=== PATIENT | male | born 1935 | race Caucasian/White ===

== ENCOUNTER 2019-06-10 06:59 | Outpatient (RCR) | payer MEDICARE, SELFPAY ==
[2019-03-12 08:12] LABS: INR 1.6; Prothrombin Time 18.3 Seconds (11.1-14.7)
[2019-03-19 07:45] LABS: INR 1.7; Prothrombin Time 19.7 Seconds (11.1-14.7)
[2019-04-23 12:36] LABS: INR 1.7; Prothrombin Time 19.5 Seconds (11.1-14.7)
[2019-05-07 13:23] LABS: INR 1.6; Prothrombin Time 18.9 Seconds (11.1-14.7)
[2019-05-18 13:13] LABS: INR 1.6; Prothrombin Time 18.4 Seconds (11.1-14.7)
[2019-06-02 08:25] LABS: INR 2.3; Prothrombin Time 24.8 Seconds (11.1-14.7)
[2019-06-10 07:43] LABS: INR 2.1
== END 2019-06-10 23:59 | disposition home or self-care (01) ==
LOC: ANHLAB 06:59
PROVIDERS: PCP Internal Medicine; Visit Provider Internal Medicine
DX: Z51.81 Encounter for therapeutic drug level monitoring (principal); Z79.01 Long term (current) use of anticoagulants
CPT/HCPCS: 36415; 85610

== ENCOUNTER 2019-09-21 06:46 | Outpatient (RCR) | payer MEDICARE, SELFPAY ==
[2019-06-24 08:00] LABS: INR 2.5; Prothrombin Time 26.3 Seconds (11.1-14.7)
[2019-07-09 07:37] LABS: INR 2.3; Prothrombin Time 24.7 Seconds (11.1-14.7)
[2019-08-06 07:29] LABS: INR 3.1; Prothrombin Time 31.4 Seconds (11.1-14.7)
[2019-08-13 07:27] LABS: INR 1.9
[2019-08-20 07:28] LABS: INR 1.9; Prothrombin Time 21.7 Seconds (11.1-14.7)
[2019-08-28 07:39] LABS: INR 1.8; Prothrombin Time 20.2 Seconds (11.1-14.7)
[2019-09-04 07:45] LABS: INR 1.6; Prothrombin Time 18.4 Seconds (11.1-14.7)
[2019-09-14 07:43] LABS: INR 1.4; Prothrombin Time 16.9 Seconds (11.1-14.7)
[2019-09-21 07:37] LABS: INR 1.4; Prothrombin Time 16.4 Seconds (11.1-14.7)
== END 2019-09-22 23:59 | disposition home or self-care (01) ==
LOC: ANHLAB 06:46
PROVIDERS: PCP Internal Medicine; Visit Provider Internal Medicine
DX: Z51.81 Encounter for therapeutic drug level monitoring (principal); Z79.01 Long term (current) use of anticoagulants
CPT/HCPCS: 36415; 85610

== ENCOUNTER 2019-10-27 06:52 | Outpatient (CLI) | payer MEDICARE, SELFPAY ==
[2019-10-27 07:45] LABS: Alanine Aminotransferase 12 U/L (4-50); Albumin Level 3.9 g/dL (3.5-5.1); Alkaline Phosphatase 65 U/L (38-126); Aspartate Amino Transferase 16 U/L (17-59); Bilirubin,Total 0.5 mg/dL (0.2-1.3); Blood Urea Nitrogen 28 mg/dL (9-20); Calcium 8.4 mg/dL (8.4-10.2); Carbon Dioxide 28 mmol/L (22-30); Chloride 104 mmol/L (98-107); Cholesterol 102 mg/dL (0-200); Estimated Glomerular Filt Rate > 60; Glucose 107 mg/dL (75-110); HDL Direct 34 mg/dL; Potassium 3.5 mmol/L (3.4-5.0); Sodium 140 mmol/L (137-145); Triglycerides 58 mg/dL (<150)
[2019-10-27 07:56] LABS: LDL Cholesterol Direct 55 mg/dL
[2019-10-27 08:36] LABS: Hemoglobin A1C 5.7 % (<5.7)
== END 2019-10-27 06:53 | disposition home or self-care (01) ==
PROVIDERS: PCP Internal Medicine; Visit Provider Internal Medicine
DX: E11.9 Type 2 diabetes mellitus without complications (principal); E78.5 Hyperlipidemia, unspecified; I10 Essential (primary) hypertension
CPT/HCPCS: 36415; 80053; 80061; 83036

== ENCOUNTER 2019-12-25 06:33 | Outpatient (RCR) | payer MEDICARE, SELFPAY ==
[2019-09-29 07:33] LABS: INR 1.3; Prothrombin Time 15.4 Seconds (11.1-14.7)
[2019-10-05 08:22] LABS: INR 1.4; Prothrombin Time 17.1 Seconds (11.1-14.7)
[2019-10-12 07:32] LABS: INR 2.1; Prothrombin Time 23.5 Seconds (11.1-14.7)
[2019-10-27 07:39] LABS: INR 1.7; Prothrombin Time 19.4 Seconds (11.1-14.7)
[2019-11-03 07:24] LABS: INR 1.7; Prothrombin Time 19.6 Seconds (11.1-14.7)
[2019-11-13 07:29] LABS: INR 1.3; Prothrombin Time 16.1 Seconds (11.1-14.7)
[2019-11-20 07:46] LABS: INR 1.6; Prothrombin Time 18.6 Seconds (11.1-14.7)
[2019-11-26 07:54] LABS: INR 1.5
[2019-12-04 07:11] LABS: INR 2.1; Prothrombin Time 23.5 Seconds (11.1-14.7)
[2019-12-11 07:49] LABS: Prothrombin Time 21.9 Seconds (11.1-14.7)
[2019-12-25 07:20] LABS: INR 2.8; Prothrombin Time 29.3 Seconds (11.1-14.7)
== END 2019-12-28 23:59 | disposition home or self-care (01) ==
LOC: ANHLAB 06:33
PROVIDERS: PCP Internal Medicine; Visit Provider Internal Medicine
DX: Z51.81 Encounter for therapeutic drug level monitoring (principal); Z79.01 Long term (current) use of anticoagulants
CPT/HCPCS: 36415; 85610

== ENCOUNTER 2020-01-05 14:36 | Outpatient (CLI) | payer MEDICARE, SELFPAY ==
--- NOTE | ~2020-01-05 | XR_ITS ---
XR lumbar spine 2-3V DATE: 01/05/2020 15:00 INDICATION: Chronic back pain; no injury. TECHNIQUE: AP, lateral and coned lateral lumbosacral weightbearing views COMPARISON: None FINDINGS: There is diffuse osteopenia. There is mild thoracolumbar levoscoliosis. There is moderate degenerative disc disease involving the lumbar interspaces, greatest at L2-3, relat ively sparing L5-S1. No fracture or bone destruction is evident. The included lower thoracic and lumbar pedicles are intac t. The sacroiliac joints are intact. There is extensive calcification of the abdominal aorta as well as iliac arteries, without apparent a neurysm. IMPRESSION: Moderate multilevel degenerative disc disease of the lumbar spine, greatest at L2-3 Reviewed, dictated and finalized at location A.
== END 2020-01-05 14:37 | disposition home or self-care (01) ==
PROVIDERS: PCP Internal Medicine; Visit Provider Internal Medicine
DX: M54.9 Dorsalgia, unspecified (principal); M51.36 Other intervertebral disc degeneration, lumbar region
CPT/HCPCS: 72100

== ENCOUNTER 2020-01-10 10:09 | Outpatient (CLI) | payer MEDICARE, SELFPAY ==
--- NOTE | ~2020-01-10 | MR_ITS ---
EXAMINATION: MR lumbar spine wo con EXAM DATE: 01/10/2020 11:27 INDICATION: Low back pain, bilateral leg pain for 2 months. TECHNIQUE: Multi-sequential, multiplanar MR images of the lumbar spine were obtained without contrast . Sagittal T1, T2, T2 fat saturation images. Axial T2 weighted images. There is no prior study for comparison. FINDINGS: There is moderate disc disease L2-3 and L4-5, otherwise mild lumbar disc disease. The conus medullaris terminates at the L1/2 level and has normal signal intensity and morphology. There are n o focal marrow signal abnormalities suspicious for malignancy or acute fracture. The vertebral bodies are aligned in the AP dimension. Paraspinal soft tissue is unremarkable. Cytogenetic Technician image demonstrates s izable left renal fluid signal intensity lesions up to 8 cm, imaged portions consistent with cysts. Level by level evaluation: T12-L1: Disc does not extend beyond the endplate margin. Facet arthropathy: Mild. Neural foraminal stenosis: No stenosis. Central canal stenosis: No stenosis. L1-L2: There is a mild diffuse disc bulge. Facet arthropathy: Mild. Neural foraminal stenosis: No stenosis. Central canal stenosis: No stenosis. L2-L3: There is a mild to moderate diffuse disc bulge. Facet arthropathy: Mild to moderate. Neural foraminal stenosis: Mild to moderate bilateral. Central canal stenosis: Mild to moderate. L3-L4: There is a mild diffuse disc bulge. Facet arthropathy: Mild to moderate. Neural foraminal stenosis: Mild to moderate bilateral. Central canal stenosis: Mild. L4-L5: There is a mild diffuse disc bulge. Facet arthropathy: Mild to moderate right, mild left. Neural foraminal stenosis: Moderate right, mild to moderate left. Central canal stenosis: Mild. L5-S1: There is a mild diffuse disc bulge. Facet arthropathy: Mild to moderate bilateral. Neural foraminal stenosis: Mild to moderate left, mild right. Central canal stenosis: Mild. IMPRESSION: 1. Overall moderate lumbar spondylosis. Reviewed, dictated and finalized at location G.
== END 2020-01-10 10:10 | disposition home or self-care (01) ==
PROVIDERS: PCP Internal Medicine; Visit Provider Internal Medicine
DX: M47.816 Spondylosis without myelopathy or radiculopathy, lumbar region (principal); M54.5 Low back pain
CPT/HCPCS: 72148

== ENCOUNTER 2020-01-13 11:14 | Outpatient (CLI) | payer MEDICARE, SELFPAY ==
[2020-01-13 12:37] LABS: Uric Acid 5.7 mg/dL (3.5-8.5)
== END 2020-01-13 11:15 | disposition home or self-care (01) ==
LOC: ANHLAB 11:18
PROVIDERS: PCP Internal Medicine; Visit Provider Nurse Practitioner
DX: M10.9 Gout, unspecified (principal)
CPT/HCPCS: 36415; 84550

== ENCOUNTER 2020-01-14 10:31 | Emergency (ER) | payer MEDICARE, SELFPAY ==
--- NOTE | ~2020-01-14 | XR_ITS ---
XR hand RT min 3V DATE: 01/14/2020 11:37 INDICATION: Pain from fall. Gout. TECHNIQUE: 3 views of right hand COMPARISON: None FINDINGS: Severe osteoarthritic change at the first carpometacarpal joint. There is mild chondrocalci nosis at the triangular cartilage. No fracture, dislocation, periosteal reaction or bone destruction is detected. IMPRESSION: Severe osteoarthritic change at the first carpometacarpal joint No fracture or dislocation Reviewed, dictated and finalized at location A.
[2020-01-14 10:39] VITALS: BP 141/78; PULSE 68; RESP 18; TEMP 36.6; O2SAT 100
[2020-01-14 11:00] VITALS: BP 133/70; PULSE 84; RESP 16; O2SAT 100
--- NOTE | 2020-01-14 11:12 | ED.EXTPRO ---
HPI - Extremity Problem General Chief complaint: Extremity Problem,Nontraumatic Stated complaint: Gout Time Seen by Provider: 01/14/20 10:42 Source: patient and family Mode of arrival: ambulatory Limitations: no limitations History of Present Illness HPI Narrative: Patient with history of gout, COPD, hypertension, chronic pain presents with chief complaint of gout in his right fourth and fifth joints that has become increasingly painful in the last 24 hours. Patient states her symptoms originally began 3 days ago. Patient was seen by his primary care Dr. Jose and was started on Mitigare and was given hydrocodone yesterday but he states the medication has not helped. Patient states that he is on a daily allopurinol for gout and his last flareup was 1 year ago. Patient reports he had blood work as well as an MRI performed as he has chronic back and knee pain as well. Patient states that he is unsure of the results of his blood work. Patient did not speak to his primary care provider prior to coming to the emergency department. He states that he took the [place] and Mitigare this morning without any relief in his symptoms. Patient denies any falls or injuries to the area of pain. Patient's hand is red and swollen. Patient states that his knees also hurt but has chronic pain in them and is not the cause of his visit today. Related Data Home Medications Medication Instructions Recorded Confirmed tiotropium bromide 18 mcg capsule 1 cap INHALATION DAILY 08/17/19 01/13/20 with inhalation device Allergies Allergy/AdvReac Type Severity Reaction Status Date / Time No Known Allergies Allergy Verified 01/14/20 11:27 Review of Systems Review of Systems: Narrative: CONSTITUTIONAL: Denies fever, chills, or sweats. EYES: Denies visual changes, redness, or discharge. ENT: Denies rhinorrhea, congestion, sore throat, or otalgia. CARDIOVASCULAR: Denies chest pain, palpitations, or edema. RESPIRATORY: Denies cough or dyspnea. GASTROINTESTINAL: Denies abdominal pain, nausea, vomiting, or diarrhea. GENITOURINARY: Denies dysuria or hematuria. SKIN: Denies rash or itching. MUSCULOSKELETAL: Reports joint pain NEUROLOGIC: Denies headache, numbness, dizziness, or weakness. PSYCHIATRIC: Denies anxiety or depression. [facility] Social History Social History Smoking status: Former smoker Smoking end date: 05/06/76 Alcohol intake: never Gender identity (if verbalized by the patient): Male Exam Narrative: Exam Narrative: GENERAL: Well-appearing, well-nourished, and in no acute distress. HEAD: Normocephalic, atraumatic. EYES: PERRLA and EOMI. ENT: Nares clear, no rhinorrhea or epistaxis. Mucous membranes moist. Oropharynx without tonsillar hypertrophy exudate or other lesions. Bilateral TMs pearly daniel nonbulging NECK: Supple. No adenopathy or masses. No carotid bruits or JVD CHEST: Clear to auscultation. No respiratory distress. Diffuse faint wheezing- patient states baseline. HEART: Regular rate and rhythm. No murmur heard. Normal peripheral pulses. ABDOMEN: Soft, nontender, nondistended, normal active bowel sounds. EXTREMITIES: Edema, swelling and erythema noted in the base of the fourth and fifth digits of patient's right hand. Patient declines range of motion exam to right digits due to pain. There is no erythema, tenderness to palpation or excessive warmth noted to patient's knees. SKIN: Warm, dry, no rash. NEURO: No focal deficits. Alert and oriented x3. PSYCH: Normal mood and affect. Course Course Emergency Course: Patient is resting in room comfortably with his son and friend in discussion. Patient gives permission to me to discuss his lab results with his friend and son in the room. Informed him that so far his labs are without significant findings to his uric acid levels are normal. Instructed him that I am awaiting the rest of his labs as well as his x-ray report. Johanna
[2020-01-14 11:30] LABS: Alanine Aminotransferase 13 U/L (4-50); Albumin Level 3.9 g/dL (3.5-5.1); Alkaline Phosphatase 72 U/L (38-126); Anion Gap 7 mmol/L (8-16); Aspartate Amino Transferase 23 U/L (17-59); Bilirubin,Total 0.9 mg/dL (0.2-1.3); Blood Urea Nitrogen 22 mg/dL (9-20); Calcium 8.5 mg/dL (8.4-10.2); Carbon Dioxide 29 mmol/L (22-30); Chloride 101 mmol/L (98-107); Estimated CRCL calculation 70 ml/min; Estimated Glomerular Filt Rate > 60; Glucose 99 mg/dL (75-110); Potassium 3.9 mmol/L (3.4-5.0); Sodium 137 mmol/L (137-145); Uric Acid 5.8 mg/dL (3.5-8.5)
[2020-01-14 11:31] LABS: Add Urine Microscopic? NO; Appearance Urine Clear (Clear); Bilirubin Urine Negative (Negative); Blood Urine Negative (Negative); Color Urine Yellow (Yellow); Glucose Urine UA Negative (Negative); Ketones Urine Negative (Negative); Leukocyte Esterase Ur Negative LEU/UL (Negative); Nitrate Urine Negative (Negative); Protein Urine Negative (Negative); Specific Grav Ur 1.013 (1.001-1.035); Urobilinogen Urine Negative mg/dL (<2.0)
[2020-01-14 12:00] VITALS: BP 140/74; PULSE 70; RESP 16; O2SAT 96
[2020-01-14 12:00] LABS: Erythrocyte Sedimentation Rate 11 mm/hr (0-20)
[2020-01-14 12:26] LABS: Basophils Absolute Auto 0.1 K/mm3 (0.0-0.1); Basophils Percent Auto 0.4 % (0.2-1.2); Eosinophils Absolute Auto 0.2 K/mm3 (0-0.3); Hematocrit 43.4 % (42.0-52.0); Hemoglobin 12.2 g/dL (14.0-18.0); Immature Granulocyte Absolute 0.08 K/mm3 (0.00-0.031); Immature Granulocyte Percent A 0.7 % (0-0.5); Immature Platelet Fraction Pct 5.9 % (0.9-11.2); Lymphocytes Percent Auto 6.1 % (18.3-44.2); Mean Corpuscular HGB Conc 28.1 g/dl (32-36); Mean Corpuscular Volume 74.6 fl (80-100); Monocytes Absolute Auto 0.8 K/mm3 (0.1-0.6); Monocytes Percent Auto 6.7 % (2.6-8.5); Neutrophils Absolute Auto 9.6 K/mm3 (1.3-6.7); Neutrophils Percent Auto 84.1 % (45.5-73.1); Platelet Count Result 238 k/mm3 (150-375); Red Blood Count 5.82 M/mm3 (4.6-6.20); Red Cell Distribution Width 19.1 % (11.5-14.5); White Blood Count 11.5 K/mm3 (4.5-10.0)
[2020-01-14 13:10] VITALS: BP 126/87; PULSE 70; RESP 16; O2SAT 97
[2020-01-14 13:25] LABS: Ovalocytes 1+ (NORMAL); Platelet Estimate Adequate (Adequate); Poikilocytosis 1+ (NORMAL)
== END 2020-01-14 13:10 | disposition home or self-care (01) ==
PROVIDERS: Physician Assistant; Emergency Provider Emergency Medicine; PCP Internal Medicine
DX: M10.9 Gout, unspecified (principal); G89.29 Other chronic pain; J44.9 Chronic obstructive pulmonary disease, unspecified; I10 Essential (primary) hypertension; Z87.891 Personal history of nicotine dependence
CPT/HCPCS: 36415; 73130; 80053; 81003; 84550; 85025; 85055; 85652; 96374; 99284; J3010

== ENCOUNTER 2020-02-26 09:47 | Emergency (ER) | payer MEDICARE, SELFPAY ==
[2020-02-26 10:01] VITALS: BP 130/77; PULSE 68; RESP 18; TEMP 36.8; O2SAT 99
--- NOTE | 2020-02-26 10:03 | ED.GENADULT ---
HPI - General Adult General Chief complaint: Wound/Laceration Stated complaint: Laceration on head Time Seen by Provider: 02/26/20 10:08 Source: patient and RN notes reviewed Mode of arrival: ambulatory Limitations: no limitations History of Present Illness HPI narrative: 85-year-old male present with complains of laceration to RT ear, caused by hitting RT ear on bed rail 9.5 hours ago. Charles says he fell out of bed this morning at approximately 01:00, says he pulled himself up cleaned up and sat in kitchen for about 30 minutes and returned to bed. Denies hitting head, no loss of consciousness, blurred vision, double vision, dizziness, syncopal episode, or seizure activity. Denies vertigo or immobility. Denies nausea or vomiting. Denies pain, numbness or tingling, or weakness of upper or lower extremities. No foreign body sensation. Tetanus vaccine not up to date, refused it today. The patient reports he have not been diagnosed with COVID-19. The patient reports he is not waiting for the results of a COVID-19 lab test. The patient reports he do not have a new or worsening cough or shortness of breath. Denies chest pain. The patient reports he do not have any rhinorrhea, congestion, loss of taste, sore throat, abdominal pain, and diarrhea. Tolerating po intake well. Denies recent traveling. Denies concerns for COVID-19 or exposures been home with limited outdoor exposure except for essential household needs and return home. At this time, patient is not suspected of having COVID-19. Some parts of this dictation were generated by voice recognition software and may contain typographical and/or grammatical inaccuracies Related Data Home Medications Medication Instructions Recorded Confirmed tiotropium bromide 18 mcg capsule 1 cap INHALATION DAILY 08/17/19 02/23/20 with inhalation device amoxicillin 02/26/20 warfarin 02/26/20 02/26/20 warfarin 7.5 mg PO 2XW 02/26/20 02/26/20 Allergies Allergy/AdvReac Type Severity Reaction Status Date / Time No Known Allergies Allergy Verified 02/23/20 09:46 Review of Systems Review of Systems: Narrative: CONSTITUTIONAL: Denies fever, chills, sweats. EYES: Denies visual changes, redness, discharge. ENT: Denies rhinorrhea, congestion, sore throat, otalgia. CARDIOVASCULAR: Denies chest pain, palpitations, edema. RESPIRATORY: Denies dyspnea, wheezing, cough. GASTROINTESTINAL: Denies abdominal pain, nausea, vomiting, diarrhea. GENITOURINARY: Denies dysuria, hematuria, abnormal discharge. SKIN: Complains of laceration to RT ear. MUSCULOSKELETAL: Denies acute back pain, joint pain, or myalgia. NEUROLOGIC: Denies numbness, or focal weakness. PSYCHIATRIC: Denies anxiety or depression. All other systems reviewed & are unremarkable except as noted in HPI and below. [facility] Past Medical History Medical History (Updated 02/27/20 @ 00:00 by [facility]) Chronic obstructive pulmonary disease, unspecified Idiopathic chronic gout, unspecified site, without tophus (tophi) nursing home (current) use of anticoagulants MIMA on CPAP Paroxysmal atrial fibrillation Polycythemia Type 2 diabetes mellitus without complications Family History Family History Father Family history of malignant neoplasm Patient's father is Acute myocardial infarction Mother Family history of malignant neoplasm Patient's mother is Social History Social History (Updated 02/27/20 @ 04:12 by LORE [place]) Smoking status: Former smoker Smoking end date: 05/06/76 Alcohol intake: never Substance use: never Living arrangements: alone Occupation/Education: retired 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
[2020-02-26 10:19] VITALS: BP 130/77; PULSE 68; RESP 18; TEMP 36.8; O2SAT 99
--- NOTE | 2020-02-26 10:24 | PC.NURSE ---
steersman aware no boostrix available in pyxis and pharmacy called. message left with pharmacy.
--- NOTE | 2020-02-26 10:26 | PC.NURSE ---
blocker polishing at bedside to do sutures.
--- NOTE | 2020-02-26 10:45 | PC.NURSE ---
son aware of awaiting pharmacy to stock tdap and requested to speak with father before making decision on giving tdap.
--- NOTE | 2020-02-26 10:47 | PC.NURSE ---
son aware of sutures in progress and will be able to speak to father after procedure.
--- NOTE | 2020-02-26 11:32 | PC.NURSE ---
at 1109 son was broght into rm 1 to discuss need for tdap.
== END 2020-02-26 11:20 | disposition home or self-care (01) ==
PROVIDERS: Emergency Provider Nurse Practitioner Family; PCP Internal Medicine
DX: S01.311A Laceration without foreign body of right ear, initial encounter (principal); W06.XXXA Fall from bed, initial encounter; J44.9 Chronic obstructive pulmonary disease, unspecified; Z79.01 Long term (current) use of anticoagulants; G47.33 Obstructive sleep apnea (adult) (pediatric); I48.91 Unspecified atrial fibrillation; E11.9 Type 2 diabetes mellitus without complications; Z87.891 Personal history of nicotine dependence; M1A.00X1 Idiopathic chronic gout, unspecified site, with tophus (tophi)
CPT/HCPCS: 12013; 99212; G0463

== ENCOUNTER 2020-03-07 06:30 | Outpatient (CLI) | payer MEDICARE, SELFPAY ==
--- NOTE | ~2020-03-07 | MR_ITS ---
EXAMINATION: MR thoracic spine wo con EXAM DATE: 03/07/2020 07:53 INDICATION: Thoracic pain. TECHNIQUE: Multi-sequential, multiplanar MR images of the thoracic spine were obtained without contra st. Sagittal T1, T2, T2 fat saturation, axial T2 weighted images reviewed. There is no prior study for comparison. FINDINGS: There is mild diffuse thoracic facet arthropathy. The vertebral bodies are aligned in the A P dimension. Multiple small Schmorl's nodes. Thoracic vertebral body heights are maintained. Minimal loss of some thoracic disc heights. Disc heights do not extend beyond endplate margins. The spinal cord signal intensity and intrinsic morphology is normal. Mild to moderate left, mild right neural fo raminal stenosis at T1-2. Thoracic central canal and neural foramen otherwise widely patent. Paraspin al soft tissue is unremarkable. IMPRESSION: Mild thoracic spondylosis. Reviewed, dictated and finalized at location B. RICT ADVISER IMPRESSION: Mild thoracic spondylosis.
== END 2020-03-07 06:31 | disposition home or self-care (01) ==
LOC: ANHIMG 06:33
PROVIDERS: PCP Internal Medicine; Visit Provider Nurse Practitioner Family
DX: M54.6 Pain in thoracic spine (principal)
CPT/HCPCS: 72146; 99211; G0463

== ENCOUNTER 2020-03-07 08:36 | Emergency (ER) | payer MEDICARE, SELFPAY ==
[2020-03-07 08:46] VITALS: BP 124/73; PULSE 75; RESP 20; TEMP 36.2; O2SAT 100
--- NOTE | 2020-03-07 08:55 | ED.SKABFB ---
HPI - Skin/Abscess/Foreign Bdy General Stated complaint: Suture Removal Source: patient Mode of arrival: ambulatory Limitations: no limitations History of Present Illness HPI narrative: Patient is an 85-year-old male who presents for suture removal. Patient had sutures placed behind right ear on 02/25. Wound well-healed. [address] MD complaint: other (Suture removal) Related Data Home Medications Medication Instructions Recorded Confirmed tiotropium bromide 18 mcg capsule 1 cap INHALATION DAILY 08/17/19 02/23/20 with inhalation device warfarin 02/26/20 02/26/20 warfarin 7.5 mg PO 2XW 02/26/20 02/26/20 Allergies Allergy/AdvReac Type Severity Reaction Status Date / Time No Known Allergies Allergy Verified 03/07/20 08:57 Review of Systems Review of Systems: Narrative: CONSTITUTIONAL: Denies fever, chills, or sweats. EYES: Denies visual changes, redness, or discharge. ENT: Denies rhinorrhea, congestion, sore throat, or otalgia. CARDIOVASCULAR: Denies chest pain, palpitations, or edema. RESPIRATORY: Denies cough or dyspnea. GASTROINTESTINAL: Denies abdominal pain, nausea, vomiting, or diarrhea. GENITOURINARY: Denies dysuria or hematuria. SKIN: Sutures behind right ear MUSCULOSKELETAL: Denies back pain, joint pain, or myalgia. NEUROLOGIC: Denies headache, numbness, dizziness, or weakness. PSYCHIATRIC: Denies anxiety or depression. [facility] Past Medical History Medical History (Updated 03/07/20 @ 09:01 by LORE [place]) Chronic obstructive pulmonary disease, unspecified Idiopathic chronic gout, unspecified site, without tophus (tophi) [facility] (current) use of anticoagulants MIMA on CPAP Paroxysmal atrial fibrillation Polycythemia Type 2 diabetes mellitus without complications Family History Family History Father Family history of malignant neoplasm Patient's father is Acute myocardial infarction Mother Family history of malignant neoplasm Patient's mother is Social History Social History Smoking status: Former smoker Smoking end date: 05/06/76 Alcohol intake: never Substance use: never 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 HEAD: Normocephalic, atraumatic. EYES: No redness or drainage. Conjunctiva are normal. CHEST: No respiratory distress. HEART: Regular rate and rhythm. EXTREMITIES: Normal range of motion. SKIN: 10 sutures behind right ear. Well healed suture line. NEURO: No focal deficits. Alert and oriented x3. Gait steady. PSYCH: Normal affect. No signs of depression or anxiety. Course Vital Signs Vital signs: Vital Signs Temperature 36.2 C L 03/07/20 08:46 Pulse Rate 75 03/07/20 08:46 Respiratory Rate 20 03/07/20 08:46 Blood Pressure 124/73 03/07/20 08:46 Pulse Oximetry 100 03/07/20 08:46 Temperature 36.2 C L 03/07/20 08:46 Pulse Rate 75 03/07/20 08:46 Respiratory Rate 20 03/07/20 08:46 Blood Pressure 124/73 03/07/20 08:46 Pulse Oximetry 100 03/07/20 08:46 Procedures Other Procedure Procedure 1: Other Procedure: 10 sutures behind right ear removed at this time. MDM - Skin/Abscess/Foreign Bdy MDM Narrative Medical decision making narrative: Patient here for simple suture removal. Patient has no other complaints at this time. Wound well-healed. 10 sutures removed. Patient is stable for discharge to home with outpatient follow-up as needed. Critical Care Time Critical Care Time Critical Care Time: No Discharge Plan Discharge Clinical Impression: Visit for suture removal Patient Disposition: Home, Self-Care Condition: Stable Prescriptions: No Action warfarin 7.5
== END 2020-03-07 09:08 | disposition home or self-care (01) ==
PROVIDERS: Emergency Provider Nurse Practitioner; PCP Internal Medicine
DX: S01.311D Laceration without foreign body of right ear, subsequent encounter (principal); X58.XXXD Exposure to other specified factors, subsequent encounter; J44.9 Chronic obstructive pulmonary disease, unspecified; G47.33 Obstructive sleep apnea (adult) (pediatric); E11.9 Type 2 diabetes mellitus without complications; I48.0 Paroxysmal atrial fibrillation; Z79.01 Long term (current) use of anticoagulants; M1A.00X0 Idiopathic chronic gout, unspecified site, without tophus (tophi)
CPT/HCPCS: 99211; G0463

== ENCOUNTER 2020-04-01 06:47 | Outpatient (RCR) | payer MEDICARE, SELFPAY ==
[2020-01-04 07:48] LABS: INR 2.5; Prothrombin Time 26.3 Seconds (11.1-14.7)
[2020-01-25 07:37] LABS: Prothrombin Time 48.2 Seconds (11.1-14.7)
[2020-01-25 07:46] LABS: INR 5.3
[2020-02-01 07:32] LABS: INR 2.7; Prothrombin Time 27.9 Seconds (11.1-14.7)
[2020-02-11 07:59] LABS: INR 2.2; Prothrombin Time 23.8 Seconds (11.1-14.7)
[2020-03-03 07:42] LABS: INR 1.6; Prothrombin Time 18.3 Seconds (11.1-14.7)
[2020-03-11 08:07] LABS: Prothrombin Time 23.1 Seconds (11.1-14.7)
[2020-04-01 07:33] LABS: INR 1.8; Prothrombin Time 21.7 Seconds (11.1-14.7)
== END 2020-04-03 23:59 | disposition home or self-care (01) ==
LOC: ANHLAB 06:47
PROVIDERS: PCP Internal Medicine; Visit Provider Internal Medicine
DX: Z51.81 Encounter for therapeutic drug level monitoring (principal); Z79.01 Long term (current) use of anticoagulants
CPT/HCPCS: 36415; 85610

== ENCOUNTER 2020-04-27 10:31 | Emergency (ER) | payer MEDICARE, SELFPAY ==
[2020-04-27 10:40] VITALS: BP 159/74; PULSE 95; RESP 16; TEMP 36.4; O2SAT 97
[2020-04-27 11:27] LABS: Basophils Percent Auto 0.4 % (0.2-1.2); Eosinophils Absolute Auto 0.2 K/mm3 (0-0.3); Hematocrit 43.9 % (42.0-52.0); Hemoglobin 12.3 g/dL (14.0-18.0); Immature Granulocyte Absolute 0.04 K/mm3 (0.00-0.031); Immature Granulocyte Percent A 0.5 % (0-0.5); Immature Platelet Fraction Pct 3.1 % (0.9-11.2); Lymphocytes Percent Auto 8.8 % (18.3-44.2); Monocytes Absolute Auto 0.5 K/mm3 (0.1-0.6); Monocytes Percent Auto 6.2 % (2.6-8.5); Neutrophils Absolute Auto 6.4 K/mm3 (1.3-6.7); Neutrophils Percent Auto 81.1 % (45.5-73.1); Platelet Count Result 215 k/mm3 (150-375); Red Blood Count 5.85 M/mm3 (4.6-6.20); Red Cell Distribution Width 19.1 % (11.5-14.5); White Blood Count 7.9 K/mm3 (4.5-10.0)
[2020-04-27 11:35] LABS: Hypochromasia 3+ (NORMAL); INR 2.7; Ovalocytes 2+ (NORMAL); Platelet Estimate Adequate (Adequate); Prothrombin Time 28.8 Seconds (11.1-14.7); Tear Drop Cells 2+ (NORMAL)
[2020-04-27 11:36] LABS: Partial Thromboplastin Time 33.7 SECONDS (22.3-36.8)
--- NOTE | 2020-04-27 13:37 | ED.LOWEXIN ---
HPI - Extremity Injury (Lower) General Chief Complaint: Extremity Injury, Lower Stated Complaint: Left leg swelling Source: patient Mode of arrival: ambulatory Limitations: no limitations History of Present Illness HPI Narrative: 85 years old white male presents with swelling at the anterior lateral left lower leg started few days ago. Patient was getting out of truck 1 week ago, slid on the running board caused some bruises at the anterior lateral side of the left lower leg. 3 days later start the swelling. Patient on Coumadin. Patient denies any fever, chills, nausea, vomiting or trouble walking Related Data Home Medications Medication Instructions Recorded Confirmed tiotropium bromide 18 mcg capsule 1 cap INHALATION DAILY 08/17/19 03/07/20 with inhalation device warfarin 5 mg PO 5XW 02/26/20 03/07/20 warfarin 7.5 mg PO 2XW 02/26/20 03/07/20 Allergies Allergy/AdvReac Type Severity Reaction Status Date / Time No Known Allergies Allergy Verified 04/27/20 10:56 Review of Systems Review of Systems: Narrative: CONSTITUTIONAL: Denies fever, chills, or sweats. EYES: Denies visual changes, redness, or discharge. ENT: Denies rhinorrhea, congestion, sore throat, or otalgia. CARDIOVASCULAR: Denies chest pain, palpitations, or edema. RESPIRATORY: Denies cough or dyspnea. GASTROINTESTINAL: Denies abdominal pain, nausea, vomiting, or diarrhea. GENITOURINARY: Denies dysuria or hematuria. SKIN: Denies rash or itching. MUSCULOSKELETAL: Denies back pain, joint pain, or myalgia. NEUROLOGIC: Denies headache, numbness, or weakness. PSYCHIATRIC: Denies anxiety or depression. [facility] Past Medical History Medical History Chronic obstructive pulmonary disease, unspecified Idiopathic chronic gout, unspecified site, without tophus (tophi) custodial (current) use of anticoagulants MIMA on CPAP Paroxysmal atrial fibrillation Polycythemia Type 2 diabetes mellitus without complications Family History Family History Father Family history of malignant neoplasm Patient's father is Acute myocardial infarction Mother Family history of malignant neoplasm Patient's mother is Social History Social History Smoking status: Former smoker Smoking end date: 05/06/76 Alcohol intake: never Substance use: never 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 Gender identity (if verbalized by the patient): Male Exam Narrative: Exam Narrative: General appearance: Well-developed, well-nourished Skin: Normal color, left lower leg showed a hematoma at the anterior lateral side of the leg, no opening, no warmth, no discharge, 2 cm above the surface of the skin, 10 x 5 cm size Head: Normocephalic, nontraumatic Eyes: Clear conjunctiva ENT: Oropharynx normal, ears normal, nose normal Neck: Supple, nontender Chest and respiratory: Airway patent, no respiratory distress, no accessory muscle use Heart: Irregular irregularity Abdomen: Soft, nontender, no organomegaly, quiet bowel sounds Vascular: Normal peripheral pulses, normal capillary refill. Musculoskeletal: Normal range of motion, nontender back Neurologic: Alert and oriented ?3, NURSE PRACTITIONER PER DIEM is normal as tested, no gross motor deficit Course Course Emergency Course: Stable Vital Signs Vital signs: Vital Signs Temperature 36.4 C 04/27/20 10:40 Pulse Rate 95 04/27/20 10:40 Respiratory Rate 16 04/27/20 10:40 Blood Pressure 159/74 H 04/27/20 10:40 Pulse Oximetry 97 04/27/20 10:40 Temperature
[2020-04-27 14:18] VITALS: BP 142/88; PULSE 88; RESP 16; O2SAT 98
== END 2020-04-27 14:19 | disposition home or self-care (01) ==
PROVIDERS: Emergency Provider Emergency Medicine; PCP Internal Medicine
DX: S80.12XA Contusion of left lower leg, initial encounter (principal); J44.9 Chronic obstructive pulmonary disease, unspecified; G47.33 Obstructive sleep apnea (adult) (pediatric); I48.0 Paroxysmal atrial fibrillation; E11.9 Type 2 diabetes mellitus without complications; D75.1 Secondary polycythemia; Z79.01 Long term (current) use of anticoagulants; Z87.891 Personal history of nicotine dependence; W22.8XXA Striking against or struck by other objects, initial encounter
CPT/HCPCS: 36415; 85025; 85055; 85610; 85730; 99283

== ENCOUNTER 2020-07-06 06:35 | Outpatient (RCR) | payer MEDICARE, SELFPAY ==
[2020-04-11 07:35] LABS: Prothrombin Time 31.3 Seconds (11.1-14.7)
[2020-04-18 08:06] LABS: INR 2.3; Prothrombin Time 25.6 Seconds (11.1-14.7)
[2020-05-02 08:55] LABS: INR 2.7; Prothrombin Time 29.3 Seconds (11.1-14.7)
[2020-05-16 07:45] LABS: INR 2.1; Prothrombin Time 24.4 Seconds (11.1-14.7)
[2020-06-06 07:37] LABS: Prothrombin Time 23.5 Seconds (11.1-14.7)
[2020-06-28 07:20] LABS: INR 2.9; Prothrombin Time 30.7 Seconds (11.1-14.7)
[2020-07-06 07:40] LABS: INR 2.6
== END 2020-07-10 23:59 | disposition home or self-care (01) ==
LOC: ANHLAB 06:35
PROVIDERS: PCP Internal Medicine; Visit Provider Internal Medicine
DX: Z51.81 Encounter for therapeutic drug level monitoring (principal); Z79.01 Long term (current) use of anticoagulants
CPT/HCPCS: 36415; 85610

== ENCOUNTER 2020-08-23 06:36 | Outpatient (CLI) | payer MEDICARE, SELFPAY ==
[2020-08-23 07:44] LABS: Alanine Aminotransferase 13 U/L (4-50); Albumin Level 4.1 g/dL (3.5-5.1); Alkaline Phosphatase 66 U/L (38-126); Anion Gap 6 mmol/L (8-16); Aspartate Amino Transferase 19 U/L (17-59); Bilirubin,Total 0.9 mg/dL (0.2-1.3); Blood Urea Nitrogen 18 mg/dL (9-20); Calcium 8.7 mg/dL (8.4-10.2); Carbon Dioxide 28 mmol/L (22-30); Chloride 106 mmol/L (98-107); Cholesterol 102 mg/dL (0-200); Estimated Glomerular Filt Rate > 60; Glucose 93 mg/dL (75-110); HDL Direct 40 mg/dL; Hemoglobin A1C 5.5 % (<5.7); Sodium 140 mmol/L (137-145); Triglycerides 64 mg/dL (<150)
[2020-08-23 07:56] LABS: LDL Cholesterol Direct 53 mg/dL
== END 2020-08-23 06:37 | disposition home or self-care (01) ==
PROVIDERS: PCP Internal Medicine; Visit Provider Nurse Practitioner
DX: E78.5 Hyperlipidemia, unspecified (principal); E11.9 Type 2 diabetes mellitus without complications
CPT/HCPCS: 36415; 80053; 80061; 83036; 85610

== ENCOUNTER 2020-10-12 06:50 | Outpatient (RCR) | payer MEDICARE, SELFPAY ==
[2020-07-20 07:34] LABS: Prothrombin Time 23.6 Seconds (11.1-14.7)
[2020-08-03 08:10] LABS: INR 1.4
[2020-08-11 07:45] LABS: INR 1.8; Prothrombin Time 21.4 Seconds (11.1-14.7)
[2020-08-23 07:45] LABS: INR 1.7
[2020-09-06 07:38] LABS: INR 1.8; Prothrombin Time 21.8 Seconds (11.1-14.7)
[2020-09-14 07:44] LABS: INR 3.1; Prothrombin Time 32.8 Seconds (11.1-14.7)
[2020-09-21 09:06] LABS: INR 2.2; Prothrombin Time 24.8 Seconds (11.1-14.7)
[2020-10-12 08:01] LABS: INR 2.7; Prothrombin Time 29.6 Seconds (11.1-14.7)
== END 2020-10-18 23:59 | disposition home or self-care (01) ==
LOC: ANHLAB 06:50
PROVIDERS: PCP Internal Medicine; Visit Provider Internal Medicine
DX: Z51.81 Encounter for therapeutic drug level monitoring (principal); Z79.01 Long term (current) use of anticoagulants
CPT/HCPCS: 36415; 85610

== ENCOUNTER 2021-01-20 06:43 | Outpatient (RCR) | payer MEDICARE, SELFPAY ==
[2020-11-02 07:29] LABS: INR 1.1; Prothrombin Time 14.8 Seconds (11.1-14.7)
[2020-11-15 07:55] LABS: INR 2.5; Prothrombin Time 26.6 Seconds (11.1-14.7)
[2020-11-29 08:33] LABS: INR 2.8; Prothrombin Time 28.9 Seconds (11.1-14.7)
[2020-12-20 08:58] LABS: INR 2.3; Prothrombin Time 24.6 Seconds (11.1-14.7)
[2021-01-20 08:21] LABS: INR 2.9; Prothrombin Time 29.3 Seconds (11.1-14.7)
== END 2021-01-31 23:59 | disposition home or self-care (01) ==
LOC: ANHLAB 06:43
PROVIDERS: PCP Internal Medicine; Referring Provider Pain Medicine Pain Medicine; Visit Provider Internal Medicine
DX: Z51.81 Encounter for therapeutic drug level monitoring (principal); Z79.01 Long term (current) use of anticoagulants
CPT/HCPCS: 36415; 85610

== ENCOUNTER 2021-02-16 16:41 | Emergency (ER) | payer MEDICARE, SELFPAY ==
[2021-02-16 16:53] VITALS: BP 143/75; PULSE 75; RESP 30; TEMP 36.6; O2SAT 99
--- NOTE | 2021-02-16 17:59 | ED.WOUNDLAC ---
HPI - Wound/Laceration General Chief Complaint: Wound/Laceration Stated Complaint: cut right leg Time Seen by Provider: 02/16/21 16:56 Source: patient and RN notes reviewed Mode of arrival: ambulatory Limitations: no limitations History of Present Illness HPI narrative: Patient presents today complaining of a laceration to his right lower leg and abrasion to his right elbow that were sustained 1 hour prior to arrival when he fell up a wooden step while walking. Denies head injury or loss of consciousness. Denies dizziness or lightheadedness. He is up-to-date on his tetanus vaccine. He is on Coumadin. Related Data Allergies Allergy/AdvReac Type Severity Reaction Status Date / Time No Known Allergies Allergy Verified 01/11/21 09:32 Review of Systems Review of Systems: CONSTITUTIONAL: Denies body aches, fever, chills, or sweats. EYES: Denies visual changes, redness, or discharge. ENT: Denies rhinorrhea, congestion, sore throat, or otalgia. CARDIOVASCULAR: Denies chest pain, palpitations, or edema. RESPIRATORY: Denies cough or dyspnea. GASTROINTESTINAL: Denies abdominal pain, nausea, vomiting, or diarrhea. GENITOURINARY: Denies dysuria or hematuria. SKIN: Denies rash, itching. + Laceration to right lower leg, abrasion to right elbow MUSCULOSKELETAL: Denies back pain, joint pain, or myalgia. NEUROLOGIC: Denies headache, numbness, tingling, or weakness. PSYCH: Denies depression or anxiety. 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 MIMA on CPAP Paroxysmal atrial fibrillation Polycythemia Type 2 diabetes mellitus without complications Family History Family History Father Family history of malignant neoplasm Patient's father is Acute myocardial infarction Mother Family history of malignant neoplasm Patient's mother is Social History Social History Smoking packs per day: 1 Smoking cigarettes per day: 20.0 Years smoked: 4 Smoking pack-years: 4.00 Smoking status: Former smoker Tobacco type: cigarettes Second hand tobacco smoke exposure: Yes Smoking end date: 05/06/76 Alcohol intake: never Substance use: never 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 HEAD: Normocephalic, atraumatic. EYES: EOMI. No redness or drainage. Conjunctivae normal. ENT: Mucous membranes pink and moist. NECK: Normal AROM. Supple. No lymphadenopathy. CHEST: Tachypneic, labored, baseline for patient HEART: Regular rate and rhythm. No murmur appreciated. Normal peripheral pulses. EXTREMITIES: Right lower le.5 cm full-thickness flap laceration to the anterior lower leg. Mild active bleeding. Below the laceration, there is a hematoma forming. Distal sensation intact. Capillary refill normal. SKIN: Warm, dry, no rash. Capillary refill normal. Normal skin turgor. Quarter size superficial abrasion to the olecranon process. Full range of motion of the elbow without pain. Distal sensation intact. NEURO: No focal deficits. Alert and oriented x3. Gait steady. PSYCH: Normal affect. No signs of depression or anxiety. Course Vital Signs Vital signs: Vital Signs Temperature 97.9 F 02/16/21 16:53 Pulse Rate 75 02/16/21 16:53 Respiratory Rate 30 H 02/16/21 16:53 Blood Pressure 143/75 H 02/16/21 16:53 Pulse Oximetry 99 02/16/21 16:53 Temperature 97.9 F 02/16/21 16:53 Pulse Rate 75 02/16/21 16:5
== END 2021-02-16 18:38 | disposition home or self-care (01) ==
PROVIDERS: Emergency Provider Nurse Practitioner; PCP Internal Medicine
DX: S81.811A Laceration without foreign body, right lower leg, initial encounter (principal); S50.311A Abrasion of right elbow, initial encounter; W10.9XXA Fall (on) (from) unspecified stairs and steps, initial encounter; Z87.891 Personal history of nicotine dependence; J44.9 Chronic obstructive pulmonary disease, unspecified; M10.00 Idiopathic gout, unspecified site; Z79.01 Long term (current) use of anticoagulants; G47.33 Obstructive sleep apnea (adult) (pediatric); E11.9 Type 2 diabetes mellitus without complications
CPT/HCPCS: 12004; 99212; G0463

== ENCOUNTER 2021-02-28 06:39 | Outpatient (CLI) | payer MEDICARE, SELFPAY ==
[2021-02-28 07:43] LABS: Hemoglobin A1C 5.5 % (<5.7)
[2021-02-28 07:52] LABS: Alanine Aminotransferase 15 U/L (4-50); Albumin Level 3.8 g/dL (3.5-5.1); Alkaline Phosphatase 61 U/L (38-126); Anion Gap 9 mmol/L (8-16); Aspartate Amino Transferase 19 U/L (17-59); Blood Urea Nitrogen 19 mg/dL (9-20); Calcium 8.6 mg/dL (8.4-10.2); Carbon Dioxide 27 mmol/L (22-30); Chloride 107 mmol/L (98-107); Cholesterol 94 mg/dL (0-200); Estimated Glomerular Filt Rate > 60; Glucose 90 mg/dL (65-110); HDL Direct 31 mg/dL; Potassium 4.4 mmol/L (3.4-5.0); Sodium 143 mmol/L (137-145); Triglycerides 67 mg/dL (<150); Uric Acid 3.8 mg/dL (3.5-8.5)
[2021-02-28 08:03] LABS: LDL Cholesterol Direct 48 mg/dL
== END 2021-02-28 06:40 | disposition home or self-care (01) ==
PROVIDERS: PCP Internal Medicine; Visit Provider Internal Medicine
DX: E11.9 Type 2 diabetes mellitus without complications (principal); I10 Essential (primary) hypertension; M10.9 Gout, unspecified; E78.5 Hyperlipidemia, unspecified
CPT/HCPCS: 36415; 80053; 80061; 83036; 84550; 87070; 87075; 87205; 96372; 99213; G0463; J0696

== ENCOUNTER 2021-02-28 08:51 | Emergency (ER) | payer MEDICARE, SELFPAY ==
[2021-02-28 09:02] VITALS: BP 142/94; PULSE 78; RESP 20; TEMP 36.1; O2SAT 100
--- NOTE | 2021-02-28 09:21 | ED.WOUNDLAC ---
HPI - Wound/Laceration General Chief Complaint: Wound/Laceration Stated Complaint: Suture Removal Time Seen by Provider: 02/28/21 09:21 Source: patient Mode of arrival: ambulatory Limitations: no limitations History of Present Illness HPI narrative: Charles Osorio is a 86 yo male with a PMH of copd, gout, anxiety, BPH HTN high cholesterol, chronic anticoagulation, comes to [facility] for suture removal of sutures were placed almost 2 weeks ago after he fell up the stairs in his home. Sutures in his lower right extremity was in the shape of the and the edges themselves are well approximated but there is erythema around the incision area with a large lump below, the laceration about 4 cm there are small white blisters around the area Related Data Allergies Allergy/AdvReac Type Severity Reaction Status Date / Time No Known Allergies Allergy Verified 02/28/21 10:09 Review of Systems Review of Systems: CONSTITUTIONAL: Denies fever, chills, sweats. EYES: Denies visual changes, redness, discharge. ENT: Denies rhinorrhea, congestion, sore throat, otalgia. CARDIOVASCULAR: Denies chest pain, palpitations, edema. RESPIRATORY: Denies dyspnea, wheezing, cough GASTROINTESTINAL: Denies abdominal pain, nausea, vomiting, diarrhea. GENITOURINARY: Denies dysuria, hematuria, abnormal discharge SKIN: Denies rash or itching. NEUROLOGIC: Denies numbness, or focal weakness. PSYCHIATRIC: Denies anxiety or depression. 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 MIMA on CPAP Paroxysmal atrial fibrillation Polycythemia Type 2 diabetes mellitus without complications Family History Family History Father Family history of malignant neoplasm Patient's father is Acute myocardial infarction Mother Family history of malignant neoplasm Patient's mother is Social History Social History Smoking packs per day: 1 Smoking cigarettes per day: 20.0 Years smoked: 4 Smoking pack-years: 4.00 Smoking status: Former smoker Tobacco type: cigarettes Second hand tobacco smoke exposure: Yes Smoking end date: 05/06/76 Alcohol intake: never Substance use: never 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 Fragile male HEAD: normocephalic, atraumatic. EYES: Sclera clear/white. Vision is grossly intact. EARS: External ears normal. Hearing grossly intact. NOSE: External nose normal without nasal discharge, nares without redness, no rhinorrhea. THROAT: Mucous membranes moist, NECK: Neck supple, non-tender CARDIOVASCULAR: Regular rate and rhythm without murmurs, gallops, or rubs. RESPIRATORY: Audible breathing. breath sounds equal bilaterally. Mild wheezes, Coarse breath sounds GASTROINTESTINAL: Abdomen soft, non-tender, SKIN: warm, intact with infection around wound with 20 sutures and it the wound is elliptical, well approximated with elliptical and Collin M below wound, about 4 cm, very tender indurated area-mild edema of leg around site NEURO: awake, alert, and oriented to person, place and time. There were no obvious focal neurologic abnormalities. Steady gait EXTREMITIES: Normal range of motion. BACK: Nontender without deformity Course Course Emergency Course: Patient comes with laceration for suture removal but wound is infected
--- NOTE | 2021-02-28 10:21 | PC.NURSE ---
1000- contacting outpatient lab and seeing if they abelardo any extra tubes of blood this am when pt was there that we could add a CBC order to since he didnt have that ordered this am, and we were wanting to see if pt had an elevated white count, pt has no extra tubes.
[2021-02-28] MEDS: cefTRIAXone 1 GM VIAL IM (10:30)
== END 2021-02-28 10:56 | disposition home or self-care (01) ==
PROVIDERS: Emergency Provider Nurse Practitioner; PCP Internal Medicine
DX: T81.49XA Infection following a procedure, other surgical site, initial encounter (principal); S81.811D Laceration without foreign body, right lower leg, subsequent encounter; L08.9 Local infection of the skin and subcutaneous tissue, unspecified; W10.9XXD Fall (on) (from) unspecified stairs and steps, subsequent encounter; Z87.891 Personal history of nicotine dependence; J44.9 Chronic obstructive pulmonary disease, unspecified; M10.9 Gout, unspecified; F41.9 Anxiety disorder, unspecified; I10 Essential (primary) hypertension; E78.00 Pure hypercholesterolemia, unspecified; Z79.01 Long term (current) use of anticoagulants; G47.33 Obstructive sleep apnea (adult) (pediatric); I48.0 Paroxysmal atrial fibrillation; E11.9 Type 2 diabetes mellitus without complications
CPT/HCPCS: 87070; 87075; 87205; 96372; 99213; G0463; J0696

== ENCOUNTER 2021-05-03 06:47 | Outpatient (RCR) | payer MEDICARE, SELFPAY ==
[2021-02-06 07:38] LABS: INR 2.9; Prothrombin Time 29.8 Seconds (11.1-14.7)
[2021-02-20 13:29] LABS: INR 4.8; Prothrombin Time 43.2 Seconds (11.1-14.7)
[2021-02-28 07:41] LABS: INR 2.3; Prothrombin Time 24.5 Seconds (11.1-14.7)
[2021-03-07 08:08] LABS: INR 1.5; Prothrombin Time 17.6 Seconds (11.1-14.7)
[2021-03-17 08:33] LABS: INR 1.3
[2021-03-27 09:00] LABS: INR 1.1; Prothrombin Time 14.1 Seconds (11.1-14.7)
[2021-04-18 07:57] LABS: INR 1.1; Prothrombin Time 14.2 Seconds (11.1-14.7)
[2021-04-26 07:34] LABS: INR 1.3; Prothrombin Time 15.7 Seconds (11.1-14.7)
[2021-05-03 07:31] LABS: INR 1.8; Prothrombin Time 20.2 Seconds (11.1-14.7)
== END 2021-05-07 23:59 | disposition home or self-care (01) ==
LOC: ANHLAB 06:47
PROVIDERS: PCP Internal Medicine; Visit Provider Internal Medicine
DX: Z51.81 Encounter for therapeutic drug level monitoring (principal); Z79.01 Long term (current) use of anticoagulants
CPT/HCPCS: 36415; 85610

== ENCOUNTER 2021-05-05 09:28 | Inpatient (IN) | payer MEDICARE, SELFPAY ==
[2021-05-05] VITALS (41 sets, daily range): BP systolic 141–185; BP diastolic 71–103; PULSE 66–88; RESP 16–26; TEMP 36.3–36.5; O2SAT 94–97
--- NOTE | ~2021-05-05 | XR_ITS ---
EXAMINATION: XR chest 1V portable DATE: 05/05/2021 10:26 INDICATION: Cough. TECHNIQUE: A single frontal view of the chest was obtained. COMPARISON: Chest 2 views 04/01/2018, chest CT 11/08/2011 FINDINGS: There are calcified pleural plaques bilaterally, which may be seen with asbestosis exposure . Calcified right hilar lymph nodes are consistent with old granulomatous disease. No pleural effusio n or pneumothorax. Cardiomegaly is noted. There are prominent paracardial fat pads. IMPRESSION: 1. Cardiomegaly. Reviewed, dictated and finalized at location [facility]. [facility] IMPRESSION: 1. Cardiomegaly.
--- NOTE | 2021-05-05 09:37 | ECG_ITS ---
Measurements Intervals [place] Rate: 71 P: PA: 0 QRS: 42 QRSD: 136 T: 12 QT: 385 QTc: 420 Interpretive Statements ATRIAL FIBRILLATION RIGHT BUNDLE BRANCH BLOCK BASELINE ARTIFACT- II, III, AVF, V4-V6 ABNORMAL ECG Electronically Signed On 05-05-2021 10:56:22 [employer] by Blayne Torre D.O.
--- NOTE | 2021-05-05 09:38 | ED.GENADULT ---
HPI - General Adult General Chief complaint: Shortness of Breath/Dyspnea Stated complaint: SOB Time Seen by Provider: 05/05/21 09:32 Source: RN notes reviewed History of Present Illness HPI narrative: Patient presents to emergency department from home via EMS for shortness of breath. Patient states that he has been having increasing shortness of breath for the past 1 week with a cough this been on for. States he has COPD and has been using his nebulizer machine at home with minimal relief he denies fever chills chest pain abdominal pain nausea vomiting or any other symptoms states he has had his COVID-19 vaccinations patient was given 2 breathing treatments and Solu-Medrol 125 by EMS in route Related Data Home Medications Medication Instructions Recorded Confirmed allopurinol 100 mg tablet See Rx Instructions PO TID tablet 03/03/21 04/12/21 Allergies Allergy/AdvReac Type Severity Reaction Status Date / Time No Known Allergies Allergy Verified 04/12/21 09:36 Review of Systems Review of Systems: Gen.: Denies fevers or chills Eyes: Denies eye pain or visual change ENT: Denies congestion Respiratory: See HPI CV: Denies chest pain or palpitations GI: Denies abdominal pain nausea, emesis or diarrhea Musculoskeletal: Denies back pain or muscle pain Neuro: Denies numbness, tingling, weakness or focal weakness Skin: Denies rash Except as documented, all other systems reviewed and negative [facility] Past Medical History Medical History Chronic obstructive pulmonary disease, unspecified Idiopathic chronic gout, unspecified site, without tophus (tophi) 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 MIMA on CPAP Paroxysmal atrial fibrillation Polycythemia Type 2 diabetes mellitus without complications Family History Family History Father Family history of malignant neoplasm Patient's father is Acute myocardial infarction Mother Family history of malignant neoplasm Patient's mother is Social History Social History Smoking packs per day: 0.5 Smoking cigarettes per day: 10.0 Years smoked: 4 Smoking pack-years: 2.00 Smoking status: Former smoker Tobacco type: cigarettes Second hand tobacco smoke exposure: Yes Smoking end date: 05/06/76 Alcohol intake: never Substance use: never Substance use type: does not use 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 ABDOMINAL: Soft, nontender, nondistended, no rebound or guarding MUSCULOSKELETAl: Moves all extremities. No clubbing, cyanosis 2+ edema the bilateral lower extremities NEURO: Awake and alert. Following commands, speech normal, no focal deficits SKIN:: Warm, dry. Normal Color PSYCHIATRIC: Normal affect/mood, Course Course Emergency Course: Patient continues to have wheezing throughout the bilateral lung chery decreased breath sounds in the bases dyspneic with any exertion will amend at this time Discussed with Dr Dias presentation work-up agrees with admission at this time Discussed with patient and family results of workup and diagnosis. Discussed need for admission. Patient and family understand and agree to current treatment plan Vital Signs Vital signs: Vital Signs Temperature 97.7 F 05/05/21 09:31 Pulse Rate 78 05/05/21 09:31 Respiratory Rate 19 05/05/21 09:31
[2021-05-05] MEDS: IPRATROPIUM BR 0.02% INH SOLN 0.5 MG/2.5 ML VIAL INHALATION ×3 (09:44→21:06)
[2021-05-05] MEDS: ALBUTEROL SULFATE NEB 2.5 MG/0.5 ML INH 5 MG INHALATION ×3 (09:44→21:06)
[2021-05-05 09:52] LABS: Basophils Percent Auto 0.5 % (0.2-1.2); Eosinophils Absolute Auto 0.2 K/mm3 (0-0.3); Eosinophils Percent Auto 2.8 % (0-4.4); Hematocrit 43.5 % (42.0-52.0); Hemoglobin 12.2 g/dL (14.0-18.0); Immature Granulocyte Absolute 0.03 K/mm3 (0.00-0.031); Immature Granulocyte Percent A 0.4 % (0-0.5); Immature Platelet Fraction Pct 3.8 % (0.9-11.2); Lymphocytes Absolute Auto 0.95 K/mm3 (0.9-3.2); Lymphocytes Percent Auto 11.2 % (18.3-44.2); Mean Corpuscular Hemoglobin 20.8 pg (26-34); Mean Corpuscular Volume 74.2 fl (80-100); Monocytes Absolute Auto 0.6 K/mm3 (0.1-0.6); Monocytes Percent Auto 7.4 % (2.6-8.5); Neutrophils Absolute Auto 6.6 K/mm3 (1.3-6.7); Neutrophils Percent Auto 77.7 % (45.5-73.1); Platelet Count Result 197 k/mm3 (150-375); Red Blood Count 5.86 M/mm3 (4.6-6.20); Red Cell Distribution Width 21.5 % (11.5-14.5); White Blood Count 8.5 K/mm3 (4.5-10.0)
[2021-05-05 10:11] LABS: INR 2.1; Prothrombin Time 23.2 Seconds (11.1-14.7)
[2021-05-05 10:12] LABS: Lactic Acid Reflex 1.8 mmol/L (0.7-2.1); Partial Thromboplastin Time 32.6 SECONDS (22.3-36.8)
[2021-05-05 10:13] LABS: Alanine Aminotransferase 19 U/L (4-50); Albumin Level 3.9 g/dL (3.5-5.1); Alkaline Phosphatase 72 U/L (38-126); Anion Gap 7 mmol/L (8-16); Aspartate Amino Transferase 25 U/L (17-59); Bilirubin,Total 0.7 mg/dL (0.2-1.3); Blood Urea Nitrogen 19 mg/dL (9-20); Calcium 8.5 mg/dL (8.4-10.2); Carbon Dioxide 25 mmol/L (22-30); Chloride 105 mmol/L (98-107); Estimated Glomerular Filt Rate > 60; Glucose 103 mg/dL (65-110); Potassium 4.3 mmol/L (3.4-5.0); Sodium 137 mmol/L (137-145)
[2021-05-05 10:24] LABS: NT Pro B Type Natriuretic Pept 853 pg/mL (5-100); Troponin I < 0.012 ng/mL (0.000-0.034)
[2021-05-05 10:30] LABS: Platelet Estimate Adequate (Adequate)
[2021-05-05 10:31] LABS: Hypochromasia 1+ (NORMAL); Ovalocytes 1+ (NORMAL); Poikilocytosis 1+ (NORMAL)
--- NOTE | 2021-05-05 12:33 | PM.IMHP ---
H&P: HPI History of Present Illness Date/Time: 05/05/21 12:33 Chief Complaint: sob Narrative: Pt is a 86-year-old male with a past medical history of paroxysmal atrial fibrillation on warfarin, COPD, hypertension, sleep apnea, who presented to the emergency room for shortness of breath. Patient states that this week he started feeling short of breath with wheezing at rest and with activity. In the last 2 days he said it has been getting worse. He also has symptoms of a headache and possibly some congestion that he thought was just a cold. He has been using his nebulizers which didn't seem to help. He has a chronic cough where he is able to usually gets sputum up but last night he woke up with a significant dry cough and he could not get anything up. He started having sharp chest pain with this cough that resolves after coughing. He said he felt very wheezy so he decided to come into the emergency room. He thinks he has had a fever but has not been able to check it. He denies nausea, vomiting, diarrhea, constipation, abdominal pain, leg swelling, or sick contacts. He has had the influenza vaccine as well as 3 doses of COVID vaccine. He used to smoke back in the war but he thinks his COPD is from secondhand smoke from his who smoked all the time. He has no history of blood clots and is unsure why he is on warfarin but his primary care physician notes mention that he has paroxysmal atrial fibrillation. He thinks he is heard of that but he is in quite sure. He is able to lay flat without issue. 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 He has had significant secondhand smoke exposure. He does not do drugs or drink alcohol. 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 He would like his son, Charles, to be his surrogate decision maker as needed. 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 Gender identity (if verbalized by the patient): Male Sexual Orientation (if Verbalized by the Patient): Straight or Heterosexual Meds Home Medications and Allergies Home Medications Medication Instructions Recorded Confirmed Type naltrexone 50 mg tablet 1.5 mg PO DAILY #30 tablet 08/25/20 04/12/21 Rx finasteride 5 mg tablet See Rx Instructions .ROUTE 09/09/20 04/12/21 Rx .COMPLEX #90 tablet furosemide 20 mg tablet 20 mg PO QAM #90 tablet 09/09/20 04/12/21 Rx tamsulosin 0.4 mg capsule 0.4 mg PO DAILY #90 cap 09/29/20 04/12/21 Rx albuterol sulfate 2.5 mg INHALATION Q6H PRN #360 ml 10/07/20 04/12/21 Rx alprazolam 1 mg tablet 1 mg PO DAILY #90 tablet 01/02/21 04/12/21
[2021-05-05] MEDS: methylPREDNISolone SOD SUCC 125 MG VIAL 60 MG IV PUSH ×2 (13:27→18:22)
--- NOTE | 2021-05-05 17:48 | ADMGEN ---
This patient, Charles Osorio, was admitted to Medical Room 255-01. Patient/family oriented to hospital policies and general routines including ID bracelet, bed and alarms, visiting hours, pain management, procedures, bathroom and other care routines, personal items, smoking policy, room service/diet, and visiting hours. Information on how to activate the Rapid Response Team has been discussed. Patient/Family are encouraged to report perceived risks to care and to ask questions if they do not understand what they are told or what they should do.
[2021-05-05] MEDS: hydrALAZINE HCL 20 MG/ML VIAL 10 MG IV PUSH (18:28)
[2021-05-05 18:36] LABS: Influenza Control Positive
[2021-05-05] MEDS: ALPRAZolam (*CRX) 0.5 MG TABLET 1 MG PO (20:42)
[2021-05-05] MEDS: DOXYCYCLINE HYCLATE 100 MG TABLET PO (20:42)
[2021-05-05] MEDS: guaiFENesin 12 HR 600 MG TABCR PO (20:42)
[2021-05-06] MEDS: WATER FOR IRRIGATION, STERILE 1,000 ML BOTTLE 1000 ML
[2021-05-06 04:05] VITALS: BP 139/77; PULSE 61; RESP 22; TEMP 35.8; O2SAT 92
[2021-05-06] MEDS: methylPREDNISolone SOD SUCC 125 MG VIAL 60 MG IV PUSH ×5 (06:16→23:57)
[2021-05-06 06:17] LABS: Basophils Percent Auto 0.1 % (0.2-1.2); Hematocrit 42.8 % (42.0-52.0); Hemoglobin 11.8 g/dL (14.0-18.0); Immature Granulocyte Absolute 0.04 K/mm3 (0.00-0.031); Immature Granulocyte Percent A 0.3 % (0-0.5); Immature Platelet Fraction Pct 4.7 % (0.9-11.2); Lymphocytes Absolute Auto 0.35 K/mm3 (0.9-3.2); Lymphocytes Percent Auto 2.9 % (18.3-44.2); Mean Corpuscular HGB Conc 27.6 g/dl (32-36); Mean Corpuscular Volume 72.7 fl (80-100); Monocytes Absolute Auto 0.1 K/mm3 (0.1-0.6); Monocytes Percent Auto 0.9 % (2.6-8.5); Neutrophils Absolute Auto 11.4 K/mm3 (1.3-6.7); Neutrophils Percent Auto 95.8 % (45.5-73.1); Platelet Count Result 190 k/mm3 (150-375); Red Blood Count 5.89 M/mm3 (4.6-6.20); Red Cell Distribution Width 21.4 % (11.5-14.5); White Blood Count 11.9 K/mm3 (4.5-10.0)
[2021-05-06 06:22] LABS: INR 2.3; Prothrombin Time 24.6 Seconds (11.1-14.7)
[2021-05-06 06:34] LABS: Anion Gap 8 mmol/L (8-16); Blood Urea Nitrogen 23 mg/dL (9-20); Calcium 8.6 mg/dL (8.4-10.2); Carbon Dioxide 24 mmol/L (22-30); Chloride 105 mmol/L (98-107); Estimated CRCL calculation 66 ml/min; Estimated Glomerular Filt Rate > 60; Glucose 142 mg/dL (65-110); Potassium 4.1 mmol/L (3.4-5.0); Sodium 137 mmol/L (137-145)
[2021-05-06 07:06] LABS: Anisocytosis 2+ (NORMAL); Macrocytosis 2+ (NORMAL); Ovalocytes 2+ (NORMAL); Platelet Estimate Adequate (Adequate)
[2021-05-06] MEDS: FINASTERIDE 5 MG TABLET PO (08:22)
[2021-05-06] MEDS: lisinopriL 20 MG TABLET PO (08:22)
[2021-05-06] MEDS: DOXYCYCLINE HYCLATE 100 MG TABLET PO ×2 (08:22→20:09)
[2021-05-06] MEDS: FUROSEMIDE 20 MG TABLET PO (08:22)
[2021-05-06] MEDS: SIMVASTATIN 20 MG TABLET PO (08:22)
[2021-05-06] MEDS: TAMSULOSIN HCL 0.4 MG CAPSULE PO (08:22)
[2021-05-06] MEDS: guaiFENesin 12 HR 600 MG TABCR PO ×2 (08:22→20:09)
[2021-05-06] MEDS: IPRATROPIUM BR 0.02% INH SOLN 0.5 MG/2.5 ML VIAL INHALATION ×3 (08:55→20:28)
[2021-05-06] MEDS: ALBUTEROL SULFATE NEB 2.5 MG/0.5 ML INH 5 MG INHALATION ×3 (08:55→20:28)
[2021-05-06 08:56] VITALS: PULSE 74; RESP 21
[2021-05-06] MEDS: FLUTICASONE/UMECLIDIN/VILANTER 100-62.5-25 MCG ELLIPTA 2 PUFF INHALATION (08:56)
[2021-05-06 09:07] VITALS: PULSE 82; RESP 20
[2021-05-06] MEDS: INDAPAMIDE 2.5 MG TABLET PO (12:00)
--- NOTE | 2021-05-06 13:34 | PM.IMPN ---
Progress Note: A&P Assessment and Plan (1) COPD exacerbation: Code(s): J44.1 - Chronic obstructive pulmonary disease with (acute) exacerbation Status: Acute Assessment and Plan: Acute on chronic CXR findings consistent with COPD exacerbation Continue IV Solu-Medrol, to titrate Continue duo nebs Rapid COVID is negative Influenza negative Continue doxy Follow sputum culture and BC (2) Paroxysmal atrial fibrillation: Code(s): I48.0 - Paroxysmal atrial fibrillation Status: Acute Assessment and Plan: Continue with warfarin INR 2.3 today Monitor (3) MIMA on CPAP: Code(s): G47.33 - Obstructive sleep apnea (adult) (pediatric); Z99.89 - Dependence on other enabling machines and devices Status: Acute Assessment and Plan: Continue CPAP (4) Polycythemia: Code(s): 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 on RA; +CORNELL Review of Systems Review of Systems: All systems reviewed & are unremarkable except as noted in HPI and below Exam Narrative: General:Well developed well nourished patient HEENT: Normocephalic, atraumatic, EMOI, oral mucosa moist. Neck: Supple Resp: Diminished breath sounds throughout. Heart: RRR with no murmurs Abd: Soft, nontender. No pain to palpation. Positive bowel sounds Skin: Warm and dry Extremities: No swelling, erythema or pain to palpation Neuro: Alert and Oriented x4 . No focal neurological deficits. Objective Data Vital Signs Vital Signs: Vital Signs - 24 hr 05/05/21 13:45 05/05/21 14:00 05/05/21 14:01 Temperature Pulse Rate 79 74 77 Respiratory Rate 18 22 H 20 Blood Pressure 153/94 H Pulse Oximetry 05/05/21 14:15 05/05/21 14:30 05/05/21 14:31 Temperature Pulse Rate 80 77 75 Respiratory Rate 17 19 23 H Blood Pressure 143/91 H Pulse Oximetry 95 05/05/21 14:32 05/05/21 15:02 05/05/21 16:31 Temperature Pulse Rate 77 83 84 Respiratory Rate 20 24 H 23 H Blood Pressure 164/103 H Pulse Oximetry 94 05/05/21 17:32 05/05/21 18:27 05/05/21 18:30 Temperature 36.3 C L Pulse Rate 88 72 Respiratory Rate 24 H 21 H Blood Pressure 185/97 H Pulse Oximetry 97 95 05/05/21 18:33 05/05/21 19:11 05/05/21 20:48 Temperature 36.3 C L Pulse Rate 70 80 Respiratory Rate 20 24 H Blood Pressure 153/86 H 141/82 H Pulse Oximetry 96 05/05/21 21:04 05/05/21 21:14 05/06/21 04:05 Temperature 35.8 C L Pulse Rate 73 75 61 Respiratory Rate 26 H 22 H 22 H Blood Pressure 139/77 Pulse Oximetry 92 05/06/21 08:56 05/06/21 09:07 Temperature Pulse Rate 74 82 Respiratory Rate 21 H 20 Blood Pressure Pulse Oximetry Intake/Output Intake/Output: Intake & Output 05/03/21 05/04/21 05/05/21 05/06/21 23:59 23:59 23:59 23:59 Intake Total 770 Output Total 400 Balance 370 Meds/Results Medications: Active Medications Generic Name Dose Route Start Last Admin Trade Name Freq PRN Reason Stop Dose Admin Acetaminophen 650 mg 05/05/21 13:57 Acetaminophen 325 Mg Tablet PO Q6H PRN pain or fever Albuterol 5 mg 05/05/21 14:00 05/06/21 08:55 Albuterol Sulfate Neb 2.5 Mg/0.5 Ml Inh INHALATION 5 mg Q6HRT SHILA Administration Alprazolam 1 mg 05/05/21 21:00 05/05/21 20:42 Alprazolam (*Crx) 0.5 Mg Tablet PO 1 mg HS SHILA Administration Doxycycline Hyclate 100 mg 05/05/21 21:00 0
[2021-05-06 14:21] VITALS: BP 160/84; PULSE 82; RESP 24; TEMP 36.4; O2SAT 97
[2021-05-06] MEDS: WARFARIN (*PBKC) 5 MG TABLET PO (17:18)
[2021-05-06] MEDS: BENZONATATE 100 MG CAPSULE PO (19:26)
[2021-05-06] MEDS: ALPRAZolam (*CRX) 0.5 MG TABLET 1 MG PO (20:09)
[2021-05-06 20:23] VITALS: BP 152/83; PULSE 71; RESP 22; TEMP 36.4; O2SAT 97
[2021-05-06 20:26] VITALS: PULSE 74; RESP 20
[2021-05-07] VITALS (9 sets, daily range): BP systolic 113–128; BP diastolic 69–76; PULSE 78–86; RESP 18–24; TEMP 36–36.8; O2SAT 94–98
[2021-05-07] MEDS: IPRATROPIUM BR 0.02% INH SOLN 0.5 MG/2.5 ML VIAL INHALATION ×3 (02:04→20:08)
[2021-05-07] MEDS: ALBUTEROL SULFATE NEB 2.5 MG/0.5 ML INH 5 MG INHALATION ×3 (02:04→20:08)
[2021-05-07] MEDS: methylPREDNISolone SOD SUCC 125 MG VIAL 60 MG IV PUSH ×4 (05:23→23:38)
[2021-05-07 06:22] LABS: Hemoglobin 11.7 g/dL (14.0-18.0); Immature Platelet Fraction Pct 5.4 % (0.9-11.2); Mean Corpuscular HGB Conc 27.9 g/dl (32-36); Mean Corpuscular Hemoglobin 20.1 pg (26-34); Mean Corpuscular Volume 72.2 fl (80-100); Platelet Count Result 201 k/mm3 (150-375); Red Blood Count 5.82 M/mm3 (4.6-6.20); Red Cell Distribution Width 21.7 % (11.5-14.5); White Blood Count 22.1 K/mm3 (4.5-10.0)
[2021-05-07 06:25] LABS: Anion Gap 8 mmol/L (8-16); Blood Urea Nitrogen 32 mg/dL (9-20); Calcium 8.5 mg/dL (8.4-10.2); Carbon Dioxide 25 mmol/L (22-30); Chloride 105 mmol/L (98-107); Estimated CRCL calculation 66 ml/min; Estimated Glomerular Filt Rate > 60; Glucose 138 mg/dL (65-110); Potassium 3.9 mmol/L (3.4-5.0); Sodium 138 mmol/L (137-145)
[2021-05-07 06:27] LABS: INR 2.6; Prothrombin Time 26.8 Seconds (11.1-14.7)
[2021-05-07] MEDS: TAMSULOSIN HCL 0.4 MG CAPSULE PO (08:38)
[2021-05-07] MEDS: guaiFENesin 12 HR 600 MG TABCR PO ×2 (08:38→21:22)
[2021-05-07] MEDS: SIMVASTATIN 20 MG TABLET PO (08:38)
[2021-05-07] MEDS: DOXYCYCLINE HYCLATE 100 MG TABLET PO ×2 (08:38→21:22)
[2021-05-07] MEDS: INDAPAMIDE 2.5 MG TABLET PO (08:39)
[2021-05-07] MEDS: BENZONATATE 100 MG CAPSULE PO ×3 (08:39→17:18)
[2021-05-07] MEDS: FINASTERIDE 5 MG TABLET PO (08:39)
[2021-05-07] MEDS: lisinopriL 20 MG TABLET PO (08:39)
[2021-05-07] MEDS: FUROSEMIDE 20 MG TABLET PO (08:39)
--- NOTE | 2021-05-07 10:10 | PM.IMPN ---
Progress Note: A&P Assessment and Plan (1) COPD exacerbation: Code(s): J44.1 - Chronic obstructive pulmonary disease with (acute) exacerbation Status: Acute Assessment and Plan: Acute on chronic CXR findings consistent with COPD exacerbation Continue IV Solu-Medrol, to titrate Continue duo nebs Rapid COVID is negative Influenza negative Continue doxy Follow sputum culture and BC (2) Paroxysmal atrial fibrillation: Code(s): I48.0 - Paroxysmal atrial fibrillation Status: Acute Assessment and Plan: Continue with warfarin INR 2.3 today Monitor (3) MIMA on CPAP: Code(s): G47.33 - Obstructive sleep apnea (adult) (pediatric); Z99.89 - Dependence on other enabling machines and devices Status: Acute Assessment and Plan: Continue CPAP (4) Polycythemia: Code(s): 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 WBC is high probably secondary steroid but will add antibiotics. Will decrease the dose of warfarin as patient was started on Zithromax. Plan is to continue current treatment monitor labs. Subjective Date/time seen: 05/07/21 10:10 Patient was seen during the morning rounds today. Mild shortness of breath. No chest pain. No abdominal pain, nausea, no vomiting. Mood stable. Review of Systems Review of Systems: All systems reviewed & are unremarkable except as noted in HPI and below Exam Narrative: General:Well developed well nourished patient HEENT: Normocephalic, atraumatic, EMOI, oral mucosa moist. Neck: Supple Resp: Diminished breath sounds throughout. Heart: RRR with no murmurs Abd: Soft, nontender. No pain to palpation. Positive bowel sounds Skin: Warm and dry Extremities: No swelling, erythema or pain to palpation Neuro: Alert and Oriented x4 . No focal neurological deficits. Objective Data Vital Signs Vital Signs: Vital Signs - 24 hr 05/06/21 14:21 05/06/21 20:23 05/06/21 20:26 Temperature 36.4 C 36.4 C L Pulse Rate 82 71 74 Respiratory Rate 24 H 22 H 20 Blood Pressure 160/84 H 152/83 H Pulse Oximetry 97 97 05/07/21 02:03 05/07/21 04:00 Temperature 36.0 C L Pulse Rate 78 86 Respiratory Rate 20 22 H Blood Pressure 119/76 Pulse Oximetry 98 Intake/Output Intake/Output: Intake & Output 05/04/21 05/05/21 05/06/21 05/07/21 23:59 23:59 23:59 23:59 Intake Total 1010 530 Output Total 400 Balance 610 530 Meds/Results Medications: Active Medications Generic Name Dose Route Start Last Admin Trade Name Freq PRN Reason Stop Dose Admin Acetaminophen 650 mg 05/05/21 13:57 Acetaminophen 325 Mg Tablet PO Q6H PRN pain or fever Albuterol 5 mg 05/05/21 14:00 05/07/21 02:04 Albuterol Sulfate Neb 2.5 Mg/0.5 Ml Inh INHALATION 5 mg Q6HRT SHILA Administration Alprazolam 1 mg 05/05/21 21:00 05/06/21 20:09 Alprazolam (*Crx) 0.5 Mg Tablet PO 1 mg HS SHILA Administration Azithromycin 250 mg 05/08/21 09:00 Azithromycin 250 Mg Tablet PO 05/11/21 09:01 DAILY SHILA Benzonatate 100 mg 05/06/21 18:41 05/07/21 08:39 Benzonatate 100 Mg Capsule PO 100 mg TID SHILA Administration Doxycycline Hyclate 100 mg 05/05/21 21:00 05/07/21 08:38 Doxycycline Hyclate 100 Mg Tablet PO 100 mg Q12HR SHILA Administration Finasteride 5 mg 05/06/21 09:00 05/07/21 08:39 Finasteride 5 Mg Tablet PO 5 mg DAILY SHILA Administration Fluticasone/Umeclidinium/Vilanterol 2 puff 05/06/21 09:00 05/06/21 08:56 Fluticasone/Umeclidin/Vilanter 100-62.5-25
[2021-05-07] MEDS: FLUTICASONE/UMECLIDIN/VILANTER 100-62.5-25 MCG ELLIPTA 2 PUFF INHALATION (10:12)
[2021-05-07 10:39] LABS: Basophils Percent Auto 0.2 % (0.2-1.2); Hematocrit 45.3 % (42.0-52.0); Hemoglobin 12.7 g/dL (14.0-18.0); Immature Granulocyte Percent A 0.8 % (0-0.5); Lymphocytes Absolute Auto 0.49 K/mm3 (0.9-3.2); Mean Corpuscular Hemoglobin 20.7 pg (26-34); Mean Corpuscular Volume 73.7 fl (80-100); Monocytes Absolute Auto 0.4 K/mm3 (0.1-0.6); Monocytes Percent Auto 1.6 % (2.6-8.5); Neutrophils Percent Auto 95.4 % (45.5-73.1); Platelet Count Result 226 k/mm3 (150-375); Red Blood Count 6.15 M/mm3 (4.6-6.20); Red Cell Distribution Width 22.5 % (11.5-14.5); White Blood Count 24.2 K/mm3 (4.5-10.0)
--- NOTE | 2021-05-07 16:08 | PCRCNOTE ---
Window of time for administration has passed. See next scheduled administration.
[2021-05-07] MEDS: WARFARIN (*PBKC) 1 MG TABLET PO (17:19)
[2021-05-07] MEDS: AZITHROMYCIN 250 MG TABLET PO (17:19)
[2021-05-07] MEDS: ALPRAZolam (*CRX) 0.5 MG TABLET 1 MG PO (21:22)
[2021-05-08] VITALS (12 sets, daily range): BP systolic 142–155; BP diastolic 81–89; PULSE 75–92; RESP 16–22; TEMP 35.9–36.4; O2SAT 92–97
[2021-05-08] MEDS: ALBUTEROL SULFATE NEB 2.5 MG/0.5 ML INH 5 MG INHALATION ×4 (01:05→19:42)
[2021-05-08] MEDS: IPRATROPIUM BR 0.02% INH SOLN 0.5 MG/2.5 ML VIAL INHALATION ×4 (01:05→19:42)
[2021-05-08] MEDS: methylPREDNISolone SOD SUCC 125 MG VIAL 60 MG IV PUSH (05:16)
[2021-05-08 06:57] LABS: INR 2.6; Prothrombin Time 27.4 Seconds (11.1-14.7)
[2021-05-08] MEDS: TAMSULOSIN HCL 0.4 MG CAPSULE PO (08:16)
[2021-05-08] MEDS: FUROSEMIDE 40 MG TABLET PO (08:16)
[2021-05-08] MEDS: lisinopriL 20 MG TABLET PO (08:16)
[2021-05-08] MEDS: BENZONATATE 100 MG CAPSULE PO ×3 (08:16→18:27)
[2021-05-08] MEDS: SIMVASTATIN 20 MG TABLET PO (08:16)
[2021-05-08] MEDS: FINASTERIDE 5 MG TABLET PO (08:16)
[2021-05-08] MEDS: INDAPAMIDE 2.5 MG TABLET PO (08:16)
[2021-05-08] MEDS: guaiFENesin 12 HR 600 MG TABCR PO ×2 (08:16→20:14)
[2021-05-08] MEDS: AZITHROMYCIN 250 MG TABLET PO (08:16)
[2021-05-08] MEDS: FLUTICASONE/UMECLIDIN/VILANTER 100-62.5-25 MCG ELLIPTA 2 PUFF INHALATION (08:27)
[2021-05-08] MEDS: predniSONE 20 MG TABLET 40 MG PO (13:27)
[2021-05-08] MEDS: DOXYCYCLINE HYCLATE 100 MG TABLET PO ×2 (13:28→20:14)
--- NOTE | 2021-05-08 17:29 | PM.IMPN ---
Progress Note: A&P Assessment and Plan (1) COPD exacerbation: Code(s): J44.1 - Chronic obstructive pulmonary disease with (acute) exacerbation Status: Acute Assessment and Plan: Acute on chronic CXR findings consistent with COPD exacerbation S/pIV Solu-Medrol, initiate po prednisone today to titrate Continue duo nebs Rapid COVID is negative Influenza negative Continue doxy, Zithromax ordered yesterday Follow sputum culture and BC (2) Paroxysmal atrial fibrillation: Code(s): I48.0 - Paroxysmal atrial fibrillation Status: Acute Assessment and Plan: Continue with warfarin INR 2.3-->2.6 today Monitor (3) MIMA on CPAP: Code(s): G47.33 - Obstructive sleep apnea (adult) (pediatric); Z99.89 - Dependence on other enabling machines and devices Status: Acute Assessment and Plan: Continue CPAP (4) Polycythemia: Code(s): 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 WBC is high probably secondary steroid but will add antibiotics. Will decrease the dose of warfarin as patient was started on Zithromax. Plan is to continue current treatment monitor labs. Subjective Date/time seen: 05/08/21 17:29 Interval history: 05/06/2021: Pt seen this a.m.; labs, vs, diagnostic results reviewed; pt denies any SOB this a.m. on RA; +CORNELL 05/07/2021: Patient was seen during the morning rounds today. Mild shortness of breath. No chest pain. No abdominal pain, nausea, no vomiting. Mood stable. 05/08/2021: Pt seen this a.m.; +CORNELL, mild wheezing; pt complains of shaking, likely due to steroids Review of Systems Review of Systems: All systems reviewed & are unremarkable except as noted in HPI and below Exam Narrative: General:Well developed well nourished patient HEENT: Normocephalic, atraumatic, EMOI, oral mucosa moist. Neck: Supple Resp: Mild wheezing anterior upper airway; diminished breath sounds in the bases. Heart: RRR with no murmurs Abd: Soft, nontender. No pain to palpation. Positive bowel sounds Skin: Warm and dry Extremities: No swelling, erythema or pain to palpation Neuro: Alert and Oriented x4 . No focal neurological deficits. Objective Data Vital Signs Vital Signs: Vital Signs - 24 hr 05/07/21 19:34 05/07/21 20:12 05/07/21 20:22 Temperature 36.8 C Pulse Rate 78 82 82 Respiratory Rate 18 20 20 Blood Pressure 113/76 Pulse Oximetry 96 05/08/21 01:05 05/08/21 01:15 05/08/21 01:42 Temperature Pulse Rate 82 82 Respiratory Rate 20 20 Blood Pressure Pulse Oximetry 97 05/08/21 03:31 05/08/21 08:24 05/08/21 09:26 Temperature 35.9 C L Pulse Rate 76 85 82 Respiratory Rate 18 20 20 Blood Pressure 142/81 H Pulse Oximetry 92 94 05/08/21 13:20 05/08/21 13:30 05/08/21 14:31 Temperature 36.4 C Pulse Rate 82 84 87 Respiratory Rate 20 20 20 Blood Pressure 155/86 H Pulse Oximetry 97 Intake/Output Intake/Output: Intake & Output 05/05/21 05/06/21 05/07/21 05/08/21 23:59 23:59 23:59 23:59 Intake Total 1010 1510 1880 Output Total 400 Balance 610 1510 1880 Meds/Results Medications: Active Medications Generic Name Dose Route Start Last Admin Trade Name Freq PRN Reason Stop Dose Admin Acetaminophen 650 mg 05/05/21 13:57 Acetaminophen 325 Mg Tablet PO Q6H PRN pain or fever Albuterol 5 mg 05/05/21 14:00 05/08/21 13:20 Albuterol Sulfate Neb 2.5 Mg/0.5 Ml Inh INHALATION 5 mg Q6HRT SHILA Administration Alprazolam 1 mg 05/05/21 21:00 05/07/21 21:22 Alprazo
[2021-05-08] MEDS: WARFARIN (*PBKC) 1 MG TABLET PO (18:27)
[2021-05-08] MEDS: ALPRAZolam (*CRX) 0.5 MG TABLET 1 MG PO (20:14)
[2021-05-09 03:49] VITALS: BP 125/78; PULSE 79; RESP 20; TEMP 35.8; O2SAT 96
--- NOTE | 2021-05-09 04:14 | PCRCNOTE ---
Nebulizer treatment scheduled for 05/09/20 at 02:00 not administered. RT not available during administration window due to emergencies elsewhere in hospital.
[2021-05-09 05:50] LABS: Immature Platelet Fraction Pct 6.5 % (0.9-11.2); Mean Corpuscular HGB Conc 28.6 g/dl (32-36); Mean Corpuscular Hemoglobin 20.7 pg (26-34); Mean Corpuscular Volume 72.4 fl (80-100); Platelet Count Result 209 k/mm3 (150-375); Red Cell Distribution Width 22.1 % (11.5-14.5); White Blood Count 17.2 K/mm3 (4.5-10.0)
[2021-05-09 06:03] LABS: Anion Gap 9 mmol/L (8-16); Blood Urea Nitrogen 36 mg/dL (9-20); Calcium 8.1 mg/dL (8.4-10.2); Carbon Dioxide 28 mmol/L (22-30); Chloride 100 mmol/L (98-107); Estimated CRCL calculation 66 ml/min; Estimated Glomerular Filt Rate > 60; Glucose 109 mg/dL (65-110); Potassium 3.1 mmol/L (3.4-5.0); Sodium 137 mmol/L (137-145)
[2021-05-09 08:00] VITALS: O2SAT 96
[2021-05-09] MEDS: TAMSULOSIN HCL 0.4 MG CAPSULE PO (08:14)
[2021-05-09] MEDS: AZITHROMYCIN 250 MG TABLET PO (08:14)
[2021-05-09] MEDS: FINASTERIDE 5 MG TABLET PO (08:14)
[2021-05-09] MEDS: DOXYCYCLINE HYCLATE 100 MG TABLET PO (08:14)
[2021-05-09] MEDS: predniSONE 20 MG TABLET 40 MG PO (08:14)
[2021-05-09] MEDS: lisinopriL 20 MG TABLET PO (08:14)
[2021-05-09] MEDS: SIMVASTATIN 20 MG TABLET PO (08:14)
[2021-05-09] MEDS: BENZONATATE 100 MG CAPSULE PO (08:14)
[2021-05-09] MEDS: INDAPAMIDE 2.5 MG TABLET PO (08:14)
[2021-05-09] MEDS: guaiFENesin 12 HR 600 MG TABCR PO (08:14)
[2021-05-09] MEDS: FUROSEMIDE 40 MG TABLET PO (08:14)
[2021-05-09 12:06] VITALS: BP 145/87; PULSE 91; RESP 20; TEMP 36.2; O2SAT 97
--- NOTE | 2021-05-09 13:09 | PM.DS ---
DS: Admitting Diagnosis Discharge Date 05/08/2021 Admitting Diagnosis COPD exacerbation DS: Discharge Diagnosis Discharge Diagnosis (1) COPD exacerbation: Code(s): J44.1 - Chronic obstructive pulmonary disease with (acute) exacerbation Status: Acute Assessment and Plan: Acute on chronic CXR findings consistent with COPD exacerbation S/pIV Solu-Medrol po prednisone taper Continue duo nebs prn Rapid COVID is negative Influenza negative Continue doxy, Zithromax Sputum culture and BC with NGTD (2) Paroxysmal atrial fibrillation: Code(s): I48.0 - Paroxysmal atrial fibrillation Status: Acute Assessment and Plan: Continue with warfarin INR 2.6 today Monitor (3) MIMA on CPAP: Code(s): G47.33 - Obstructive sleep apnea (adult) (pediatric); Z99.89 - Dependence on other enabling machines and devices Status: Acute Assessment and Plan: Continue CPAP (4) Polycythemia: Code(s): 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 Patient states that this week he started feeling short of breath with wheezing at rest and with activity. In the last 2 days he said it has been getting worse. He also has symptoms of a headache and possibly some congestion that he thought was just a cold. He has been using his nebulizers which didn't seem to help. He has a chronic cough where he is able to usually gets sputum up but last night he woke up with a significant dry cough and he could not get anything up. He started having sharp chest pain with this cough that resolves after coughing. He said he felt very wheezy so he decided to come into the emergency room. He thinks he has had a fever but has not been able to check it. He denies nausea, vomiting, diarrhea, constipation, abdominal pain, leg swelling, or sick contacts. He has had the influenza vaccine as well as 3 doses of COVID vaccine. He used to smoke back in the war but he thinks his COPD is from secondhand smoke from his who smoked all the time. He has no history of blood clots and is unsure why he is on warfarin but his primary care physician notes mention that he has paroxysmal atrial fibrillation. He thinks he is heard of that but he is in quite sure. He is able to lay flat without issue. Clinically the patient has improving an is close to baseline. He is on room air and maintaining O2 sats >95%. He is stable and will dishcarge home. He has been give instructions to follow up with his PCP within 2 weeks. Time Spent with Patient Time attestation: Total time spent providing and/or coordinating discharge services: Time spent: Greater than 30 minutes Exam Narrative: General:Well developed well nourished patient HEENT: Normocephalic, atraumatic, EMOI, oral mucosa moist. Neck: Supple Resp: diminished breath sounds in the bases. Heart: RRR with no murmurs Abd: Soft, nontender. No pain to palpation. Positive bowel sounds Skin: Warm and dry Extremities: No swelling, erythema or pain to palpation Neuro: Alert and Oriented x4 . No focal neurological deficits. DS: Data Data Completed and Pending Labs on day of discharge: Labs from last 24 hours 05/09/21 05/09/21 05:08 05:08 WBC 17.2 H RBC 5.80 Hgb 12.0 L Hct 42.0 MCV 72.4 L MCH 20.7 L MCHC 28.6 L RDW 22.1 H Plt Count 209 MPV TNP % Immature Plt Fraction 6.5 Sodium 137 Potassium 3.1 L Chlorid
== END 2021-05-09 15:07 | disposition home or self-care (01) | DRG 192 ==
LOC: ANHED 13:33 → ANH2MED 18:55 → ANH3MEDSUR 05-12 09:45
PROVIDERS: Internal Medicine; Physician Assistant; Admitting Provider Internal Medicine; Emergency Provider Emergency Medicine; PCP Internal Medicine; Visit Provider Nurse Practitioner Adult Health
DX: J44.1 Chronic obstructive pulmonary disease with (acute) exacerbation (principal); Z20.822 Contact with and (suspected) exposure to COVID-19; G47.33 Obstructive sleep apnea (adult) (pediatric); I48.0 Paroxysmal atrial fibrillation; D75.1 Secondary polycythemia; I10 Essential (primary) hypertension; E11.9 Type 2 diabetes mellitus without complications; M10.9 Gout, unspecified; Z79.01 Long term (current) use of anticoagulants; Z87.891 Personal history of nicotine dependence; Z85.828 Personal history of other malignant neoplasm of skin; Z90.49 Acquired absence of other specified parts of digestive tract
CPT/HCPCS: 36415; 71045; 80048; 80053; 83605; 83880; 84484; 85025; 85027; 85055; 85610; 85730; 87040; 87070; 87205; 87426; 87804; 93005; 94640; 97161; 97165; 99285; A9270; C9803; J0360; J0696; J2930; J7512

== ENCOUNTER 2021-07-10 10:45 | Outpatient (CLI) | payer MEDICARE, SELFPAY ==
--- NOTE | ~2021-07-10 | US_ITS ---
EXAMINATION: US venous doppler LE RT DATE: 07/10/2021 11:26 INDICATION: Right lower limb swelling. TECHNIQUE: Grayscale ultrasound images without and with compression and Doppler ultrasound images of the right lower extremity veins were obtained. COMPARISON: Ultrasound 11/07/2017 FINDINGS: The visualized portions of right common femoral vein, profunda (deep) femoral vein, femoral vein, pop liteal vein, peroneal veins, posterior tibial veins, and greater saphenous vein outflow are patent. IMPRESSION: 1. No deep venous thrombosis. Reviewed, dictated and finalized at location A. ICAL ENGINEERING DIRECTOR
== END 2021-07-10 10:46 | disposition home or self-care (01) ==
PROVIDERS: PCP Internal Medicine; Visit Provider Internal Medicine
DX: M79.89 Other specified soft tissue disorders (principal)
CPT/HCPCS: 36415; 85610; 93971

== ENCOUNTER 2021-08-03 06:49 | Outpatient (RCR) | payer MEDICARE, SELFPAY ==
[2021-05-23 08:11] LABS: INR 2.6; Prothrombin Time 27.3 Seconds (11.1-14.7)
[2021-06-13 08:16] LABS: INR 1.3
[2021-06-22 07:34] LABS: INR 1.3; Prothrombin Time 15.5 Seconds (11.1-14.7)
[2021-06-28 07:45] LABS: INR 2.1; Prothrombin Time 22.8 Seconds (11.1-14.7)
[2021-07-05 08:06] LABS: INR 1.6; Prothrombin Time 18.3 Seconds (11.1-14.7)
[2021-07-10 07:37] LABS: INR 1.7; Prothrombin Time 19.4 Seconds (11.1-14.7)
[2021-07-18 07:19] LABS: INR 1.7; Prothrombin Time 19.4 Seconds (11.1-14.7)
[2021-07-25 08:07] LABS: INR 1.5; Prothrombin Time 17.7 Seconds (11.1-14.7)
[2021-08-03 07:43] LABS: INR 1.6; Prothrombin Time 18.4 Seconds (11.1-14.7)
== END 2021-08-21 23:59 | disposition home or self-care (01) ==
LOC: ANHLAB 06:49
PROVIDERS: PCP Internal Medicine; Visit Provider Internal Medicine
DX: Z51.81 Encounter for therapeutic drug level monitoring (principal); Z79.01 Long term (current) use of anticoagulants
CPT/HCPCS: 36415; 85610

== ENCOUNTER 2021-08-05 18:45 | Emergency (ER) | payer MEDICARE, SELFPAY ==
[2021-08-05 19:02] VITALS: BP 155/81; PULSE 83; RESP 24; TEMP 36.1; O2SAT 99
--- NOTE | 2021-08-05 19:05 | ED.GENADULT ---
HPI - General Adult General Chief complaint: Fall Stated complaint: Laceration on hand Time Seen by Provider: 08/05/21 19:05 Source: patient, RN notes reviewed and old records reviewed Mode of arrival: ambulatory Limitations: no limitations History of Present Illness HPI narrative: 86-year-old male presents to the [facility] with complaints of a trip and fall 30 minutes prior to arrival. Patient denies hitting head. Denies loss of consciousness. Patient is unable to walk due to pain and swelling of left knee. Patient currently taking Coumadin. Also complains of palmar aspect left hand pain. Has a skin tear. Unknown last Tdap. Related Data Home Medications Medication Instructions Recorded Confirmed alprazolam 1 mg PO HS 05/05/21 05/16/21 indapamide 2.5 mg PO DAILY 05/05/21 05/16/21 lisinopril 20 mg PO DAILY 05/05/21 05/16/21 Allergies Allergy/AdvReac Type Severity Reaction Status Date / Time No Known Allergies Allergy Verified 08/05/21 19:52 Review of Systems Review of Systems: All systems reviewed & are unremarkable except as noted in HPI and below Constitutional: Constitutional: Reports no additional constitutional complaints, Denies chills and Denies fever(s) Eyes: Eyes: Reports no additional eye complaints ENT: Reports system reviewed and no additional complaints, except as documented Cardiovascular: Cardiovascular: Reports no additional cardiovascular complaints and Denies chest pain Respiratory: Respiratory: Reports as per HPI, Reports dyspnea and Reports wheezing Gastrointestinal: Gastrointestinal: Reports no additional gastrointestinal complaints, Denies abdominal pain, Denies nausea and Denies vomiting Musculoskeletal: Musculoskeletal: Reports no additional musculoskeletal complaints, Reports arthralgias (Left knee) and Reports joint swelling (Left knee) Integumentary/Breasts: Skin/Breast: Reports as per HPI (Ecchymosis left anterior knee) Neurologic: Reports system reviewed and no additional complaints, except as documented Psychiatric: Psychiatric: Reports no additional psychiatric complaints Allergic/Immunologic: Allergic/Immunologic: Reports no additional allergic/immunologic complaints [facility] Past Medical History Medical History Chronic obstructive pulmonary disease, unspecified Gout History of basal cell cancer History of skin cancer Idiopathic chronic gout, unspecified site, without tophus (tophi) half-way (current) use of anticoagulants MIMA on CPAP Paroxysmal atrial fibrillation Polycythemia Type 2 diabetes mellitus without complications Surgical History Surgical History History of appendectomy Family History Family History Father Family history of malignant neoplasm Patient's father is Acute myocardial infarction Mother Family history of malignant neoplasm Patient's mother is Social History Social History Social History: Patient smoked in the wore but no longer smokes. He has had significant secondhand smoke exposure. He does not do drugs or drink alcohol. 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 He would like his son, Charles, to be his surrogate decision maker as needed. 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
== END 2021-08-05 19:15 | disposition short-term general hospital (02) ==
PROVIDERS: Emergency Provider Nurse Practitioner; PCP Internal Medicine
DX: S80.02XA Contusion of left knee, initial encounter (principal); S61.412A Laceration without foreign body of left hand, initial encounter; S60.222A Contusion of left hand, initial encounter; W01.0XXA Fall on same level from slipping, tripping and stumbling without subsequent striking against object, initial encounter; J44.9 Chronic obstructive pulmonary disease, unspecified; Z87.891 Personal history of nicotine dependence; M10.9 Gout, unspecified; G47.33 Obstructive sleep apnea (adult) (pediatric); E11.9 Type 2 diabetes mellitus without complications; I48.0 Paroxysmal atrial fibrillation; Z79.01 Long term (current) use of anticoagulants; Z85.828 Personal history of other malignant neoplasm of skin
CPT/HCPCS: 99215; G0463

== ENCOUNTER 2021-08-05 19:46 | Emergency (ER) | payer MEDICARE, SELFPAY ==
[2021-08-05] VITALS (10 sets, daily range): BP systolic 148–153; BP diastolic 91–98; PULSE 60–78; RESP 16–23; TEMP 36.9; O2SAT 95–100
--- NOTE | ~2021-08-05 | CT_ITS ---
EXAMINATION: CT brain wo con DATE: 08/05/2021 20:41 INDICATION: Head injury. TECHNIQUE: Computed tomography (CT) of the head was performed without intravenous contrast. The mA wa s adjusted according to patient size. Iterative reconstruction technique was employed. The dose-lengt h product was 605.33 mGy-cm. COMPARISON: Head CT 05/04/2008 FINDINGS: There are scattered areas of low attenuation in the cerebral white matter. There are old la cunar infarcts in the bilateral basal ganglia. There is no intracranial hemorrhage, acute infarction, or abnormal intracranial mass lesion. The ventricles are normal in size. There is mild mucosal thick ening in the paranasal sinuses. There are likely changes of ocular lens replacement surgeries. The ma stoid air cells are normal. IMPRESSION: 1. Old lacunar infarcts in the bilateral basal ganglia. 2. Moderate nonspecific cerebral white matter disease, which likely represents chronic small vessel i schemic disease. Reviewed, dictated and finalized at location E. IMPRESSION: 1. Old lacunar infarcts in the bilateral basal ganglia. 2. Moderate nonspecific cerebral white matter disease, which likely represents chronic small vessel ischemic disease.
--- NOTE | ~2021-08-05 | XR_ITS ---
EXAM: XR hand LT min 3V HISTORY: fall TODAY, PAIN TO LATERAL SIDE OF 1ST DIGIT COMPARISON: 09/20/2015 FINDINGS: Mildly decreased mineralization. Scattered degenerative changes, most severe at the trapez iometacarpal joint. No fracture or dislocation. No lytic or blastic lesion. Punctate calcific and met allic densities in the soft tissues of the index and ring fingers are unchanged. IMPRESSION: No acute osseous abnormality detected in the left hand. Reviewed, dictated and finalized at location K.
--- NOTE | ~2021-08-05 | XR_ITS ---
EXAMINATION: XR knee LT 3V DATE: 08/05/2021 20:54 INDICATION: Left knee swelling. Fall. TECHNIQUE: 5 views of left knee were obtained. COMPARISON: Left knee radiographs 01/06/2016 FINDINGS: Bone alignment is normal. No fracture. There is mild osteoarthritis of medial and lateral c ompartments. There is chondrocalcinosis of the menisci. No knee joint effusion. There is anterior kne e soft tissue swelling. IMPRESSION: 1. Mild left knee osteoarthritis. 2. Anterior knee soft tissue swelling. Reviewed, dictated and finalized at location E.
--- NOTE | ~2021-08-05 | CT_ITS ---
EXAMINATION: CT cervical spine wo con DATE: 08/05/2021 20:40 INDICATION: Head injury. TECHNIQUE: Computed tomography (CT) of the cervical spine was performed without intravenous contrast. Automated exposure control and iterative reconstruction technique were employed. The dose-length pro duct was 575.87 mGy-cm. COMPARISON: None FINDINGS: There is a 2.0 cm nodule in right thyroid lobe, likely needing no further evaluation given the patient's age. Bone alignment is normal. Vertebral body heights are normal. There is mildly decre ased disc height at C4-C5, moderately decreased disc height at C5-C6, and severely decreased disc hei ght at C6-C7. The following disc levels are specifically discussed: C2-C3: There is mild left uncovertebral joint osteoarthritis. There is ankylosis of right facet joint with mild hypertrophy. There is mild right facet joint osteoarthritis. There is ankylosis of left fa cet joint with moderate hypertrophy. There is mild left neural foraminal stenosis. There is mild cent ral canal stenosis. C3-C4: There is severe bilateral uncovertebral joint osteoarthritis. There is severe bilateral facet joint osteoarthritis. There is moderate right and mild left neural foraminal stenosis. There is mild central canal stenosis. C4-C5: There is severe bilateral uncovertebral joint osteoarthritis. There is mild right and severe l eft facet joint osteoarthritis. There is moderate right and mild left neural foraminal stenosis. Ther e is mild central canal stenosis. C5-C6: There is severe bilateral uncovertebral joint osteoarthritis. There is moderate bilateral face t joint osteoarthritis. There is mild right and moderate left neural foraminal stenosis. There is mil d central canal stenosis. C6-C7: There is severe bilateral uncovertebral joint osteoarthritis. There is mild bilateral facet pranav int osteoarthritis. There is mild right and moderate left neural foraminal stenosis. There is mild ce ntral canal stenosis. C7-T1: There is no uncovertebral joint osteoarthritis. There is mild bilateral facet joint osteoarthr itis. There is no neural foraminal stenosis. There is no central canal stenosis. IMPRESSION: 1. No fracture. 2. Severe cervical spondylosis. Reviewed, dictated and finalized at location E.
--- NOTE | 2021-08-05 19:55 | ED.GENADULT ---
HPI - General Adult General Chief complaint: Extremity Injury, Lower Stated complaint: wheezing left knee hematoma Time Seen by Provider: 08/05/21 19:54 Source: patient, family and EMS Mode of arrival: EMS Limitations: no limitations History of Present Illness HPI narrative: Patient had a fall going out of a restaurant, his foot got caught under the rug and fell. Complaining of left head pain, left knee and left hand. No loss of consciousness no other injuries. Patient on Coumadin. Last tetanus shot 1 year ago Related Data Home Medications Medication Instructions Recorded Confirmed alprazolam 1 mg PO HS 05/05/21 05/16/21 indapamide 2.5 mg PO DAILY 05/05/21 05/16/21 lisinopril 20 mg PO DAILY 05/05/21 05/16/21 Allergies Allergy/AdvReac Type Severity Reaction Status Date / Time No Known Allergies Allergy Verified 08/05/21 19:52 Review of Systems Review of Systems: CONSTITUTIONAL: Denies fever, chills, or sweats. EYES: Denies visual changes, redness, or discharge. ENT: Denies rhinorrhea, congestion, sore throat, or otalgia. CARDIOVASCULAR: Denies chest pain, palpitations, or edema. RESPIRATORY: Denies cough or dyspnea. GASTROINTESTINAL: Denies abdominal pain, nausea, vomiting, or diarrhea. GENITOURINARY: Denies dysuria or hematuria. SKIN: Denies rash or itching. MUSCULOSKELETAL: Denies back pain, joint pain, or myalgia. NEUROLOGIC: Denies headache, numbness, or weakness. PSYCHIATRIC: Denies anxiety or depression. [facility] Past Medical History Medical History Chronic obstructive pulmonary disease, unspecified Gout History of basal cell cancer History of skin cancer Idiopathic chronic gout, unspecified site, without tophus (tophi) senior living (current) use of anticoagulants MIMA on CPAP Paroxysmal atrial fibrillation Polycythemia Type 2 diabetes mellitus without complications Surgical History Surgical History History of appendectomy Family History Family History Father Family history of malignant neoplasm Patient's father is Acute myocardial infarction Mother Family history of malignant neoplasm Patient's mother is Social History Social History Social History: Patient smoked in the wore but no longer smokes. He has had significant secondhand smoke exposure. He does not do drugs or drink alcohol. 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 He would like his son, Charles, to be his surrogate decision maker as needed. 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 Gender identity (if verbalized by the patient): Male Sexual Orientation (if Verbalized by the Patient): Straight or Heterosexual Spiritual care concerns: No Exam Narrative: General appearance: Well-developed, well-nourished Skin: Normal color, left hand showed 2 cm skin avulsion at the palmar side Head: Normocephalic, nontraumatic Eyes: Clear conjunctiva ENT: Oropharynx normal, ears normal, nose normal Neck: Supple, nontender Chest and respiratory: Airway patent, no respiratory distress, no accessory muscle use Heart: Regular rate/rhythm Abdomen: Soft, nontender, no organomegaly, quiet bowel sounds Vascular: Normal peripheral pulses, normal capillary refill. Musculoskeletal: Left knee showed diffuse swelling, diffuse tenderness, severe limited range of motion Neurologic: Alert and oriented ?3, SCHEDULE PLANNING MANAGER is normal as tested, no gross motor deficit
--- NOTE | 2021-08-05 20:30 | PC.NURSE ---
Patient in radiology at this time.
[2021-08-05 21:20] LABS: Anion Gap 6 mmol/L (8-16); Blood Urea Nitrogen 21 mg/dL (9-20); Calcium 8.5 mg/dL (8.4-10.2); Carbon Dioxide 28 mmol/L (22-30); Chloride 107 mmol/L (98-107); Estimated Glomerular Filt Rate > 60; Glucose 100 mg/dL (65-110); Potassium 4.1 mmol/L (3.4-5.0); Sodium 141 mmol/L (137-145)
[2021-08-05 21:22] LABS: Prothrombin Time 22.2 Seconds (11.1-14.7)
--- NOTE | 2021-08-05 21:47 | ECG_ITS ---
Measurements Intervals [place] Rate: 73 P: MO: 0 QRS: 15 QRSD: 148 T: 30 QT: 373 QTc: 411 Interpretive Statements ATRIAL FIBRILLATION RIGHT BUNDLE BRANCH BLOCK [120+ ms QRS DURATION, UPRIGHT V1, 40+ ms S IN I/aVL/V4/V5/V6] BASELINE ARTIFACT ABNORMAL ECG COMPARED TO ECG 05/05/2021 09:54:41 NO SIGNIFICANT CHANGES Electronically Signed On 08-06-2021 16:15:12 CDT by Kenan Rogers M.D.
[2021-08-05 23:05] LABS: Basophils Percent Auto 0.4 % (0.2-1.2); Eosinophils Absolute Auto 0.3 K/mm3 (0-0.3); Eosinophils Percent Auto 3.6 % (0-4.4); Hematocrit 46.2 % (42.0-52.0); Hemoglobin 12.9 g/dL (14.0-18.0); Immature Granulocyte Absolute 0.03 K/mm3 (0.00-0.031); Immature Granulocyte Percent A 0.3 % (0-0.5); Immature Platelet Fraction Pct 4.6 % (0.9-11.2); Lymphocytes Absolute Auto 0.77 K/mm3 (0.9-3.2); Lymphocytes Percent Auto 8.6 % (18.3-44.2); Mean Corpuscular HGB Conc 27.9 g/dl (32-36); Mean Corpuscular Hemoglobin 21.8 pg (26-34); Mean Corpuscular Volume 77.9 fl (80-100); Monocytes Absolute Auto 0.7 K/mm3 (0.1-0.6); Monocytes Percent Auto 7.3 % (2.6-8.5); Neutrophils Absolute Auto 7.2 K/mm3 (1.3-6.7); Neutrophils Percent Auto 79.8 % (45.5-73.1); Platelet Count Result 200 k/mm3 (150-375); Red Blood Count 5.93 M/mm3 (4.6-6.20); Red Cell Distribution Width 20.2 % (11.5-14.5)
[2021-08-05 23:41] LABS: Hypochromasia 2+ (NORMAL); Platelet Estimate Adequate (Adequate)
[2021-08-05 23:42] LABS: Anisocytosis 2+ (NORMAL); Microcytosis 1+ (NORMAL); Ovalocytes 2+ (NORMAL)
== END 2021-08-05 22:23 | disposition home or self-care (01) ==
PROVIDERS: Emergency Provider Emergency Medicine; PCP Internal Medicine
DX: S61.402A Unspecified open wound of left hand, initial encounter (principal); S80.02XA Contusion of left knee, initial encounter; J44.9 Chronic obstructive pulmonary disease, unspecified; G47.33 Obstructive sleep apnea (adult) (pediatric); I48.0 Paroxysmal atrial fibrillation; E11.9 Type 2 diabetes mellitus without complications; M10.9 Gout, unspecified; Z85.828 Personal history of other malignant neoplasm of skin; Z79.01 Long term (current) use of anticoagulants; Z87.891 Personal history of nicotine dependence; R90.82 White matter disease, unspecified; M17.12 Unilateral primary osteoarthritis, left knee; M47.812 Spondylosis without myelopathy or radiculopathy, cervical region; I45.10 Unspecified right bundle-branch block; W18.09XA Striking against other object with subsequent fall, initial encounter
CPT/HCPCS: 36415; 70450; 72125; 73130; 73562; 80048; 85025; 85055; 85610; 93005; 99215; 99284; G0463

== ENCOUNTER 2021-08-08 15:02 | Inpatient (IN) | payer MEDICARE, SELFPAY ==
[2021-08-08] VITALS (11 sets, daily range): BP systolic 109–142; BP diastolic 72–92; PULSE 63–80; RESP 16–22; TEMP 36.2–36.7; O2SAT 95–100; BMI 35.6
--- NOTE | ~2021-08-08 | XR_ITS ---
EXAMINATION: XR wrist LT 2V DATE: 08/14/2021 10:05 INDICATION: Left wrist swelling and erythema. Fall. TECHNIQUE: 2 views of left wrist were obtained. COMPARISON: Left hand radiographs 08/05/2021 FINDINGS: There is dorsal tilt of lunate, consistent with dorsal intercalated segmental instability. There is mild osteoarthritis of triscaphe joint and moderate osteoarthritis of first carpometacarpal joint. There are dystrophic calcifications about the wrist. IMPRESSION: 1. Polyarticular osteoarthritis. 2. Dorsal intercalated segmental instability (DISI) pattern. Reviewed, dictated and finalized at location A.
--- NOTE | ~2021-08-08 | XR_ITS ---
EXAMINATION: XR elbow RT 2V DATE: 08/15/2021 12:12 INDICATION: Right elbow pain. TECHNIQUE: 2 views of right elbow were obtained. COMPARISON: Right elbow radiographs 03/11/2017 FINDINGS: Bone alignment is normal. No fracture. There is mild osteoarthritis of ulnohumeral joint. T here is an enthesophyte at olecranon. There is an elbow joint effusion. Posterior soft tissue swellin g is noted. IMPRESSION: 1. Elbow joint effusion. No fracture identified. 2. Mild elbow joint osteoarthritis. Reviewed, dictated and finalized at location A.
--- NOTE | ~2021-08-08 | XR_ITS ---
EXAMINATION: XR abdomen/kub 1V DATE: 08/15/2021 12:11 INDICATION: Abdominal distention. TECHNIQUE: A supine view of the abdomen on 2 radiographs was obtained. COMPARISON: None. FINDINGS: There are no dilated loops of bowel. There is a small volume of stool in the colon. IMPRESSION: 1. Normal bowel gas pattern. Reviewed, dictated and finalized at location A.
--- NOTE | ~2021-08-08 | US_ITS ---
EXAMINATION: US knee asp inj w image LT DATE: 08/09/2021 15:30 INDICATION: Left-sided prepatellar hematoma. TECHNIQUE: The procedure including the risks, benefits, and alternatives was discussed with the patie nt. Risks discussed included bleeding and infection. The patient understood the risks and agreed to p roceed. The skin overlying the left knee was prepped and draped in usual sterile fashion. Anesthetic was administered with 1% lidocaine subcutaneously. An 18 gauge needle was then used to position the needle at multiple sites in the prepatellar hematoma and aspirate aspirate fluid under continuous so nographic guidance. The entry site was cleaned and dressed. There were no immediate complications. FINDINGS: Ultrasound images demonstrate the needle in the prepatellar hematoma. IMPRESSION: 1. Ultrasound-guided needle aspiration of the left-sided prepatellar hematoma yielding only 1 mL of d ark red blood. The hematoma is almost entirely too solid to aspirate. Reviewed, dictated and finalized at location A. IMPRESSION: 1. Ultrasound-guided needle aspiration of the left-sided prepatellar hematoma y ielding only 1 mL of dark red blood. The hematoma is almost entirely too solid to aspirate.
--- NOTE | ~2021-08-08 | XR_ITS ---
EXAM: XR hip LT 2V w AP pelvis HISTORY: FALL 08/05/2021 COMPARISON: None available FINDINGS: Normal mineralization. Moderate degenerative changes in the lumbar spine. Mild degenerativ e change in the bilateral SI joints and bilateral hips. No fracture or dislocation. Partially visuali zed bowel gas pattern is normal. IMPRESSION: No acute osseous finding in the pelvis or left hip. Reviewed, dictated and finalized at location K.
--- NOTE | ~2021-08-08 | XR_ITS ---
EXAMINATION: XR md joint inject/asp w image DATE: 08/16/2021 13:08 INDICATION: Right elbow joint effusion. TECHNIQUE: A time-out was performed to verify the patient's name, date of , and procedure to b e performed. The procedure including the risks, benefits, and alternatives was discussed with the pat ient. Risks discussed included bleeding and infection. The patient understood the risks and agreed to proceed. The skin overlying the right elbow joint was prepped and draped in usual sterile fashion. Anesthetic was administered with 1% lidocaine subcutaneously. An 18 G needle was advanced under flu oroscopic guidance into the joint. Fluid was aspirated. The needle was removed and the entry site was cleaned and dressed. There were no immediate complications. Fluoroscopy exposure time was 0.0 minut es. The total number of images was 1. FINDINGS: Real-time fluoroscopy demonstrates the needle in the right elbow joint. IMPRESSION: 1. Fluoroscopy guided right elbow joint aspiration yielding 10 mL yellow fluid. Reviewed, dictated and finalized at location A.
--- NOTE | ~2021-08-08 | MR_ITS ---
EXAMINATION: MR brain/brain stem wo con EXAM DATE: 08/11/2021 08:29 INDICATION: facial droop TECHNIQUE: Magnetic resonance imaging (MRI) of the brain/brain stem obtained without contrast. Sagitt al T1, axial diffusion, gradient echo (T2*), T1, T2, FLAIR sequences obtained. Comparison is made to prior examination from 05/04/2008. FINDINGS: There are no areas of restricted diffusion to suggest acute infarction. There is no acute hemorrhage seen on the T2*, a hemosiderin sensitive sequence. No intraparenchymal brain mass lesion. There is an old punctate left basal ganglia lacunar infarction. Dilated deep perivascular spaces. Th ere is moderate periventricular and subcortical T2/FLAIR signal hyperintensity, nonspecific but proba kira related to small vessel ischemic disease (microangiopathy). There is mild prominence of the sul ci and ventricles related to cerebral atrophy. There are no extra-axial collections. Flow voids ar e seen in the cerebral arteries on the T2-weighted sequences consistent with their expected patency. Patient has had bilateral ocular lens surgery. Soft tissue is unremarkable. Compared to 2007, prog ression in the age-related findings. The left basal ganglia lacunar infarct was not present on that s tudy. IMPRESSION: 1. No acute intracranial findings. 2. Chronic age related findings. 3. Old left basal ganglia lacunar infarction. Reviewed, dictated and finalized at location A.
--- NOTE | ~2021-08-08 | XR_ITS ---
EXAMINATION: XR chest 1V portable DATE: 08/14/2021 10:04 INDICATION: Shortness of breath with new oxygen requirements. TECHNIQUE: A single frontal view of the chest was obtained on 2 radiographs. COMPARISON: Chest single view 08/09/2021, chest CT 11/08/2011 FINDINGS: There is no pneumonia, pleural effusion, or pneumothorax. Calcified pleural plaques bilater ally may be seen with asbestosis exposure. The heart size is normal. There are prominent paracardial fat pads. Calcified right hilar lymph nodes are consistent with old granulomatous disease. IMPRESSION: 1. No acute cardiopulmonary disease. Reviewed, dictated and finalized at location A.
--- NOTE | ~2021-08-08 | CT_ITS ---
EXAMINATION: CT brain wo con INDICATION: Confusion and altered speech COMPARISON: 08/05/2021 TECHNIQUE: Standard unenhanced head CT. The dose-length product (DLP) was 681.00 mGy-cm. The mA was a djusted according to patient size. Iterative reconstruction technique was employed. FINDINGS: There is no acute intraparenchymal hemorrhage. No evidence of mass lesion. No evidence of a cute infarction. There are old lacunar infarcts of the bilateral basal ganglia. There is mild periven tricular and subcortical hypodensity probably related to small vessel ischemic disease. There is mild prominence of the sulci and ventricles related to cerebral atrophy. Intracranial calcified cerebral atherosclerosis is noted. There are no extra-axial collections. There is no mass effect or midline sh ift. Changes in the globes are likely from ocular lens surgery. The visualized sinuses and mastoid ai r cells are well aerated. IMPRESSION: 1. Old lacunar infarcts of the bilateral basal ganglia without acute intracranial abnormality. 2. Age related findings. Reviewed, dictated and finalized at location A. IMPRESSION: 1. Old lacunar infarcts of the bilateral basal ganglia without acute intracrani al abnormality. 2. Age related findings.
--- NOTE | ~2021-08-08 | CT_ITS ---
EXAMINATION: CT knee LT wo con DATE: 08/08/2021 16:14 INDICATION: Left knee swelling and bruising post fall 3 days prior TECHNIQUE: High resolution computed tomography (CT) of the left knee was performed without intravenou s contrast. Additional sagittal and coronal reconstructions were performed. Automated exposure contro l and iterative reconstruction technique were employed. The dose-length product was 508.98 mGy-cm. COMPARISON: 08/05/2021 FINDINGS: Bone alignment is normal. No fracture. Chondrocalcinosis in both the medial and lateral compartments of the knee. Small marginal osteophytes in all 3 compartments of the knee with at least mild joint sp sunny narrowing in the medial compartment which could be underestimated on nonweightbearing imaging. Sm all left knee joint effusion without layering lipohemarthrosis. Subcutaneous soft tissue swelling ant erior to the knee surrounding a high attenuation prepatellar hematoma which measures 9.3 x 9.0 x 3.2 cm. There is a second smaller hematoma along the medial aspect of the knee measuring 4.7 x 4.1 x 1.6 cm. Likely age-related mild fatty atrophy of the visualized musculature of the distal thigh and proxi mal calf. There are also scattered vascular calcifications in the arteries of the calf. IMPRESSION: 1. Large prepatellar hematoma. No fracture. 2. Chondrocalcinosis and at least mild tricompartmental osteoarthritis at the left knee with small pranav int effusion. Reviewed, dictated and finalized at location B. IMPRESSION: 1. Large prepatellar hematoma. No fracture. 2. Chondrocalcinosis and at least mild tricompartmental osteoarthritis at the l eft knee with small joint effusion.
--- NOTE | ~2021-08-08 | MR_ITS ---
EXAMINATION: MR cervical spine wo con EXAM DATE: 08/16/2021 14:58 INDICATION: Persistent encephalopathy, altered mental status. TECHNIQUE: Multi-sequential, multiplanar MR images of the cervical spine were obtained without contra st. Axial T2, axial T2 MERGE sequence. Sagittal T1, T2, T2 fat saturation images also obtained. Th ere is no prior study for comparison. FINDINGS: There is moderate disc disease at C6-7, mild to moderate at C5-6 and T1-2. The spinal cord signal intensity and intrinsic morphology is normal. Cervicomedullary junction is normal in appearan ce. The vertebral bodies are aligned in the AP dimension. There are no suspicious marrow signal abnor malities. Paraspinal soft tissue is unremarkable. Level by level evaluation: C2-C3: Disc does not extend beyond the endplate margin. Uncovertebral joint arthropathy: Mild left. Facet joint arthropathy: Mild to moderate left, mild right. Neural foraminal stenosis: Mild left. Central canal stenosis: No stenosis. C3-C4: There is a mild diffuse disc bulge. Uncovertebral joint arthropathy: Moderate right, mild to moderate left. Facet joint arthropathy: Mild to moderate bilateral. Neural foraminal stenosis: Moderate to severe right, moderate left. Central canal stenosis: Mild. C4-C5: There is a mild diffuse disc bulge. Uncovertebral joint arthropathy: Moderate bilateral. Facet joint arthropathy: Moderate bilateral. Neural foraminal stenosis: Moderate to severe right, moderate left. Central canal stenosis: Mild. C5-C6: There is a mild diffuse disc bulge. Uncovertebral joint arthropathy: Moderate left, mild to moderate. Facet joint arthropathy: Moderate bilateral. Neural foraminal stenosis: Moderate to severe left, moderate right. Central canal stenosis: Mild. C6-C7: There is a mild diffuse disc bulge. Uncovertebral joint arthropathy: Moderate bilateral. Facet joint arthropathy: Mild to moderate bilateral. Neural foraminal stenosis: Moderate to severe left, mild to moderate right. Central canal stenosis: Mild. C7-T1: Disc does not extend beyond the endplate margin. Uncovertebral joint arthropathy: None. Facet joint arthropathy: Mild bilateral. Neural foraminal stenosis: Mild right. Central canal stenosis: No stenosis. IMPRESSION: 1. Moderate to severe cervical spondylosis. Reviewed, dictated and finalized at location B.
--- NOTE | ~2021-08-08 | XR_ITS ---
XR ankle LT min 3V DATE: 08/17/2021 18:31 INDICATION: Injury. Gout. TECHNIQUE: 5 views COMPARISON: None FINDINGS: Status post surgical fusion at the talocalcaneal joint.. There is severe osteoarthritic change with virtual obliteration of joint space at the talonavicular j oint. Plantar and posterior calcaneal enthesopathy. No recent fracture or dislocation of the ankle or disruption of the ankle mortise is detected. IMPRESSION: No fracture or dislocation Status post fusion at and talocalcaneal joint Reviewed, dictated and finalized at location A.
--- NOTE | ~2021-08-08 | CT_ITS ---
EXAMINATION: CT elbow RT wo con DATE: 08/17/2021 19:58 INDICATION: Right elbow hemarthrosis. TECHNIQUE: Computed tomography (CT) of the right elbow was performed without intravenous contrast. Au tomated exposure control and iterative reconstruction technique were employed. The dose-length produc t was 560.00 mGy-cm. COMPARISON: Radiographs 08/15/2021 FINDINGS: Bone alignment is normal. No fracture. There is mild elbow joint osteoarthritis. There is a small elbow joint effusion. There is soft tissue swelling overlying the olecranon, consistent with b ursitis. IMPRESSION: 1. Mild elbow joint osteoarthritis. 2. Small elbow joint effusion. 3. Mild olecranon bursitis. Reviewed, dictated and finalized at location A.
--- NOTE | ~2021-08-08 | US_ITS ---
EXAMINATION: US carotid duplex BI EXAM DATE: 08/12/2021 09:49 INDICATION: Stroke. TECHNIQUE: Grayscale, color and pulsed Doppler images of the cervical carotid arteries were obtained . The degree of vessel stenosis is placed in one of the following categories: normal, <50% stenosis, 50-69% stenosis, >=70% stenosis but less than near-occlusion, near-occlusion, or occlusion. Note that percent stenosis relative to normal distal artery lumen diameter is indirectly measured from velocit y measurements as described by Alex, et al. Radiology 2003; 229:340-346. There is no prior study fo r comparison. FINDINGS: Incidental anechoic, nearly completely cystic right thyroid lobe nodule measuring 2.3 cm, l ikely benign finding. RIGHT SIDE: Right common carotid artery peak systolic velocity (PSV in cm/s): 106 Right bulb/internal carotid artery peak systolic velocity (PSV in cm/s): 122 Right internal carotid artery end diastolic velocity (EDV in cm/s): 21 Right ICA/CCA peak systolic ratio: 1.2 Right external carotid artery peak systolic velocity (PSV in cm/s): 90 Right vertebral artery antegrade flow: yes There is minimal carotid bulb plaque. Velocity and Doppler waveforms in the common and internal carotid arteries is normal. LEFT SIDE: Left common carotid artery peak systolic velocity (PSV in cm/s): 104 Left bulb/internal carotid artery peak systolic velocity (PSV in cm/s): 85 Left internal carotid artery end diastolic velocity (EDV in cm/s): 34 Left ICA/CCA peak systolic ratio: 0.82 Left external carotid artery peak systolic velocity (PSV in cm/s): 74 Left vertebral artery antegrade flow: yes There is mild carotid bulb plaque. Velocity and Doppler waveforms in the common and internal carotid arteries is normal. IMPRESSION: 1. Less than 50 percent stenosis in the right internal carotid artery. 2. Less than 50 percent stenosis in the left internal carotid artery. Reviewed, dictated and finalized at location A.
--- NOTE | ~2021-08-08 | XR_ITS ---
EXAMINATION: XR chest 1V portable DATE: 08/09/2021 10:59 INDICATION: Wheezing TECHNIQUE: frontal view of the chest was obtained. COMPARISON: Chest radiograph dated 05/05/[address] dated 11/08/2011 FINDINGS: Small pleural-based calcified nodules at the bilateral upper lung zones along with calcified right hi lar lymph nodes and calcified splenic nodule consistent with old granulomatous disease. The lungs rem ain otherwise clear with no focal airspace opacities, pulmonary edema, pleural effusion or pneumothor ax. Normal heart size accounting for AP technique with prominent bilateral paracardial fat pads. Mode rate bilateral glenohumeral osteoarthritis. IMPRESSION: 1. No acute cardiopulmonary disease. Reviewed, dictated and finalized at location B.
--- NOTE | ~2021-08-08 | US_ITS ---
EXAMINATION: US abdomen complete DATE: 08/15/2021 10:45 INDICATION: Elevated liver function tests TECHNIQUE: Multiple grayscale and Doppler ultrasound images of the abdomen were obtained. COMPARISON: None available FINDINGS: Bowel gas obscures visualization of the pancreas. The liver is normal with normal echogenic ity and echotexture. No surface nodularity. Normal hepatopetal flow in the main portal vein. The gall bladder is normal with no abnormal wall thickening, pericholecystic fluid or stones. The normal commo n bile duct measures 5 mm. There was no sonographic Mast sign. The visualized portions of the aorta and inferior vena cava are normal. The right kidney measures 13.2 x 5.1 x 5.6 cm. The left kidney measures 14 x 7.5 x 7.3 cm. Cysts of t he left kidney measure up to 7.1 cm. The kidneys demonstrate normal parenchymal echogenicity. There i s no hydronephrosis. The spleen is nonvisualized due to bowel in patient mobility issues. IMPRESSION: 1. No sonographic correlate for the patient's symptoms. Reviewed, dictated and finalized at location A.
--- NOTE | 2021-08-08 16:12 | ED.FALL ---
HPI - Fall General Chief Complaint: Fall Stated Complaint: knee pain/?weakness Time Seen by Provider: 08/08/21 15:24 Source: patient and family Mode of arrival: wheelchair Limitations: no limitations History of Present Illness HPI Narrative: Pt is a 86 y/o female, returns to ED via POV from home with his son transporting after a fall on 08/05/2021; for which he was evaluated and treated here. He returns with persistent left knee pain and swelling that has prevented his ability to complete his ADLs. He lives alone and his son notes he requires two person assistance with any weight bearing. He feels he will require a rehab facility until his knee is healed, prompting their return visit. Loss of consciousness: none Related Data Home Medications Medication Instructions Recorded Confirmed alprazolam 1 mg PO HS 05/05/21 05/16/21 indapamide 2.5 mg PO DAILY 05/05/21 05/16/21 lisinopril 20 mg PO DAILY 05/05/21 05/16/21 Allergies Allergy/AdvReac Type Severity Reaction Status Date / Time No Known Allergies Allergy Verified 08/05/21 19:52 Review of Systems Review of Systems: refer to HPI Integumentary/Breasts: Comments: left knee bullous eruption was described by family and patient post injury. This bullae ruptured during his sleep last HS and has drained clear yellow drainage following. 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 He has had significant secondhand smoke exposure. He does not do drugs or drink alcohol. 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 He would like his son, Charles, to be his surrogate decision maker as needed. 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 Gender identity (if verbalized by the patient): Male Sexual Orientation (if Verbalized by the Patient): Straight or Heterosexual Spiritual care concerns: No Exam Const: General: no acute distress and alert Nutritional Appearance: obese Orientation/consciousness: patient oriented x3 HENMT: Head: normal to inspection Ears: EAC's normal Face and sinus: normal facial exam Eyes: Conjunctivae: conjunctivae normal Pupils: Equal, round and reactive pupils present EOM: EOMs intact bilaterally Neck: Neck: normal visual inspection Chest: Chest palpation & inspection: normal inspection of the chest Resp: Auscultation: wheezes (throughout-pt notes his breathing is chronic; he is due for a neb treatment) Cardio: Rate: regular rate GI: GI Palp: Yes Soft to palpation Percussion: Yes normal to percussion Auscultation: normal bowel sounds Skin: Other: left knee is markedly swollen with palpable effusion, ecchymosis and an abrasion overlying the left patella that appears to be consistent with a ruptured
[2021-08-08] MEDS: ALBUTEROL SULFATE NEB 2.5 MG/3 ML INH INHALATION (16:13)
[2021-08-08 16:37] LABS: Basophils Percent Auto 0.4 % (0.2-1.2); Eosinophils Absolute Auto 0.1 K/mm3 (0-0.3); Eosinophils Percent Auto 1.1 % (0-4.4); Hematocrit 42.4 % (42.0-52.0); Hemoglobin 11.9 g/dL (14.0-18.0); Immature Granulocyte Absolute 0.04 K/mm3 (0.00-0.031); Immature Granulocyte Percent A 0.4 % (0-0.5); Immature Platelet Fraction Pct 5.1 % (0.9-11.2); Lymphocytes Absolute Auto 0.75 K/mm3 (0.9-3.2); Mean Corpuscular HGB Conc 28.1 g/dl (32-36); Mean Corpuscular Hemoglobin 21.8 pg (26-34); Mean Corpuscular Volume 77.8 fl (80-100); Monocytes Absolute Auto 0.8 K/mm3 (0.1-0.6); Monocytes Percent Auto 8.6 % (2.6-8.5); Neutrophils Absolute Auto 7.7 K/mm3 (1.3-6.7); Neutrophils Percent Auto 81.5 % (45.5-73.1); Platelet Count Result 199 k/mm3 (150-375); Red Blood Count 5.45 M/mm3 (4.6-6.20); Red Cell Distribution Width 19.9 % (11.5-14.5); White Blood Count 9.4 K/mm3 (4.5-10.0)
[2021-08-08 16:46] LABS: Alanine Aminotransferase 15 U/L (4-50); Albumin Level 3.9 g/dL (3.5-5.1); Alkaline Phosphatase 68 U/L (38-126); Anion Gap 5 mmol/L (8-16); Aspartate Amino Transferase 32 U/L (17-59); Bilirubin,Total 1.5 mg/dL (0.2-1.3); Blood Urea Nitrogen 20 mg/dL (9-20); Calcium 8.6 mg/dL (8.4-10.2); Carbon Dioxide 29 mmol/L (22-30); Chloride 103 mmol/L (98-107); Estimated CRCL calculation 69 ml/min; Estimated Glomerular Filt Rate > 60; Glucose 91 mg/dL (65-110); Potassium 4.3 mmol/L (3.4-5.0); Sodium 137 mmol/L (137-145)
[2021-08-08 16:51] LABS: INR 1.8; Prothrombin Time 20.3 Seconds (11.1-14.7)
[2021-08-08 17:01] LABS: Hypochromasia 1+ (NORMAL); Ovalocytes 1+ (NORMAL); Platelet Estimate Adequate (Adequate)
--- NOTE | 2021-08-08 17:25 | PC.NURSE ---
Pt family at bedside states pt has not been able to ambulate safely since his fall. States he has used a walker with two people assist. Pt reportedly was found on floor this am.
[2021-08-08] MEDS: HYDROcodone/acetaminophen (*CRX) 5-325 MG TABLET 1 TAB PO (18:46)
--- NOTE | 2021-08-08 20:30 | PM.IMHP ---
H&P: HPI History of Present Illness Date/Time: 08/08/21 20:30 Chief Complaint: Knee pain. Narrative: This is an 86-year-old male with paroxysmal atrial fibrillation on chronic anticoagulation, hypertension, hyperlipidemia, and sleep apnea presented to the emergency department via private vehicle from home accompanied by his son for evaluation of left knee pain. He was recently seen in the emergency department on 08/05/2021 after sustaining a mechanical fall at a local restaurant. He landed on his left side and perhaps gingerly bumped his head. A majority of his weight came down on his left knee and he developed immediate swelling in that knee. Left knee x-ray showed anterior knee swelling and mild osteoarthritis. CTs of the head and cervical spine as well as left hand x-ray were also unremarkable. He was discharged home was told to hold his warfarin however he was started on apixaban in its place. He has had 2 other falls since returning home as he is having difficulties getting around due to significant pain in the knee. The swelling continues to get worse and 2 days ago he developed a large bulla which popped last night and he reports a large amount of opaque yellowish and malodorous fluid. Due to safety concerns and ongoing pain he came back for re-evaluation. A CT of the left knee showed a large prepatellar hematoma and Dr. Cheung was consulted by the ED and he will be seeing the patient. At the time my evaluation his only complaint is that of hunger as he has not been able to eat since this morning. He denies fever, chills, sweats, nausea, and vomiting. He also denies paresthesias, skin color, and temperature changes distal to the hematoma. Review of Systems Review of Systems: Twelve systems were reviewed. No cold or flu symptoms. No sick contacts. No chest pain or shortness of breath. He does not use his CPAP at nighttime. He is not on oxygen at home however he was placed on 2 L nasal cannula in the ER for an SpO2 in the lower 90s. He wheezes frequently due to his COPD and this is unchanged. He uses nebs at home. Except as documented, all other systems were reviewed and are negative. [facility] Past Medical History Medical History (Updated 08/09/21 @ 00:05 by Suzanne Laird PA-C) Arthritis Chronic anemia Chronic anticoagulation Chronic obstructive pulmonary disease, unspecified Gout History of basal cell cancer Hypertension Obstructive sleep apnea on CPAP Paroxysmal atrial fibrillation Surgical History Surgical History (Updated 08/08/21 @ 22:46 by Suzanne Laird PA-C) History of appendectomy History of basal cell carcinoma excision History of sinus surgery History of tonsillectomy Family History Family History Father Family history of malignant neoplasm Patient's father is Acute myocardial infarction Mother Family history of malignant neoplasm Patient's mother is Social History Social History (Updated 08/08/21 @ 23:57 by Suzanne Laird PA-C) Social History: The patient lives in [place]. He was in the [employer] and served in [employer]. 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 He smoked briefly for a couple of years as a young man but reports significant secondhand smoke exposure. No alcohol or illicit substance abuse. He designates his son, Charles Osorio, as his surrogate decision maker. He wishes to be a full code. Spiritual care concerns: No Meds Home Medications and Allergies Home Medications Medication Instructions Recorded Confirmed Type furosemide 20 mg tablet 20 mg PO QAM #90 tablet 09/09/20 08/08/21 Rx albuterol sulfate 2.5 mg INHALATION Q6H PRN #360 ml 10/07/20 08/08/21 Rx budesonide 160 mcg-glycopyr 9 2 inh INHALATION QAM AND QPM #10.7 01/24/21 08/08/21 Rx mcg-formot 4.8 mcg/actuation HFA g inhaler albuterol sulfate 90 mcg/actuation 1 - 2 puff INHALATION Q4-6H PRN 04/12/21 08/08/21 Rx aerosol i
--- NOTE | 2021-08-08 23:03 | ADMGEN ---
This patient, Charles Osorio, was admitted to 3 [facility] Surg Room 325-01. Patient/family oriented to hospital policies and general routines including ID bracelet, bed and alarms, visiting hours, pain management, procedures, bathroom and other care routines, personal items, smoking policy, room service/diet, and visiting hours. Information on how to activate the Rapid Response Team has been discussed. Patient/Family are encouraged to report perceived risks to care and to ask questions if they do not understand what they are told or what they should do.
[2021-08-09] VITALS (14 sets, daily range): BP systolic 105–140; BP diastolic 68–91; PULSE 68–94; RESP 15–21; TEMP 36.4–37.2; O2SAT 95–98
--- NOTE | 2021-08-09 02:12 | PCRCNOTE ---
Pt does not wear CPAP at home, only takes treatments 3 times a day, does not want CPAP or have a home machine
--- NOTE | 2021-08-09 06:18 | WPDCN ---
Assessment and Plan Assessment and plan (1) Hematoma of left knee region: Code(s): S80.02XA - Contusion of left knee, initial encounter Status: Acute Assessment and Plan: Today we had a lengthy discussion of his options. For now he would like to compress the left knee and does not wish to proceed drainage of hematoma. I am happy to see him back any point should this change and to discuss options further. Care per hospitalist/orthopedic surgery. Today's visit including review of records, evaluation of patient common charting was 45 minutes. Today we had a lengthy discussion about his options. Went over the risks, benefits, alternatives of each. This was a lengthy open-ended conversation making sure he is well informed. He was able to articulate a clear understanding. After hearing all his options today he does not want to proceed with drainage of the hematoma. He would rather monitor. He understands the risks of doing so. We will provide my contact information. Follow-up with me as needed. HPI Data of Consult Date/Time: 08/09/21 06:18 Requesting Physician: Frederick Valenzuela MD Primary Care Provider: Haroldo Jose DO Consult Narrative Narrative: Charles Osorio is a 86 year old male who fell on 08/05/2021. He was evaluated in the emergency room and discharged home. At that time he was changed from Coumadin to Eliquis. He returns with persistent left knee pain and swelling that has prevented his ability to complete his ADLs. He lives alone; however, states his son and grandson live down the street. His son told the ER staff that he requires two person assistance with any weight bearing. He feels he will require a rehab facility until his knee is healed, prompting their return visit. The patient says overall he is doing well. He does has significant discomfort in his left knee. They had discussed drainage of the left knee in his ER visit. Switched him from Coumadin to Eliquis. The patient states over the last couple days he has had some left knee drainage and feels like there is improvement. Left knee xray IMPRESSION: 1. Mild left knee osteoarthritis. 2. Anterior knee soft tissue swelling. Left knee CT IMPRESSION: 1. Large prepatellar hematoma. No fracture. 2. Chondrocalcinosis and at least mild tricompartmental osteoarthritis at the left knee with small joint effusion. Review of Systems Constitutional: Constitutional: Reports no additional constitutional complaints Eyes: Eyes: Reports as per HPI ENT: Reports as per HPI Cardiovascular: Cardiovascular: Reports dyspnea on exertion Respiratory: Comments: O2 requirement Gastrointestinal: Gastrointestinal: Reports as per HPI Musculoskeletal: Musculoskeletal: Reports as per HPI Neurologic: Reports as per HPI Endocrine: Endocrine: Reports as per HPI Hematologic/Lymphatic: Hematologic/Lymphatic: Reports easy bruising PMFSH Past Medical History Medical History (Updated 08/09/21 @ 00:05 by Suzanne Laird PA-C) Arthritis Chronic anemia Chronic anticoagulation Chronic obstructive pulmonary disease, unspecified Gout History of basal cell cancer Hypertension Obstructive sleep apnea on CPAP Paroxysmal atrial fibrillation Surgical History Surgical History (Updated 08/08/21 @ 22:46 by Suzanne Laird PA-C) History of appendectomy History of basal cell carcinoma excision History of sinus surgery History of tonsillectomy Family History Family History Father Family history of malignant neoplasm Patient's father is Acute myocardial infarction Mother Family history of malignant neoplasm Patient's mother is Social History Social History (Updated 08/08/21 @ 23:57 by Suzanne Laird PA-C) Social History: The patient lives in [place]. He was in the [employer] and served in [employer]. 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
[2021-08-09 06:25] LABS: Basophils Absolute Auto 0.1 K/mm3 (0.0-0.1); Basophils Percent Auto 0.7 % (0.2-1.2); Eosinophils Absolute Auto 0.3 K/mm3 (0-0.3); Eosinophils Percent Auto 3.5 % (0-4.4); Hematocrit 39.9 % (42.0-52.0); Hemoglobin 11.3 g/dL (14.0-18.0); Immature Granulocyte Absolute 0.05 K/mm3 (0.00-0.031); Immature Granulocyte Percent A 0.7 % (0-0.5); Immature Platelet Fraction Pct 5.2 % (0.9-11.2); Lymphocytes Absolute Auto 0.81 K/mm3 (0.9-3.2); Lymphocytes Percent Auto 10.6 % (18.3-44.2); Mean Corpuscular HGB Conc 28.3 g/dl (32-36); Mean Corpuscular Hemoglobin 21.9 pg (26-34); Mean Corpuscular Volume 77.2 fl (80-100); Monocytes Absolute Auto 0.7 K/mm3 (0.1-0.6); Monocytes Percent Auto 8.5 % (2.6-8.5); Neutrophils Absolute Auto 5.8 K/mm3 (1.3-6.7); Platelet Count Result 193 k/mm3 (150-375); Red Blood Count 5.17 M/mm3 (4.6-6.20); Red Cell Distribution Width 19.7 % (11.5-14.5); White Blood Count 7.6 K/mm3 (4.5-10.0)
[2021-08-09 06:32] LABS: INR 1.7; Prothrombin Time 19.5 Seconds (11.1-14.7)
[2021-08-09 06:34] LABS: Alanine Aminotransferase 13 U/L (4-50); Albumin Level 3.3 g/dL (3.5-5.1); Alkaline Phosphatase 66 U/L (38-126); Anion Gap 5 mmol/L (8-16); Aspartate Amino Transferase 26 U/L (17-59); Bilirubin,Total 1.4 mg/dL (0.2-1.3); Blood Urea Nitrogen 18 mg/dL (9-20); Calcium 8.1 mg/dL (8.4-10.2); Carbon Dioxide 26 mmol/L (22-30); Chloride 106 mmol/L (98-107); Estimated CRCL calculation 71 ml/min; Estimated Glomerular Filt Rate > 60; Glucose 90 mg/dL (65-110); Magnesium 1.8 mg/dL (1.6-2.3); Potassium 3.6 mmol/L (3.4-5.0); Sodium 137 mmol/L (137-145)
[2021-08-09 07:04] LABS: Anisocytosis 2+ (NORMAL); Ovalocytes 1+ (NORMAL); Platelet Estimate Adequate (Adequate)
[2021-08-09] MEDS: FUROSEMIDE 20 MG TABLET PO (08:28)
[2021-08-09] MEDS: INDAPAMIDE 2.5 MG TABLET PO (08:28)
[2021-08-09] MEDS: allopurinoL 300 MG TABLET PO (08:28)
[2021-08-09] MEDS: SIMVASTATIN 20 MG TABLET PO (08:29)
[2021-08-09] MEDS: FINASTERIDE 5 MG TABLET PO (08:29)
[2021-08-09] MEDS: TAMSULOSIN HCL 0.4 MG CAPSULE PO (08:29)
[2021-08-09] MEDS: lisinopriL 20 MG TABLET PO (08:29)
[2021-08-09] MEDS: ALBUTEROL SULFATE NEB 2.5 MG/3 ML INH INHALATION ×2 (09:25→16:14)
--- NOTE | 2021-08-09 10:32 | PM.IMPN ---
Progress Note: A&P Assessment and Plan (1) Hematoma of left knee region: Code(s): S80.02XA - Contusion of left knee, initial encounter Status: Acute Assessment and Plan: -Large prepatellar hematoma of the left knee secondary to fall. -He was on Coumadin prior to the fall and was placed on Eliquis after the fall for unclear reasons. We need to discontinue anticoagulation for a couple of weeks and I discussed this with the patient. -Started on empiric antibiotics for possible septic hematoma given reports of malodorous and cloudy drainage when the bulla ruptured. -Dr. Cheung plastic surgery was contacted by the ED provider and saw the patient in consult this morning. Pt refused aspiration at that time but when I saw him he seemed confused about why we needed to do it. -Due to the concern for infection, I spoke w/ Dr. Ruelas orthopedics who is in agreement with IR aspiration of the knee for anaerobic/aerobic culture and gram stain. Also added ESR and CRP. (2) Chronic anticoagulation: Code(s): Z79.01 - watermaster (current) use of anticoagulants Status: Acute Assessment and Plan: -Anticoagulation should probably be held for 2 weeks to allow this to heal and reabsorbed. -At this time his risk of bleeding is higher than his risk for stroke. (3) Hypertension: Code(s): I10 - Essential (primary) hypertension Status: Acute Assessment and Plan: -Blood pressures were reviewed and they are stable. -Continue antihypertensives and monitor. (4) Obstructive sleep apnea on CPAP: Code(s): G47.33 - Obstructive sleep apnea (adult) (pediatric); Z99.89 - Dependence on other enabling machines and devices Status: Acute Assessment and Plan: -He does not use his CPAP at home however I will order 1 for him while hospitalized as he really needs to be compliant with this. (5) Paroxysmal atrial fibrillation: Code(s): I48.0 - Paroxysmal atrial fibrillation Status: Acute Assessment and Plan: -He sounds to be in a normal sinus rhythm. -Anticoagulation on hold as detailed above. Subjective Date/time seen: 08/09/21 10:32 Interval history: 86-year-old male with paroxysmal atrial fibrillation on chronic anticoagulation, hypertension, hyperlipidemia, and sleep apnea, admitted for L pre patellar hematoma. Pt still c/o significant pain to L knee. States when the area burst yesterday it drained a purulent malodorous discharge. He denies fevers but admits to chills. no N/V. He is having some wheezing and was sob this morning. Review of Systems Review of Systems: All systems reviewed & are unremarkable except as noted in HPI and below Exam Narrative: General: Well-developed elderly gentleman sitting up in bed. Weight: 119.2 kg. BMI: 35.6. HEENT: PERRL. Sclerae anicteric. Oral mucosa moist. Neck: Supple. Respiratory: Respirations are nonlabored. Diminished breath sounds due to body habitus with expiratory wheezing. Cardiovascular: Regular rate and rhythm with S1-S2. Gastrointestinal: Abdomen is soft, protuberant, nontender, and nondistended with positive bowel sounds. Skin: Warm and dry. The fingers on his left hand are slightly swollen from a wrap that was placed during his recent ER visit, apparently a dressing for contusion. There is a skin tear on the right elbow. Musculoskeletal: Left knee is markedly swollen and tense with a large area of ecchymosis. There is an overlying area consistent with his history of formed bulla which has ruptured. There is a small amount cloudy serous drainage that is a bit malodorous. His range of motion is limited due to swelling and pain. He is neurovascularly intact in the left leg. Extremities: No cyanosis or clubbing. Trace alli ankle edema. Radial and pedal pulses intact. Neurological: Alert. Cranial nerves 2-12 are grossly intact. Speech is clear. No facial asymmetry. No gross focal
[2021-08-09 10:56] LABS: CRP 5.4 mg/dL (<1.0)
--- NOTE | 2021-08-09 11:10 | PM.CNOR ---
Assessment and Plan Additional Plan Patient is an 86-year-old gentleman who fell onto his left knee 4 days ago. He is on or was on Coumadin. He since was switched to Eliquis. He went to the ER on the 05 of August 4 days ago with a large prepatellar hematoma and was scheduled to follow up with his primary care physician. He was having a great deal of pain and swelling and to quite min of difficulty ambulating because of his pain the came to the emergency room again last night. He had a large Eddie that had previously ruptured that is about 3 in in length about inch and half in diameter. It is the shape of a,. The tail and it distally has capillary refill of the underlying dermis. The epidermis is missing. The circular portion proximally his a darker red and there is no capillary refill and I am concerned that he may not have viability of the dermis in that area. There is a large prepatellar hematoma. 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 The the area of swelling anteriorly is about 4 in wide and 5 in long and is quite large. He has extensive ecchymoses under the back of his knee as well. There is no erythema. The 3 x 1/2 inch, shaped area of loss of epidermis is dry. He is able to do a straight leg raise. His range of motion of the knee is quite limited 20-45 degrees because of pain anteriorly. I could not appreciate a definite intra-articular effusion. He had x-rays of his Left knee which showed a huge area of soft tissue swelling in the soft tissues anterior to the patella. No definite intra-articular effusion. Mild medial compartment osteoarthritis noted on the nonweightbearing views. CT scan showed small intra-articular effusion without fat and was showed no evidence of fracture. He had plain x-rays of his hip since he landed on his knee and was having too much pain to ambulate due to anterior knee pain and the x-rays showed no abnormalities two views of the right hip and AP pelvis. Impression patient has a large hematoma over the anterior aspect of his knee. This is much larger than the normal area of the prepatellar bursa and I am sure there is an element of a Wynne Stephani lesion. He blistered the anterior aspect of the knee not because of the direct contact causing that abrasion but rather due to impaired circulation. The proximal half of this 1/2 x 3 in, shaped area of epidermal lysis may be avascular. The distal half has intact capillary refill. As such Dr. Noel plastic surgeon has been consulted due to the fact that this is going to require wound care and may require debridement even skin grafting potentially. I was consulted as there was concern for infection. I asked him to do a CRP this morning and it was 5 which is 5 times a normal here normal being 1.0 or less. This is equivocal. Greater than 10 times normal CRP is suggest infection and does not reach the threshold of course infection can not be ruled out. The patient is now agreeable to having the prepatellar bursa aspirated which I think is the best course of action. Dr. Noel offered to do that this morning but the patient refused apparently being confused as he is quite amenable to that and we are going to ask the radiologist to do that under ultrasound guidance to try and get as much fluid out as possible. Some of the underlying organized hematoma will likely remain but this may decrease some of the pressure on the overlying skin and improve marginal circulation. We have asked him to send the blood off for aerobic and anaerobic cultures also. His white count on his CBC was 7.6. Dr. Noel noted that the anticoagulation should be held course. He has a history of paroxysmal atrial fibrillation. History of Present Illness HPI Consult date: 08/09/21 Chief complaint: left knee prepatellar hematoma, PMFSH Past Medical History Medical History (Updated 08/09/21 @ 00:05 by Suzanne Laird PA-C) Arthritis Chronic anemia Chronic anticoagulation
[2021-08-09 11:17] LABS: Erythrocyte Sedimentation Rate 11 mm/hr (0-20)
[2021-08-09 14:12] LABS: Total Triiodothyronine (T3) 1.13 NG/ML (0.97-1.69)
[2021-08-09] MEDS: HYDROcodone/acetaminophen (*CRX) 5-325 MG TABLET 1 TAB PO (16:01)
--- NOTE | 2021-08-09 16:29 | PCOTNOTE ---
HOLD pt. for therapy evaluation for today per nursing, awaiting completion of ortho procedure
[2021-08-09] MEDS: ALPRAZolam (*CRX) 0.5 MG TABLET 1 MG PO (20:53)
[2021-08-10] VITALS (13 sets, daily range): BP systolic 101–142; BP diastolic 55–88; PULSE 64–94; RESP 16–20; TEMP 36.4–37.2; O2SAT 91–98
--- NOTE | 2021-08-10 07:13 | PM.PNORT ---
Progress Note: A&P Additional Plan Radiology was only able to aspirate 1 cc of blood from the large prepatellar hematoma. Rest of the clot was to organized aspirate. No signs of infection. Will sign off at this time and defer further management to plastics Subjective Subjective Date/Time Seen: 08/10/21 07:13 Objective Data Vital Signs Vital Signs: Vital Signs - 24 hr 08/09/21 08:30 08/09/21 09:20 08/09/21 09:26 Temperature Pulse Rate 72 75 Respiratory Rate 18 18 Blood Pressure Pulse Oximetry 97 08/09/21 13:34 08/09/21 14:00 08/09/21 14:22 Temperature 36.9 C 36.9 C Pulse Rate 77 88 88 Respiratory Rate 21 H 21 H Blood Pressure 122/80 122/80 Pulse Oximetry 95 95 08/09/21 16:00 08/09/21 16:18 08/09/21 16:22 Temperature Pulse Rate 71 83 74 Respiratory Rate 15 Blood Pressure Pulse Oximetry 08/09/21 20:00 08/09/21 21:31 08/10/21 00:00 Temperature 37.2 C 37.2 C 37.0 C Pulse Rate 94 84 85 Respiratory Rate 18 18 18 Blood Pressure 123/79 123/79 134/88 Pulse Oximetry 98 95 98 08/10/21 04:00 Temperature 37.1 C Pulse Rate 83 Respiratory Rate 18 Blood Pressure 142/79 H Pulse Oximetry 95 Intake/Output Intake/Output: Intake & Output 08/07/21 08/08/21 08/09/21 08/10/21 23:59 23:59 23:59 23:59 Intake Total 930 450 Output Total 225 1176 275 Balance -225 -246 175 Meds/Results Medications: Active Medications Generic Name Dose Route Start Last Admin Trade Name Freq PRN Reason Stop Dose Admin Hydrocodone Bitart/Acetaminophen 1 tab 08/08/21 19:03 08/09/21 16:01 Hydrocodone/Acetaminophen (*Crx) 5-325 Mg Tablet PO 1 tab Q8H PRN Administration Pain Rated 4-6 Albuterol 2.5 mg 08/08/21 23:46 08/09/21 16:14 Albuterol Sulfate Neb 2.5 Mg/3 Ml Inh INHALATION 2.5 mg Q6H PRN Administration shortness of breath or wheezing Allopurinol 300 mg 08/09/21 08:00 08/09/21 08:28 Allopurinol 300 Mg Tablet PO 300 mg DAILY@0800 SHILA Administration Alprazolam 1 mg 08/09/21 21:00 08/09/21 20:53 Alprazolam (*Crx) 0.5 Mg Tablet PO 1 mg HS SHILA Administration Finasteride 5 mg 08/09/21 09:00 08/09/21 08:29 Finasteride 5 Mg Tablet PO 5 mg DAILY SHILA Administration Furosemide 20 mg 08/09/21 09:00 08/09/21 08:28 Furosemide 20 Mg Tablet PO 20 mg QAM SHILA Administration Cefazolin Sodium 1 gm in 50 mls @ 100 mls/hr 08/09/21 01:00 08/10/21 01:55 Ancef 1 Gm/D5w 50 Ml Pm IVPB 100 mls/hr Q8H SHILA Administration Indapamide 2.5 mg 08/09/21 09:00 08/09/21 08:28 Indapamide 2.5 Mg Tablet PO 2.5 mg DAILY SHILA Administration Lisinopril 20 mg 08/09/21 09:00 08/09/21 08:29 Lisinopril 20 Mg Tablet PO 20 mg DAILY SHILA Administration Non-Formulary Medication 2 inhalation 08/08/21 23:45 [id number] [Breztri Aerosphere] INHALATION 09/07/21 23:44 QAM AND QPM SHILA Simvastatin 20 mg 08/09/21 09:00 08/09/21 08:29 Simvastatin 20 Mg Tablet PO 20 mg DAILY SHILA Administration Tamsulosin HCl 0.4 mg 08/09/21 09:00 08/09/21 08:29 Tamsulosin Hcl 0.4 Mg Capsule PO 0.4 mg DAILY SHILA Administration Radiology Results: ITS Impressions Knee CT 08/08/21 16:23 IMPRESSION: 1. Large prepatellar hematoma. No fracture. 2. Chondrocalcinosis and at least mild tricompartmental osteoarthritis at the left knee with small joint effusion. Hip/Pelvis X-Ray 08/08/21 18:13 IMPRESSION: No acute osseous finding in the pelvis or left hip. Chest X-Ray 08/09/21 10:59 IMPRESSION: 1. No acute cardiopulmonary disease. Joint Aspiration/Injection 08/09/21 15:36 IMPRESSION: 1. Ultrasound-guided needle aspiration of the left-sided prepatellar hematoma yielding only 1 mL of dark red blood. The hematoma is almost entirely too solid to aspirate. Labs Labs: Laboratory Results - last 24 hr 08/09/21 08/09/21 08/09/21 05:30 05:30 05:33 ESR 11 C-Reactiv
[2021-08-10 08:25] LABS: Anion Gap 7 mmol/L (8-16); Blood Urea Nitrogen 16 mg/dL (9-20); Calcium 8.3 mg/dL (8.4-10.2); Carbon Dioxide 28 mmol/L (22-30); Chloride 104 mmol/L (98-107); Estimated CRCL calculation 73 ml/min; Estimated Glomerular Filt Rate > 60; Glucose 104 mg/dL (65-110); Potassium 3.4 mmol/L (3.4-5.0); Sodium 139 mmol/L (137-145)
[2021-08-10 08:35] LABS: Basophils Percent Auto 0.4 % (0.2-1.2); Eosinophils Absolute Auto 0.2 K/mm3 (0-0.3); Eosinophils Percent Auto 2.3 % (0-4.4); Hematocrit 42.7 % (42.0-52.0); Immature Granulocyte Absolute 0.07 K/mm3 (0.00-0.031); Immature Granulocyte Percent A 0.8 % (0-0.5); Immature Platelet Fraction Pct 5.7 % (0.9-11.2); Lymphocytes Absolute Auto 0.55 K/mm3 (0.9-3.2); Mean Corpuscular HGB Conc 28.1 g/dl (32-36); Mean Corpuscular Hemoglobin 21.8 pg (26-34); Mean Corpuscular Volume 77.5 fl (80-100); Monocytes Absolute Auto 0.8 K/mm3 (0.1-0.6); Monocytes Percent Auto 8.8 % (2.6-8.5); Neutrophils Absolute Auto 7.5 K/mm3 (1.3-6.7); Neutrophils Percent Auto 81.7 % (45.5-73.1); Platelet Count Result 215 k/mm3 (150-375); Red Blood Count 5.51 M/mm3 (4.6-6.20); Red Cell Distribution Width 20.2 % (11.5-14.5); White Blood Count 9.2 K/mm3 (4.5-10.0)
[2021-08-10] MEDS: HYDROcodone/acetaminophen (*CRX) 5-325 MG TABLET 1 TAB PO (09:33)
[2021-08-10] MEDS: SIMVASTATIN 20 MG TABLET PO (09:34)
[2021-08-10] MEDS: lisinopriL 20 MG TABLET PO (09:34)
[2021-08-10] MEDS: FINASTERIDE 5 MG TABLET PO (09:34)
[2021-08-10] MEDS: allopurinoL 300 MG TABLET PO (09:34)
[2021-08-10] MEDS: INDAPAMIDE 2.5 MG TABLET PO (09:34)
[2021-08-10] MEDS: TAMSULOSIN HCL 0.4 MG CAPSULE PO (09:34)
[2021-08-10] MEDS: FUROSEMIDE 20 MG TABLET PO (09:34)
--- NOTE | 2021-08-10 09:52 | PCPTNOTE ---
Attempted physical therapy evaluation, Per RN, patient very drowsy and was just returned to bed. RN request therapist return later. Will continue to follow.
[2021-08-10] MEDS: SILVERGEL (ELTA) 45 ML 1 APPLIC TOPICAL (11:14)
--- NOTE | 2021-08-10 13:30 | PM.IMPN ---
Progress Note: A&P Assessment and Plan (1) Hematoma of left knee region: Code(s): S80.02XA - Contusion of left knee, initial encounter Status: Acute Assessment and Plan: -Large prepatellar hematoma of the left knee secondary to fall. -He was on Coumadin prior to the fall and was placed on Eliquis after the fall for unclear reasons. We need to discontinue anticoagulation for a couple of weeks and I discussed this with the patient. -He was started on empiric antibiotics for possible septic hematoma given reports of malodorous and cloudy drainage when the bulla ruptured. -Dr. Cheung plastic surgery was contacted by the ED provider and saw the patient in consult 08/09/21. Pt refused aspiration at that time but when I saw him he seemed confused about why we needed to do it in the first place. -Due to the concern for infection, I spoke w/ Dr. Schroeder orthopedics who is in agreement with IR aspiration of the knee for anaerobic/aerobic culture and gram stain. Also added ESR and CRP. -aspiration was somewhat unsuccessful and only yielded 1 cc. culture pending however Dr. Schroeder saw patient this morning and feels there are no signs of infection. He has signed off. abx were discontinued. -discussed with radiologist possibility of MRI but he states that is not necessary and would not yield any additional information -left VM with Dr. Richardson regarding patient as he will need to be followed closely for this due to high probability of necrosis to blister like area -wound care consult placed (2) Chronic anticoagulation: Code(s): Z79.01 - care home (current) use of anticoagulants Status: Acute Assessment and Plan: -Anticoagulation held likely for up to 2 weeks to allow this to heal and be reabsorbed. (3) Hypertension: Code(s): I10 - Essential (primary) hypertension Status: Acute Assessment and Plan: -Blood pressures were reviewed and they are stable. -Continue antihypertensives and monitor. (4) Obstructive sleep apnea on CPAP: Code(s): G47.33 - Obstructive sleep apnea (adult) (pediatric); Z99.89 - Dependence on other enabling machines and devices Status: Acute Assessment and Plan: -He does not use his CPAP at home however I will order 1 for him while hospitalized as he really needs to be compliant with this. (5) Paroxysmal atrial fibrillation: Code(s): I48.0 - Paroxysmal atrial fibrillation Status: Acute Assessment and Plan: -He sounds to be in a normal sinus rhythm. -Anticoagulation on hold as detailed above. (6) Chronic obstructive pulmonary disease, unspecified: Qualifiers: COPD type: unspecified COPD Qualified Code(s): J44.9 - Chronic obstructive pulmonary disease, unspecified Code(s): J44.9 - Chronic obstructive pulmonary disease, unspecified Status: Acute Assessment and Plan: -having significant wheezing -changed nebs to scheduled -cxr no acute cardiopulmonary dz (7) Slow rate of speech: Code(s): R47.89 - Other speech disturbances Status: Acute Assessment and Plan: -new x1 week per family -check MRI brain Subjective Date/time seen: 08/10/21 13:30 Interval history: 86-year-old male with paroxysmal atrial fibrillation on chronic anticoagulation, hypertension, hyperlipidemia, and sleep apnea, admitted for L pre patellar hematoma. Pt still c/o significant pain to L knee. He is having some wheezing and sob. No cp. No N/V/D/abd pain. Spoke w/ pt and family member at bedside that feel patient's mentation has been off the past week or so. He has been extremely slow to respond. No slurred speech just slow. Review of Systems Review of Systems: All systems reviewed & are unremarkable except as noted in HPI and below Exam Narrative: General: Well-developed elderly gentleman lying on his left side in bed. Weight: 119.2 kg. B
[2021-08-10] MEDS: ALBUTEROL SULFATE NEB 2.5 MG/3 ML INH INHALATION ×2 (16:18→20:03)
[2021-08-10] MEDS: IPRATROPIUM BR 0.02% INH SOLN 0.5 MG/2.5 ML VIAL INHALATION ×2 (16:19→20:03)
[2021-08-10] MEDS: ALPRAZolam (*CRX) 0.5 MG TABLET 1 MG PO (20:06)
[2021-08-11] VITALS (16 sets, daily range): BP systolic 106–139; BP diastolic 56–90; PULSE 74–91; RESP 1–20; TEMP 36.6–36.7; O2SAT 92–100
[2021-08-11] MEDS: ALBUTEROL SULFATE NEB 2.5 MG/3 ML INH INHALATION ×5 (04:31→19:34)
[2021-08-11] MEDS: IPRATROPIUM BR 0.02% INH SOLN 0.5 MG/2.5 ML VIAL INHALATION ×5 (04:31→19:34)
--- NOTE | 2021-08-11 04:34 | PCRCNOTE ---
RT asked pt on 08/10 at 1999 if we would like to wear a hospital issued CPAP or if would like someone to bring in his home unit. Pt stated he would like someone to bring in his home unit for him to wear during his stay.
[2021-08-11 06:01] LABS: Basophils Percent Auto 0.3 % (0.2-1.2); Eosinophils Absolute Auto 0.2 K/mm3 (0-0.3); Eosinophils Percent Auto 1.7 % (0-4.4); Hematocrit 40.7 % (42.0-52.0); Hemoglobin 11.5 g/dL (14.0-18.0); Immature Granulocyte Absolute 0.07 K/mm3 (0.00-0.031); Immature Granulocyte Percent A 0.7 % (0-0.5); Immature Platelet Fraction Pct 5.2 % (0.9-11.2); Lymphocytes Absolute Auto 0.61 K/mm3 (0.9-3.2); Lymphocytes Percent Auto 6.2 % (18.3-44.2); Mean Corpuscular HGB Conc 28.3 g/dl (32-36); Mean Corpuscular Hemoglobin 22.1 pg (26-34); Mean Corpuscular Volume 78.1 fl (80-100); Monocytes Absolute Auto 0.9 K/mm3 (0.1-0.6); Monocytes Percent Auto 9.4 % (2.6-8.5); Neutrophils Absolute Auto 8.1 K/mm3 (1.3-6.7); Neutrophils Percent Auto 81.7 % (45.5-73.1); Platelet Count Result 207 k/mm3 (150-375); Red Blood Count 5.21 M/mm3 (4.6-6.20); White Blood Count 9.9 K/mm3 (4.5-10.0)
[2021-08-11 06:07] LABS: Anion Gap 6 mmol/L (8-16); Blood Urea Nitrogen 22 mg/dL (9-20); Carbon Dioxide 31 mmol/L (22-30); Chloride 102 mmol/L (98-107); Estimated CRCL calculation 61 ml/min; Estimated Glomerular Filt Rate > 60; Glucose 109 mg/dL (65-110); Potassium 3.6 mmol/L (3.4-5.0); Sodium 139 mmol/L (137-145)
[2021-08-11 06:57] LABS: Hypochromasia 1+ (NORMAL); Ovalocytes 1+ (NORMAL); Platelet Estimate Adequate (Adequate)
--- NOTE | 2021-08-11 07:54 | PC.NURSE ---
This patient, Charles Osorio, was transferred to [MRI ] on 08/11/21 at 0754. Personal belongings sent with patient. Report given to [ ]. Appropriate documentation sent with patient.
[2021-08-11] MEDS: FLUTICASONE/UMECLIDIN/VILANTER 100-62.5-25 MCG ELLIPTA 1 PUFF INHALATION (08:52)
[2021-08-11] MEDS: SILVERGEL (ELTA) 45 ML 1 APPLIC TOPICAL (09:14)
[2021-08-11] MEDS: allopurinoL 300 MG TABLET PO (09:14)
[2021-08-11] MEDS: INDAPAMIDE 2.5 MG TABLET PO (09:15)
[2021-08-11] MEDS: TAMSULOSIN HCL 0.4 MG CAPSULE PO (09:15)
[2021-08-11] MEDS: SIMVASTATIN 20 MG TABLET PO (09:15)
[2021-08-11] MEDS: lisinopriL 20 MG TABLET PO (09:15)
[2021-08-11] MEDS: FUROSEMIDE 20 MG TABLET PO (09:15)
[2021-08-11] MEDS: HYDROcodone/acetaminophen (*CRX) 5-325 MG TABLET 1 TAB PO ×2 (09:15→15:53)
[2021-08-11] MEDS: FINASTERIDE 5 MG TABLET PO (09:15)
--- NOTE | 2021-08-11 10:17 | PCPTNOTE ---
Attempted physical therapy evaluation, Per RN patient A&O x2 this morning and not demoing activation of B LE. Patient refused therapy at 10:00 AM due to severe pain. Will attempt evaluation after lunch when pain is better controlled.
--- NOTE | 2021-08-11 12:27 | PM.IMPN ---
Progress Note: A&P Assessment and Plan (1) Hematoma of left knee region: Code(s): S80.02XA - Contusion of left knee, initial encounter Status: Acute Assessment and Plan: -Large prepatellar hematoma of the left knee secondary to fall. -He was on Coumadin prior to the fall and was placed on Eliquis after the fall for unclear reasons. We need to discontinue anticoagulation for a couple of weeks and I discussed this with the patient. -He was started on empiric antibiotics for possible septic hematoma given reports of malodorous and cloudy drainage when the bulla ruptured. -Dr. Cheung plastic surgery was contacted by the ED provider and saw the patient in consult 08/09/21. Pt refused aspiration at that time but when I saw him he seemed confused about why we needed to do it in the first place. -Due to the concern for infection, I spoke w/ Dr. Schroeder orthopedics who is in agreement with IR aspiration of the knee for anaerobic/aerobic culture and gram stain. Also added ESR and CRP. -aspiration was somewhat unsuccessful and only yielded 1 cc. culture pending however Dr. Schroeder saw patient again and feels there are no signs of infection. He has signed off. abx were discontinued. -discussed with radiologist possibility of MRI but he states that is not necessary and would not yield any additional information -left VM with Dr. Richardson regarding patient as he will need to be followed closely for this due to high probability of necrosis to blister like area -wound care consult placed, spoke w/ Shital MARROQUIN from wound care who states pt will need to have his pcp follow this and when the area begins to look necrotic, he will need to be referred to wound care. She states this normally happens around the 4-6 week judie -pt will need placement as he is having extreme difficulty getting around due to the pain/swelling in his knee (2) Chronic anticoagulation: Code(s): Z79.01 - [facility] (current) use of anticoagulants Status: Acute Assessment and Plan: -Anticoagulation held likely for up to 2 weeks to allow this to heal and be reabsorbed. (3) Hypertension: Code(s): I10 - Essential (primary) hypertension Status: Acute Assessment and Plan: -Blood pressures were reviewed and they are stable. -Continue antihypertensives and monitor. (4) Obstructive sleep apnea on CPAP: Code(s): G47.33 - Obstructive sleep apnea (adult) (pediatric); Z99.89 - Dependence on other enabling machines and devices Status: Acute Assessment and Plan: -He does not use his CPAP at home however I will order 1 for him while hospitalized as he really needs to be compliant with this. (5) Paroxysmal atrial fibrillation: Code(s): I48.0 - Paroxysmal atrial fibrillation Status: Acute Assessment and Plan: -He sounds to be in a normal sinus rhythm. -Anticoagulation on hold as detailed above. 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 Pt still c/o significant pain to L knee. Also so his L hand. He is having some wheezing and sob. No cp. No N/V/D/abd pain. Review of Systems R
[2021-08-11] MEDS: ALPRAZolam (*CRX) 0.5 MG TABLET 1 MG PO (20:15)
[2021-08-12] VITALS (24 sets, daily range): BP systolic 98–116; BP diastolic 50–68; PULSE 57–84; RESP 18–20; TEMP 36.1–36.9; O2SAT 91–99
--- NOTE | 2021-08-12 | ECHO_ITS ---
Patient Info Name: Charles Osorio Age: 86 years : 1935 Gender: Male Ht: 72 in Wt: 277 lbs BSA: 2.57 m2 HR: 78 bpm BP: 114 / 61 mmHg Technical Quality: Fair Exam Date: 08/12/2021 8:09 AM Exam Location: [facility] Exam Room: 325 Patient Status: Inpatient Admit Date: 08/09/2021 Staff Ordering Physician: Malini Kumar PA-C Intensive Care Nurse: Yumiko Cheung RDCS Attending Provider: Malini Kumar PA-C Referring Physician: Stacy SHABAZZ; Exam Type: CA echo doppler color flow Study Info Indications - cva Complete two-dimensional, color flow and Doppler transthoracic echocardiogram is performed. Summary 1. Complete two-dimensional, color flow and Doppler transthoracic echocardiogram is performed. 2. Left ventricular chamber dimension is normal. 3. Left ventricular systolic function is normal, estimated at Empty. 4. There is no increased left ventricular wall thickness. 5. The left ventricular diastolic function is indeterminate. 6. Right ventricular chamber dimension is normal. 7. Right ventricular systolic function is normal. 8. Left atrial chamber dimension is moderately enlarged. 9. Right atrial chamber dimension is moderately enlarged. 10. Mild pulmonary hypertension, estimated pulmonary arterial systolic pressure is 37 mmHg. Left Ventricle Left ventricular chamber dimension is normal. Left ventricular systolic function is normal, estimated at Empty. There is no increased left ventricular wall thickness. The left ventricular diastolic function is indeterminate. Right Ventricle Right ventricular chamber dimension is normal. Right ventricular systolic function is normal. Left Atria Left atrial chamber dimension is moderately enlarged. Right Atria Right atrial chamber dimension is moderately enlarged. Aortic Valve The aortic valve is trileaflet. There is no aortic valve stenosis. There is no aortic valve regurgitation. Pulmonic Valve The pulmonic valve is normal. There is no pulmonic valve stenosis. There is no pulmonic regurgitation. Mitral Valve The mitral valve has normal leaflets. There is no mitral valve stenosis. There is no mitral valve regurgitation. Tricuspid Valve The tricuspid valve leaflets are normal. There is no significant tricuspid valve stenosis. There is mild tricuspid valve regurgitation. Mild pulmonary hypertension, estimated pulmonary arterial systolic pressure is 37 mmHg. Pericardium/Pleural The pericardium appears normal. There is no pericardial effusion. Inferior Vena Cava Normal inferior vena cava with >50% collapse upon inspiration consistent with normal right atrial pressure, 10 mmHg. Left Ventricular Outflow Tract Name Value Normal LVOT 2D LVOT Diameter 2.1 cm LVOT Doppler LVOT Peak Gradient 4 mmHg LVOT Mean Gradient 2 mmHg LVOT VTI 17 cm LVOT VTI/AV VTI Ratio 0.7 LVOT Stroke Volume 59 ml LVOT CO 14.9 l/min LVOT C
[2021-08-12] MEDS: IPRATROPIUM BR 0.02% INH SOLN 0.5 MG/2.5 ML VIAL INHALATION ×6 (00:36→20:50)
[2021-08-12] MEDS: ALBUTEROL SULFATE NEB 2.5 MG/3 ML INH INHALATION (00:36)
[2021-08-12] MEDS: HYDROcodone/acetaminophen (*CRX) 5-325 MG TABLET 1 TAB PO ×3 (01:41→20:10)
[2021-08-12] MEDS: ALBUTEROL SULFATE NEB 2.5 MG/0.5 ML INH INHALATION ×5 (04:28→20:50)
[2021-08-12 06:15] LABS: Basophils Percent Auto 0.3 % (0.2-1.2); Eosinophils Absolute Auto 0.2 K/mm3 (0-0.3); Eosinophils Percent Auto 1.2 % (0-4.4); Hematocrit 39.3 % (42.0-52.0); Hemoglobin 11.3 g/dL (14.0-18.0); Immature Granulocyte Absolute 0.05 K/mm3 (0.00-0.031); Immature Granulocyte Percent A 0.4 % (0-0.5); Lymphocytes Absolute Auto 0.43 K/mm3 (0.9-3.2); Lymphocytes Percent Auto 3.6 % (18.3-44.2); Mean Corpuscular HGB Conc 28.8 g/dl (32-36); Mean Corpuscular Hemoglobin 22.2 pg (26-34); Mean Corpuscular Volume 77.1 fl (80-100); Monocytes Absolute Auto 0.9 K/mm3 (0.1-0.6); Monocytes Percent Auto 7.7 % (2.6-8.5); Neutrophils Absolute Auto 10.5 K/mm3 (1.3-6.7); Neutrophils Percent Auto 86.8 % (45.5-73.1); Platelet Count Result 192 k/mm3 (150-375); Red Cell Distribution Width 19.6 % (11.5-14.5); White Blood Count 12.1 K/mm3 (4.5-10.0)
[2021-08-12 06:26] LABS: Anion Gap 3 mmol/L (8-16); Blood Urea Nitrogen 32 mg/dL (9-20); Calcium 7.8 mg/dL (8.4-10.2); Carbon Dioxide 32 mmol/L (22-30); Chloride 103 mmol/L (98-107); Estimated CRCL calculation 61 ml/min; Estimated Glomerular Filt Rate > 60; Glucose 119 mg/dL (65-110); Potassium 3.7 mmol/L (3.4-5.0); Sodium 138 mmol/L (137-145)
[2021-08-12 06:58] LABS: Anisocytosis 1+ (NORMAL); Ovalocytes 1+ (NORMAL); Platelet Estimate Adequate (Adequate)
[2021-08-12] MEDS: FLUTICASONE/UMECLIDIN/VILANTER 100-62.5-25 MCG ELLIPTA 1 PUFF INHALATION (08:06)
[2021-08-12] MEDS: FINASTERIDE 5 MG TABLET PO (08:53)
[2021-08-12] MEDS: TAMSULOSIN HCL 0.4 MG CAPSULE PO (08:54)
[2021-08-12] MEDS: allopurinoL 300 MG TABLET PO (08:55)
[2021-08-12] MEDS: SIMVASTATIN 20 MG TABLET PO (08:55)
[2021-08-12] MEDS: FUROSEMIDE 20 MG TABLET PO (08:57)
[2021-08-12] MEDS: SILVERGEL (ELTA) 45 ML 1 APPLIC TOPICAL (09:09)
--- NOTE | 2021-08-12 09:48 | PCPTNOTE ---
Patient out of room for testing, unable to be seen for PT at this time. PT will continue to follow per plan of care.
--- NOTE | 2021-08-12 11:12 | PM.IMPN ---
Progress Note: A&P Assessment and Plan (1) Hematoma of left knee region: Code(s): S80.02XA - Contusion of left knee, initial encounter Status: Acute Assessment and Plan: -Large prepatellar hematoma of the left knee secondary to fall. -He was on Coumadin prior to the fall and was placed on Eliquis after the fall for unclear reasons. We need to discontinue anticoagulation for a couple of weeks and I discussed this with the patient. -He was started on empiric antibiotics for possible septic hematoma given reports of malodorous and cloudy drainage when the bulla ruptured. -Dr. Cheung plastic surgery was contacted by the ED provider and saw the patient in consult 08/09/21. Pt refused aspiration at that time but when I saw him he seemed confused about why we needed to do it in the first place. -Due to the concern for infection, I spoke w/ Dr. Schroeder orthopedics who is in agreement with IR aspiration of the knee for anaerobic/aerobic culture and gram stain. Also added ESR and CRP. -aspiration was somewhat unsuccessful and only yielded 1 cc. culture pending however Dr. Schroeder saw patient again and feels there are no signs of infection. He has signed off. abx were discontinued. -discussed with radiologist possibility of MRI but he states that is not necessary and would not yield any additional information -left VM with Dr. Richardson regarding patient as he will need to be followed closely for this due to high probability of necrosis to blister like area -wound care consult placed, spoke w/ Shital MARROQUIN from wound care who states pt will need to have his pcp follow this and when the area begins to look necrotic, he will need to be referred to wound care. She states this normally happens around the 4-6 week judie -pt will need placement as he is having extreme difficulty getting around due to the pain/swelling in his knee -WBC increased slightly today from 9.9 to 12.1. No fevers or tachycardia. Will recheck CBC and CRP tomorrow. (2) Chronic anticoagulation: Code(s): Z79.01 - [facility] (current) use of anticoagulants Status: Acute Assessment and Plan: -Anticoagulation held likely for up to 2 weeks to allow this to heal and be reabsorbed. (3) Hypertension: Code(s): I10 - Essential (primary) hypertension Status: Acute Assessment and Plan: -Blood pressures were reviewed and they are stable. -Continue antihypertensives and monitor. (4) Obstructive sleep apnea on CPAP: Code(s): G47.33 - Obstructive sleep apnea (adult) (pediatric); Z99.89 - Dependence on other enabling machines and devices Status: Acute Assessment and Plan: -He does not use his CPAP at home however I will order 1 for him while hospitalized as he really needs to be compliant with this. (5) Paroxysmal atrial fibrillation: Code(s): I48.0 - Paroxysmal atrial fibrillation Status: Acute Assessment and Plan: -Anticoagulation on hold as detailed above. 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
[2021-08-12] MEDS: oxyCODONE/ACETAMINOPHEN (*CRX) 5-325 MG TABLET 1 TABLET PO (15:52)
[2021-08-12] MEDS: ALPRAZolam (*CRX) 0.5 MG TABLET 1 MG PO (20:10)
[2021-08-13] VITALS (27 sets, daily range): BP systolic 102–134; BP diastolic 53–92; PULSE 71–96; RESP 18–22; TEMP 36.6–37.5; O2SAT 94–98
[2021-08-13] MEDS: ALBUTEROL SULFATE NEB 2.5 MG/0.5 ML INH INHALATION ×7 (00:51→23:58)
[2021-08-13] MEDS: IPRATROPIUM BR 0.02% INH SOLN 0.5 MG/2.5 ML VIAL INHALATION ×7 (00:51→23:58)
[2021-08-13 08:11] LABS: Basophils Percent Auto 0.3 % (0.2-1.2); Eosinophils Absolute Auto 0.1 K/mm3 (0-0.3); Eosinophils Percent Auto 1.2 % (0-4.4); Hematocrit 40.4 % (42.0-52.0); Hemoglobin 11.4 g/dL (14.0-18.0); Immature Granulocyte Absolute 0.04 K/mm3 (0.00-0.031); Immature Granulocyte Percent A 0.3 % (0-0.5); Immature Platelet Fraction Pct 6.3 % (0.9-11.2); Lymphocytes Absolute Auto 0.38 K/mm3 (0.9-3.2); Lymphocytes Percent Auto 3.3 % (18.3-44.2); Mean Corpuscular HGB Conc 28.2 g/dl (32-36); Mean Corpuscular Hemoglobin 22.3 pg (26-34); Mean Corpuscular Volume 78.9 fl (80-100); Monocytes Absolute Auto 0.9 K/mm3 (0.1-0.6); Neutrophils Absolute Auto 10.1 K/mm3 (1.3-6.7); Neutrophils Percent Auto 86.9 % (45.5-73.1); Platelet Count Result 221 k/mm3 (150-375); Red Blood Count 5.12 M/mm3 (4.6-6.20); Red Cell Distribution Width 19.9 % (11.5-14.5); White Blood Count 11.7 K/mm3 (4.5-10.0)
[2021-08-13 08:19] LABS: Lactic Acid Reflex 1.1 mmol/L (0.7-2.1)
[2021-08-13] MEDS: INDAPAMIDE 2.5 MG TABLET PO (08:19)
[2021-08-13] MEDS: FUROSEMIDE 20 MG TABLET PO (08:19)
[2021-08-13] MEDS: lisinopriL 20 MG TABLET PO (08:19)
[2021-08-13] MEDS: SIMVASTATIN 20 MG TABLET PO (08:19)
[2021-08-13] MEDS: FINASTERIDE 5 MG TABLET PO (08:19)
[2021-08-13] MEDS: TAMSULOSIN HCL 0.4 MG CAPSULE PO (08:20)
[2021-08-13] MEDS: SILVERGEL (ELTA) 45 ML 1 APPLIC TOPICAL (08:20)
[2021-08-13] MEDS: allopurinoL 300 MG TABLET PO (08:20)
[2021-08-13] MEDS: HYDROcodone/acetaminophen (*CRX) 5-325 MG TABLET 1 TAB PO (08:22)
[2021-08-13 08:38] LABS: Alanine Aminotransferase 21 U/L (4-50); Albumin Level 3.7 g/dL (3.5-5.1); Alkaline Phosphatase 76 U/L (38-126); Anion Gap 6 mmol/L (8-16); Aspartate Amino Transferase 75 U/L (17-59); Bilirubin,Total 2.5 mg/dL (0.2-1.3); Blood Urea Nitrogen 37 mg/dL (9-20); CRP 26.8 mg/dL (<1.0); Calcium 8.1 mg/dL (8.4-10.2); Carbon Dioxide 32 mmol/L (22-30); Chloride 98 mmol/L (98-107); Estimated CRCL calculation 61 ml/min; Estimated Glomerular Filt Rate > 60; Glucose 111 mg/dL (65-110); Potassium 3.5 mmol/L (3.4-5.0); Sodium 136 mmol/L (137-145)
[2021-08-13 08:50] LABS: Anisocytosis 1+ (NORMAL); Ovalocytes 1+ (NORMAL); Platelet Estimate Adequate (Adequate)
[2021-08-13] MEDS: FLUTICASONE/UMECLIDIN/VILANTER 100-62.5-25 MCG ELLIPTA 1 PUFF INHALATION (09:14)
--- NOTE | 2021-08-13 11:31 | PM.IMPN ---
Progress Note: A&P Assessment and Plan (1) Hematoma of left knee region: Code(s): S80.02XA - Contusion of left knee, initial encounter Status: Acute Assessment and Plan: -Large prepatellar hematoma of the left knee secondary to fall. -He was on Coumadin prior to the fall and was placed on Eliquis after the fall for unclear reasons. We need to discontinue anticoagulation for a couple of weeks and I discussed this with the patient. -He was started on empiric antibiotics for possible septic hematoma given reports of malodorous and cloudy drainage when the bulla ruptured. -Dr. Cheung plastic surgery was contacted by the ED provider and saw the patient in consult 08/09/21. Pt refused aspiration at that time but when I saw him he seemed confused about why we needed to do it in the first place. -Due to the concern for infection, I spoke w/ Dr. Schroeder orthopedics who is in agreement with IR aspiration of the knee for anaerobic/aerobic culture and gram stain. Also added ESR and CRP. -aspiration was somewhat unsuccessful and only yielded 1 cc. culture pending however Dr. Schroeder saw patient again and feels there are no signs of infection. He has signed off. abx were discontinued. -discussed with radiologist possibility of MRI but he states that is not necessary and would not yield any additional information -left VM with Dr. Richardson regarding patient as he will need to be followed closely for this due to high probability of necrosis to blister like area -wound care consult placed, spoke w/ Shital MARROQUIN from wound care who states pt will need to have his pcp follow this and when the area begins to look necrotic, he will need to be referred to wound care. She states this normally happens around the 4-6 week judie -pt will need placement as he is having extreme difficulty getting around due to the pain/swelling in his knee -WBC increased slightly today from 9.9 to 12.1. No fevers or tachycardia. Will recheck CBC and CRP tomorrow. - 08/13/21: Today patient's leukocytosis has slightly improved from 12.1-11.7 without a noted left shift. He is asymptomatic of any acute infections. His CRP is elevated at 26.8 as compared to 5.44 days ago. Patient has been intolerable loss far with regards to applying ice. Leg should remain elevated and patient was advised that it is going to take time for this hematoma to reabsorb. (2) Chronic anticoagulation: Code(s): Z79.01 - terminal gauger (current) use of anticoagulants Status: Acute Assessment and Plan: 08/13: -Anticoagulation held likely for up to 2 weeks to allow this to heal and be reabsorbed. (3) Hypertension: Qualifiers: Hypertension type: unspecified Qualified Code(s): I10 - Essential (primary) hypertension Code(s): I10 - Essential (primary) hypertension Status: Acute Assessment and Plan: -Blood pressures were reviewed and they are stable. -Continue antihypertensives and monitor. - 08/13: Stable, continue to monitor. (4) Obstructive sleep apnea on CPAP: Code(s): G47.33 - Obstructive sleep apnea (adult) (pediatric); Z99.89 - Dependence on other enabling machines and devices Status: Acute Assessment and Plan: -He does not use his CPAP at home however I will order 1 for him while hospitalized as he really needs to be compliant with this. - 08/13: Continue to encourage utilization during hospitalization.. (5) Paroxysmal atrial fibrillation: Code(s): I48.0 - Paroxysmal atrial fibrillation Status: Acute Assessment and Plan: -Anticoagulation on hold as detailed above. - 08/13: SCDs for prophylaxis as anticoagulation is currently held. -continue telemetry. (6) Chronic obstructive pulmonary disease, unspecified: Qualifiers: COPD type: unspecified COPD Qualified Code(s): J44.9 - Chronic obstructive pulmonary disease, unspecified Code(s): J44.9 - Chronic obstructi
[2021-08-13] MEDS: ALPRAZolam (*CRX) 0.5 MG TABLET 1 MG PO (20:19)
[2021-08-14] VITALS (29 sets, daily range): BP systolic 101–123; BP diastolic 59–72; PULSE 68–96; RESP 18–24; TEMP 36–36.8; O2SAT 80–99
--- NOTE | 2021-08-14 02:22 | PCRCNOTE ---
Patient keeps removing the CPAP. Has removed several times already tonight despite chart writer talking to him about importance of leaving the mask on while he sleeps. Found again at this time with the mask removed and Spo2 fluctuating between 87% and 93% on room air. Placed patient on nasal cannula at 2 lpm and SPo2 to 97%.
[2021-08-14] MEDS: ALBUTEROL SULFATE NEB 2.5 MG/0.5 ML INH INHALATION ×5 (03:20→20:02)
[2021-08-14] MEDS: IPRATROPIUM BR 0.02% INH SOLN 0.5 MG/2.5 ML VIAL INHALATION ×5 (03:20→20:02)
[2021-08-14 05:41] LABS: Basophils Percent Auto 0.2 % (0.2-1.2); Eosinophils Percent Auto 0.3 % (0-4.4); Hematocrit 37.3 % (42.0-52.0); Hemoglobin 10.9 g/dL (14.0-18.0); Immature Granulocyte Absolute 0.06 K/mm3 (0.00-0.031); Immature Granulocyte Percent A 0.5 % (0-0.5); Immature Platelet Fraction Pct 5.2 % (0.9-11.2); Lymphocytes Absolute Auto 0.47 K/mm3 (0.9-3.2); Lymphocytes Percent Auto 3.8 % (18.3-44.2); Mean Corpuscular HGB Conc 29.2 g/dl (32-36); Mean Corpuscular Hemoglobin 22.2 pg (26-34); Neutrophils Absolute Auto 10.7 K/mm3 (1.3-6.7); Neutrophils Percent Auto 87.2 % (45.5-73.1); Platelet Count Result 208 k/mm3 (150-375); Red Blood Count 4.91 M/mm3 (4.6-6.20); Red Cell Distribution Width 19.9 % (11.5-14.5); White Blood Count 12.2 K/mm3 (4.5-10.0)
[2021-08-14 05:54] LABS: Alanine Aminotransferase 28 U/L (4-50); Albumin Level 3.5 g/dL (3.5-5.1); Alkaline Phosphatase 86 U/L (38-126); Anion Gap 8 mmol/L (8-16); Aspartate Amino Transferase 102 U/L (17-59); Bilirubin,Total 2.1 mg/dL (0.2-1.3); Blood Urea Nitrogen 48 mg/dL (9-20); Carbon Dioxide 28 mmol/L (22-30); Chloride 98 mmol/L (98-107); Estimated CRCL calculation 56 ml/min; Estimated Glomerular Filt Rate 58; Glucose 118 mg/dL (65-110); Magnesium 2.6 mg/dL (1.6-2.3); Potassium 3.5 mmol/L (3.4-5.0); Sodium 134 mmol/L (137-145)
[2021-08-14 06:36] LABS: Anisocytosis 1+ (NORMAL); Ovalocytes 1+ (NORMAL); Platelet Estimate Adequate (Adequate); Tear Drop Cells 1+ (NORMAL)
--- NOTE | 2021-08-14 07:26 | PM.PNORT ---
Progress Note: A&P Additional Plan Hematoma prepatellar left knee is improving. The proximal skin that had questionable capillary refill in the area of blistering, shows dermis that still appears to be viable and it is more the same color as the more distal blistered skin. Based on this appearance I would predict he will not develop dermal necrosis hopefully. The amount of swelling as reduced quite a bit and he has soft underlying hematoma with surrounding ecchymosis. No signs of infection. The hematoma aspirated from 5 days ago is no growth thus far. Subjective Subjective Date/Time Seen: 08/14/21 07:26 Objective Data Vital Signs Vital Signs: Vital Signs - 24 hr 08/13/21 08:00 08/13/21 09:10 08/13/21 09:19 Temperature Pulse Rate 85 92 Respiratory Rate 20 Blood Pressure Pulse Oximetry 98 94 08/13/21 09:20 08/13/21 09:22 08/13/21 11:15 Temperature Pulse Rate 74 77 87 Respiratory Rate 20 20 18 Blood Pressure Pulse Oximetry 08/13/21 11:25 08/13/21 12:00 08/13/21 14:00 Temperature 36.6 C Pulse Rate 77 81 88 Respiratory Rate 20 20 Blood Pressure 102/53 L Pulse Oximetry 97 08/13/21 15:05 08/13/21 15:15 08/13/21 16:00 Temperature Pulse Rate 82 83 90 Respiratory Rate 20 20 Blood Pressure Pulse Oximetry 08/13/21 19:58 08/13/21 20:00 08/13/21 20:08 Temperature Pulse Rate 90 83 90 Respiratory Rate 22 H 22 H Blood Pressure Pulse Oximetry 96 08/13/21 20:10 08/13/21 21:48 08/13/21 22:00 Temperature 37.5 C Pulse Rate 90 90 84 Respiratory Rate 18 Blood Pressure 102/55 L Pulse Oximetry 96 96 97 08/13/21 23:59 08/14/21 00:00 08/14/21 00:09 Temperature Pulse Rate 94 80 96 Respiratory Rate 22 H 22 H Blood Pressure Pulse Oximetry 98 08/14/21 03:20 08/14/21 03:30 08/14/21 04:00 Temperature Pulse Rate 95 80 82 Respiratory Rate 22 H 22 H Blood Pressure Pulse Oximetry 80 L 08/14/21 06:00 Temperature 36.5 C Pulse Rate 85 Respiratory Rate 18 Blood Pressure 116/72 Pulse Oximetry 97 Intake/Output Intake/Output: Intake & Output 08/11/21 08/12/21 08/13/21 08/14/21 23:59 23:59 23:59 23:59 Intake Total 100 1135 1200 50 Output Total 0 975 600 Balance 100 160 600 50 Meds/Results Medications: Active Medications Generic Name Dose Route Start Last Admin Trade Name Freq PRN Reason Stop Dose Admin Hydrocodone Bitart/Acetaminophen 1 tab 08/12/21 15:42 08/13/21 08:22 Hydrocodone/Acetaminophen (*Crx) 5-325 Mg Tablet PO 1 tab Q4H PRN Administration Pain Rated 4-6 Albuterol 2.5 mg 08/12/21 04:00 08/14/21 03:20 Albuterol Sulfate Neb 2.5 Mg/0.5 Ml Inh INHALATION 2.5 mg Q4HRT SHILA Administration Allopurinol 300 mg 08/09/21 08:00 08/13/21 08:20 Allopurinol 300 Mg Tablet PO 300 mg DAILY@0800 SHILA Administration Alprazolam 1 mg 08/09/21 21:00 08/13/21 20:19 Alprazolam (*Crx) 0.5 Mg Tablet PO 1 mg HS SHILA Administration Benzocaine 1 lozenge 08/12/21 12:00 Benzocaine/Menthol (*Bkc) 18 Ea Lozenge PO PRN PRN Sore Throat Finasteride 5 mg 08/09/21 09:00 08/13/21 08:19 Finasteride 5 Mg Tablet PO 5 mg DAILY SHILA Administration Fluticasone/Umeclidinium/Vilanterol 1 puff 08/10/21 08:30 08/13/21 09:14 Fluticasone/Umeclidin/Vilanter 100-62.5-25 Mcg Ellipta INHALATION 1 puff DAILYRT SHILA Administration Furosemide 20 mg 08/09/21 09:00 08/13/21 08:19 Furosemide 20 Mg Tablet PO 20 mg QAM SHILA Administration Indapamide 2.5 mg 08/09/21 09:00 08/13/21 08:19 Indapamide 2.5 Mg Tablet PO 2.5 mg DAILY SHILA Administration Ipratropium Lejunior 0.5 mg 08/10/21 16:00 08/14/21 03:20 Ipratropium Br 0.02% Inh Soln 0.5 Mg/2.5 Ml Vial INHALATION 0.5 mg Q4HRT SHILA Administration Lisinopril 20 mg 08/09/21 09:00 08/13/21 08:19 Lisinopril 20 Mg Tablet PO 20 mg DAILY SHILA Administration Oxycodone/Acetaminophen 1 tablet 04
[2021-08-14] MEDS: FLUTICASONE/UMECLIDIN/VILANTER 100-62.5-25 MCG ELLIPTA 1 PUFF INHALATION (08:06)
[2021-08-14 08:49] LABS: Glucose Point of Care 112 mg/dl (65-105)
[2021-08-14] MEDS: TAMSULOSIN HCL 0.4 MG CAPSULE PO (09:26)
[2021-08-14] MEDS: HYDROcodone/acetaminophen (*CRX) 5-325 MG TABLET 1 TAB PO ×2 (09:26→21:21)
[2021-08-14] MEDS: allopurinoL 300 MG TABLET PO (09:26)
[2021-08-14] MEDS: FINASTERIDE 5 MG TABLET PO (09:26)
[2021-08-14] MEDS: INDAPAMIDE 2.5 MG TABLET PO (09:26)
[2021-08-14] MEDS: SIMVASTATIN 20 MG TABLET PO (09:26)
[2021-08-14] MEDS: lisinopriL 20 MG TABLET PO (09:26)
[2021-08-14] MEDS: FUROSEMIDE 20 MG TABLET PO (09:26)
[2021-08-14] MEDS: SILVERGEL (ELTA) 45 ML 1 APPLIC TOPICAL (09:27)
--- NOTE | 2021-08-14 09:33 | PM.IMPN ---
Progress Note: A&P Assessment and Plan (1) Hematoma of left knee region: Code(s): S80.02XA - Contusion of left knee, initial encounter Status: Acute Assessment and Plan: -Large prepatellar hematoma of the left knee secondary to fall. -He was on Coumadin prior to the fall and was placed on Eliquis after the fall for unclear reasons. We need to discontinue anticoagulation for a couple of weeks and I discussed this with the patient. -He was started on empiric antibiotics for possible septic hematoma given reports of malodorous and cloudy drainage when the bulla ruptured. -Due to the concern for infection, I spoke w/ Dr. Schroeder orthopedics who is in agreement with IR aspiration of the knee for anaerobic/aerobic culture and gram stain. Also added ESR and CRP. -aspiration was somewhat unsuccessful and only yielded 1 cc. culture pending however Dr. Schroeder saw patient again and feels there are no signs of infection. He has signed off. -wound care consult placed, spoke w/ Shital MARROQUIN from wound care who states pt will need to have his pcp follow this and when the area begins to look necrotic, he will need to be referred to wound care. She states this normally happens around the 4-6 week judie -pt will need placement as he is having extreme difficulty getting around due to the pain/swelling in his knee -WBC increased slightly today from 9.9 to 12.2. No fevers or tachycardia. Will recheck CBC and CRP tomorrow. - 08/14/21: Today patient's leukocytosis has slightly improved from 12.1-11.7. His CRP continues to be elevated. Leg should remain elevated and patient was advised that it is going to take time for this hematoma to reabsorb. The patient did have an unresponsive episode this morning. Patient did not receive any narcotics or sedating medications. Vital signs at bedside stable, blood glucose WNL, I ordered a CT of the head, ABG and for the patient removed IMU. Apply tele and neuros q4hr. (2) Chronic anticoagulation: Code(s): Z79.01 - [facility] (current) use of anticoagulants Status: Acute Assessment and Plan: 08/13: -Anticoagulation held likely for up to 2 weeks to allow this to heal and be reabsorbed. (3) Hypertension: Qualifiers: Hypertension type: unspecified Qualified Code(s): I10 - Essential (primary) hypertension Code(s): I10 - Essential (primary) hypertension Status: Acute Assessment and Plan: -Blood pressures were reviewed and they are stable. -Continue antihypertensives and monitor. - 08/13: Stable, continue to monitor. (4) Obstructive sleep apnea on CPAP: Code(s): G47.33 - Obstructive sleep apnea (adult) (pediatric); Z99.89 - Dependence on other enabling machines and devices Status: Acute Assessment and Plan: -He does not use his CPAP at home however I will order 1 for him while hospitalized as he really needs to be compliant with this. -obtain ABG (5) Paroxysmal atrial fibrillation: Code(s): I48.0 - Paroxysmal atrial fibrillation Status: Acute Assessment and Plan: -Anticoagulation on hold as detailed above. - 08/13: SCDs for prophylaxis as anticoagulation is currently held. -continue telemetry. 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 Obtained a CT of the head, i
[2021-08-14 09:57] LABS: Alveolar/Arterial O2 Gradient 46.2 mmHg; Base Excess ABG 4.4 mEq/l (+/-2.0); Fractional Inspired Oxygen 24 %; HCO3 ABG 30.3 mEq/l (22.0-26.0); Oxygen Content ABG 15.4 %vol (16.0-22.0); Oxygen Saturation ABG 92.3 % (95.0-100.0); Oxyhemoglobin 89.9 % THb (90.0-100.0); PCO2 ABG 50.6 mmHg (35.0-45.0); PO2 ABG 64.7 mmHg (80.0-100.0); Total Hemoglobin 12.2 g/dL (12.0-18.0); pH ABG 7.395 (7.350-7.450)
[2021-08-14 10:04] LABS: Device NASAL CANNULA; Site Drawn RIGHT BRACHIAL
--- NOTE | 2021-08-14 10:27 | PC.NURSE ---
This patient, Charles Osorio, was received from [[id number] ] on 08/14/21 at 1020. Patient/family oriented to unit policies and routines
[2021-08-14 11:08] LABS: CRP 29.2 mg/dL (<1.0)
--- NOTE | 2021-08-14 11:56 | PCOTNOTE ---
Hold therapy for today per nurse, pt. has just transferred to IMU and is being monitored for need for higher level of care and dx.
[2021-08-14] MEDS: ACETAMINOPHEN 325 MG TABLET 650 MG PO (16:50)
[2021-08-15] VITALS (29 sets, daily range): BP systolic 92–115; BP diastolic 43–63; PULSE 66–88; RESP 16–22; TEMP 36.1–37.6; O2SAT 94–96
[2021-08-15] MEDS: IPRATROPIUM BR 0.02% INH SOLN 0.5 MG/2.5 ML VIAL INHALATION ×5 (00:09→19:53)
[2021-08-15] MEDS: ALBUTEROL SULFATE NEB 2.5 MG/0.5 ML INH INHALATION ×5 (00:09→19:53)
[2021-08-15 06:10] LABS: Basophils Percent Auto 0.3 % (0.2-1.2); Eosinophils Absolute Auto 0.1 K/mm3 (0-0.3); Eosinophils Percent Auto 0.8 % (0-4.4); Hematocrit 38.7 % (42.0-52.0); Hemoglobin 11.2 g/dL (14.0-18.0); Immature Granulocyte Absolute 0.09 K/mm3 (0.00-0.031); Immature Granulocyte Percent A 0.7 % (0-0.5); Lymphocytes Absolute Auto 0.44 K/mm3 (0.9-3.2); Lymphocytes Percent Auto 3.2 % (18.3-44.2); Mean Corpuscular HGB Conc 28.9 g/dl (32-36); Mean Corpuscular Hemoglobin 22.7 pg (26-34); Mean Corpuscular Volume 78.5 fl (80-100); Monocytes Absolute Auto 0.9 K/mm3 (0.1-0.6); Monocytes Percent Auto 6.5 % (2.6-8.5); Neutrophils Percent Auto 88.5 % (45.5-73.1); Platelet Count Result 245 k/mm3 (150-375); Red Blood Count 4.93 M/mm3 (4.6-6.20); Red Cell Distribution Width 19.8 % (11.5-14.5); White Blood Count 13.6 K/mm3 (4.5-10.0)
[2021-08-15 06:22] LABS: Alanine Aminotransferase 48 U/L (4-50); Albumin Level 3.2 g/dL (3.5-5.1); Alkaline Phosphatase 127 U/L (38-126); Anion Gap 7 mmol/L (8-16); Aspartate Amino Transferase 165 U/L (17-59); Bilirubin,Total 2.1 mg/dL (0.2-1.3); Blood Urea Nitrogen 54 mg/dL (9-20); Calcium 7.9 mg/dL (8.4-10.2); Carbon Dioxide 30 mmol/L (22-30); Chloride 98 mmol/L (98-107); Estimated CRCL calculation 52 ml/min; Estimated Glomerular Filt Rate 53; Glucose 112 mg/dL (65-110); Potassium 3.7 mmol/L (3.4-5.0); Sodium 135 mmol/L (137-145)
[2021-08-15 06:46] LABS: CRP 26.8 mg/dL (<1.0)
[2021-08-15 07:07] LABS: Anisocytosis 2+ (NORMAL); Hypochromasia 1+ (NORMAL); Ovalocytes 2+ (NORMAL); Platelet Estimate Adequate (Adequate)
[2021-08-15] MEDS: lisinopriL 20 MG TABLET PO (08:12)
[2021-08-15] MEDS: SIMVASTATIN 20 MG TABLET PO (08:12)
[2021-08-15] MEDS: allopurinoL 300 MG TABLET PO (08:12)
[2021-08-15] MEDS: FUROSEMIDE 20 MG TABLET PO (08:12)
[2021-08-15] MEDS: TAMSULOSIN HCL 0.4 MG CAPSULE PO (08:12)
[2021-08-15] MEDS: INDAPAMIDE 2.5 MG TABLET PO (08:12)
[2021-08-15] MEDS: FINASTERIDE 5 MG TABLET PO (08:12)
[2021-08-15] MEDS: SILVERGEL (ELTA) 45 ML 1 APPLIC TOPICAL (08:15)
[2021-08-15] MEDS: FLUTICASONE/UMECLIDIN/VILANTER 100-62.5-25 MCG ELLIPTA 1 PUFF INHALATION (08:33)
--- NOTE | 2021-08-15 10:33 | PM.IMPN ---
Progress Note: A&P Assessment and Plan (1) Hematoma of left knee region: Code(s): S80.02XA - Contusion of left knee, initial encounter Status: Acute Assessment and Plan: -Large prepatellar hematoma of the left knee secondary to fall. -He was on Coumadin prior to the fall and was placed on Eliquis after the fall for unclear reasons. We need to discontinue anticoagulation for a couple of weeks and I discussed this with the patient. -He was started on empiric antibiotics for possible septic hematoma given reports of malodorous and cloudy drainage when the bulla ruptured. Leg should remain elevated and patient was advised that it is going to take time for this hematoma to reabsorb. 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 (3) Hypertension: Qualifiers: Hypertension type: unspecified Qualified Code(s): I10 - Essential (primary) hypertension Code(s): I10 - Essential (primary) hypertension Status: Acute Assessment and Plan: -Blood pressures were reviewed and they are stable. -Continue antihypertensives and monitor. - 08/13: Stable, continue to monitor. (4) Obstructive sleep apnea on CPAP: Code(s): G47.33 - Obstructive sleep apnea (adult) (pediatric); Z99.89 - Dependence on other enabling machines and devices Status: Acute Assessment and Plan: -He does not use his CPAP at home however I will order 1 for him while hospitalized as he really needs to be compliant with this. -obtain ABG (5) Paroxysmal atrial fibrillation: Code(s): I48.0 - Paroxysmal atrial fibrillation Status: Acute Assessment and Plan: -Anticoagulation on hold as detailed above. - 08/13: SCDs for prophylaxis as anticoagulation is currently held. -continue telemetry. 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 Obtained a CT of the head, which resulted in chronic findings. (8) Hand pain, left: Code(s): M79.642 - Pain in left hand Status: Acute Assessment and Plan: -xray from 08/05/21 negative -seen by wound care, dressing in place - 08/13: Continue wound care (9) Sore throat: Code(s): J02.9 - Acute pharyngitis, unspecified Status: Acute Assessment and Plan: -very dry mucous membranes today -encouraged oral intake -Chloraseptic lozenges - 08/13: Encouraged increasing water. (10) Hyperbilirubinemia: Code(s): E80.6 - Other disorders of bilirubin metabolism Status: Acute Assessment and Plan: Continue to monitor Obtain a Abdomen ultrasound (11) Altered mental status: Code(s): R41.82 - Altered mental status, unspecified Status: Acute Assessment and Plan: The patient did have an unresponsive episode yesterday morning. Patient did not receive any narcotics or sedating medications. Vital signs at bedside stable, blood glucose WNL, A CT of the head, ABG obtained, negative. patient was moved IMU. Apply tele and neuros q4hr. Consult neurology Seizure precautions Subjective Date/time seen: 08/15/21 10:33 Patient is alert this morning multi
--- NOTE | 2021-08-15 15:08 | PCPTNOTE ---
Attempted to see patient for PT, however patient's family members declined for patient. Patient's family member reported patient is not alert enough for therapy.
--- NOTE | 2021-08-15 16:06 | PC.NURSE ---
Spoke with MESHA Vang regarding patient's BP running low. 1200 BP was 92/61, 1600 BP was 87/45 (L arm, automatic cuff) , 96/43 (R arm, automatic cuff), 94/50 (L arm, manual cuff). Pt is asymptomatic with these pressures. New orders to hold BP medications if SBP <120, or HR <60
[2021-08-15] MEDS: ACETAMINOPHEN 325 MG TABLET 650 MG PO (16:25)
[2021-08-15] MEDS: HYDROcodone/acetaminophen (*CRX) 5-325 MG TABLET 1 TAB PO (20:17)
[2021-08-16] VITALS (28 sets, daily range): BP systolic 94–133; BP diastolic 60–76; PULSE 61–84; RESP 18–22; TEMP 36.6–37.1; O2SAT 92–97; BMI 37.5
[2021-08-16] MEDS: ALBUTEROL SULFATE NEB 2.5 MG/0.5 ML INH INHALATION ×6 (00:45→23:58)
[2021-08-16] MEDS: IPRATROPIUM BR 0.02% INH SOLN 0.5 MG/2.5 ML VIAL INHALATION ×6 (00:46→23:58)
[2021-08-16] MEDS: HYDROcodone/acetaminophen (*CRX) 5-325 MG TABLET 1 TAB PO (06:02)
[2021-08-16] MEDS: FLUTICASONE/UMECLIDIN/VILANTER 100-62.5-25 MCG ELLIPTA 1 PUFF INHALATION (08:24)
[2021-08-16] MEDS: allopurinoL 300 MG TABLET PO (08:36)
[2021-08-16] MEDS: FINASTERIDE 5 MG TABLET PO (08:36)
[2021-08-16] MEDS: SIMVASTATIN 20 MG TABLET PO (08:36)
[2021-08-16] MEDS: ACETAMINOPHEN 325 MG TABLET 650 MG PO ×2 (08:40→20:38)
[2021-08-16 08:52] LABS: Basophils Absolute Auto 0.1 K/mm3 (0.0-0.1); Basophils Percent Auto 0.4 % (0.2-1.2); Eosinophils Absolute Auto 0.1 K/mm3 (0-0.3); Eosinophils Percent Auto 0.9 % (0-4.4); Hematocrit 37.2 % (42.0-52.0); Hemoglobin 10.8 g/dL (14.0-18.0); Immature Granulocyte Percent A 0.8 % (0-0.5); Lymphocytes Absolute Auto 0.32 K/mm3 (0.9-3.2); Lymphocytes Percent Auto 2.6 % (18.3-44.2); Mean Corpuscular Hemoglobin 22.4 pg (26-34); Monocytes Percent Auto 7.8 % (2.6-8.5); Neutrophils Absolute Auto 10.8 K/mm3 (1.3-6.7); Neutrophils Percent Auto 87.5 % (45.5-73.1); Platelet Count Result 252 k/mm3 (150-375); Red Blood Count 4.83 M/mm3 (4.6-6.20); White Blood Count 12.4 K/mm3 (4.5-10.0)
[2021-08-16 08:56] LABS: Alanine Aminotransferase 56 U/L (4-50); Alkaline Phosphatase 142 U/L (38-126); Anion Gap 7 mmol/L (8-16); Aspartate Amino Transferase 112 U/L (17-59); Bilirubin,Total 2.1 mg/dL (0.2-1.3); Blood Urea Nitrogen 68 mg/dL (9-20); Calcium 7.9 mg/dL (8.4-10.2); Carbon Dioxide 28 mmol/L (22-30); Chloride 98 mmol/L (98-107); Estimated CRCL calculation 48 ml/min; Estimated Glomerular Filt Rate 48; Glucose 117 mg/dL (65-110); Potassium 3.6 mmol/L (3.4-5.0); Sodium 133 mmol/L (137-145)
[2021-08-16] MEDS: SILVERGEL (ELTA) 45 ML 1 APPLIC TOPICAL (08:56)
--- NOTE | 2021-08-16 09:04 | P.NEURO_ITS ---
Neurology EEG Report General Information Date of Study: 08/15/21 TEST eeg DIAGNOSIS Altered mental status CONDITION OF RECORDING awake and sleep EEG NUMBER [id number] CLINICAL HISTORY patient slept throughout the whole set up , no particular history was available, EEG has been ordered because of the change in the mental status. EEG DESCRIPTION whole record consists of medium voltage 5 to 7 hertz per 2nd theta activity. Bilateral symmetrical sleep activity seen during sleep. Hyperventilation not done. Non paroxysmal. Non focal. Nonlateralizing. IMPRESSION Abnormal record due to the presence of bihemispheric theta activity with no evidence of normal background rhythm. These abnormalities are suggestive of organic or metabolic encephalopathy clinical correlation recommended , possi bility of neuro degenerative process cannot be ruled out we
--- NOTE | 2021-08-16 09:18 | PM.IMPN ---
Progress Note: A&P Assessment and Plan (1) Hematoma of left knee region: Code(s): S80.02XA - Contusion of left knee, initial encounter Status: Acute Assessment and Plan: -Large prepatellar hematoma of the left knee secondary to fall - concern as patient is not bending or moving leg due to pain. Will take time (weeks to months) for this hematoma to reabsorb depending on activity level. Does not appear to be developing dermal necrosis .Surrounding ecchymosis to entire left leg. No signs of infection at this time. The hematoma aspiration culture from 5 days ago is no growth thus far. -He was on Coumadin prior to the fall and was placed on Eliquis after the fall for unclear reasons. We need to discontinue anticoagulation for a couple of weeks and I discussed this with the patient. -He was started on empiric antibiotics for possible septic hematoma given reports of malodorous and cloudy drainage when the bulla ruptured. -He continues to have pain and persistent swelling to his left knee, although his daughter stated it did appear to be less swollen. (2) Chronic anticoagulation: Code(s): Z79.01 - halfway (current) use of anticoagulants Status: Acute Assessment and Plan: 08/09 INR 1.7 08/13: -Anticoagulation held likely for up to 2 weeks to allow this to heal and be reabsorbed. SCDs ordered Consider Lovenox SQ when Ortho OK's - due to patient immobility, at high risk for DVT and PE. (3) Hypertension: Qualifiers: Hypertension type: unspecified Qualified Code(s): I10 - Essential (primary) hypertension Code(s): I10 - Essential (primary) hypertension Status: Acute Assessment and Plan: -Blood pressures were reviewed and they are stable. -Continue antihypertensives and monitor. - 08/13: Stable, continue to monitor. His abdomen does show varicose veins, potential portal HTN? BNP is elevated today at 1130, compared to 853 on 05/05/21. May benefit from Lasix - but BPs low with SBPs 90 to 100s. (4) Obstructive sleep apnea on CPAP: Code(s): G47.33 - Obstructive sleep apnea (adult) (pediatric); Z99.89 - Dependence on other enabling machines and devices Status: Acute Assessment and Plan: -He does not use his CPAP at home however I will order 1 for him while hospitalized as he really needs to be compliant with this. -obtain ABG wnl. No evidence of hypoxia or hypercapnia (5) Paroxysmal atrial fibrillation: Code(s): I48.0 - Paroxysmal atrial fibrillation Status: Acute Assessment and Plan: -Anticoagulation on hold as detailed above. - 08/13: SCDs for prophylaxis as anticoagulation is currently held. -continue telemetry. HR 64-76 today. (6) Chronic obstructive pulmonary disease, unspecified: Qualifiers: COPD type: unspecified COPD Qualified Code(s): J44.9 - Chronic obstructive pulmonary disease, unspecified Code(s): J44.9 - Chronic obstructive pulmonary disease, unspecified Status: Acute Assessment and Plan: -Tolerating RA -changed nebs to scheduled -wheezing has resolved. -repeat chest x-ray 08/14 no acute concerns. 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 Obtained a CT of the head, findings noted above. (8) Hand pain, left: Code(s): M79.642 - Pain in left hand Status: Acute Assessment and Plan: -xray from 08/05/21 negative -seen by wound care, dressing in place - 08/13: Continue wound care His left hand continues to be wrapped in gauze dressing and painful to palpation, but he is moving his hands and fingers quite well. (9) Sore throat: Code(s): J02.9 - Acute pharyngitis, unspecified Status: Acute Assessment and Plan:
[2021-08-16 10:03] LABS: Anisocytosis 1+ (NORMAL); Hypochromasia 1+ (NORMAL); Microcytosis 1+ (NORMAL); Ovalocytes 1+ (NORMAL); Platelet Estimate Adequate (Adequate)
[2021-08-16 10:19] LABS: CRP 28.7 mg/dL (<1.0)
[2021-08-16 11:07] LABS: Ammonia 11 umol/L (9-30); Lipase 43 U/L (23-300)
[2021-08-16 11:14] LABS: Uric Acid 8.4 mg/dL (3.5-8.5)
--- NOTE | 2021-08-16 12:02 | PCNSR ---
On 08/16/21, the student, Valery Dinh, provided care and completed [facility] documentation on this patient. I have reviewed the student's documentation and agree with the findings.
[2021-08-16 12:12] LABS: NT Pro B Type Natriuretic Pept 1130 pg/mL (5-100)
[2021-08-16] MEDS: methylPREDNISolone (MEDROL) DOSEPACK 4 MG TABLETS PO ×4 (12:21→20:37)
--- NOTE | 2021-08-16 12:31 | PCOTNOTE ---
patient unavailable, in MRI, Will continue plan of OT care.
--- NOTE | 2021-08-16 12:33 | WPDNEURCNPN ---
Assessment and Plan Additional Plan considering the history of the fall MRI of cervical spine will be obtained before any further recommendations are made discussed with the patient Consult date: 08/16/21 HPI: Charles Osorio is a 86 year old male admitted to the hospital through the emergency room with history of fall while going out of a restaurant his foot got caught under the rug and fell subsequently complained of left head pain left knee pain and left hand pain did not become unconscious, and had been taking alprazolam 1 mg p.o. HS, in Depo my 2.5 mg daily and lisinopril 20 mg daily, not allergic to any medication, in the past he has ongoing history of chronic obstructive pulmonary disease, gout, basal cell cancer, skin cancer, etiopathic chronic gout, long-term use of anticoagulants, with history of paroxysmal atrial fibrillation polycythemia and type 2 diabetes mellitus without complication Review of Systems Review of Systems: All systems reviewed & are unremarkable except as noted in HPI and below PMFSH Past Medical History Medical History Arthritis Chronic anemia Chronic anticoagulation Chronic obstructive pulmonary disease, unspecified Gout History of basal cell cancer Hypertension Obstructive sleep apnea on CPAP Paroxysmal atrial fibrillation Surgical History Surgical History History of appendectomy History of basal cell carcinoma excision History of sinus surgery History of tonsillectomy Family History Family History Father Family history of malignant neoplasm Patient's father is Acute myocardial infarction Mother Family history of malignant neoplasm Patient's mother is Social History Social History Social History: The patient lives in [place]. He was in the [employer] and served in [employer]. 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 He smoked briefly for a couple of years as a young man but reports significant secondhand smoke exposure. No alcohol or illicit substance abuse. He designates his son, Charles Osorio, as his surrogate decision maker. He wishes to be a full code. Spiritual care concerns: No Meds Home Medications and Allergies Home Medications Medication Instructions Recorded Confirmed Type furosemide 20 mg tablet 20 mg PO QAM #90 tablet 09/09/20 08/08/21 Rx albuterol sulfate 2.5 mg INHALATION Q6H PRN #360 ml 10/07/20 08/08/21 Rx budesonide 160 mcg-glycopyr 9 2 inh INHALATION QAM AND QPM #10.7 01/24/21 08/08/21 Rx mcg-formot 4.8 mcg/actuation HFA g inhaler albuterol sulfate 90 mcg/actuation 1 - 2 puff INHALATION Q4-6H PRN 04/12/21 08/08/21 Rx aerosol inhaler #8.5 g simvastatin 20 mg tablet 20 mg PO DAILY #90 tablet 04/27/21 08/08/21 Rx alprazolam 1 mg PO HS 05/05/21 08/08/21 History indapamide 2.5 mg PO DAILY 05/05/21 08/08/21 History lisinopril 20 mg PO DAILY 05/05/21 08/08/21 History allopurinol 100 mg tablet See Rx Instructions PO DAILY #240 06/13/21 08/08/21 Rx tablet tamsulosin 0.4 mg capsule 0.4 mg PO DAILY #90 cap 06/27/21 08/08/21 Rx finasteride 5 mg tablet 5 mg PO DAILY #90 tablet 07/03/21 08/08/21 Rx apixaban [Eliquis] 5 mg PO BID #20 tablet 08/05/21 08/08/21 Rx Allergies Allergy/AdvReac Type Severity Reaction Status Date / Time No Known Allergies Allergy Verified 08/05/21 19:52 Vital Signs Vital Signs - 24 hr 08/15/21 14:00 08/15/21 14:31 08/15/21 14:52 Temperature Pulse Rate 66 76 80 Respiratory Rate 18 18 Blood Pressure Pulse Oximetry 08/15/21 16:00 08/15/21 16:18 08/15/21 18:00 Temperature 36.1 C L Pulse Rate 71 78 68 Respiratory Rate 18 Blood Pressure 96/43 L Pulse Oximetry 94 95 08/15/21 19:50 08/15/21 19:56 08/15/21 19:57 Temperature 36.6 C Pulse Rate 71 76 Respiratory Rate 22
[2021-08-16 14:04] LABS: Appearance Synovial Fluid Hazy (Clear); Color Synovial Fluid Yellow (Colorless); Macrophages Synovial Fluid 2 %; Neutrophils Synovial Fluid 98 % (0-25); Source Synovial Fluid Synovial fluid
--- NOTE | 2021-08-16 15:05 | WPDGICN ---
Assessment and Plan Assessment and plan (1) Elevated LFTs: Code(s): R79.89 - Other specified abnormal findings of blood chemistry Status: Acute Assessment and Plan: Patient has mildly elevated LFTs. This appears to correlate with admission to the [facility]. Primarily this is hyperbilirubinemia. I suspect this is related to resorption of his hematoma. At the present time I will order fractionation of the bilirubin and alkaline phosphatase. Continue to monitor LFTs. Hepatitis serologies will be obtained to exclude any associated hepatitis. His ammonia level obtained today is normal suggesting that his confusion was not related underlying liver disease. An alternate etiology should be considered. (2) Altered mental status: Code(s): R41.82 - Altered mental status, unspecified Status: Acute Assessment and Plan: Patient's mental status apparently is starting to return to normal. I doubt this is related to his liver disease as the ammonia level was normal. (3) Chronic anticoagulation: Code(s): Z79.01 - [facility] (current) use of anticoagulants Status: Acute (4) Hematoma of left knee region: Code(s): S80.02XA - Contusion of left knee, initial encounter Status: Acute (5) Paroxysmal atrial fibrillation: Code(s): I48.0 - Paroxysmal atrial fibrillation Status: Acute GI Consult Note Consult date/time: 08/16/21 15:05 HPI: Charles Osorio is a 86 year old male I am asked to see for elevated LFTs. Patient reportedly admitted the hospital after a fall. He landed on his knee with resultant large hematoma. Patient has been on Eliquis for unclear reasons. Patient is reported to have atrial fibrillation and presumably this is the etiology for anticoagulation. He has a history of underlying COPD. He apparently had altered mental status until today. He is seen today in conjunction with 2 daughters period and appears much more alert and appropriate. The daughter say that today is a for stays been more alert. Patient denies any prior alcohol intake. He has no history of underlying liver disease. Family history is noncontributory. Patient does complain of right arm pain and elbow pain which he attributes to gout. He has ruled very swollen and sore knee with a hematoma that is apparently resolving. Review of Systems Review of Systems: All systems reviewed & are unremarkable except as noted in HPI and below PMFSH Past Medical History Medical History Arthritis Chronic anemia Chronic anticoagulation Chronic obstructive pulmonary disease, unspecified Gout History of basal cell cancer Hypertension Obstructive sleep apnea on CPAP Paroxysmal atrial fibrillation Surgical History Surgical History History of appendectomy History of basal cell carcinoma excision History of sinus surgery History of tonsillectomy Family History Family History Father Family history of malignant neoplasm Patient's father is Acute myocardial infarction Mother Family history of malignant neoplasm Patient's mother is Social History Social History Social History: The patient lives in [place]. He was in the [employer] and served in [employer]. 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 He smoked briefly for a couple of years as a young man but reports significant secondhand smoke exposure. No alcohol or illicit substance abuse. He designates his son, Charles Osorio, as his surrogate decision maker. He wishes to be a full code. Spiritual care concerns: No Meds Home Medications and Allergies Home Medications Medication Instructions Recorded Confirmed Type furosemide 20 mg tablet 20 mg PO QAM #90 tablet 09/09/20 08/08/21 Rx albuterol sulfate 2.
--- NOTE | 2021-08-16 15:32 | PM.PNORT ---
Progress Note: A&P Additional Plan Patient has developed severe pain in the right elbow in the hospital is call me earlier. X-rays showed the fusion. Patient still has mildly elevated white count elevated C-reactive protein and mental status change. The elbow pain is new. He remains on vancomycin and cefepime. Patient has a history of gout and his uric acid is elevated at 8. Aspiration of the elbow by the radiologist was successful. Red cells and white cells were too numerous to count but there were 98% neutrophils indicating acute inflammatory arthritis and moderate monosodium urate crystals were noted consistent with gouty arthritis. G stain was negative and cultures were set up. Impression: Patient has inflammatory arthritis of the right elbow which has developed during his hospitalization. The has been on vancomycin and cefepime during the entire hospitalization. The fluid showed moderate monosodium urate crystals and this clinical picture is quite cysts consistent an acute attack of gout which will happen to hospitalize patient's. Infection is still a consideration and should be ruled out. I have recommended using a Medrol Dosepak to decrease inflammation. He is not a good candidate for anti-inflammatory medications because of his renal insufficiency and the fact that he is on Lasix. Last hemoglobin A1c was 5.0 this morning. His BUN was 68 which may suggest some dehydration relative to a creatinine of 1.4. The hydration and the use of Lasix can exacerbate gout attacks. As the Medrol Dosepak has not been ordered I will order that now. Colchicine is another possibility if he does not respond to the Medrol Dosepak. Will follow along with respect to his cultures. If he has septic arthritis incision and drainage of his elbow would be best since it seems it be refractory to the IV antibiotics he is on. I think that septic arthritis would be less likely in the setting. Subjective Subjective Date/Time Seen: 08/16/21 15:32 Objective Data Vital Signs Vital Signs: Vital Signs - 24 hr 08/15/21 16:00 08/15/21 16:18 08/15/21 18:00 Temperature 36.1 C L Pulse Rate 71 78 68 Respiratory Rate 18 Blood Pressure 96/43 L Pulse Oximetry 94 95 08/15/21 19:50 08/15/21 19:56 08/15/21 19:57 Temperature 36.6 C Pulse Rate 71 76 Respiratory Rate 22 H 18 Blood Pressure 101/53 L Pulse Oximetry 95 94 08/15/21 20:00 08/15/21 20:07 08/15/21 22:00 Temperature Pulse Rate 71 78 76 Respiratory Rate 18 18 Blood Pressure Pulse Oximetry 94 08/15/21 22:20 08/15/21 23:14 08/16/21 00:00 Temperature 36.7 C Pulse Rate 76 71 73 Respiratory Rate 22 H 22 H Blood Pressure 99/60 L Pulse Oximetry 95 96 96 08/16/21 00:48 08/16/21 00:58 08/16/21 02:00 Temperature Pulse Rate 64 64 68 Respiratory Rate 18 18 Blood Pressure Pulse Oximetry 93 08/16/21 04:00 08/16/21 05:04 08/16/21 05:05 Temperature 36.6 C Pulse Rate 66 73 73 Respiratory Rate 22 H 18 Blood Pressure 120/72 Pulse Oximetry 96 92 08/16/21 06:00 08/16/21 08:00 08/16/21 08:24 Temperature 36.7 C Pulse Rate 64 66 74 Respiratory Rate 20 18 Blood Pressure 94/65 L Pulse Oximetry 94 08/16/21 08:26 08/16/21 08:33 08/16/21 10:00 Temperature Pulse Rate 76 71 Respiratory Rate 18 Blood Pressure Pulse Oximetry 94 08/16/21 12:00 08/16/21 15:20 08/16/21 15:27 Temperature 36.6 C Pulse Rate 73 72 74 Respiratory Rate 18 18 18 Blood Pressure 120/60 Pulse Oximetry 95 Intake/Output Intake/Output: Intake & Output 08/13/21 08/14/21 08/15/21 08/16/21 23:59 23:59 23:59 23:59 Intake Total 4125 374 7899 100 Output Total 600 350 350 Balance 600 360 890 100 Meds/Results Medications: Active Medications Generic Name Dose Route Start Last Admin Trade Name Freq PRN Reason Stop Dose Admin Acetaminophen 650 mg 08/14/21 16:43 08/16/21 08:40 Acetaminophen 325 Mg Tablet PO 650 mg Q
[2021-08-16 17:00] LABS: Alanine Aminotransferase 62 U/L (4-50); Albumin Level 3.5 g/dL (3.5-5.1); Alkaline Phosphatase 186 U/L (38-126); Aspartate Amino Transferase 126 U/L (17-59); Bilirubin,Total 1.9 mg/dL (0.2-1.3)
[2021-08-16] MEDS: DEXAMETHASONE SOD PHOS INJ 4 MG/ML VIAL IV PUSH (17:07)
[2021-08-16 18:23] LABS: Hepatitis B Surface Antigen Negative (Negative)
[2021-08-16 18:29] LABS: HAV RESULT Negative (Negative); Hepatitis B Core IgM Result Negative (Negative)
[2021-08-16 18:40] LABS: Hepatitis C Virus Antibody Negative (Negative)
[2021-08-17] VITALS (24 sets, daily range): BP systolic 104–135; BP diastolic 56–80; PULSE 59–83; RESP 17–24; TEMP 36.1–36.7; O2SAT 92–97
[2021-08-17] MEDS: ALBUTEROL SULFATE NEB 2.5 MG/0.5 ML INH INHALATION ×6 (04:12→23:05)
[2021-08-17] MEDS: IPRATROPIUM BR 0.02% INH SOLN 0.5 MG/2.5 ML VIAL INHALATION ×6 (04:12→23:05)
[2021-08-17 06:13] LABS: Basophils Percent Auto 0.2 % (0.2-1.2); Hematocrit 42.5 % (42.0-52.0); Hemoglobin 12.3 g/dL (14.0-18.0); Immature Granulocyte Absolute 0.08 K/mm3 (0.00-0.031); Immature Granulocyte Percent A 0.7 % (0-0.5); Immature Platelet Fraction Pct 5.7 % (0.9-11.2); Lymphocytes Absolute Auto 0.18 K/mm3 (0.9-3.2); Lymphocytes Percent Auto 1.5 % (18.3-44.2); Mean Corpuscular HGB Conc 28.9 g/dl (32-36); Mean Corpuscular Hemoglobin 22.2 pg (26-34); Mean Corpuscular Volume 76.9 fl (80-100); Monocytes Absolute Auto 0.2 K/mm3 (0.1-0.6); Monocytes Percent Auto 1.8 % (2.6-8.5); Neutrophils Absolute Auto 11.7 K/mm3 (1.3-6.7); Neutrophils Percent Auto 95.8 % (45.5-73.1); Platelet Count Result 295 k/mm3 (150-375); Red Blood Count 5.53 M/mm3 (4.6-6.20); Red Cell Distribution Width 20.3 % (11.5-14.5); White Blood Count 12.2 K/mm3 (4.5-10.0)
[2021-08-17 06:24] LABS: Alanine Aminotransferase 77 U/L (4-50); Albumin Level 3.6 g/dL (3.5-5.1); Alkaline Phosphatase 211 U/L (38-126); Anion Gap 9 mmol/L (8-16); Aspartate Amino Transferase 112 U/L (17-59); Bilirubin,Total 1.6 mg/dL (0.2-1.3); Blood Urea Nitrogen 60 mg/dL (9-20); Calcium 8.3 mg/dL (8.4-10.2); Carbon Dioxide 26 mmol/L (22-30); Chloride 99 mmol/L (98-107); Estimated CRCL calculation 61 ml/min; Estimated Glomerular Filt Rate > 60; Glucose 153 mg/dL (65-110); Sodium 134 mmol/L (137-145)
[2021-08-17] MEDS: methylPREDNISolone (MEDROL) DOSEPACK 4 MG TABLETS PO ×4 (06:25→20:12)
[2021-08-17 06:32] LABS: NT Pro B Type Natriuretic Pept 1180 pg/mL (5-100)
[2021-08-17 06:50] LABS: Anisocytosis 1+ (NORMAL); Ovalocytes 1+ (NORMAL); Platelet Estimate Adequate (Adequate)
[2021-08-17] MEDS: FUROSEMIDE 20 MG TABLET PO (08:18)
[2021-08-17] MEDS: TAMSULOSIN HCL 0.4 MG CAPSULE PO (08:18)
[2021-08-17] MEDS: allopurinoL 300 MG TABLET PO (08:19)
[2021-08-17] MEDS: lisinopriL 20 MG TABLET PO (08:19)
[2021-08-17] MEDS: SIMVASTATIN 20 MG TABLET PO (08:19)
[2021-08-17] MEDS: SILVERGEL (ELTA) 45 ML 1 APPLIC TOPICAL (08:19)
[2021-08-17] MEDS: FINASTERIDE 5 MG TABLET PO (08:19)
[2021-08-17] MEDS: INDAPAMIDE 2.5 MG TABLET PO (08:19)
[2021-08-17] MEDS: ACETAMINOPHEN 325 MG TABLET 650 MG PO (08:20)
[2021-08-17] MEDS: FLUTICASONE/UMECLIDIN/VILANTER 100-62.5-25 MCG ELLIPTA 1 PUFF INHALATION (08:30)
[2021-08-17 08:32] LABS: CRP 25.6 mg/dL (<1.0)
--- NOTE | 2021-08-17 09:41 | WPDNEUROPN ---
Subjective Date/time seen: 08/17/21 09:41 86 years old admitted to the hospital through the emergency room with history of fall while going out of a restaurant , initial MRI of the brain on August 09, 2021 was normal so as the CT scan except the old lacunar infarct the bilateral basal ganglia without any acute abnormalities, when seen initially he was complaining of right shoulder discomfort and as cervical discomfort as well considering history of the fall MRI of cervical spine was obtained which revealed no evidence of acute disc herniation, no evidence of cervical myelopathy, except the changes compatible with moderate to severe cervical spondylosis all this information was in to his more concerned about the ongoing problem the gout which obviously he has for long time and guidelines for the treatment will be given according Objective Data Vital Signs Vital Signs: Vital Signs - 24 hr 08/16/21 10:00 08/16/21 12:00 08/16/21 14:00 Temperature 36.6 C Pulse Rate 71 70 72 Respiratory Rate 18 Blood Pressure 120/60 Pulse Oximetry 95 08/16/21 15:20 08/16/21 15:27 08/16/21 16:00 Temperature 37.1 C Pulse Rate 72 74 75 Respiratory Rate 18 18 22 H Blood Pressure 117/65 Pulse Oximetry 97 08/16/21 18:00 08/16/21 20:00 08/16/21 20:14 Temperature 36.6 C Pulse Rate 84 81 77 Respiratory Rate 18 18 Blood Pressure 133/75 Pulse Oximetry 93 08/16/21 20:20 08/16/21 20:25 08/16/21 20:26 Temperature Pulse Rate 72 71 Respiratory Rate 18 Blood Pressure Pulse Oximetry 94 93 08/16/21 22:00 08/16/21 23:53 08/16/21 23:56 Temperature 36.7 C Pulse Rate 80 69 74 Respiratory Rate 18 18 Blood Pressure 128/76 Pulse Oximetry 96 96 08/16/21 23:59 08/17/21 00:02 08/17/21 00:08 Temperature Pulse Rate 71 71 75 Respiratory Rate 18 18 Blood Pressure Pulse Oximetry 93 08/17/21 02:00 08/17/21 04:00 08/17/21 04:12 Temperature 36.7 C Pulse Rate 80 67 71 Respiratory Rate 18 18 Blood Pressure 119/78 Pulse Oximetry 94 08/17/21 04:22 08/17/21 06:00 08/17/21 07:57 Temperature 36.4 C L Pulse Rate 74 73 64 Respiratory Rate 18 20 Blood Pressure 135/80 Pulse Oximetry 94 93 08/17/21 08:28 08/17/21 08:42 Temperature Pulse Rate 63 72 Respiratory Rate 18 18 Blood Pressure Pulse Oximetry Intake/Output Intake/Output: Intake & Output 08/14/21 08/15/21 08/16/21 08/17/21 23:59 23:59 23:59 23:59 Intake Total 710 1240 750 290 Output Total 350 350 300 425 Balance 360 890 450 -135 Meds/Results Medications: Active Medications Generic Name Dose Route Start Last Admin Trade Name Freq PRN Reason Stop Dose Admin Acetaminophen 650 mg 08/14/21 16:43 08/17/21 08:20 Acetaminophen 325 Mg Tablet PO 650 mg Q4H PRN Administration Mild Pain (1-3) or Fever Hydrocodone Bitart/Acetaminophen 1 tab 08/12/21 15:42 08/16/21 06:02 Hydrocodone/Acetaminophen (*Crx) 5-325 Mg Tablet PO 1 tab Q4H PRN Administration Pain Rated 4-6 Albuterol 2.5 mg 08/12/21 04:00 08/17/21 08:30 Albuterol Sulfate Neb 2.5 Mg/0.5 Ml Inh INHALATION 2.5 mg Q4HRT SHILA Administration Allopurinol 300 mg 08/09/21 08:00 08/17/21 08:19 Allopurinol 300 Mg Tablet PO 300 mg DAILY@0800 SHILA Administration Alprazolam 1 mg 08/14/21 16:44 Alprazolam (*Crx) 0.5 Mg Tablet PO HS PRN Insomnia Benzocaine 1 lozenge 08/12/21 12:00 Benzocaine/Menthol (*Bkc) 18 Ea Lozenge PO PRN PRN Sore Throat Finasteride 5 mg 08/09/21 09:00 08/17/21 08:19 Finasteride 5 Mg Tablet PO 5 mg DAILY SHILA Administration Fluticasone/Umeclidinium/Vilanterol 1 puff 08/10/21 08:30 08/17/21 08:30 Fluticasone/Umeclidin/Vilanter 100-62.5-25 Mcg Ellipta INHALATION 1 puff DAILYRT SHILA Administration Furosemide 20 mg 08/09/21 09:00 08/17/21 08:18 Furosemide 20 Mg Tablet PO 20 mg QAM SHILA Administration Cefepime HCl 1 gm in 50 mls @ 100
[2021-08-17 10:11] LABS: Vancomycin Trough 13.2 ug/mL (10.0-20.0)
--- NOTE | 2021-08-17 14:37 | WPDGIPROGNO ---
Progress Note: A&P Assessment and Plan (1) Elevated LFTs: Code(s): R79.89 - Other specified abnormal findings of blood chemistry Status: Acute Assessment and Plan: Patient's LFTs appear to be improving. Bilirubin is all unconjugated. Alk-phos fractionation pending. I suspect this is related to resorption of his knee hematoma. Continued observation at this point no specific therapy warranted. (2) Altered mental status: Code(s): R41.82 - Altered mental status, unspecified Status: Acute Assessment and Plan: Patient thinking clearly did today. Mental status appears much improved. Ammonia level normal. (3) Effusion of elbow joint, right: Code(s): M25.421 - Effusion, right elbow Status: Acute Subjective Date/time seen: 08/17/21 14:37 Patient alert and oriented today. Still complains of right arm pain which may be related to gout. Denies abdominal pain. Review of Systems Review of Systems: All systems reviewed & are unremarkable except as noted in HPI and below Exam Narrative: Physical exam patient complains of right arm pain lungs are clear. Heart without murmur. Abdomen is obese soft nontender with no organomegaly. Nontender. Objective Data Vital Signs Vital Signs: Vital Signs - 24 hr 08/16/21 15:20 08/16/21 15:27 08/16/21 16:00 Temperature 98.7 F Pulse Rate 72 74 75 Respiratory Rate 18 18 22 H Blood Pressure 117/65 Pulse Oximetry 97 08/16/21 18:00 08/16/21 20:00 08/16/21 20:14 Temperature 97.9 F Pulse Rate 84 81 77 Respiratory Rate 18 18 Blood Pressure 133/75 Pulse Oximetry 93 08/16/21 20:20 08/16/21 20:25 08/16/21 20:26 Temperature Pulse Rate 72 71 Respiratory Rate 18 Blood Pressure Pulse Oximetry 94 93 08/16/21 22:00 08/16/21 23:53 08/16/21 23:56 Temperature 98.0 F Pulse Rate 80 69 74 Respiratory Rate 18 18 Blood Pressure 128/76 Pulse Oximetry 96 96 08/16/21 23:59 08/17/21 00:02 08/17/21 00:08 Temperature Pulse Rate 71 71 75 Respiratory Rate 18 18 Blood Pressure Pulse Oximetry 93 08/17/21 02:00 08/17/21 04:00 08/17/21 04:12 Temperature 98.0 F Pulse Rate 80 67 71 Respiratory Rate 18 18 Blood Pressure 119/78 Pulse Oximetry 94 08/17/21 04:22 08/17/21 06:00 08/17/21 07:57 Temperature 97.5 F L Pulse Rate 74 73 64 Respiratory Rate 18 20 Blood Pressure 135/80 Pulse Oximetry 94 93 08/17/21 08:00 08/17/21 08:28 08/17/21 08:42 Temperature Pulse Rate 66 63 72 Respiratory Rate 18 18 Blood Pressure Pulse Oximetry 94 08/17/21 10:00 08/17/21 11:59 08/17/21 12:00 Temperature 97.6 F Pulse Rate 65 66 76 Respiratory Rate 24 H Blood Pressure 110/59 L Pulse Oximetry 92 94 Intake/Output Intake/Output: Intake & Output 08/14/21 08/15/21 08/16/21 08/17/21 23:59 23:59 23:59 23:59 Intake Total 710 1240 750 770 Output Total 350 350 300 425 Balance 360 890 450 345 Meds/Results Medications: Active Medications Generic Name Dose Route Start Last Admin Trade Name Freq PRN Reason Stop Dose Admin Acetaminophen 650 mg 08/14/21 16:43 08/17/21 08:20 Acetaminophen 325 Mg Tablet PO 650 mg Q4H PRN Administration Mild Pain (1-3) or Fever Hydrocodone Bitart/Acetaminophen 1 tab 08/12/21 15:42 08/16/21 06:02 Hydrocodone/Acetaminophen (*Crx) 5-325 Mg Tablet PO 1 tab Q4H PRN Administration Pain Rated 4-6 Albuterol 2.5 mg 08/12/21 04:00 08/17/21 14:25 Albuterol Sulfate Neb 2.5 Mg/0.5 Ml Inh INHALATION 2.5 mg Q4HRT SHILA Administration Allopurinol 300 mg 08/09/21 08:00 08/17/21 08:19 Allopurinol 300 Mg Tablet PO 300 mg DAILY@0800 SHILA Administration Alprazolam 1 mg 08/14/21 16:44 Alprazolam (*Crx) 0.5 Mg Tablet PO HS PRN Insomnia Benzocaine 1 lozenge 08/12/21 12:00 Benzocaine/Menthol (*Bkc) 18 Ea Lozenge PO PRN PRN Sore Throat Finasteride 5 mg 08/09/21 0
--- NOTE | 2021-08-17 16:08 | P.PNIM_ITS ---
Progress Note: A&P Assessment and Plan (1) Frequent falls: Code(s): R29.6 - Repeated falls Status: Acute Assessment and Plan: patient presented following a fall at home. Reports 3 falls at home in the past 2 weeks * patient lives at home alone * implement fall precautions * appreciate PT/ OT evaluation (2) Hematoma of left knee region: Code(s): S80.02XA - Contusion of left knee, initial encounter Status: Acute Assessment and Plan: secondary to fall as above * CT on presentation showed large prepatellar hematoma without evidence of fracture * joint aspiration attempted on 08/09/2021 but yielded only 1 mL of dark red blood, noting that hematoma was too solid to aspirate * cultures collected from aspiration with no growth * appreciate orthopedic surgery evaluation * no evidence of infection or necrosis at this time. Continue to monitor closely (3) Effusion of elbow joint, right: Code(s): M25.421 - Effusion, right elbow Status: Acute Assessment and Plan: patient developed right elbow pain and x-ray revealed joint effusion * this was aspirated on 08/16/2021 yielding 10 mL yellow fluid * elevated neutrophil count with moderate monosodium urate crystals, felt to be most consistent with gouty arthritis. uric acid elevated at 8 * right elbow gram stain negative * cultures are pending * CRP remains elevated but slightly improved today * continue with Medrol Dosepak - he seems to be having improvement with this * continue with vancomycin and cefepime while awaiting final cultures (4) Acute encephalopathy: Code(s): G93.40 - Encephalopathy, unspecified Status: Resolved Assessment and Plan: resolved. Patient noted to be previously intermittently confused but today is A&O x4 * etiology unclear, possibly multifactorial related to hospitalization, infection, narcotics * head CT negative for acute findings. brain and cervical spine MRI with no acute findings ( does reveal moderate to severe cervical spondylosis though th is is not the etiology of his encephalopathy) * blood cultures are negative to date, final cultures will be monitored * no evidence of hypoxia or hypercapnia on ABG * limit narcotics. Continue with frequent reorientation as needed (5) Paroxysmal atrial fibrillation: Code(s): I48.0 - Paroxysmal atrial fibrillation Status: Acute Assessment and Plan: Rate is controlled * he does not appear to be in any rate controlling medications * recently transition from warfarin to Eliquis at his ED visit on 08/05/2021, although he only took 1 dose of this as he was later admitted to the hospital * anticoagulation on hold at this time in light of hematoma * will need to consider risks versus benefits of continued anticoagulation given the patient's falls. CHADS2-VASC is 5 and HAS-BLED is 4. Patient and family would like to discuss this with PCP, Dr. Jose. (6) Hypertension: Qualifiers: Hypertension type: unspecified Qualified Code(s): I10 - Essential (primary) hypertension Code(s): I10 - Essential (primary) hypertension Status: Acute Assessment and Plan: blood pressures have been reasonably controlled, occasionally on the low end of normal * continue home medication regimen (7) Obstructive sleep apnea on CPAP: Code(s): G47.33 - Obstructive sleep apnea (adult) (pediatric); Z99.89 - Dependence on other enabling machines and devices Status: Acute Assessment and Plan:
--- NOTE | 2021-08-17 16:08 | PM.IMPN ---
Progress Note: A&P Assessment and Plan (1) Frequent falls: Code(s): R29.6 - Repeated falls Status: Acute Assessment and Plan: patient presented following a fall at home. Reports 3 falls at home in the past 2 weeks patient lives at home alone implement fall precautions appreciate PT/ OT evaluation (2) Hematoma of left knee region: Code(s): S80.02XA - Contusion of left knee, initial encounter Status: Acute Assessment and Plan: secondary to fall as above CT on presentation showed large prepatellar hematoma without evidence of fracture joint aspiration attempted on 08/09/2021 but yielded only 1 mL of dark red blood, noting that hematoma was too solid to aspirate cultures collected from aspiration with no growth appreciate orthopedic surgery evaluation no evidence of infection or necrosis at this time. Continue to monitor closely (3) Effusion of elbow joint, right: Code(s): M25.421 - Effusion, right elbow Status: Acute Assessment and Plan: patient developed right elbow pain and x-ray revealed joint effusion this was aspirated on 08/16/2021 yielding 10 mL yellow fluid elevated neutrophil count with moderate monosodium urate crystals, felt to be most consistent with gouty arthritis. uric acid elevated at 8 right elbow gram stain negative cultures are pending CRP remains elevated but slightly improved today continue with Medrol Dosepak - he seems to be having improvement with this continue with vancomycin and cefepime while awaiting final cultures (4) Acute encephalopathy: Code(s): G93.40 - Encephalopathy, unspecified Status: Resolved Assessment and Plan: resolved. Patient noted to be previously intermittently confused but today is A&O x4 etiology unclear, possibly multifactorial related to hospitalization, infection, narcotics head CT negative for acute findings. brain and cervical spine MRI with no acute findings ( does reveal moderate to severe cervical spondylosis though this is not the etiology of his encephalopathy) blood cultures are negative to date, final cultures will be monitored no evidence of hypoxia or hypercapnia on ABG limit narcotics. Continue with frequent reorientation as needed (5) Paroxysmal atrial fibrillation: Code(s): I48.0 - Paroxysmal atrial fibrillation Status: Acute Assessment and Plan: Rate is controlled he does not appear to be in any rate controlling medications recently transition from warfarin to Eliquis at his ED visit on 08/05/2021, although he only took 1 dose of this as he was later admitted to the hospital anticoagulation on hold at this time in light of hematoma will need to consider risks versus benefits of continued anticoagulation given the patient's falls. CHADS2-VASC is 5 and HAS-BLED is 4. Patient and family would like to discuss this with PCP, Dr. Jose. (6) Hypertension: Qualifiers: Hypertension type: unspecified Qualified Code(s): I10 - Essential (primary) hypertension Code(s): I10 - Essential (primary) hypertension Status: Acute Assessment and Plan: blood pressures have been reasonably controlled, occasionally on the low end of normal continue home medication regimen (7) Obstructive sleep apnea on CPAP: Code(s): G47.33 - Obstructive sleep apnea (adult) (pediatric); Z99.89 - Dependence on other enabling machines and devices Status: Acute Assessment and Plan: patient admits that he is not compliant with CPAP at home continue with CPAP during hospitalization reinforced need for compliance with CPAP (8) Hyperbilirubinemia: Code(s): E80.6 - Other disorders of bilirubin metabolism Status: Acute Assessment and Plan: LFTs and bilirubin levels are elevated unconjugated hyperbilirubinemia felt to be resorption of hematoma continue to monitor
--- NOTE | 2021-08-17 17:58 | PM.PNORT ---
Progress Note: A&P Additional Plan Patient had a right elbow aspirated yesterday. Cultures are no growth so far. He continues to complain of severe pain in the right elbow. There is no redness swelling or warmth. He has range of motion from about 40-100 degrees. On palpation there is severe tenderness over the radial head. The aspirate did show apparently bloody aspirate as the red cells were too numerous to count as well. He does have a 1-1/2 cm abrasion over the dorsum of the elbow subcutaneous to the olecranon dorsally about 1 cm distal to the tip. He has a wound dressing on that. When he fell and sustained a hematoma on the left knee he may have smashed into the wall with his right elbow he speculated soon therefore we will obtain a CT scan of the right elbow to see there is for example occult radial neck or radial head fracture that we could not see on the plain radiographs which might explain hemarthrosis in the elbow. He is doing much better today. He was alert awake and he sat on the side of the bed and he took several steps with a walker and sat in a chair. His left ankle was terribly painful form this is the 1st time he has noticed that. He does have a history of gout in the ankle in the past. On exam there is no redness swelling or warmth but he has rather severe tenderness diffusely around the ankle. This is probably gout but we should obtain an x-ray of the left ankle to rule out fracture and this was ordered as well. With respect to his left knee still has a large prepatellar hematoma he has extensive bruising all around the posterior thigh the calf. The, shaped area of distressed skin were had a blistering and the dusky color in the proximal 1/2 all looks great now and is essentially re-epithelialization except for 2 2 mm x 6 mm superficial eschars. I think that there will not be any skin necrosis associated with this fortunately. Also when he was up walking he was not noticing any significant pain left knee. Time Spent With Patient Time with patient: 15 - 25 minutes Subjective Subjective Date/Time Seen: 08/17/21 17:58 Objective Data Vital Signs Vital Signs: Vital Signs - 24 hr 08/16/21 18:00 08/16/21 20:00 08/16/21 20:14 Temperature 36.6 C Pulse Rate 84 81 77 Respiratory Rate 18 18 Blood Pressure 133/75 Pulse Oximetry 93 08/16/21 20:20 08/16/21 20:25 08/16/21 20:26 Temperature Pulse Rate 72 71 Respiratory Rate 18 Blood Pressure Pulse Oximetry 94 93 08/16/21 22:00 08/16/21 23:53 08/16/21 23:56 Temperature 36.7 C Pulse Rate 80 69 74 Respiratory Rate 18 18 Blood Pressure 128/76 Pulse Oximetry 96 96 08/16/21 23:59 08/17/21 00:02 08/17/21 00:08 Temperature Pulse Rate 71 71 75 Respiratory Rate 18 18 Blood Pressure Pulse Oximetry 93 08/17/21 02:00 08/17/21 04:00 08/17/21 04:12 Temperature 36.7 C Pulse Rate 80 67 71 Respiratory Rate 18 18 Blood Pressure 119/78 Pulse Oximetry 94 08/17/21 04:22 08/17/21 06:00 08/17/21 07:57 Temperature 36.4 C L Pulse Rate 74 73 64 Respiratory Rate 18 20 Blood Pressure 135/80 Pulse Oximetry 94 93 08/17/21 08:00 08/17/21 08:28 08/17/21 08:42 Temperature Pulse Rate 66 63 72 Respiratory Rate 18 18 Blood Pressure Pulse Oximetry 94 08/17/21 10:00 08/17/21 11:59 08/17/21 12:00 Temperature 36.4 C Pulse Rate 65 66 76 Respiratory Rate 24 H Blood Pressure 110/59 L Pulse Oximetry 92 94 08/17/21 14:00 08/17/21 16:00 Temperature 36.3 C L Pulse Rate 62 67 Respiratory Rate 24 H Blood Pressure 104/56 L Pulse Oximetry 94 Intake/Output Intake/Output: Intake & Output 08/14/21 08/15/21 08/16/21 08/17/21 23:59 23:59 23:59 23:59 Intake Total 710 6913 889 6324 Output Total 350 350 300 825 Balance 360 890 450 445 Meds/Results Medications: Active Medications Generic Name Dose Route Start Last Admin Trade Name Freq PRN Reason Stop Dose Admin Acetaminophen 6
--- NOTE | 2021-08-17 19:12 | PC.NURSE ---
This patient, Charles Osorio, was transferred to [ 245] on 08/17/21 at 1913. Personal belongings sent with patient. Report given to [CARA Herbert @ 4400 ]. Appropriate documentation sent with patient.
[2021-08-17] MEDS: WATER FOR IRRIGATION, STERILE 1,000 ML BOTTLE 1000 ML (23:28)
[2021-08-18] VITALS (17 sets, daily range): BP systolic 104–116; BP diastolic 58–77; PULSE 60–81; RESP 12–20; TEMP 36.5–36.8; O2SAT 93–99
[2021-08-18] MEDS: ALBUTEROL SULFATE NEB 2.5 MG/0.5 ML INH INHALATION ×5 (04:31→19:53)
[2021-08-18] MEDS: IPRATROPIUM BR 0.02% INH SOLN 0.5 MG/2.5 ML VIAL INHALATION ×5 (04:31→19:53)
[2021-08-18] MEDS: methylPREDNISolone (MEDROL) DOSEPACK 4 MG TABLETS PO ×4 (06:11→20:57)
[2021-08-18 06:15] LABS: Basophils Percent Auto 0.1 % (0.2-1.2); Hematocrit 36.9 % (42.0-52.0); Hemoglobin 11.1 g/dL (14.0-18.0); Immature Granulocyte Absolute 0.13 K/mm3 (0.00-0.031); Immature Granulocyte Percent A 0.9 % (0-0.5); Immature Platelet Fraction Pct 6.7 % (0.9-11.2); Lymphocytes Absolute Auto 0.26 K/mm3 (0.9-3.2); Lymphocytes Percent Auto 1.8 % (18.3-44.2); Mean Corpuscular HGB Conc 30.1 g/dl (32-36); Mean Corpuscular Hemoglobin 22.4 pg (26-34); Mean Corpuscular Volume 74.5 fl (80-100); Monocytes Absolute Auto 0.5 K/mm3 (0.1-0.6); Monocytes Percent Auto 3.7 % (2.6-8.5); Neutrophils Absolute Auto 13.5 K/mm3 (1.3-6.7); Neutrophils Percent Auto 93.5 % (45.5-73.1); Platelet Count Result 299 k/mm3 (150-375); Red Blood Count 4.95 M/mm3 (4.6-6.20); White Blood Count 14.4 K/mm3 (4.5-10.0)
[2021-08-18 06:26] LABS: Alanine Aminotransferase 125 U/L (4-50); Albumin Level 3.1 g/dL (3.5-5.1); Alkaline Phosphatase 199 U/L (38-126); Anion Gap 7 mmol/L (8-16); Aspartate Amino Transferase 156 U/L (17-59); Bilirubin,Total 1.1 mg/dL (0.2-1.3); Blood Urea Nitrogen 60 mg/dL (9-20); Calcium 8.1 mg/dL (8.4-10.2); Carbon Dioxide 26 mmol/L (22-30); Chloride 101 mmol/L (98-107); Estimated CRCL calculation 61 ml/min; Estimated Glomerular Filt Rate > 60; Glucose 153 mg/dL (65-110); Potassium 3.8 mmol/L (3.4-5.0); Sodium 134 mmol/L (137-145)
[2021-08-18 06:34] LABS: CRP 14.1 mg/dL (<1.0)
[2021-08-18 07:11] LABS: Platelet Estimate Adequate (Adequate)
[2021-08-18 07:12] LABS: Anisocytosis 1+ (NORMAL); Ovalocytes 1+ (NORMAL)
[2021-08-18 07:33] LABS: Creatine Kinase 492 U/L (55-170)
[2021-08-18] MEDS: FLUTICASONE/UMECLIDIN/VILANTER 100-62.5-25 MCG ELLIPTA 1 PUFF INHALATION (08:19)
[2021-08-18] MEDS: allopurinoL 300 MG TABLET PO (09:12)
[2021-08-18] MEDS: FINASTERIDE 5 MG TABLET PO (09:13)
[2021-08-18] MEDS: SIMVASTATIN 20 MG TABLET PO (09:16)
[2021-08-18] MEDS: SILVERGEL (ELTA) 45 ML 1 APPLIC TOPICAL (09:55)
--- NOTE | 2021-08-18 12:32 | PC.NURSE ---
On 08/18/21, the student, [Jevon Ray, Noe De Luna], provided care and [facility] I have reviewed the student's documentation and agree with the findings.
--- NOTE | 2021-08-18 12:40 | WPDGIPROGNO ---
Progress Note: A&P Assessment and Plan (1) Elevated LFTs: Code(s): R79.89 - Other specified abnormal findings of blood chemistry Status: Acute Assessment and Plan: LFTs remain elevated. Bilirubin has declined consistent with resort being hematoma. Transaminases remain elevated factor low bit higher. Hepatitis ABC serologies are negative. Continue to monitor closely. Potentially this is related to medications. (2) Effusion of elbow joint, right: Code(s): M25.421 - Effusion, right elbow Status: Acute (3) Chronic anticoagulation: Code(s): Z79.01 - residential (current) use of anticoagulants Status: Acute (4) Chronic anemia: Code(s): D64.9 - Anemia, unspecified Status: Acute Assessment and Plan: Microcytic anemia. Plan is to check iron studies and stool Hemoccult. No obvious signs of GI blood loss encountered. This appears to be a chronic anemia. Subjective Date/time seen: 08/18/21 12:40 Patient unchanged today. Still complains of right elbow pain denies abdominal pain. Exam Narrative: Physical exam reveals patient be alert. Abdomen is soft bowel sounds are present no organomegaly evident. Objective Data Vital Signs Vital Signs: Vital Signs - 24 hr 08/17/21 14:00 08/17/21 16:00 08/17/21 18:00 Temperature 97.3 F L Pulse Rate 62 67 59 L Respiratory Rate 24 H Blood Pressure 104/56 L Pulse Oximetry 94 08/17/21 20:00 08/17/21 20:27 08/17/21 20:28 Temperature Pulse Rate 61 67 Respiratory Rate 18 17 Blood Pressure Pulse Oximetry 96 93 08/17/21 20:36 08/17/21 22:00 08/17/21 23:07 Temperature 97.0 F L Pulse Rate 72 61 76 Respiratory Rate 18 18 18 Blood Pressure 120/61 Pulse Oximetry 96 08/17/21 23:17 08/18/21 02:45 08/18/21 04:28 Temperature Pulse Rate 79 71 Respiratory Rate 17 18 Blood Pressure Pulse Oximetry 93 94 08/18/21 04:44 08/18/21 06:00 08/18/21 08:19 Temperature 98.3 F Pulse Rate 76 74 73 Respiratory Rate 17 18 18 Blood Pressure 113/70 Pulse Oximetry 96 08/18/21 08:22 08/18/21 08:27 08/18/21 09:32 Temperature Pulse Rate 73 75 68 Respiratory Rate 18 18 Blood Pressure 104/58 L Pulse Oximetry 93 Intake/Output Intake/Output: Intake & Output 08/15/21 08/16/21 08/17/21 08/18/21 23:59 23:59 23:59 23:59 Intake Total 2516 457 6142 1660 Output Total 350 300 825 400 Balance 890 065 955 5061 Meds/Results Medications: Active Medications Generic Name Dose Route Start Last Admin Trade Name Freq PRN Reason Stop Dose Admin Acetaminophen 650 mg 08/14/21 16:43 08/17/21 08:20 Acetaminophen 325 Mg Tablet PO 650 mg Q4H PRN Administration Mild Pain (1-3) or Fever Hydrocodone Bitart/Acetaminophen 1 tab 08/12/21 15:42 08/16/21 06:02 Hydrocodone/Acetaminophen (*Crx) 5-325 Mg Tablet PO 1 tab Q4H PRN Administration Pain Rated 4-6 Albuterol 2.5 mg 08/12/21 04:00 08/18/21 08:19 Albuterol Sulfate Neb 2.5 Mg/0.5 Ml Inh INHALATION 2.5 mg Q4HRT SHILA Administration Allopurinol 300 mg 08/09/21 08:00 08/18/21 09:12 Allopurinol 300 Mg Tablet PO 300 mg DAILY@0800 SHILA Administration Benzocaine 1 lozenge 08/12/21 12:00 Benzocaine/Menthol (*Bkc) 18 Ea Lozenge PO PRN PRN Sore Throat Finasteride 5 mg 08/09/21 09:00 08/18/21 09:13 Finasteride 5 Mg Tablet PO 5 mg DAILY SHILA Administration Fluticasone/Umeclidinium/Vilanterol 1 puff 08/10/21 08:30 08/18/21 08:19 Fluticasone/Umeclidin/Vilanter 100-62.5-25 Mcg Ellipta INHALATION 1 puff DAILYRT SHILA Administration Furosemide 20 mg 08/09/21 09:00 08/18/21 09:56 Furosemide 20 Mg Tablet PO Not Given QAM SHILA Cefepime HCl 1 gm in 50 mls @ 100 mls/hr 08/14/21 09:30 08/18/21 09:50 Maxipime 1 Gm/D5w 50 Ml IVPB Infused Q12HR SHILA Infusion Vancomycin HCl 2,000 mg in 500 mls @ 250 mls/hr 08/17/21 11:00 08/18/21 07:54 Stephani
--- NOTE | 2021-08-18 13:20 | WPDNEUROPN ---
Subjective Date/time seen: 08/18/21 13:20 MRI of cervical spine was negative patient has been receiving the physical therapy and occupational therapy, reported significant improvement in the symptomatology, on examination awake alert cooperative his speech nor dysphasic not dysarthric following the instructions very well, sitting in the chair family members are here and looks very happy treatment will be continued as such no further neurological intervention Objective Data Vital Signs Vital Signs: Vital Signs - 24 hr 08/17/21 14:00 08/17/21 16:00 08/17/21 18:00 Temperature 36.3 C L Pulse Rate 62 67 59 L Respiratory Rate 24 H Blood Pressure 104/56 L Pulse Oximetry 94 08/17/21 20:00 08/17/21 20:27 08/17/21 20:28 Temperature Pulse Rate 61 67 Respiratory Rate 18 17 Blood Pressure Pulse Oximetry 96 93 08/17/21 20:36 08/17/21 22:00 08/17/21 23:07 Temperature 36.1 C L Pulse Rate 72 61 76 Respiratory Rate 18 18 18 Blood Pressure 120/61 Pulse Oximetry 96 08/17/21 23:17 08/18/21 02:45 08/18/21 04:28 Temperature Pulse Rate 79 71 Respiratory Rate 17 18 Blood Pressure Pulse Oximetry 93 94 08/18/21 04:44 08/18/21 06:00 08/18/21 08:19 Temperature 36.8 C Pulse Rate 76 74 73 Respiratory Rate 17 18 18 Blood Pressure 113/70 Pulse Oximetry 96 08/18/21 08:22 08/18/21 08:27 08/18/21 09:32 Temperature Pulse Rate 73 75 68 Respiratory Rate 18 18 Blood Pressure 104/58 L Pulse Oximetry 93 08/18/21 12:52 08/18/21 13:01 08/18/21 13:07 Temperature 36.5 C Pulse Rate 78 77 81 Respiratory Rate 18 18 12 Blood Pressure 113/72 Pulse Oximetry 99 Intake/Output Intake/Output: Intake & Output 08/15/21 08/16/21 08/17/21 08/18/21 23:59 23:59 23:59 23:59 Intake Total 0976 237 9296 1660 Output Total 350 300 825 760 Balance 890 450 735 900 Meds/Results Medications: Active Medications Generic Name Dose Route Start Last Admin Trade Name Freq PRN Reason Stop Dose Admin Acetaminophen 650 mg 08/14/21 16:43 08/17/21 08:20 Acetaminophen 325 Mg Tablet PO 650 mg Q4H PRN Administration Mild Pain (1-3) or Fever Hydrocodone Bitart/Acetaminophen 1 tab 08/12/21 15:42 08/16/21 06:02 Hydrocodone/Acetaminophen (*Crx) 5-325 Mg Tablet PO 1 tab Q4H PRN Administration Pain Rated 4-6 Albuterol 2.5 mg 08/12/21 04:00 08/18/21 12:51 Albuterol Sulfate Neb 2.5 Mg/0.5 Ml Inh INHALATION 2.5 mg Q4HRT SHILA Administration Allopurinol 300 mg 08/09/21 08:00 08/18/21 09:12 Allopurinol 300 Mg Tablet PO 300 mg DAILY@0800 SHILA Administration Benzocaine 1 lozenge 08/12/21 12:00 Benzocaine/Menthol (*Bkc) 18 Ea Lozenge PO PRN PRN Sore Throat Finasteride 5 mg 08/09/21 09:00 08/18/21 09:13 Finasteride 5 Mg Tablet PO 5 mg DAILY SHILA Administration Fluticasone/Umeclidinium/Vilanterol 1 puff 08/10/21 08:30 08/18/21 08:19 Fluticasone/Umeclidin/Vilanter 100-62.5-25 Mcg Ellipta INHALATION 1 puff DAILYRT SHILA Administration Furosemide 20 mg 08/09/21 09:00 08/18/21 09:56 Furosemide 20 Mg Tablet PO Not Given QAM SHILA Cefepime HCl 1 gm in 50 mls @ 100 mls/hr 08/14/21 09:30 08/18/21 09:50 Maxipime 1 Gm/D5w 50 Ml IVPB Infused Q12HR SHILA Infusion Vancomycin HCl 2,000 mg in 500 mls @ 250 mls/hr 08/17/21 11:00 08/18/21 07:54 Vancomycin 2,000 Mg/D5w 500 Ml IVPB Infused Q18H SHILA Infusion Indapamide 2.5 mg 08/09/21 09:00 08/18/21 09:56 Indapamide 2.5 Mg Tablet PO Not Given DAILY SHILA Ipratropium [place] 0.5 mg 08/10/21 16:00 08/18/21 12:51 Ipratropium Br 0.02% Inh Soln 0.5 Mg/2.5 Ml Vial INHALATION 0.5 mg Q4HRT SHILA Administration Lisinopril 20 mg 08/09/21 09:00 08/18/21 09:56 Lisinopril 20 Mg Tablet PO Not Given DAILY [facility] Methylprednisolone 4 mg 08/16/21 06:30 08/18/21 11:54 Methylprednisolone (Medrol) Dosepack 4 Mg Tablets PO 08/21/21 07:29 4 mg
--- NOTE | 2021-08-18 13:55 | PCPTNOTE ---
Therapy frequency increased due to patient progressing.
--- NOTE | 2021-08-18 14:09 | P.PNIM_ITS ---
Progress Note: A&P Assessment and Plan (1) Frequent falls: Code(s): R29.6 - Repeated falls Status: Acute Assessment and Plan: patient presented following a fall at home. Reports 3 falls at home in the past 2 weeks * patient lives at home alone * implement fall precautions * appreciate PT/ OT evaluation * planning for rehab upon discharge, appreciate family day care worker consultation (2) Hematoma of left knee region: Code(s): S80.02XA - Contusion of left knee, initial encounter Status: Acute Assessment and Plan: secondary to fall as above * CT on presentation showed large prepatellar hematoma without evidence of fracture * joint aspiration attempted on 08/09/2021 but yielded only 1 mL of dark red blood, noting that hematoma was too solid to aspirate * cultures collected from aspiration with no growth * appreciate orthopedic surgery evaluation * no evidence of infection or necrosis at this time. Continue to monitor closely (3) Effusion of elbow joint, right: Code(s): M25.421 - Effusion, right elbow Status: Acute Assessment and Plan: patient developed right elbow pain and x-ray revealed joint effusion * this was aspirated on 08/16/2021 yielding 10 mL yellow fluid * synovial fluid evaluation showed elevated neutrophil count with moderate monosodium urate crystals, felt to be most consistent with gouty arthritis. Uric acid elevated at 8 * continue with medrol dosepak. He is having improvement with this * right elbow gram stain negative * right elbow synovial fluid cultures are pending, negative to date. At this time will discontinue IV antibiotics as infection felt to be less likely etiology. Patient remains afebrile. Mild leukocytosis appears chronic, slightly increased secondary to steroids. * CRP remains elevated but slightly improved today (4) Acute encephalopathy: Code(s): G93.40 - Encephalopathy, unspecified Status: Resolved Assessment and Plan: resolved. Patient noted to be previously intermittently confused but today is A&O x4 * etiology unclear, possibly multifactorial related to hospitalization, narcotic use * head CT negative for acute findings. brain and cervical spine MRI with no acute findings ( does reveal moderate to severe cervical spondylosis though this is not the etiology of his encephalopathy) * blood cultures are negative to date, final cultures will be monitored * no evidence of hypoxia or hypercapnia on ABG * limit narcotics. Continue with frequent reorientation as needed (5) Paroxysmal atrial fibrillation: Code(s): I48.0 - Paroxysmal atrial fibrillation Status: Acute Assessment and Plan: Rate is controlled * he does not appear to be on any rate controlling medications * recently transitioned from warfarin to Eliquis at his ED visit on 08/05/2021, although he only took 1 dose of this as he was later admitted to the hospital * anticoagulation on hold at this time in light of hematoma * will need to consider risks versus benefits of continued anticoagulation given the patient's falls. CHADS2-VASC is 5 and HAS-BLED is 4. Patient and family would like to discuss this with PCP, Dr. Jose. Awaiting return call from PCP (6) Hypertension: Qualifiers: Hypertension type: unspecified Qualified Code(s): I10 - Essential (primary) hypertension Code(s): I10 - Essential (primary) hypertension Status: Acute Assessment and Plan: BP has been on the lower end of normal. Last BP 113/72 *
--- NOTE | 2021-08-18 14:09 | PM.IMPN ---
Progress Note: A&P Assessment and Plan (1) Frequent falls: Code(s): R29.6 - Repeated falls Status: Acute Assessment and Plan: patient presented following a fall at home. Reports 3 falls at home in the past 2 weeks patient lives at home alone implement fall precautions appreciate PT/ OT evaluation planning for rehab upon discharge, appreciate healthcare or medical consultation (2) Hematoma of left knee region: Code(s): S80.02XA - Contusion of left knee, initial encounter Status: Acute Assessment and Plan: secondary to fall as above CT on presentation showed large prepatellar hematoma without evidence of fracture joint aspiration attempted on 08/09/2021 but yielded only 1 mL of dark red blood, noting that hematoma was too solid to aspirate cultures collected from aspiration with no growth appreciate orthopedic surgery evaluation no evidence of infection or necrosis at this time. Continue to monitor closely (3) Effusion of elbow joint, right: Code(s): M25.421 - Effusion, right elbow Status: Acute Assessment and Plan: patient developed right elbow pain and x-ray revealed joint effusion this was aspirated on 08/16/2021 yielding 10 mL yellow fluid synovial fluid evaluation showed elevated neutrophil count with moderate monosodium urate crystals, felt to be most consistent with gouty arthritis. Uric acid elevated at 8 continue with medrol dosepak. He is having improvement with this right elbow gram stain negative right elbow synovial fluid cultures are pending, negative to date. At this time will discontinue IV antibiotics as infection felt to be less likely etiology. Patient remains afebrile. Mild leukocytosis appears chronic, slightly increased secondary to steroids. CRP remains elevated but slightly improved today (4) Acute encephalopathy: Code(s): G93.40 - Encephalopathy, unspecified Status: Resolved Assessment and Plan: resolved. Patient noted to be previously intermittently confused but today is A&O x4 etiology unclear, possibly multifactorial related to hospitalization, narcotic use head CT negative for acute findings. brain and cervical spine MRI with no acute findings ( does reveal moderate to severe cervical spondylosis though this is not the etiology of his encephalopathy) blood cultures are negative to date, final cultures will be monitored no evidence of hypoxia or hypercapnia on ABG limit narcotics. Continue with frequent reorientation as needed (5) Paroxysmal atrial fibrillation: Code(s): I48.0 - Paroxysmal atrial fibrillation Status: Acute Assessment and Plan: Rate is controlled he does not appear to be on any rate controlling medications recently transitioned from warfarin to Eliquis at his ED visit on 08/05/2021, although he only took 1 dose of this as he was later admitted to the hospital anticoagulation on hold at this time in light of hematoma will need to consider risks versus benefits of continued anticoagulation given the patient's falls. CHADS2-VASC is 5 and HAS-BLED is 4. Patient and family would like to discuss this with PCP, Dr. Jose. Awaiting return call from PCP (6) Hypertension: Qualifiers: Hypertension type: unspecified Qualified Code(s): I10 - Essential (primary) hypertension Code(s): I10 - Essential (primary) hypertension Status: Acute Assessment and Plan: BP has been on the lower end of normal. Last BP 113/72 hold lisinopril monitor BP trends (7) Obstructive sleep apnea on CPAP: Code(s): G47.33 - Obstructive sleep apnea (adult) (pediatric); Z99.89 - Dependence on other enabling machines and devices Status: Acute Assessment and Plan: patient admits that he is not compliant with CPAP at home continue with CPAP during hospitalization reinforced need for compliance with CPAP (8) Hyp
--- NOTE | 2021-08-18 15:11 | PM.PNORT ---
Progress Note: A&P Additional Plan Patient is now day 3. On corticosteroids for gout attack right elbow. Yesterday had quite a bit of pain still on my exam and limited range of motion and I did a obtain a CT scan and which showed some degenerative changes but no evidence of fracture so of I think the fracture has been ruled out. He did have gout crystals seen on the aspiration and the cultures remain negative at 48 hours now. His range of motion today at the elbow is 30? to 130. He can easily touch his mouth and he denies significant discomfort there is no swelling at the elbow. His left ankle today is doing much better. He walks 60 ft twice with physical therapy and did not complain of pain at the left ankle and on exam he has no swelling or tenderness of the left ankle. The x-rays of the left ankle demonstrated evidence of previous subtalar fusion and degenerative changes at the ankle joint which were likely aggravated by his getting up and walking for the 1st time in 10 days and it is certainly possible that he had some gout affect is well given the hypersensitivity on exam yesterday and the fact that he has no tenderness today. This would suggest a positive affect of his the corticosteroids he is on the Medrol Dosepak day 3. Now. The prepatellar subcutaneous large hematoma over the left knee is stable. The skin remains viable over the front. Again the area where he had the epithelial blistering and the epithelium loss has completely re-epithelialization all the skin looks viable there. I spoke with the hospitalist at length about an hour ago about all these conditions and he has been on the vancomycin and cefepime since admission. He did have an elevated CRP admission. The aspiration of his prepatellar hematoma was negative for bacterial growth and the right elbow aspiration is negative for bacterial growth and had negative Gram stain at 48 hours. He has not had any identifiable source of infection. The hospitalists would like to therefore discontinue the IV antibiotics and observe. I think that is very appropriate. Of course it is possible that he could have an underlying infection that may become clinically evident in the future but no evidence of infection has been identified thus far including abdominal ultrasound and urinalysis. I was in speaking with the family as I saw the patient just now and Dr. Jose's office called and advised of the plan to resume his Eliquis but decrease it to 2.5 mg twice daily this is a 5 mg because of his falls and the propensity for disastrous bleeding complications but also the wish to have him on anticoagulation for prophylaxis against stroke due to atrial fibrillation. He meets only 1 of the 3 criteria for reduction of the Eliquis dose that being greater than age 80. His creatinine is 1.4 is very close to the 1.5 criteria and adding in his propensity for falling, it would seem logical to have him on the lower dose rather than no does or high-dose. He is not really having any complaints at this time a gout seemed to could be controlled. No further treatment for the hematoma is indicated other than passage of time and it may take 6 months for fluid resorption to complete itself. All of these issues were explained to his 2 daughters present in the room in detail. I will be happy to see him back on a as needed basis. Time Spent With Patient Time with patient: 25 - 35 minutes Subjective Subjective Date/Time Seen: 08/18/21 15:11 Objective Data Vital Signs Vital Signs: Vital Signs - 24 hr 08/17/21 16:00 08/17/21 18:00 08/17/21 20:00 Temperature 36.3 C L Pulse Rate 67 59 L 61 Respiratory Rate 24 H 18 Blood Pressure 104/56 L Pulse Oximetry 94 96 08/17/21 20:27 08/17/21 20:28 08/17/21 20:36 Temperature Pulse Rate 67 72 Respiratory Rate 17 18 Blood Pressure Pulse Oximetry 93 08/17/21 22:00 08/17/21 23:07 08/17/21 23:17 Temperature 36.1 C L Pulse Rate 61 76 79 Resp
[2021-08-19] VITALS (10 sets, daily range): BP systolic 108–148; BP diastolic 64–85; PULSE 68–75; RESP 18–20; TEMP 36.2–37.1; O2SAT 93–98
[2021-08-19] MEDS: ALBUTEROL SULFATE NEB 2.5 MG/0.5 ML INH INHALATION ×3 (00:03→09:00)
[2021-08-19] MEDS: IPRATROPIUM BR 0.02% INH SOLN 0.5 MG/2.5 ML VIAL INHALATION ×3 (00:03→09:00)
[2021-08-19] MEDS: methylPREDNISolone (MEDROL) DOSEPACK 4 MG TABLETS PO ×2 (05:38→11:58)
[2021-08-19 05:43] LABS: Hematocrit 38.9 % (42.0-52.0); Hemoglobin 11.3 g/dL (14.0-18.0); Immature Platelet Fraction Pct 5.5 % (0.9-11.2); Mean Corpuscular Hemoglobin 22.5 pg (26-34); Mean Corpuscular Volume 77.5 fl (80-100); Mean Platelet Volume 12.3 fl (7.4-10.4); Platelet Count Result 349 k/mm3 (150-375); Red Blood Count 5.02 M/mm3 (4.6-6.20); Red Cell Distribution Width 20.3 % (11.5-14.5); White Blood Count 14.8 K/mm3 (4.5-10.0)
[2021-08-19 05:50] LABS: Anion Gap 7 mmol/L (8-16); Blood Urea Nitrogen 59 mg/dL (9-20); Calcium 8.3 mg/dL (8.4-10.2); Carbon Dioxide 27 mmol/L (22-30); Chloride 102 mmol/L (98-107); Estimated CRCL calculation 60 ml/min; Estimated Glomerular Filt Rate > 60; Glucose 127 mg/dL (65-110); Potassium 4.3 mmol/L (3.4-5.0); Sodium 136 mmol/L (137-145)
[2021-08-19 07:27] LABS: Alanine Aminotransferase 142 U/L (4-50); Albumin Level 3.1 g/dL (3.5-5.1); Alkaline Phosphatase 174 U/L (38-126); Aspartate Amino Transferase 129 U/L (17-59); Bilirubin,Total 0.9 mg/dL (0.2-1.3)
[2021-08-19] MEDS: FLUTICASONE/UMECLIDIN/VILANTER 100-62.5-25 MCG ELLIPTA 1 PUFF INHALATION (09:00)
[2021-08-19] MEDS: APIXABAN 2.5 MG TABLET PO (10:12)
[2021-08-19] MEDS: INDAPAMIDE 2.5 MG TABLET PO (10:12)
[2021-08-19] MEDS: FUROSEMIDE 20 MG TABLET PO (10:12)
[2021-08-19] MEDS: TAMSULOSIN HCL 0.4 MG CAPSULE PO (10:12)
[2021-08-19] MEDS: allopurinoL 300 MG TABLET PO (10:12)
[2021-08-19] MEDS: FINASTERIDE 5 MG TABLET PO (10:12)
[2021-08-19] MEDS: SILVERGEL (ELTA) 45 ML 1 APPLIC TOPICAL (10:13)
--- NOTE | 2021-08-19 13:36 | PHAR ---
Preservision AREDs 2- sent to pharmacy to review. Med is in OTC stock bottle. No markings on tab- unable to verify.
[2021-08-19 14:55] LABS: EDCOVIDSCREEN Negative (Negative)
--- NOTE | 2021-08-19 15:13 | P.DS_ITS ---
DS: Admitting Diagnosis Discharge Date 08/19/2021 Admitting Diagnosis Fall, left knee hematoma DS: Discharge Diagnosis Discharge Diagnosis (1) Frequent falls: Code(s): R29.6 - Repeated falls Status: Acute Assessment and Plan: patient presented following a fall at home. Reports 3 falls at home in the past 2 weeks * patient lives at home alone * fall precautions implemented * participated in PT/ OT during admission * continue therapy at SNF (2) Hematoma of left knee region: Code(s): S80.02XA - Contusion of left knee, initial encounter Status: Acute Assessment and Plan: secondary to fall as above * CT on presentation showed large prepatellar hematoma without evidence of fracture * joint aspiration attempted on 08/09/2021 but yielded only 1 mL of dark red blood, noting that hematoma was too solid to aspirate * cultures collected from aspiration with no growth * seen in consultation by Orthopedic surgery * no evidence of infection or necrosis * follow up with orthopedic surgery if any further issues arise. Anticipate 6 months-1 year for complete resolution (3) Effusion of elbow joint, right: Code(s): M25.421 - Effusion, right elbow Status: Acute Assessment and Plan: patient developed right elbow pain and x-ray revealed joint effusion * this was aspirated on 08/16/2021 yielding 10 mL yellow fluid * synovial fluid evaluation showed elevated neutrophil count with moderate monosodium urate crystals, felt to be most consistent with gouty arthritis. Uric acid elevated at 8 * managed with Medrol dosepak which was continued on discharge to complete course. He had significant improvement with this. * right elbow gram stain negative * right elbow synovial fluid cultures negative to date. Final cultures will be monitoring. He was treated with Vancomycin and Cefepime which was discontinued on 08/18 as cultures had been negative and no signs/symptoms to suggest acute infectious process. CRP trended down. Chronically elevated WBC slightly increased due to steroids, not felt to be infectious etiology. (4) Acute encephalopathy: Code(s): G93.40 - Encephalopathy, unspecified Status: Resolved Assessment and Plan: Resolved entirely. * etiology unclear, possibly multifactorial related to hospitalization, narcotic use * head CT negative for acute findings. brain and cervical spine MRI with no acute findings * blood cultures negative * no evidence of hypoxia or hypercapnia on ABG * narcotics avoided * remained A&Ox4 for all my subsequent encounters (5) Paroxysmal atrial fibrillation: Code(s): I48.0 - Paroxysmal atrial fibrillation Status: Acute Assessment and Plan: Rate is controlled * recently transitioned from warfarin to Eliquis * anticoagulation was held in light of hematoma * discussed with patient and family risks vs benefits of continued anticoagulation in light of hematoma and patient falls. CHADS2-VASC is 5 and HAS-BLED is 4. Discussed with PCP who recommended Eliquis 2.5 b.i.d. which was continued on discharge (6) Hypertension: Qualifiers: Hypertension type: unspecified Qualified Code(s): I10 - Essential (primary) hypertension Code(s): I10 - Essential (primary) hypertension Status: Acute Assessment and Plan: BP monitor during admission and was on the lower end of normal * Lisinopril held * Monitor BP at nursing facility * Follow-up with PCP in 1 week for blood pressur
--- NOTE | 2021-08-19 15:13 | PM.DS ---
DS: Admitting Diagnosis Discharge Date 08/19/2021 Admitting Diagnosis Fall, left knee hematoma DS: Discharge Diagnosis Discharge Diagnosis (1) Frequent falls: Code(s): R29.6 - Repeated falls Status: Acute Assessment and Plan: patient presented following a fall at home. Reports 3 falls at home in the past 2 weeks patient lives at home alone fall precautions implemented participated in PT/ OT during admission continue therapy at SNF (2) Hematoma of left knee region: Code(s): S80.02XA - Contusion of left knee, initial encounter Status: Acute Assessment and Plan: secondary to fall as above CT on presentation showed large prepatellar hematoma without evidence of fracture joint aspiration attempted on 08/09/2021 but yielded only 1 mL of dark red blood, noting that hematoma was too solid to aspirate cultures collected from aspiration with no growth seen in consultation by Orthopedic surgery no evidence of infection or necrosis follow up with orthopedic surgery if any further issues arise. Anticipate 6 months-1 year for complete resolution (3) Effusion of elbow joint, right: Code(s): M25.421 - Effusion, right elbow Status: Acute Assessment and Plan: patient developed right elbow pain and x-ray revealed joint effusion this was aspirated on 08/16/2021 yielding 10 mL yellow fluid synovial fluid evaluation showed elevated neutrophil count with moderate monosodium urate crystals, felt to be most consistent with gouty arthritis. Uric acid elevated at 8 managed with Medrol dosepak which was continued on discharge to complete course. He had significant improvement with this. right elbow gram stain negative right elbow synovial fluid cultures negative to date. Final cultures will be monitoring. He was treated with Vancomycin and Cefepime which was discontinued on 08/18 as cultures had been negative and no signs/symptoms to suggest acute infectious process. CRP trended down. Chronically elevated WBC slightly increased due to steroids, not felt to be infectious etiology. (4) Acute encephalopathy: Code(s): G93.40 - Encephalopathy, unspecified Status: Resolved Assessment and Plan: Resolved entirely. etiology unclear, possibly multifactorial related to hospitalization, narcotic use head CT negative for acute findings. brain and cervical spine MRI with no acute findings blood cultures negative no evidence of hypoxia or hypercapnia on ABG narcotics avoided remained A&Ox4 for all my subsequent encounters (5) Paroxysmal atrial fibrillation: Code(s): I48.0 - Paroxysmal atrial fibrillation Status: Acute Assessment and Plan: Rate is controlled recently transitioned from warfarin to Eliquis anticoagulation was held in light of hematoma discussed with patient and family risks vs benefits of continued anticoagulation in light of hematoma and patient falls. CHADS2-VASC is 5 and HAS-BLED is 4. Discussed with PCP who recommended Eliquis 2.5 b.i.d. which was continued on discharge (6) Hypertension: Qualifiers: Hypertension type: unspecified Qualified Code(s): I10 - Essential (primary) hypertension Code(s): I10 - Essential (primary) hypertension Status: Acute Assessment and Plan: BP monitor during admission and was on the lower end of normal Lisinopril held Monitor BP at nursing facility Follow-up with PCP in 1 week for blood pressure recheck and medication review (7) Obstructive sleep apnea on CPAP: Code(s): G47.33 - Obstructive sleep apnea (adult) (pediatric); Z99.89 - Dependence on other enabling machines and devices Status: Acute Assessment and Plan: patient admits that he is not compliant with CPAP at home CPAP continued during hospitalization reinforced need for compliance with CPAP (8) Hyperbilirubinemia: Code(s): E80
[2021-08-22 15:21] LABS: Alkaline Phosphatase 165 U/L (35-144); Macrohepatic Isoenzymes 38 % (<=0)
== END 2021-08-19 15:39 | DRG 604 ==
LOC: ANHED 19:02 → ANH3MEDSUR 19:29 → ANHIMU 08-14 10:25 → ANH2MED 08-17 19:14
PROVIDERS: Internal Medicine Gastroenterology; Nurse Practitioner; Nurse Practitioner Adult Health; Nurse Practitioner Family; Physician Assistant; Admitting Provider Internal Medicine; Emergency Provider Nurse Practitioner Family; PCP Internal Medicine; Visit Provider Family Medicine
DX: S80.02XA Contusion of left knee, initial encounter (principal); G92.8 Other toxic encephalopathy; G93.49 Other encephalopathy; M10.021 Idiopathic gout, right elbow; Z20.822 Contact with and (suspected) exposure to COVID-19; T40.605A Adverse effect of unspecified narcotics, initial encounter; W19.XXXA Unspecified fall, initial encounter; I48.0 Paroxysmal atrial fibrillation; G47.33 Obstructive sleep apnea (adult) (pediatric); E80.6 Other disorders of bilirubin metabolism; J44.9 Chronic obstructive pulmonary disease, unspecified; E78.5 Hyperlipidemia, unspecified; D64.9 Anemia, unspecified; E11.9 Type 2 diabetes mellitus without complications; R47.89 Other speech disturbances; M19.90 Unspecified osteoarthritis, unspecified site; E66.9 Obesity, unspecified; Z68.36 Body mass index [BMI] 36.0-36.9, adult; Z79.01 Long term (current) use of anticoagulants; Z85.828 Personal history of other malignant neoplasm of skin; Z90.49 Acquired absence of other specified parts of digestive tract; Z87.891 Personal history of nicotine dependence; M79.642 Pain in left hand; J02.9 Acute pharyngitis, unspecified; Z86.73 Personal history of transient ischemic attack (TIA), and cerebral infarction without residual deficits; R40.4 Transient alteration of awareness; D72.828 Other elevated white blood cell count; T38.0X5A Adverse effect of glucocorticoids and synthetic analogues, initial encounter
CPT/HCPCS: 20605; 20611; 36415; 36600; 70450; 70551; 71045; 72141; 73070; 73100; 73200; 73502; 73610; 73700; 74018; 76700; 77002; 80048; 80053; 80074; 80076; 80202; 82140; 82550; 82805; 82948; 83036; 83605; 83690; 83735; 83880; 84075; 84080; 84439; 84443; 84480; 84550; 85025; 85027; 85055; 85610; 85652; 86140; 87040; 87070; 87075; 87205; 87426; 89051; 89060; 93306; 93880; 94640; 95816; 96365; 97110; 97116; 97161; 97167; 97530; 97535; 99285; A9270; C9803; G0378; J0690; J0692; J1100; J3370

== ENCOUNTER 2021-09-12 06:47 | Outpatient (CLI) | payer MEDICARE, SELFPAY ==
[2021-09-12 07:20] LABS: Anion Gap 2 mmol/L (8-16); Blood Urea Nitrogen 16 mg/dL (9-20); Calcium 8.2 mg/dL (8.4-10.2); Carbon Dioxide 31 mmol/L (22-30); Chloride 105 mmol/L (98-107); Estimated Glomerular Filt Rate > 60; Glucose 88 mg/dL (65-110); Potassium 3.9 mmol/L (3.4-5.0); Sodium 138 mmol/L (137-145)
== END 2021-09-12 06:48 | disposition home or self-care (01) ==
LOC: ANHLAB 06:50
PROVIDERS: PCP Internal Medicine; Visit Provider Internal Medicine
DX: I10 Essential (primary) hypertension (principal)
CPT/HCPCS: 36415; 80048

== ENCOUNTER 2021-09-13 11:25 | Outpatient (CLI) | payer MEDICARE, SELFPAY ==
[2021-09-13 12:14] LABS: Alanine Aminotransferase 15 U/L (6-50); Albumin Level 3.5 g/dL (3.5-5.1); Alkaline Phosphatase 66 U/L (38-126); Anion Gap 3 mmol/L (8-16); Aspartate Amino Transferase 24 U/L (17-59); Bilirubin,Total 0.8 mg/dL (0.2-1.3); Blood Urea Nitrogen 18 mg/dL (9-20); Calcium 8.3 mg/dL (8.4-10.2); Carbon Dioxide 31 mmol/L (22-30); Chloride 104 mmol/L (98-107); Cholesterol 145 mg/dL (0-200); Estimated Glomerular Filt Rate > 60; Glucose 107 mg/dL (65-110); HDL Direct 33 mg/dL; Potassium 4.1 mmol/L (3.4-5.0); Sodium 138 mmol/L (137-145); Triglycerides 83 mg/dL (<150)
[2021-09-13 12:25] LABS: LDL Cholesterol Direct 94 mg/dL
[2021-09-13 15:51] LABS: Creatinine Urine 73.6 mg/dL
[2021-09-13 15:56] LABS: MALB Creatinine Ratio 19.8 mg/g (0-30); Microalbumin Urine Random 14.6 mg/L (0-16.7)
== END 2021-09-13 11:26 | disposition home or self-care (01) ==
LOC: ANHLAB 11:28
PROVIDERS: PCP Internal Medicine; Visit Provider Nurse Practitioner
DX: E11.9 Type 2 diabetes mellitus without complications (principal); E78.5 Hyperlipidemia, unspecified
CPT/HCPCS: 36415; 80053; 80061; 82043; 83036

== ENCOUNTER 2022-03-24 07:27 | Outpatient (CLI) | payer MEDICARE, SELFPAY ==
[2022-03-24 08:32] LABS: Hemoglobin A1C 5.5 % (<5.7)
== END 2022-03-24 07:28 | disposition home or self-care (01) ==
PROVIDERS: PCP Internal Medicine; Visit Provider Internal Medicine
DX: Z79.01 Long term (current) use of anticoagulants (principal); R73.03 Prediabetes
CPT/HCPCS: 36415; 83036

== ENCOUNTER 2022-09-21 08:55 | Outpatient (CLI) | payer MEDICARE, SELFPAY ==
[2022-09-21 10:58] LABS: Hemoglobin A1C 5.4 % (<5.7)
[2022-09-21 12:11] LABS: Alanine Aminotransferase 22 U/L (6-50); Alkaline Phosphatase 70 U/L (38-126); Anion Gap 2 mmol/L (8-16); Aspartate Amino Transferase 23 U/L (17-59); Bilirubin,Total 1.3 mg/dL (0.2-1.3); Blood Urea Nitrogen 33 mg/dL (9-20); Calcium 8.5 mg/dL (8.4-10.2); Carbon Dioxide 35 mmol/L (22-30); Chloride 105 mmol/L (98-107); Estimated Glomerular Filt Rate 58; Glucose 97 mg/dL (65-110); Potassium 3.9 mmol/L (3.4-5.0); Sodium 142 mmol/L (137-145)
== END 2022-09-21 08:56 | disposition home or self-care (01) ==
LOC: ANHLAB 08:57
PROVIDERS: PCP Family Medicine; Visit Provider Nurse Practitioner
DX: G47.33 Obstructive sleep apnea (adult) (pediatric) (principal); R79.89 Other specified abnormal findings of blood chemistry; Z99.89 Dependence on other enabling machines and devices; I10 Essential (primary) hypertension
CPT/HCPCS: 36415; 80053; 83036

== ENCOUNTER 2022-10-02 11:36 | Outpatient (CLI) | payer MEDICARE, SELFPAY ==
[2022-10-02 12:22] LABS: Uric Acid 4.8 mg/dL (3.5-8.5)
== END 2022-10-02 11:37 | disposition home or self-care (01) ==
PROVIDERS: PCP Family Medicine; Visit Provider Nurse Practitioner Family
DX: M1A.00X0 Idiopathic chronic gout, unspecified site, without tophus (tophi) (principal)
CPT/HCPCS: 36415; 84550

== ENCOUNTER 2023-01-03 08:32 | Outpatient (CLI) | payer MEDICARE, SELFPAY ==
[2023-01-03 09:09] LABS: Alanine Aminotransferase 21 U/L (6-50); Albumin Level 3.9 g/dL (3.5-5.1); Alkaline Phosphatase 73 U/L (38-126); Anion Gap 6 mmol/L (8-16); Aspartate Amino Transferase 28 U/L (17-59); Blood Urea Nitrogen 29 mg/dL (9-20); Calcium 8.7 mg/dL (8.4-10.2); Carbon Dioxide 32 mmol/L (22-30); Chloride 102 mmol/L (98-107); Estimated Glomerular Filt Rate > 60; Glucose 97 mg/dL (65-110); Potassium 4.1 mmol/L (3.4-5.0); Sodium 140 mmol/L (137-145)
[2023-01-03 09:14] LABS: Hematocrit 56.1 % (42.0-52.0); Hemoglobin 18.1 g/dL (14.0-18.0); Mean Corpuscular HGB Conc 32.3 g/dl (32-36); Mean Corpuscular Hemoglobin 30.6 pg (26-34); Mean Corpuscular Volume 94.9 fl (80-100); Mean Platelet Volume 11.2 fl (7.4-10.4); Platelet Count Result 154 k/mm3 (150-375); Red Blood Count 5.91 M/mm3 (4.6-6.20); Red Cell Distribution Width 13.6 % (11.5-14.5); White Blood Count 7.2 K/mm3 (4.5-10.0)
== END 2023-01-03 08:33 | disposition home or self-care (01) ==
LOC: ANHLAB 08:37
PROVIDERS: PCP Family Medicine; Visit Provider Family Medicine
DX: I48.0 Paroxysmal atrial fibrillation (principal); Z99.89 Dependence on other enabling machines and devices; Z79.01 Long term (current) use of anticoagulants; Z12.5 Encounter for screening for malignant neoplasm of prostate; R79.89 Other specified abnormal findings of blood chemistry; R29.6 Repeated falls; M1A.00X0 Idiopathic chronic gout, unspecified site, without tophus (tophi); J44.9 Chronic obstructive pulmonary disease, unspecified; I10 Essential (primary) hypertension; G89.29 Other chronic pain; G47.33 Obstructive sleep apnea (adult) (pediatric); F41.9 Anxiety disorder, unspecified; E78.5 Hyperlipidemia, unspecified; D75.1 Secondary polycythemia; D64.9 Anemia, unspecified; M54.50 Low back pain, unspecified
CPT/HCPCS: 36415; 80053; 85027

== ENCOUNTER 2023-07-13 08:20 | Outpatient (CLI) | payer MEDICARE, SELFPAY ==
[2023-07-13 09:12] LABS: Alanine Aminotransferase 20 U/L (6-50); Albumin Level 4.1 g/dL (3.5-5.1); Alkaline Phosphatase 76 U/L (38-126); Anion Gap 4 mmol/L (8-16); Aspartate Amino Transferase 20 U/L (17-59); Bilirubin,Total 1.5 mg/dL (0.2-1.3); Blood Urea Nitrogen 25 mg/dL (9-20); Calcium 9.2 mg/dL (8.4-10.2); Carbon Dioxide 33 mmol/L (22-30); Chloride 106 mmol/L (98-107); Estimated Glomerular Filt Rate > 60; Glucose 92 mg/dL (65-110); Potassium 3.9 mmol/L (3.4-5.0); Sodium 143 mmol/L (137-145)
[2023-07-13 09:41] LABS: Hematocrit 58.9 % (42.0-52.0); Hemoglobin 18.7 g/dL (14.0-18.0); Mean Corpuscular HGB Conc 31.7 g/dl (32-36); Mean Corpuscular Hemoglobin 31.2 pg (26-34); Mean Corpuscular Volume 98.3 fl (80-100); Mean Platelet Volume 12.8 fl (7.4-10.4); Platelet Count Result 148 k/mm3 (150-375); Red Blood Count 5.99 M/mm3 (4.6-6.20); Red Cell Distribution Width 14.3 % (11.5-14.5); White Blood Count 8.1 K/mm3 (4.5-10.0)
== END 2023-07-13 08:21 | disposition home or self-care (01) ==
LOC: ANHLAB 08:24
PROVIDERS: PCP Family Medicine; Visit Provider Family Medicine
DX: J44.9 Chronic obstructive pulmonary disease, unspecified (principal); D64.9 Anemia, unspecified; D75.1 Secondary polycythemia; F41.9 Anxiety disorder, unspecified; G47.33 Obstructive sleep apnea (adult) (pediatric); I10 Essential (primary) hypertension; R79.89 Other specified abnormal findings of blood chemistry; S80.02XA Contusion of left knee, initial encounter; S81.811A Laceration without foreign body, right lower leg, initial encounter; Z99.89 Dependence on other enabling machines and devices; X58.XXXA Exposure to other specified factors, initial encounter
CPT/HCPCS: 36415; 80053; 85027

== ENCOUNTER 2023-11-13 23:05 | Emergency (ER) | payer MEDICARE, SELFPAY ==
--- NOTE | ~2023-11-13 | CT_ITS ---
EXAMINATION: CTA chest DATE: 11/13/2023 23:56 INDICATION: Chest pain. TECHNIQUE: Computed tomographic angiography (CTA) of the chest was performed with 100 mL Omnipaque-35 0 intravenous contrast. Automated exposure control and iterative reconstruction technique were employ ed. The dose-length product was 1035.59 mGy-cm. Maximum intensity projection 3D-reconstructions of th e aorta and other arteries were constructed by the technologist on a separate workstation. COMPARISON: Chest CT 11/08/2011 FINDINGS: There are calcified pleural plaques bilaterally, which may be seen with asbestos exposure. There is mild peripheral septal thickening in the lungs, consistent with asbestosis. No pleural effus ion. There is a 18 mm nodule in right thyroid lobe. Further evaluation is likely not needed given the patient's age. Cardiomegaly is noted. There are coronary artery calcifications. No pericardial effus ion. Calcified right hilar lymph nodes are consistent with old granulomatous disease. There is ectasi a of ascending aorta measuring 4.2 cm. Aortic atherosclerosis is noted. Calcifications in the liver a nd spleen are consistent with old granulomatous disease. There is a 7.2 cm cyst in left kidney. There are gallstones in the gallbladder, which is distended. There are bridging endplate osteophytes at mu ltiple levels in the spine, consistent with diffuse idiopathic skeletal hyperostosis (DISH). IMPRESSION: 1. 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 2. Cholelithiasis. Gallbladder distention may be secondary to fasting or acute cholecystitis. Correla te with physical exam. 3. Mild asbestosis. Reviewed, dictated and finalized at location E. IMPRESSION: 1. 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 2. Cholelithiasis. Gallbladder distention may be secondary to fasting or acute cholecystitis. Correlate with physical exam. 3. Mild asbestosis.
[2023-11-13 23:05] VITALS: BP 99/64; PULSE 55; RESP 24; TEMP 36.4; O2SAT 91
--- NOTE | 2023-11-13 23:10 | ECG_ITS ---
Test Date: 2023-11-13 23:14:35 Measurements Intervals [place] Rate: 56 P: 0 [place]: 0 QRS: -14 QRSD: 141 T: 30 QT: 424 QTc: 412 Interpretive Statements ATRIAL FIBRILLATION WITH SLOW VENTRICULAR RESPONSE RIGHT BUNDLE BRANCH BLOCK BASELINE ARTIFACT- I, II, III, AVL, AVF ABNORMAL ECG No previous ECG available for comparison Electronically Signed On 11-14-2023 06:10:02 CDT by Blayne Torre D.O.
[2023-11-13 23:12] VITALS: PULSE 55
[2023-11-13 23:13] VITALS: O2SAT 92
[2023-11-13 23:14] VITALS: BP 99/64; PULSE 51; RESP 22; TEMP 36.4; O2SAT 93
[2023-11-13 23:29] LABS: Basophils Percent Auto 0.3 % (0.2-1.2); Eosinophils Absolute Auto 0.1 K/mm3 (0-0.3); Eosinophils Percent Auto 1.2 % (0-4.4); Hematocrit 53.1 % (37.0-47.0); Hemoglobin 17.4 g/dL (12.0-15.0); Immature Granulocyte Absolute 0.06 K/mm3 (0.00-0.031); Immature Granulocyte Percent A 0.5 % (0-0.5); Lymphocytes Absolute Auto 0.69 K/mm3 (0.9-3.2); Mean Corpuscular HGB Conc 32.8 g/dl (32-36); Mean Corpuscular Hemoglobin 30.4 pg (26-34); Mean Corpuscular Volume 92.8 fl (80-100); Mean Platelet Volume 11.3 fl (7.4-10.4); Monocytes Absolute Auto 0.6 K/mm3 (0.1-0.6); Monocytes Percent Auto 4.9 % (2.6-8.5); Neutrophils Percent Auto 87.1 % (45.5-73.1); Platelet Count Result 161 k/mm3 (150-375); Red Blood Count 5.72 M/mm3 (4.2-5.4); Red Cell Distribution Width 13.7 % (11.5-14.5); White Blood Count 11.5 K/mm3 (4.5-10.0)
[2023-11-13] MEDS: MORPHINE SULFATE (*CRX) 4 MG/ML INJ IV PUSH (23:32)
[2023-11-13 23:39] LABS: INR 1.3; Prothrombin Time 16.5 Seconds (11.1-14.7)
[2023-11-13 23:41] LABS: Alanine Aminotransferase 19 U/L (6-35); Albumin Level 3.9 g/dL (3.5-5.1); Alkaline Phosphatase 84 U/L (38-126); Anion Gap 11 mmol/L (4-12); Aspartate Amino Transferase 23 U/L (14-36); Bilirubin,Total 0.9 mg/dL (0.2-1.3); Blood Urea Nitrogen 29 mg/dL (7-17); Calcium 8.8 mg/dL (8.4-10.2); Carbon Dioxide 24 mmol/L (22-30); Chloride 104 mmol/L (98-107); Estimated CRCL calculation 40 ml/min; Estimated Glomerular Filt Rate 53; Glucose 153 mg/dL (65-110); Lipase 42 U/L (23-300); Sodium 139 mmol/L (137-145)
[2023-11-13 23:51] LABS: Troponin I < 0.012 ng/mL (0.000-0.034)
--- NOTE | 2023-11-14 01:27 | ED.CHESTPAIN ---
HPI - Chest Pain General Chief Complaint: Chest Pain Stated Complaint: CHEST PAIN RADIATING THROUGH TO BACK. Time Seen by Provider: 11/13/23 23:08 History of Present Illness HPI narrative: Patient is an 88-year-old male who presents ER with sudden onset pain in his left back. Reports has chronic back pain but the pain suddenly increased today. He feels some discomfort up into his chest related to it. Worse with physical movement. No fevers chills or sweats. No cough shortness of breath. No history of heart issues other than atrial fibrillation. He has found no alleviating factors. Patient is anticoagulated on apixaban. Related Data Home Medications Medication Instructions Recorded Confirmed brimonidine 0.2 % eye drops 1 drp EACH EYE BID 10/23/23 10/23/23 dorzolamide 2 % eye drops 1 drp EACH EYE DAILY 10/23/23 10/23/23 latanoprost 0.005 % eye drops 1 drp LEFT EYE DAILY 10/23/23 10/23/23 Allergies Allergy/AdvReac Type Severity Reaction Status Date / Time No Known Allergies Allergy Verified 10/23/23 13:22 Review of Systems Review of Systems: All systems reviewed & are unremarkable except as noted in HPI and below Constitutional: Constitutional: Reports no additional constitutional complaints ENT: Reports system reviewed and no additional complaints, except as documented Cardiovascular: Cardiovascular: Reports no additional cardiovascular complaints Respiratory: Respiratory: Reports no additional respiratory complaints Musculoskeletal: Musculoskeletal: Reports back pain, Denies arthralgias and Denies joint swelling Neurologic: Reports system reviewed and no additional complaints, except as documented [facility] Past Medical History Medical History Arthritis Chronic anemia Chronic anticoagulation Gout History of basal cell cancer Hypertension Obstructive sleep apnea on CPAP Paroxysmal atrial fibrillation Surgical History Surgical History History of appendectomy History of basal cell carcinoma excision History of sinus surgery History of tonsillectomy Family History Family History Father Family history of malignant neoplasm Patient's father is Acute myocardial infarction Mother Family history of malignant neoplasm Patient's mother is Social History Social History (Reviewed 10/23/23 @ 13:28 by NIKKY Ramirez Social History: The patient lives in [place]. He was in the [employer] and served in [employer]. 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 He smoked briefly for a couple of years as a young man but reports significant secondhand smoke exposure. No alcohol or illicit substance abuse. He designates his son, Charles Osorio, as his surrogate decision maker. He wishes to be a full code. Smoking status: Former smoker Smoking end date: 05/06/97 Alcohol intake: never Substance use type: does not use Lack of Transportation: YES Lack of Food: Never True Current Housing: I Have Housing Concerned About Future Housing: No Difficulty Paying Gas/Electric Bills: No Difficulty Paying for Meds: No Currently Unemployed: YES Education: Trade/Vocational Certificate Difficulty w/ Childcare or Family Care: No Living arrangements: alone Occupation/Education: retired Spiritual care concerns: No Exam Narrative: GENERAL: Uncomfortable-appearing, well-nourished, and in no acute distress. HEAD: Normocephalic, atraumatic. ENT: Mucous membranes moist. NECK: Supple. CHEST: Clear to auscultation. No respiratory distress. HEART: Irregularly irregular rate and rhythm. Normal peripheral pulses. ABDOMEN: Soft, nontender, nondistended. BACK: No midline tenderness at T/L-spine. There is significant tenderness in the paraspinal musculature at the level of T10 through L1 th
[2023-11-14 01:42] VITALS: BP 130/70; PULSE 60; RESP 22; O2SAT 95
[2023-11-14] MEDS: MORPHINE SULFATE (*CRX) 2 MG/ML INJ IV PUSH (02:13)
[2023-11-14 02:52] LABS: Troponin I < 0.012 ng/mL (0.000-0.034)
[2023-11-14 04:15] VITALS: BP 142/89; PULSE 59; RESP 18; O2SAT 96
[2023-11-14 05:52] LABS: Troponin I < 0.012 ng/mL (0.000-0.034)
== END 2023-11-14 05:46 | disposition home or self-care (01) ==
PROVIDERS: Emergency Provider Emergency Medicine; PCP Family Medicine
DX: M62.830 Muscle spasm of back (principal); I10 Essential (primary) hypertension; I48.0 Paroxysmal atrial fibrillation; Z79.01 Long term (current) use of anticoagulants; Z87.891 Personal history of nicotine dependence
CPT/HCPCS: 36415; 71275; 80053; 83690; 84484; 85025; 85610; 85730; 93005; 96374; 96376; 99284; J2270; Q9967

== ENCOUNTER 2024-01-21 10:26 | Outpatient (CLI) | payer MEDICARE, SELFPAY ==
[2024-01-21 10:51] LABS: Hematocrit 54.9 % (42.0-52.0); Hemoglobin 17.4 g/dL (14.0-18.0); Mean Corpuscular HGB Conc 31.7 g/dl (32-36); Mean Corpuscular Hemoglobin 30.4 pg (26-34); Mean Corpuscular Volume 95.8 fl (80-100); Mean Platelet Volume 11.4 fl (7.4-10.4); Platelet Count Result 172 k/mm3 (150-375); Red Blood Count 5.73 M/mm3 (4.6-6.20); Red Cell Distribution Width 14.8 % (11.5-14.5); White Blood Count 7.6 K/mm3 (4.5-10.0)
[2024-01-21 11:06] LABS: Alanine Aminotransferase 15 U/L (6-50); Albumin Level 4.3 g/dL (3.5-5.1); Alkaline Phosphatase 66 U/L (38-126); Anion Gap 9 mmol/L (4-12); Aspartate Amino Transferase 25 U/L (17-59); Bilirubin,Total 1.1 mg/dL (0.2-1.3); Blood Urea Nitrogen 27 mg/dL (9-20); Calcium 8.6 mg/dL (8.4-10.2); Carbon Dioxide 30 mmol/L (22-30); Chloride 100 mmol/L (98-107); Estimated Glomerular Filt Rate > 60; Glucose 77 mg/dL (65-110); Potassium 4.2 mmol/L (3.4-5.0); Sodium 139 mmol/L (137-145)
== END 2024-01-21 10:27 | disposition home or self-care (01) ==
LOC: ANHLAB 10:35
PROVIDERS: PCP Family Medicine; Visit Provider Family Medicine
DX: J44.9 Chronic obstructive pulmonary disease, unspecified (principal); I48.0 Paroxysmal atrial fibrillation; I10 Essential (primary) hypertension; E55.9 Vitamin D deficiency, unspecified; G47.33 Obstructive sleep apnea (adult) (pediatric); D75.1 Secondary polycythemia; Z99.89 Dependence on other enabling machines and devices; Z79.01 Long term (current) use of anticoagulants
CPT/HCPCS: 36415; 80053; 82306; 85027

== ENCOUNTER 2024-07-31 10:27 | Outpatient (CLI) | payer MEDICARE, SELFPAY ==
[2024-07-31 10:51] LABS: Hematocrit 51.8 % (42.0-52.0); Hemoglobin 16.1 g/dL (14.0-18.0); Mean Corpuscular HGB Conc 31.1 g/dl (32-36); Mean Corpuscular Hemoglobin 29.3 pg (26-34); Mean Corpuscular Volume 94.4 fl (80-100); Mean Platelet Volume 12.1 fl (7.4-10.4); Platelet Count Result 170 k/mm3 (150-375); Red Blood Count 5.49 M/mm3 (4.6-6.20); Red Cell Distribution Width 14.6 % (11.5-14.5); White Blood Count 7.8 K/mm3 (4.5-10.0)
[2024-07-31 11:08] LABS: Alanine Aminotransferase 17 U/L (6-50); Albumin Level 4.1 g/dL (3.5-5.1); Alkaline Phosphatase 72 U/L (38-126); Anion Gap 9 mmol/L (4-12); Aspartate Amino Transferase 23 U/L (17-59); Bilirubin,Total 1.1 mg/dL (0.2-1.3); Blood Urea Nitrogen 22 mg/dL (9-20); Calcium 8.9 mg/dL (8.4-10.2); Carbon Dioxide 28 mmol/L (22-30); Chloride 107 mmol/L (98-107); Estimated Glomerular Filt Rate > 60; Glucose 93 mg/dL (65-110); Potassium 4.3 mmol/L (3.4-5.0); Sodium 144 mmol/L (137-145)
--- OUTSIDE RECORDS SUMMARY | 2024-07-31 11:21 | XMS_ITS | Encounter Summary ---
Author Organization [facility] Address [address] [place] [address] Care Team Providers Care Commercial Lines Sales Executive Name Role Phone Rojelio Khan MD Primary Care Provider [phone] Encounter Details Date Type Department Care Team (Late st Contact Info) Description 09/20/2021 Lab Requisition [facility] Care Derm[facility] Lab [address] [facility] [place] [address] Augusto Villanueva MD [address] [place] [address] Social History Tobacco Use Types Packs/Day Years Used Date Smoking Tobacco: Former Cigarettes Smokeless Tobacco: Never Comments:quit 40 years ago Alcohol Use Standard Drinks/Week Comments No 0 (1 standard drink = 0.6 oz pur e alcohol) Sex and Gender Information Value Date Recorded Sex Assigned at Not on file Gender Identity Not on file Sexual Orientation Not on file documented as of this encounter Functional Status Functional Status Response Date of Assess ment Is person deaf or have serious hearing difficult y? No 02/18/2014 Is person blind or have serious difficulty seein g? No 02/18/2014 Does person have serious dif ficulty walking/climbing stairs? Yes 02/18/2014 Does person have difficulty dressing/bathing? No 02/18/2014 Does person have difficulty doing errands alone? Yes 02/18/2014 Cognitive Status Response Date of Assessm ent Does person have difficulty concentrating/remembering/making decisions? No 02/18/2014 documented as of this encounter Plan of Treatment Not on file documented as of this encounter Procedures Procedure Name Priority Date/Time Associated Diagnosis Comments DERMATOPATHOLOGY Routine 09/18/2021 3:33 AM CDT documented in this encounter Results * DERMATOPATHOLOGY (09/18/2021 3:33 AM CDT) Case Report Dermatopathology Report Case: [id number] Authorizing Provider: Augusto Villanueva MD Collected: 09/18/2021 03:33 AM Ordering Location: [facility] DermPath Lab Received: 09/20/2021 07:21 AM Pathologist: Mary Garcia MD Specimen: Skin, sternal notch 1:40 PM CDT DERMATOPATHOLOGY LABORATORY Final Diagnosis Specimen A. SKIN, sternal notch: BASAL CELL CARCINOMA, NODULAR TYPE (C44.519) 1:40 PM CDT DERMATOPATHOLOGY LABORATORY Clinical History BCCA. Path # [id number]. 1:40 PM CDT DERMATOPATHOLOGY LABORATORY Gross Description Specimen A: Received is one formalin filled container labeled with the patient's name and designated sternal notch. The specimen consists of a shave biopsy measuring [id number]. Jar 0. 1:40 PM CDT DERMATOPATHOLOGY LABORATORY Microscopic Description Specimen A. SKIN, sternal notch: Within the dermis there are aggregates of basaloid cells with a high nuclear to cytoplasmic ratio and peripheral palisading. 1:40 PM CDT DERMATOPATHOLOGY LABORATORY Disclaimer An external and internal positive and negative controls are appropriate for the histochemical, immunohistochemical and immunofluorescence stain(s) in this case (if any), except where stated explicitly. The performance characteristics of the stain(s) cited in this report were developed and its performance characteristic determined by the Dermatopathology Laboratory at [facility], directed by Dr. Emil Wilde. These tests need not be, and therefore are not, approved by the [place] Food and Drug Administration. The tests are used for clinical purposes. Billing Codes Specimen Charges Stain Charges 43760 1 2 1:40 PM CDT DERMATOPATHOLOGY LABORATORY Embedded Images 1:40 PM CDT DERMATOPATHOLOGY LABORATORY Pathology/Cytolo gy TISSUE SPECIMEN FROM SKIN / Unknown 09/18/2021 3:33 AM CDT 09/20/2021 7:21 AM CDT Augusto Villanueva MD LAB - PATHOLOGY/CYTO LOGY ORDERABLES DERMATOPATHOLOGY LABORATORY [facility] - Department of Dermatology [facility] [address] [place] [address], [address] [phone] documented in this encounter Visit Diagnoses Not on filedocumented in this encounter Care Teams Commercial Lines Sales Executive Relationship Specialty Start Date End Date Rojelio Khan MD [address] [facility] [address] [place] [address] PCP - General 02/11/18 documented as of this encounter
--- OUTSIDE RECORDS SUMMARY | 2024-07-31 11:21 | XMS_ITS | Encounter Summary ---
Author Organization [facility] Health Address [address] [facility] [place] [address] Care Team Providers Care Gold Frame Assembler Name Role Phone Rojelio Khan MD Primary Care Provider [phone] Encounter Details Date Type Department Care Team (Late st Contact Info) Description 08/10/2020 Lab Requisition [facility] [address] [facility] [place] [address] Augusto Villanueva MD [address] [place] [address] Social History Tobacco Use Types [...] Priority Date/Time Associated Diagnosis Comments DERMATOPATHOLOGY Routine 08/09/2020 3:33 AM CDT documented in this encounter Results * DERMATOPATHOLOGY (08/09/2020 3:33 AM CDT) Case Report Dermatopathology Report Case: [id number] Authorizing Provider: Augusto Villanueva MD Collected: 08/09/2020 03:33 AM Ordering Location: [facility] DermPath Lab Received: 08/10/2020 07:19 AM Pathologist: Toya Wilde MD Specimen: Skin, left flank 6:26 PM CDT DERMATOPATHOLOGY LABORATORY Final Diagnosis Specimen A. SKIN, left flank: COMPOUND NEVUS WITH CONGENITAL FEATURES, IRRITATED (D22.5) 6:26 PM CDT DERMATOPATHOLOGY LABORATORY Clinical History Nevus vs MM. Path # [id number]. 6:26 PM CDT DERMATOPATHOLOGY LABORATORY Gross Description Specimen A: Received is one formalin filled container labeled with the patient's name and designated left flank. The specimen consists of a shave biopsy measuring [id number]. Jar 0. 6:26 PM CDT DERMATOPATHOLOGY LABORATORY Microscopic Description Specimen A. SKIN, left flank: There are nests of melanocytes at the dermal-epidermal junction and within the dermis. Some melanocytes are splayed between collagen bundles and are localized around adnexal structures. 6:26 PM CDT DERMATOPATHOLOGY LABORATORY Disclaimer An external and internal positive and negative controls are appropriate for the histochemical, immunohistochemical and immunofluorescence stain(s) in this case (if any), except where stated explicitly. The performance characteristics of the stain(s) cited in this report were developed and its performance characteristic determined by the Dermatopathology Laboratory at [facility], directed by Dr. Emil Wilde. These tests need not be, and therefore are not, approved by the [place] Food and Drug Administration. The tests are used for clinical purposes. Billing Codes Specimen Charges Stain Charges 79868 1 6:26 PM CDT DERMATOPATHOLOGY LABORATORY Embedded Images 6:26 PM CDT DERMATOPATHOLOGY LABORATORY Pathology/Cytolo gy TISSUE SPECIMEN FROM SKIN / Unknown 08/09/2020 3:33 AM CDT 08/10/2020 7:19 AM CDT Augusto Villanueva MD LAB - PATHOLOGY/CYTO LOGY ORDERABLES DERMATOPATHOLOGY LABORATORY [facility] - Department of Dermatology [address], [address] [phone] documented in this encounter Visit Diagnoses Not on filedocumented in this encounter Care Teams Gold Frame Assembler Relationship Specialty Start Date End Date Rojelio Khan MD [address] [facility] [address] [place] [address] PCP - General 02/11/18 documented as of this encounter
--- OUTSIDE RECORDS SUMMARY | 2024-07-31 11:21 | XMS_ITS | Clinical Summary ---
Author Organization [facility] Address [address] [place] [address] Care Team Providers Care Economic Research Analyst Name Role Phone Unavailable Primary Care Provider Unavailabl e Social History Tobacco Use Types Packs/Day Years Used Date Smoking Tobacco: Never Assessed Sex and Gender Information Value Date Recorded Sex Assigned at Not on file Legal Sex Male 4:07 PM CDT Gender Identity Not on file Sexual Orientation Not on file Plan of Treatment Health Maintenance Due Date Last Done Comments DTaP, Tdap and Td Vaccines ( 1 - Tdap) 01/20/1954 Zoster Vaccines (1 of 2) 1987 Pneumococcal Vaccine: 65+ Ye ars (1 of 1 - PCV) 2002 RSV Immunization or 60+ Years (1 - 1-dose 75+ series) 01/20/2012 COVID-19 Vaccine ( - 2023-2 5 season) 2024 Influenza Adult (#1) 2024 Meningococcal B Vaccine Aged Out No l onger eligible based on patient's age to complete this topic Meningococcal Vaccine Aged Out No carol ann adam eligible based on patient's age to complete this topic RSV Immunizations Under 20 Months Aged Out No longer eligible based on patient's age to complete this topic
--- OUTSIDE RECORDS SUMMARY | 2024-07-31 11:21 | XMS_ITS | Clinical Summary ---
Author Organization [facility] Address [address] [place] [address] Care Team Providers Care Medical Director/Head Team Physician Name Role Phone Pino Banks MD Unavailable Gurpreet Villanueva MD Unavailable [phone] Beni Garcia MD Primary Care Provider [phone] Darren Barillas MD Unavailable [phone] Aureliano Terry MD Unavailable [phone] Allergies No known active allergies Medications ALPRAZolam (XANAX) 1 mg tabletIndication s:anxiety Take 1 tablet (1 mg total) by mouth nightly 5 8 Active albuterol (PROVENTIL,COLE NATHALIA) 0.63 mg/3 mL nebulizer solutionIndicati ons:Chronic Obstructive Pulmonary Disease Take 3 mL by nebulization every 6 (six) hours as needed for wheezing Active finasteride (PROSCAR) 5 mg tabletIndication s:benign prostatic hyperplasia with lower urinary tract sx Take 1 tablet (5 mg total) by mouth daily Active furosemide (LASIX) 20 mg tabletIndication s:Edema,hyperten branden Take 1 tablet (20 mg total) by mouth 2 (two) times a day Active tamsulosin (FLOMAX) 0.4 mg extended release capsuleIndicatio ns:benign prostatic hyperplasia with lower urinary tract sx 1 capsule (0.4 mg total) Active allopurinol (ZYLOPRIM) 100 mg tabletIndication s:prevention of acute gout attack Take 3 tablets (300 mg total) by mouth daily 3 8 Active lisinopriL (PRINIVIL,ZESTRI L) 5 mg tabletIndication s:hypertension Take 1 tablet (5 mg total) by mouth daily 2 9 Active Breztri Aerosphere 160-9-4.8 mcg/actuation HFA aerosol inhaler Inhale 2 puffs 2 (two) times a day 1 Active Eliquis 2.5 mg tabletIndication s:atrial fibrillation Take 1 tablet (2.5 mg total) by mouth 2 (two) times a day 2 Active HYDROcodone-acet aminophen (NORCO) 5-325 mg per tabletIndication s:Pain Take 1 tablet by mouth every 6 (six) hours as needed for pain Active latanoprost (XALATAN) 0.005 % ophthalmic solutionIndicati ons:open angle glaucoma Administer 1 drop into the left eye nightly Active brimonidine (ALPHAGAN) 0.2 % ophthalmic solutionIndicati ons:open angle glaucoma Administer 1 drop into the left eye 2 (two) times a day Active dorzolamide (TRUSOPT) 2 % ophthalmic solutionIndicati ons:open angle glaucoma Administer 1 drop into the left eye 2 (two) times a day Active budesonide-formo teroL (SYMBICORT) 160-4.5 mcg/actuation inhaler 5 Active predniSONE (DELTASONE) 20 mg tablet Take 1 tablet (20 mg) by mouth 4 Active Active Problems Problem Noted Date Diagnosed Date Thrombocytopenia 11/22/2023 Hypokalemia 11/22/2023 Hypophosphatemia 11/22/2023 COPD (chronic obstructive pulmonary disease) MIMA (obstructive sleep apnea) 11/22/2023 Age-related physical debility 11/22/2023 Toxic encephalopathy 11/22/2023 Choledocholithiasis 11/18/2023 LUNA (acute kidney injury) 11/18/2023 Septic shock 11/17/2023 Cholecystitis, acute 11/16/2023 Abdominal pain 11/16/2023 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 Erythrocytosis 09/04/2017 HTN (hypertension) 02/19/2014 A-fib 02/19/2014 Encounters Date Type Department Care Team Description 06/19/2024 7:11 AM [facility] - 06/19/2024 11:59 PM [facility] Hospital Encounter [facility] - Interventional Radiology [address] [place] [phone] Cholecystitis, acute (Primary Dx); Gallstones Discharge Disposition: Discharge to home or self care 06/18/2024 Telephone [facility] - Interventional Radiology [address] [place] [phone] Randa Davies RN 06/03/2024 10:15 AM [facility] Infusion [facility] at [address] [phone] Erythrocytosis (Primary Dx) 06/03/2024 9:45 AM [facility] Office Visit [facility] Oncology [address] [place] [phone] Darren Barillas MD Erythrocytosis (Primary Dx); Other abnormality of red blood cells 06/03/2024 9:00 AM [facility] Lab [address] [address] Erythrocytosis from Last 3 Months Immunizations Immunization Administration Dates Next Due Influenza, Quadrivalent, Marya l Culture-based MDCK, Preservative Free, Antibiotic Free, Intramuscular 02/13/2021 Influenza, Quadrivalent, Hig h Dose, Preservative Free, Intrr 01/06/2020 Influenza, Quadrivalent, Rec ombinant, Egg Free, Preservative Free, Intramuscular 02/18/2019 Influenza, Trivalent, Adjuva nted, Intramuscular 02/02/2018 Influenza, Trivalent, High D ose, Split, Preservative Free, Intramuscular 03/08/2015 Influenza, Trivalent, IM (MDV) 01/21/2014 Influenza, Trivalent, Preser vative Free, Intramuscular 02/28/2016 Influenza, Unspecified 05/31/2017,2016,02/14/2017,01/10,07/18/2016,01/25/2016,07/28/2015 ,01/20/2015,08/04/2014,04/14/2014,01/05,12/02/2013,10/28/2013, 4 Pfizer SARS-CoV-2 Monovalent Vaccination (12+ Yrs) PURPLE 02/24/2021,07/04/2020,06/13/2020 Pneumococcal Conjugate PCV 13 01/06/2020 ZOSTER LIVE 05/31/2017, 7,01/10/2017,07/18,01/25/2016,07/28/2015,01/20/2015 ZOSTER Recombinant 03/16/2020,01/06/2020 Surgical History Surgery Date Site/Laterality Comments COLONOSCOPY APPENDECTOMY HERNIA REPAIR EYE SURGERY Bilateral GALLBLADDER DRAINAGE 11/18/2023 N/A IR CHOLANGIOGRAM THROUGH EXISTING CATHETER 01/08/2024 N/A CHANGE BILIARY DRAINAGE CATH ETER EXTERNAL OR INTERNAL EXTERNAL 03/03/2024 N/A CHANGE BILIARY DRAINAGE CATH ETER EXTERNAL OR INTERNAL EXTERNAL 03/19/2024 N/A CHANGE BILIARY DRAINAGE CATH ETER EXTERNAL OR INTERNAL EXTERNAL 06/19/2024 N/A Medical History Medical History Date Comments Erythrocytosis Skin cancer COPD (chronic obstructive pulmonary disease) (HC C) Gallbladder & bile duct stone with obstruction 2 024 Hypertension Atrial fibrillation (HCC) Family History Medical History Relation Name Comments Early Mother Relation Name Status Comments Mother Social History Tobacco Use Types Packs/Day Years Used Date Smoking Tobacco: Former Cigarettes Q uit: 1983 Smokeless Tobacco: Never Tobacco Cessation:Counseling Given: Not Answered Alcohol Use Standard Drinks/Week Comments No 0 (1 standard drink = 0.6 oz pur e alcohol) OASIS D0700: Social Isolation Answer Da te Recorded Frequency of experiencing loneliness or isolatio n Never 12/26/2023 OASIS A1250: Transportation Answer Date Recorded Lack of Transportation (Medical) No 12/26/2023 Lack of Transportation (Non-Medical) No 12/26/2023 Patient Unable or Declines to Respond No 12/26/2023 OASIS B1300: Health Literacy Answer Andrews e Recorded Frequency of needing help to read materials from doctor or pharmacy Rarely 12/26/2023 C Utilities Answer Date Recorded In the past 12 months has th e [employer], [employer], or [employer] threatened to shut off services in your home? No 11/20/2023 Social Connection and Isolat ion Panel [NHANES] Answer Date Recorded In a typical week, how many times do you talk on the phone with family, friends, or neighbors? More than three times a week 11/20/2023 How often do you get togethe r with friends or relatives? More than three times a week 11/20/2023 How often do you attend chur ch or buddhist services? More than 4 times per year 11/20/2023 Do you belong to any clubs o r organizations such as religion groups, unions, fraternal or athletic groups, or school groups? Yes 11/20/2023 How often do you attend meet ings of the clubs or organizations you belong to? More than 4 times per year 11/20/2023 Are you , , di vorced, , never , or living with a partner? 11/20/2023 AUDIT-C Answer Date Recorded Frequency of Alcohol Consumption Not on file 01/15/2024 Q2: How many drinks containi ng alcohol do you have on a typical day when you are drinking? Patient does not drink Frequency of Binge Drinking Not on file 01/04 Overall Financial Resource Strain (CARDIA) Answe r Date Recorded How hard is it for you to pa y for the very basics like food, housing, medical care, and heating? Not hard at all 11/20/2023 Hunger Vital Sign Answer Date Recorded Within the past 12 months, y ou worried that your food would run out before you got the money to buy more. Never true 11/20/19 24 Within the past 12 months, t he food you bought just didn't last and you didn't have money to get more. Never true 11/20/2023 PRAPARE - Transportation Answer Date Re corded In the past 12 months, has l ack of transportation kept you from medical appointments or from getting medications? No 11/03 In the past 12 months, has l ack of transportation kept you from meetings, work, or from getting things needed for daily living? No 11/20/2023 Housing Stability Vital Sign Answer Andrews e Recorded In the last 12 months, was t here a time when you were not able to pay the mortgage or rent on time? No 11/20/2023 In the past 12 months, how m any times have you moved where you were living? 0 11/20/2023 At any time in the past 12 m [facility], were you homeless or living in a fci (including now)? No 11/20/2023 Personal Safety Answer Date Recorded Have you ever been in or are you currently in a harmful physical or emotional relationship or is someone making you feel afraid or unsafe? Denies 06/19/2024 Sex and Gender Information Value Date Recorded Sex Assigned at Not on file Legal Sex Male 9:03 AM [facility] Gender Identity Male 10/18/2017 9:18 AM CDT Sexual Orientation Not on file Obstetrics History Last Filed Vital Signs Vital Sign Reading Time Taken Comments Blood Pressure 127/78 06/19/2024 8:35 AM [facility] Pulse 58 06/19/2024 8:35 AM [facility] Temperature 36.7 C (98 F) 06/19/2024 7:27 AM [facility] Respiratory Rate 20 06/19/2024 7:27 AM [facility] Oxygen Saturation 92% 06/19/2024 8:35 AM [facility] Inhaled Oxygen Concentration - - Weight 108.9 kg (240 lb) 06/19/2024 7:27 AM [facility] Height 180.3 cm (5' 11 ) 06/19/2024 7:27 AM [facility] Body Mass Index 33.47 06/19/2024 7:27 AM [facility] Plan of Treatment Health Maintenance Due Date Last Done Comments Depression Screening 1935 DTaP/Tdap/Td Vaccine (1 - Tdap) 01/20/1948 Hepatitis B Screening 1953 Well Visit 65+ 2002 Pneumococcal vaccine 65+ (2 of 2 - PPSV23) 03/02/2020 01/06/2020 Covid-19 Vaccine (4 - 2023-2 5 season) 2024 02/24/2021, 07/04/2020, 06/13/2020 Influenza Vaccine (#1) 2024 , 01/06/2020, 02/18/2019, Additional history exists Fall Risk Assessment 06/19/2025 06/19/2024 Zoster Vaccine Completed 03/16/2020, 06/2019, 05/31/2017, Additional history exists Procedures Procedure Name Priority Date/Time Associated Diagnosis Comments CHANGE BILIARY DRAINAGE CATHETER EXTERNAL OR INTERNAL EXTERNAL Schedule Routine, Read Routine (OP Routine) 06/19/2024 8:33 AM [facility] Gallstones DIFFERENTIAL AUTO Routine 06/03/2024 8:4 9 AM [facility] Erythrocytosis CBC WITH AUTO DIFFERENTIAL Routine 06/03/2024 8:49 AM [facility] Erythrocytosis from Last 3 Months Results * IR Change Biliary Drainage Catheter External Or Internal External (06/19/2024 8:33 AM [facility]) Anatomical Region Laterality Modality Body N/A X-Ray Angiograph y 06/19/2024 1:25 PM [facility] Impressions 06/19/2024 1:25 PM [facility] Successful cholecystostomy catheter change as described above. PLAN: The patient will return for interval biliary drainage catheter exchange in 3 months. In the interim, if the patient begins to experience increased output and drainage bag, repeat attempt internalization could be considered. Electronically signed by: Radha Castro PA-C Narrative 06/19/2024 1:25 PM [facility] EXAMINATION: BILIARY TUBE CHANGE HISTORY/INDICATION: 89-year-old male status post percutaneous cholecystostomy tube placement on 11/18/2023 for calculus cholecystitis who presents for routine cholecystostomy tube exchange. She has undergone 2 prior attempts at internalization of the catheter, however, the cystic duct was noted to be completely 8 occluded during both of those attempts. Attempts at recanalization of the cystic duct were unsuccessful. The patient and his son states that there is to be minimal daily output from the drain. PROVIDER PRESENCE: Radha Castro PA-C, was present from the beginning to the end of the procedure. SEDATION: Local only TECHNIQUE: The risks, benefits and alternatives were discussed and informed consent was obtained. Prior to beginning the procedure, [place] Protocol was performed to confirm the patient's identity and the planned procedure. The fluoroscopy time has been recorded in the electronic medical record. Maximum sterile barriers including cap, mask, hand hygiene, sterile gloves, sterile gown, large sterile drape and 2% chlorhexidine for cutaneous antisepsis were used. The patient was brought into the fluoroscopy suite and placed supine on the table. Lidocaine 1% was used for local anesthesia. The catheter was then divided and a Bentson wire was advanced through the catheter under fluoroscopic monitoring. The existing catheter was exchanged over the wire for a new 10-Polish cope cholecystostomy drainage catheter. Limited contrast injection through the catheter under fluoroscopic monitoring confirmed appropriate position within the gallbladder lumen. The catheter was secured in position using a Prolene suture and was connected to gravity drainage. A sterile dressing was applied. ESTIMATED BLOOD LOSS: Minimal. CONDITION: Stable DISCHARGED TO: Recovery and then home FINDINGS: Initial contrast injection shows that the cystic duct is now patent. However, antegrade flow stopped at the distal common bile duct. There was no passage of contrast into the small bowel. There was also no retrograde flow of contrast into the biliary tree. The drainage catheter was successfully exchanged. Procedure Note Radha Castro PA - 06/19/2024 EXAMINATION: BILIARY TUBE CHANGE HISTORY/INDICATION: 89-year-old male status post percutaneous cholecystostomy tube placement on 11/18/2023 for calculus cholecystitis who presents for routine cholecystostomy tube exchange. She has undergone 2 prior attempts at internalization of the catheter, however, the cystic duct was noted to be completely 8 occluded during both of those attempts. Attempts at recanalization of the cystic duct were unsuccessful. The patient and his son states that there is to be minimal daily output from the drain. PROVIDER PRESENCE: Radha Castro PA-C, was present from the beginning to the end of the procedure. SEDATION: Local only TECHNIQUE: The risks, benefits and alternatives were discussed and informed consent was obtained. Prior to beginning the procedure, [place] Protocol was performed to confirm the patient's identity and the planned procedure. The fluoroscopy time has been recorded in the electronic medical record. Maximum sterile barriers including cap, mask, hand hygiene, sterile gloves, sterile gown, large sterile drape and 2% chlorhexidine for cutaneous antisepsis were used. The patient was brought into the fluoroscopy suite and placed supine on the table. Lidocaine 1% was used for local anesthesia. The catheter was then divided and a Bentson wire was advanced through the catheter under fluoroscopic monitoring. The existing catheter was exchanged over the wire for a new 10-Polish cope cholecystostomy drainage catheter. Limited contrast injection through the catheter under fluoroscopic monitoring confirmed appropriate position within the gallbladder lumen. The catheter was secured in position using a Prolene suture and was connected to gravity drainage. A sterile dressing was applied. ESTIMATED BLOOD LOSS: Minimal. CONDITION: Stable DISCHARGED TO: Recovery and then home FINDINGS: Initial contrast injection shows that the cystic duct is now patent. However, antegrade flow stopped at the distal common bile duct. There was no passage of contrast into the small bowel. There was also no retrograde flow of contrast into the biliary tree. The drainage catheter was successfully exchanged. IMPRESSION: Successful cholecystostomy catheter change as described above. PLAN: The patient will return for interval biliary drainage catheter exchange in 3 months. In the interim, if the patient begins to experience increased output and drainage bag, repeat attempt internalization could be considered. Electronically signed by: Radha Castro PA-C us Sundeep Lux MD IMG IR PROCEDURES Final R esult * Differential, auto (06/03/2024 8:49 AM [facility]) Neutrophil abs 5.5 1.5 - 6.5 K/cumm Comment:Testing performed by : [address] [address] Imm gran abs 0.1 0.0 - 0.1 K/cumm NAZIA Comment:Testing performed by : [address] [address] Lymphocyte abs 0.9 0.8 - 3.3 K/cumm NAZIA Comment:Testing performed by : [address] [address] Monocyte abs 0.5 0.2 - 0.8 K/cumm NAZIA Comment:Testing performed by : [address] [address] Eosinophil abs 0.3 0.0 - 0.5 K/cumm NAZIA Comment:Testing performed by : [address] [address] Basophil abs 0.0 0.0 - 0.1 K/cumm NAZIA Comment:Testing performed by : [address] [address] Neutrophil pct 75.1 % NAZIA Comment: Interpretive Data Percent cell count reference ranges are not reported, since discordance with absolute values may lead to misinterpretation of CBC data. Current Interpretive Data was last revised on 2017. Testing performed by: [address] [address] Imm gran pct 0.7 % [facility] Comment: Interpretive Data Percent cell count reference ranges are not reported, since discordance with absolute values may lead to misinterpretation of CBC data. Current Interpretive Data was last revised on 2017. Testing performed by: [address] [address] Lymphocyte pct 12.2 % [facility] Comment: Interpretive Data Percent cell count reference ranges are not reported, since discordance with absolute values may lead to misinterpretation of CBC data. Current Interpretive Data was last revised on 2017. Testing performed by: [address] [address] Monocyte pct 7.0 % [facility] Comment: Interpretive Data Percent cell count reference ranges are not reported, since discordance with absolute values may lead to misinterpretation of CBC data. Current Interpretive Data was last revised on 2017. Testing performed by: [address] [address] Eosinophil pct 4.6 % [facility] Comment: Interpretive Data Percent cell count reference ranges are not reported, since discordance with absolute values may lead to misinterpretation of CBC data. Current Interpretive Data was last revised on 2017. Testing performed by: [address] [address] Basophil pct 0.4 % [facility] Comment: Interpretive Data Percent cell count reference ranges are not reported, since discordance with absolute values may lead to misinterpretation of CBC data. Current Interpretive Data was last revised on 2017. Testing performed by: [address] [address] Blood 06/03/2024 8:49 AM [facility] 06/03/2024 8:51 AM [facility] Darren Barillas MD LAB BLOOD ORDERABLES Fi nal Result Performing Organization Address City/State/[facility] Co de [facility] Number [facility] [address] [facility] Department [place] [address] * (ABNORMAL) CBC with auto differential (06/03/2024 8:49 AM [facility]) [facility] Signature WBC 7.4 3.8 - 9.9 K/cumm Comment:Testing performed by : [address] [address] Hgb 16.6 13.0 - 17.5 g/dL NAZIA Comment:Testing performed by : [address] [address] Hct 52.1(H) 38.9 - 50.3 % NAZIA Comment:Testing performed by : [address] [address] Plt 142(L) 150 - 400 K/cumm NAZIA Comment:Testing performed by : [address] [address] MPV 12.0 9.1 - 12.3 fL NAZIA Comment:Testing performed by : [address], [address] RBC 5.62 4.30 - 5.80 M/cumm NAZIA Comment:Testing performed by : [address] [address] MCV 92.7 81.3 - 96.4 fL NAZIA Comment:Testing performed by : [address] [address] MCH 29.5 27.1 - 33.3 pg NZAIA Comment:Testing performed by : [address] [address] MCHC 31.9(L) 32.3 - 35.7 g/dL NAZIA Comment:Testing performed by : [address] [address] RDW CV 14.5 11.1 - 14.9 % NAZIA Comment:Testing performed by : [address], [address] RDW SD 49.7(H) 35.7 - 48.1 fL NAZIA URBAN Comment:Testing performed by : [facility], [address] [place] [address]., [address] NRBC abs 0.00 0.00 - 0.01 K/cumm NAZIA URBAN Comment:Testing performed by : [facility], [address] [place] [address]., [address] Blood 06/03/2024 8:49 AM [facility] 06/03/2024 8:51 AM [facility] us Darren Barillas MD LAB BLOOD ORDERABLES Fi nal Result NAZIA [address] [facility] Department [place] [address] from Last 3 Months Insurance MEDICARE [facility] MEDICARE SUPPLEMENT MEDICARE [employer] MEDICARE SUPPLEMENT MEDICARE [facility] Advance Directives For more information, please contact: [phone] Documents on File Type Date Recorded Patient Nurse Executive Expl anation ADVANCE DIRECTIVE 11/18/2023 8:38 AM Power of Viner Operator-Medical ADVANCE DIRECTIVE 03/26/2013 12:00 AM KIKA ING WILL * Full Code (Latest Code Status on File) Date Activated Date Inactivated Comments 11/17/2023 7:33 PM 11/23/2023 8:07 PM * Full Code Date Activated Date Inactivated Comments 11/17/2023 1:32 AM 11/17/2023 5:45 PM Care Teams Medical Director/Head Team Physician Relationship Specialty Start Date End Date Beni Garcia MD [address] [facility] [address] [place] [address] PCP - General Family Practice 01/02/23 Pino Banks MD [address] [place] [address] 07/12/17 Gurpreet Villanueva MD [address] [facility] [place] [address] Dermatology 02/19/20 Darren Barillas MD [address] [facility], [facility] [address] [place] [address] Medical Oncologist/Felt Hat Pouncing Operator Hand Hematology and Oncology 07/17/23 Aureliano Terry MD [address] [place], [place] [id number] Protocol Manager Pulmonary Disease 02/18/24
--- OUTSIDE RECORDS SUMMARY | 2024-07-31 11:21 | XMS_ITS | Encounter Summary ---
Author Organization [facility] Health Address [address] [place] [address] Care Team Providers Care Construction Ironworker Name Role Phone Rojelio Khan MD Primary Care Provider [phone] Encounter Details Date Type Department Care Team (Late st Contact Info) Description 09/18/2022 Lab Requisition [facility] - DermPath Lab [address] [place] [id number] Augusto Villanueva MD [address] [place] [address] Social History Tobacco Use Types [...] Priority Date/Time Associated Diagnosis Comments DERMATOPATHOLOGY Routine 09/17/2022 12:0 0 AM CDT documented in this encounter Results * DERMATOPATHOLOGY (09/17/2022 12:00 AM CDT) Case Report Dermatopathology Report Case: [id number] Authorizing Provider: Augusto Villanueva MD Collected: 09/17/2022 12:00 AM Ordering Location: [facility] Lab Received: 09/18/2022 07:59 AM Pathologist: Romina Flanagan MD Specimen: Skin, left ant flank 5:15 PM CDT DERMATOPATHOLOGY LABORATORY Addendum 1 This addendum is issued to report results of HMB45 stain with is mostly lost in the dermal melanocytes with dermal descent. The diagnosis remains unchanged. 5:15 PM CDT DERMATOPATHOLOGY LABORATORY Addendum electronically signed by Romina Flanagan MD on 10/18/2022 at 5:15 PM Final Diagnosis Specimen A. 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 MM Path: [id number] 5:15 PM CDT DERMATOPATHOLOGY LABORATORY Gross Description Specimen A: Received is one formalin filled container labeled with the patient's name and designated left ant flank. The specimen consists of a shave biopsy measuring 14x8x1 mm. Jar 0. 5:15 PM CDT DERMATOPATHOLOGY LABORATORY Microscopic Description Specimen A. SKIN, left ant flank: This is a compound nevus. There is melanin pigment within the stratum corneum. There is a lentiginous proliferation of melanocytes between nests of cells along the dermal-epidermal junction, highlighted by MART-1/Melan-A immunohistochemical staining. There is underlying fibroplasia of the papillary dermis. The intradermal component is bland appearance and matures with depth. There is a lymphohistiocytic infiltrate within the dermis. Original and deeper sections were reviewed. (Compound Jorge's Nevus) COMMENT: This case was also reviewed by Dr. Mary Garcia who agrees with the diagnosis. 3 5:15 PM CDT DERMATOPATHOLOGY LABORATORY Disclaimer An external and internal positive and negative controls are appropriate for the histochemical, immunohistochemical and immunofluorescence stain(s) in this case (if any), except where stated explicitly. The performance characteristics of the stain(s) cited in this report were developed and its performance characteristic determined by the Dermatopathology Laboratory at [facility], directed by Dr. Emil Wilde. These tests need not be, and therefore are not, approved by the [place] Food and Drug Administration. The tests are used for clinical purposes. Billing Codes Specimen Charges Stain Charges 03104 1 67120 74913 1 1 3 5:15 PM CDT DERMATOPATHOLOGY LABORATORY Embedded Images 3 5:15 PM CDT DERMATOPATHOLOGY LABORATORY Pathology/Cytolog y TISSUE SPECIMEN FROM SKIN / Unknown 09/17/2022 09/18/2022 7:59 AM CDT Augusto Villanueva MD LAB - PATHOLOGY/CYTO LOGY ORDERABLES DERMATOPATHOLOGY LABORATORY [facility] - Department of Dermatology [facility] Medicine [address] [place] [address], [address] [phone] documented in this encounter Visit Diagnoses Not on filedocumented in this encounter Care Teams Construction Ironworker Relationship Specialty Start Date End Date Rojelio Khan MD [address] [facility] [address] [place] [address] PCP - General 02/11/18 documented as of this encounter
--- OUTSIDE RECORDS SUMMARY | 2024-07-31 11:21 | XMS_ITS | Encounter Summary ---
Author Organization [facility] Healthcare Address [address] [place] [address] Care Team Providers Care Vp Digital Marketing Name Role Phone Pino Banks MD Unavailable Gurpreet Villanueva MD Unavailable [phone] Beni Garcia MD Primary Care Provider [phone] Darren Barillas MD Unavailable [phone] Elizabeth Duvall Unavailable Unavailable Aureliano Terry MD Unavailable [phone] Encounter Details Date Type Department Care Team (Late st Contact Info) Description 03/02/2024 Telephone [facility] - Interventional Radiology [address] [place] [address] Grant Burr, RN Social History Tobacco Use Types Packs/Day Years Used Date Smoking Tobacco: Former Cigarettes Q uit: 1983 Smokeless Tobacco: Never Alcohol Use Standard Drinks/Week Comments No 0 [...] materials from doctor or pharmacy Rarely 12/26/[address] [facility] Utilities Answer Date Recorded In the past 12 months has th e electric, gas, oil, or water company threatened to shut off services in your [...] often do you attend chur ch or taoist services? More than 4 times per year 11/20/2023 Do you belong to any clubs o r organizations such as mormonism groups, unions, fraternal or athletic groups, or [...] any time in the past 12 m [facility], were you homeless or living in a [place] health care facility (including now)? No 11/20/2023 Personal Safety Answer Date Recorded Have you ever been in or are you currently in a harmful physical or emotional relationship or is someone making you feel afraid or unsafe? Denies 03/03/2024 Sex and Gender Information Value Date Recorded Sex Assigned at Not on file Legal Sex Male 9:03 AM DISTILLERY WORKER GENERAL Gender Identity Male 10/18/2017 9:18 AM CDT Sexual Orientation Not on file documented as of this encounter Plan of Treatment Not on file documented as of this encounter Visit Diagnoses Not on filedocumented in this encounter Care Teams Vp Digital Marketing Relationship Specialty Start Date End Date Beni Garcia MD [address] [place] [address] PCP - General Family Practice 01/02/23 Pino Banks MD [address] [facility] [address] [place] [address] 07/12/17 Gurpreet Villanueva MD [address] [place] [address] Dermatology 02/19/20 Darren Barillas MD [address] [facility], [facility] [address] [place] [address] Medical Oncologist/Insulation Batting Machine Operator Hematology and Oncology 07/17/23 Elizabeth Duvall RMA Surgical Prehabilitation and Readiness (SPAR) Coordinator 01/28/24 03/02/24 Aureliano Terry MD [address] [facility] [address] [place] [address] Lime Sludge Mixer Pulmonary Disease 02/18/24 documented as of this encounter
--- OUTSIDE RECORDS SUMMARY | 2024-07-31 11:21 | XMS_ITS | Referral Summary ---
Author Organization [facility] Address [address] [place] [address] Care Team Providers Care Debt And Budget Counselor Name Role Phone Pino Banks MD Unavailable Gurpreet Villanueva MD Unavailable [phone] Beni Garcia MD Primary Care Provider [phone] Darren Barillas MD Unavailable [phone] Aureliano Terry MD Unavailable [phone] Encounters Date Type Department Care Team Description 06/19/2024 7:11 AM TROUSSEAU CONSULTANT - 06/19/2024 11:59 PM TROUSSEAU CONSULTANT Hospital Encounter [facility] - Interventional Radiology [address] [place] [address] Cholecystitis, acute (Primary Dx); Gallstones Discharge Disposition: Discharge to home or self care 06/18/2024 Telephone [facility] - Interventional Radiology [address] [place] [address] Randa Davies RN 06/03/2024 9:00 AM TROUSSEAU CONSULTANT Lab [facility] at [address] [address] Erythrocytosis 06/03/2024 10:15 AM TROUSSEAU CONSULTANT Infusion [facility] at [address] [place] [address] Erythrocytosis (Primary Dx) 06/03/2024 9:45 AM TROUSSEAU CONSULTANT Office Visit [facility] Oncology [address] [facility] [address] [place] [address] Darren Barillas MD Erythrocytosis (Primary Dx); Other abnormality of red blood cells from Last 3 Months Allergies No known active allergies Medications ALPRAZolam [...] Erythrocytosis 09/04/2017 HTN (hypertension) 02/19/2014 A-fib 02/19/2014 Immunizations Immunization Administration Dates Next Due Influenza, [...] ZOSTER LIVE 05/31/2017, 7,01/10/2017,07/18,01/25/2016,07/28/2015,01/20/2015 ZOSTER Recombinant 03/16/2020,01/06/2020 Social History Tobacco Use Types Packs/Day Years [...] materials from doctor or pharmacy Rarely 12/26/2023 [facility] Utilities Answer Date Recorded In the past 12 months has e [employer], gas, oil, or water [employer] threatened to shut off services in your [...] 11/20/2023 How often do you attend chur or hinduism services? More than 4 times per year 11/20/2023 Do you belong to any clubs o r organizations such as jainism groups, unions, fraternal or athletic groups, or [...] any time in the past 12 m [facility], were you homeless or living in a senior care (including now)? No 11/20/2023 Personal Safety Answer Date Recorded Have you ever been in or are you currently in a harmful physical or emotional relationship or is someone making you feel afraid or unsafe? Denies 06/19/2024 Sex and Gender Information Value Date Recorded Sex Assigned at Not on file Legal Sex Male 9:03 AM TROUSSEAU CONSULTANT Gender Identity Male 10/18/2017 9:18 AM CDT Sexual Orientation Not on file Last Filed Vital Signs Vital Sign Reading Time Taken Comments Blood Pressure 127/78 06/19/2024 8:35 AM TROUSSEAU CONSULTANT Pulse 58 06/19/2024 8:35 AM TROUSSEAU CONSULTANT Temperature 36.7 C (98 F) 06/19/2024 7:27 AM TROUSSEAU CONSULTANT Respiratory Rate 20 06/19/2024 7:27 AM TROUSSEAU CONSULTANT Oxygen Saturation 92% 06/19/2024 8:35 AM TROUSSEAU CONSULTANT Inhaled Oxygen Concentration - - Weight 108.9 kg (240 lb) 06/19/2024 7:27 AM TROUSSEAU CONSULTANT Height 180.3 cm (5' 11 ) 06/19/2024 7:27 AM TROUSSEAU CONSULTANT Body Mass Index 33.47 06/19/2024 7:27 AM TROUSSEAU CONSULTANT Plan of Treatment Not on file Procedures Procedure Name Priority Date/Time Associated Diagnosis Comments CHANGE BILIARY DRAINAGE CATHETER EXTERNAL OR INTERNAL EXTERNAL Schedule Routine, Read Routine (OP Routine) 06/19/2024 8:33 AM TROUSSEAU CONSULTANT Gallstones DIFFERENTIAL AUTO Routine 06/03/2024 8:4 9 AM TROUSSEAU CONSULTANT Erythrocytosis CBC WITH AUTO DIFFERENTIAL Routine 06/03/2024 8:49 AM TROUSSEAU CONSULTANT Erythrocytosis from Last 3 Months Results * IR Change Biliary Drainage Catheter External Or Internal External (06/19/2024 8:33 AM TROUSSEAU CONSULTANT) Anatomical Region Laterality Modality Body N/A X-Ray Angiograph y 06/19/2024 1:25 PM TROUSSEAU CONSULTANT Impressions 06/19/2024 1:25 PM TROUSSEAU CONSULTANT Successful cholecystostomy catheter change as described above. PLAN: The patient will return for interval biliary drainage catheter exchange in 3 months. In the interim, if the patient begins to experience increased output and drainage bag, repeat attempt internalization could be considered. Electronically signed by: Radha Castro PA-C Narrative 06/19/2024 1:25 PM TROUSSEAU CONSULTANT EXAMINATION: BILIARY TUBE CHANGE HISTORY/INDICATION: 89-year-old male [...] was obtained. Prior to beginning the procedure, Hanna Protocol was performed to confirm the patient's [...] The catheter was then divided and a BigBad wire was advanced through the catheter under fluoroscopic monitoring. The existing catheter was exchanged over the wire for a new 10-Czech cope cholecystostomy drainage catheter. Limited contrast injection [...] was obtained. Prior to beginning the procedure, Hanna Protocol was performed to confirm the patient's [...] The catheter was then divided and a BigBad wire was advanced through the catheter under fluoroscopic monitoring. The existing catheter was exchanged over the wire for a new 10-Czech cope cholecystostomy drainage catheter. Limited contrast injection [...] considered. Electronically signed by: Radha Castro PA-C Sundeep Lux MD [facility] IR PROCEDURES Final R esult * Differential, auto (06/03/2024 8:49 AM TROUSSEAU CONSULTANT) Neutrophil abs 5.5 1.5 - 6.5 K/cumm Comment:Testing performed by : [address] [address] Imm gran abs 0.1 0.0 - 0.1 K/cumm NAZIA Comment:Testing performed by : [address] [address] Lymphocyte abs 0.9 0.8 - 3.3 K/cumm NAZIA Comment:Testing performed by : [address] [place]., [address] Monocyte abs 0.5 0.2 - 0.8 K/cumm CERNER Comment:Testing performed by : [address] [address] Eosinophil abs 0.3 0.0 - 0.5 K/cumm [facility] Comment:Testing performed by : [address] [address] Basophil abs 0.0 0.0 - 0.1 K/cumm [facility] Comment:Testing performed by : [address] [address] Neutrophil pct 75.1 % [facility] Comment: Interpretive Data Percent cell count reference ranges are not reported, since discordance with absolute values may lead to misinterpretation of CBC data. Current Interpretive Data was last revised on 2017. Testing performed by: [address] [address] Imm gran pct 0.7 % [facility] Comment: Interpretive Data Percent cell count reference ranges are not reported, since discordance with absolute values may lead to misinterpretation of CBC data. Current Interpretive Data was last revised on 2017. Testing performed by: [address] [address] Lymphocyte pct 12.2 % [facility] Comment: Interpretive Data Percent cell count reference ranges are not reported, since discordance with absolute values may lead to misinterpretation of CBC data. Current Interpretive Data was last revised on 2017. Testing performed by: [address] [address] Monocyte pct 7.0 % [facility] Comment: Interpretive Data Percent cell count reference ranges are not reported, since discordance with absolute values may lead to misinterpretation of CBC data. Current Interpretive Data was last revised on 2017. Testing performed by: [address] [address] Eosinophil pct 4.6 % CERNER Comment: Interpretive Data Percent cell count reference ranges are not reported, since discordance with absolute values may lead to misinterpretation of CBC data. Current Interpretive Data was last revised on 2017. Testing performed by: [address] [address] Basophil pct 0.4 % NAZIA [facility] Comment: Interpretive Data Percent cell count reference ranges are not reported, since discordance with absolute values may lead to misinterpretation of CBC data. Current Interpretive Data was last revised on 2017. Testing performed by: [address] [address] Blood 06/03/2024 8:49 AM TROUSSEAU CONSULTANT 06/03/2024 8:51 AM TROUSSEAU CONSULTANT us Darren Barillas MD LAB BLOOD ORDERABLES Fi nal Result NAZIA [address] [facility] Department [place] [address] * (ABNORMAL) CBC with auto differential (06/03/2024 8:49 AM TROUSSEAU CONSULTANT) WBC 7.4 3.8 - 9.9 K/cumm Comment:Testing performed by : [address] [address] Hgb 16.6 13.0 - 17.5 g/dL NAZIA U[facility]AN Comment:Testing performed by : [address] [address] Hct 52.1(H) 38.9 - 50.3 % NAZIA U[facility] Comment:Testing performed by : [address] [address] Plt 142(L) 150 - 400 K/cumm NAZIA [facility] Comment:Testing performed by : [address] [address] MPV 12.0 9.1 - 12.3 fL NAZIA [facility] Comment:Testing performed by : [address] [address] RBC 5.62 4.30 - 5.80 M/cumm NAZIA URBAN Comment:Testing performed by : [address] [address] MCV 92.7 81.3 - 96.4 fL NAZIA URBAN Comment:Testing performed by : [address] [address] MCH 29.5 27.1 - 33.3 pg NAZIA URBAN Comment:Testing performed by : [address] [address] MCHC 31.9(L) 32.3 - 35.7 g/dL NAZIA U[facility] Comment:Testing performed by : [address] [address] RDW CV 14.5 11.1 - 14.9 % NAZIA U[facility]AN Comment:Testing performed by : [address] [address] RDW SD 49.7(H) 35.7 - 48.1 fL NAZIA URBAN Comment:Testing performed by : [address] [address] NRBC abs 0.00 0.00 - 0.01 K/cumm NAZIA URB[facility] Comment:Testing performed by : [address] [address] Blood 06/03/2024 8:49 AM TROUSSEAU CONSULTANT 06/03/2024 8:51 AM TROUSSEAU CONSULTANT Darren Barillas MD LAB BLOOD ORDERABLES nal Result AMALIAKELECHI [address] [facility] Department [place] [address] from Last 3 Months Insurance MEDICARE [facility] MEDICARE SUPPLEMENT MEDICARE [employer] MEDICARE SUPPLEMENT MEDICARE [facility] Advance Directives For more information, please contact: [phone] Documents on File Type Date Recorded Patient Concrete Mason Expl anation ADVANCE DIRECTIVE 11/18/2023 8:38 AM Power of Morning Show Newscast Producer-Medical ADVANCE DIRECTIVE 03/26/2013 12:00 AM KIKA ING WILL * Full Code (Latest Code Status on File) Date Activated Date Inactivated Comments 11/17/2023 7:33 PM 11/23/2023 8:07 PM * Full Code Date Activated Date Inactivated Comments 11/17/2023 1:32 AM 11/17/2023 5:45 PM Care Teams Debt And Budget Counselor Relationship Specialty Start Date End Date Beni Garcia MD [address] [place] [address] PCP - General Family Practice 01/02/23 Pino Banks MD [address] [facility] [address] [place] [address] 07/12/17 Gurpreet Villanueva MD [address] [place] [address] Dermatology 02/19/20 Darren Barillas MD [facility]ICAL [facility], [facility] [address] [place] [address] Medical Oncologist/Forestry Support Specialist Hematology and Oncology 07/17/23 Aureliano Terry MD [address] [facility] [address] [place] [address] Business Asst Pulmonary Disease 02/18/24
--- OUTSIDE RECORDS SUMMARY | 2024-07-31 11:21 | XMS_ITS | Encounter Summary ---
Author Organization [facility] Health Address [address] [place] [address] Care Team Providers Care Glass Wool Blanket Machine Feeder Name Role Phone Rojelio Khan MD Primary Care Provider [phone] Encounter Details Date Type Department Care Team (Late st Contact Info) Description 10/06/2019 Lab Requisition [facility] [address] [facility], [place] [address] Augusot Villanueva MD [address] [place] [place] [address] Social History Tobacco Use Types [...] Priority Date/Time Associated Diagnosis Comments DERMATOPATHOLOGY Routine 10/06/2019 12:0 0 AM CDT documented in this encounter Results * DERMATOPATHOLOGY (10/06/2019 12:00 AM CDT) Case Report Dermatopathology Report Case: [id number] Authorizing Provider: Augusto Villanueva MD Collected: 10/06/2019 12:00 AM Ordering Location: [facility] DermPath Lab Received: 10/06/2019 02:40 PM Pathologist: Mary Garcia MD Specimen: Skin, right parietal scalp 0 3:59 PM CDT DERMATOPATHOLOGY LABORATORY Final Diagnosis Specimen A. SKIN, right parietal scalp: SQUAMOUS CELL CARCINOMA, WELL DIFFERENTIATED (C44.42) 0 3:59 PM CDT DERMATOPATHOLOGY LABORATORY Clinical History SCCA vs AK. Path # [id number]. 0 3:59 PM CDT DERMATOPATHOLOGY LABORATORY Gross Description Specimen A: Received is one formalin filled container labeled with the patient's name and designated right parietal scalp. The specimen consists of a shave biopsy measuring [id number]. Jar 0. 0 3:59 PM CDT DERMATOPATHOLOGY LABORATORY Microscopic Description Specimen A. SKIN, right parietal scalp: Arising in the epidermis and extending into the dermis there are irregularly shaped aggregates of keratinocytes showing evidence of premature cornification. 0 3:59 PM CDT DERMATOPATHOLOGY LABORATORY Disclaimer An external and internal positive and negative controls are appropriate for the histochemical, immunohistochemical and immunofluorescence stain(s) in this case (if any), except where stated explicitly. The performance characteristics of the stain(s) cited in this report were developed and its performance characteristic determined by the Dermatopathology Laboratory at [facility], directed by Dr. Emil Wilde. These tests need not be, and therefore are not, approved by the [place] Food and Drug Administration. The tests are used for clinical purposes. Billing Codes Specimen Charges Stain Charges 41229 1 0 3:59 PM CDT DERMATOPATHOLOGY LABORATORY Embedded Images 0 3:59 PM CDT DERMATOPATHOLOGY LABORATORY Pathology/Cytolog y TISSUE SPECIMEN FROM SKIN / Unknown 10/06/2019 10/06/2019 2:40 PM CDT Augusto Villanueva MD LAB - PATHOLOGY/CYTO LOGY ORDERABLES DERMATOPATHOLOGY LABORATORY [facility] - Department of Dermatology [facility]/[address] [phone] documented in this encounter Visit Diagnoses Not on filedocumented in this encounter Care Teams Glass Wool Blanket Machine Feeder Relationship Specialty Start Date End Date Rojelio Khan MD [address] [facility] [address] [place] [address] PCP - General 02/11/18 documented as of this encounter
--- OUTSIDE RECORDS SUMMARY | 2024-07-31 11:21 | XMS_ITS | Clinical Summary ---
Author Organization [facility] Address [address] [place] [address] Care Team Providers Care Cold Rolling Coordinator Name Role Phone Unavailable Primary Care Provider Unavailabl e Social History Tobacco Use Types Packs/Day Years Used Date Smoking Tobacco: Never Assessed Sex and Gender Information Value Date Recorded Sex Assigned at Not on file Legal Sex Male 7:47 PM DOCENT COORDINATOR Gender Identity Not on file Sexual Orientation Not on file Plan of Treatment Health Maintenance Due Date Last Done Comments Hepatitis C Virus (HCV) Screening 1935 TdaP Immunization 1935 Respiratory Syncytial Virus (RSV) Immunization (Adult) (1 - 1-dose 75+ series) 01/20/2012 Pneumococcal Immunization (50+ years) (2 of 2 - PPSV23) 01/05/2021 01/06/2020 Influenza Immunization (#1) 2024 0906/2019, 02/18/2019, 02/01/2018, Additional history exists SARS-COV-2 Immunization ( season) 2024 08/02/2021, 02/24/2021, 07/04/2020, Additional history exists Pneumococcal Immunization Combined Discontinued 01/06/2020 Zoster Immunization Completed 03/16/2020, 0 Hepatitis B Immunization Aged Out No longer eligible based on patient's age to complete this topic Meningococcal Immunization (ACWY) Aged Out No longer eligible based on patient's age to complete this topic Rotavirus Immunization Aged Out No lo nger eligible based on patient's age to complete this topic
--- OUTSIDE RECORDS SUMMARY | 2024-07-31 11:21 | XMS_ITS | Encounter Summary ---
Author Organization [facility] Health Address [address] [facility] [place] [address] Care Team Providers Care Cognos Developer Name Role Phone Rojelio Khan MD Primary Care Provider [phone] Encounter Details Date Type Department Care Team (Late st Contact Info) Description 02/22/2021 Lab Requisition [facility] [address] [facility] [place] [address] Augusto Villanueva MD [address] [place] [address] Social History Tobacco Use Types [...] Priority Date/Time Associated Diagnosis Comments DERMATOPATHOLOGY Routine 02/21/2021 3:33 AM CDT documented in this encounter Results * DERMATOPATHOLOGY (02/21/2021 3:33 AM CDT) Case Report Dermatopathology Report Case: [id number] Authorizing Provider: Augusto Villanueva MD Collected: 02/21/2021 03:33 AM Ordering Location: [facility] DermPath Lab Received: 02/22/2021 06:31 AM Pathologist: Toya Wilde MD Specimens: A) - Skin, left nape B) - Skin, left chest 4:40 PM CDT DERMATOPATHOLOGY LABORATORY Final Diagnosis Specimen A. SKIN, left nape: BASAL CELL CARCINOMA (C44.41) (see microscopic description) Specimen B. SKIN, left chest: COMPOUND NEVUS WITH CONGENITAL FEATURES (D22.5) POST-INFLAMMATORY PIGMENT ALTERATION (L81.9) 4:40 PM CDT DERMATOPATHOLOGY LABORATORY Clinical History A: BCCA. Path # [id number]. B: Nevus vs melanoma. Path # [id number]. 4:40 PM CDT DERMATOPATHOLOGY LABORATORY Gross Description Specimen A: Received is one formalin filled container labeled with the patient's name and designated left nape. The specimen consists of a shave biopsy measuring 9v0n5ub. Jar 0. Specimen B: Received is one formalin filled container labeled with the patient's name and designated left chest. The specimen consists of a shave biopsy measuring [id number]. Jar 0. 4:40 PM CDT DERMATOPATHOLOGY LABORATORY Microscopic Description Specimen A. SKIN, left nape: Sections show superficial fragments of skin. Collections of basaloid cells are present in the dermis, which are highlighted on a Karson-EP4 immunohistochemical stain. Epithelial Membrane Antigen (DAVI) does not highlight the tumor cells. Original and deeper sections were reviewed. Specimen B. SKIN, left chest: There are nests of melanocytes at the dermal-epidermal junction and within the dermis. Some melanocytes are splayed between collagen bundles and are localized around adnexal structures. MART-1/Melan A highlights sparing of the suprapapillary plate. Sections also show abundant melanin within melanophages around the superficial vascular plexus. 4:40 PM CDT DERMATOPATHOLOGY LABORATORY Disclaimer An external and internal positive and negative controls are appropriate for the histochemical, immunohistochemical and immunofluorescence stain(s) in this case (if any), except where stated explicitly. The performance characteristics of the stain(s) cited in this report were developed and its performance characteristic determined by the Dermatopathology Laboratory at [facility], directed by Dr. Emil Wilde. These tests need not be, and therefore are not, approved by the [place] Food and Drug Administration. The tests are used for clinical purposes. Billing Codes Specimen Charges Stain Charges 30454 46092 1 1 21744 59527 33124 1 1 1 4:40 PM CDT DERMATOPATHOLOGY LABORATORY Embedded Images 4:40 PM CDT DERMATOPATHOLOGY LABORATORY Pathology/Cytology TISSUE SPECIMEN FROM SKIN / Unknown 02/21/2021 3:33 AM CDT 02/22/2021 6:31 AM CDT Miscellaneous samples (specimen) TISSUE SPECIMEN FROM SKIN / Unknown 02/21/2021 3:33 AM CDT 02/22/2021 6:31 AM CDT Augusto Villanueva MD LAB - PATHOLOGY/CYTO LOGY ORDERABLES DERMATOPATHOLOGY LABORATORY [facility] - Department of Dermatology [facility] Medicine [address] [address], [address] [phone] documented in this encounter Visit Diagnoses Not on filedocumented in this encounter Care Teams Cognos Developer Relationship Specialty Start Date End Date Rojelio Khan MD [address] [place] [address] PCP - General 02/11/18 documented as of this encounter
--- OUTSIDE RECORDS SUMMARY | 2024-07-31 11:21 | XMS_ITS | Clinical Summary ---
Author Organization [facility] Address [address] [facility] [place] [address] Care Team Providers Care Assistant Grocery Store Manager Name Role Phone Rojelio Khan MD Primary Care Provider [phone] Source Comments [facility]non-owned Affiliates and Associated Physician Practices is amultiple site organization consisting of ambulatory clinics and hospital sitesin [place], [place], [place] and [place]. This disclosure is being madepursuant to the Care Everywhere program and may not contain all information available regarding this patient. Last updated 18.ebookpie Allergies No known active allergies Medications * Be aware that medications may not be up to date on this document. Alwaysverify current medications with the patient. Medication Sig Dispensed Refills Start Date End Date Status lisinopril (PRINIVIL; ZESTRIL) 20 MG tablet Take 20 mg by mouth once daily. Active tamsulosin CR 24hr (FLOMAX) 0.4 MG capsule Take 0.4 mg by mouth once daily. Take 30 minutes after a meal at the same time each day. Active naproxen (NAPROSYN) 500 MG tablet Take 1,000 mg by mouth once daily. Active aspirin (ASPIRIN) 81 MG tablet Take 81 mg by mouth once daily. Active indapamide (LOZOL) 2.5 MG tablet Take 2.5 mg by mouth once daily. Active warfarin (COUMADIN) 6 MG tablet Take 6 mg by mouth once daily. Active furosemide (LASIX) 20 MG tablet Take 20 mg by mouth once daily. Active ALPRAZolam (XANAX) 0.5 MG tablet Take 0.5 mg by mouth at bedtime. Active oxyCODONE-acetamino phen (PERCOCET) 5-325 MG tablet Take 1-2 Tabs by mouth every 4 hours as needed. 02/19/2014 Active bisACODYL (DULCOLAX) 10 MG suppository Insert 10 mg into the rectum once daily as needed for Constipation. Active albuterol-ipratropi um (DUO-NEB) 0.5-2.5 (3) MG/3ML nebulizer solution Inhale 3 mL by mouth 4 times daily. Active Pantoprazole Sodium (PROTONIX PO) Take 40 mg by mouth once daily. Active ondansetron (ZOFRAN) 4 MG tablet Take 4 mg by mouth every 6 hours as needed for Nausea/Vomiting. Active docusate sodium (COLACE) 100 MG capsule Take 100 mg by mouth once daily. Active Sennosides (SENNA) 8.6 MG CAPS Take 1 Tab by mouth 2 times daily. Active pravastatin (PRAVACHOL) 40 MG tablet Take 40 mg by mouth at bedtime. Active enoxaparin (LOVENOX) injection Inject 40 mg subcutaneously once daily. Active Lactulose 10 G PACK Take 15 mL by mouth as needed. Active Active Problems Problem Noted Date Diagnosed Date Hypoxia 02/25/2014 Low oxygen saturation 02/24/2014 S/P foot surgery 02/19/2014 A-fib 02/19/2014 HTN (hypertension) 02/19/2014 Social History Tobacco Use Types Packs/Day Years Used Date Smoking Tobacco: Former Cigarettes Smokeless Tobacco: Never Comments:quit 40 years ago Alcohol Use Standard Drinks/Week Comments No 0 (1 standard drink = 0.6 oz pur e alcohol) Sex and Gender Information Value Date Recorded Sex Assigned at Not on file Gender Identity Not on file Sexual Orientation Not on file Last Filed Vital Signs Vital Sign Reading Time Taken Comments Blood Pressure 136/75 02/24/2014 4:34 PM CDT Pulse 82 02/24/2014 4:38 PM CDT Temperature 36.3 C (97.4 F) 02/24/2014 4:41 PM CDT Respiratory Rate 18 02/24/2014 4:38 PM CDT Oxygen Saturation 98% 02/24/2014 4:38 PM CDT Inhaled Oxygen Concentration - - Weight 122.5 kg (270 lb) 02/24/2014 1:54 PM CDT Height 182.9 cm (6' 0.01 ) 02/24/2014 1:54 PM CD T Body Mass Index 36.61 02/24/2014 1:54 PM CDT Plan of Treatment Health Maintenance Due Date Last Done Comments MEDICARE AWV 12 MONTHS 1937 DTAP/TDAP/TD VACCINES (1 - Tdap) 01/20/1956 PNEUMOCOCCAL VACCINE 50+ (1 of 1 - PCV) 1987 ZOSTER VACCINE (1 of 2) 1987 Respiratory Syncytial Virus (RSV) Vaccine Pt: or over 60 yrs (1 - 1-dose 75+ series) 01/20/2012 COVID-19 VACCINE (1 - 2023-2 5 season) 2024 INFLUENZA VACCINE (#1) 2024 DEPRESSION SCREENING 05/06/2024 HEPATITIS B VACCINE Aged Out No longe r eligible based on patient's age to complete this topic HIB VACCINE Aged Out No longer eligi ble based on patient's age to complete this topic HPV VACCINE Aged Out No longer eligi ble based on patient's age to complete this topic MENINGOCOCCAL (Group B) VACC INE SHARED DECISION-MAKING Aged Out No longer eligibl e based on patient's age to complete this topic MENINGOCOCCAL GROUPS A/C/Y/W VACCINE Aged Out No longer eligible b ased on patient's age to complete this topic Medical Devices Implanted Type Area Unit Educator Device Identifier Shelf Expiration Date Model / Serial / Lot Vitoss Ba2x 5.0cc Implanted:Qty: 1 on 02/18/2014 by Dao Cheney DPM at [facility] Left: Ankle [employer] Spine 05/05/2015 [id number] / / [id number] Screw Implanted:Qty: 1 on 02/18/2014 by Dao Cheney DPM at [facility] Left: Ankle [employer] [id number] / / Description:Sterile implant set Scrw Rosanna Thrd Ti 5.0mm X 50mm Implanted:Qty: 2 on 02/18/2014 by Dao Cheney DPM at [facility] Left: Ankle [employer] [id number] / / Description:Sterile implant set Explanted Type Area Unit Educator Device Identifier Shelf Expiration Date Model / Serial / Lot Davdi Garzaman 2.5mm X 100mm Implanted:Qty: 2 Explanted:Qty: 2 on 02/18/2014 at [facility] Left: Ankle [employer] [id number] / / Description:Sterile implant set Drill Explanted:Qty: 2 on 02/18/2014 at [facility] Left: Ankle [employer] [id number] / / Description:Sterile implant set Gwire Asnis 2.0 X 150mm Implanted:Qty: 1 Explanted:Qty: 2 on 02/18/2014 at [facility] Left: Ankle [employer] [id number] / / Description:Sterile implant set Gwire Asnis 3.2 X 300mm Implanted:Qty: 1 Explanted:Qty: 1 on 02/18/2014 at [facility] Left: Ankle Patricia [employer]ics [id number] / / Description:Sterile implant set Advance Directives Documents on File Type Date Recorded Patient Office Mail Clerk Expl anation Adv Directive/Living Will/POA 02/20/2014 6:24 PM * Full Code (Latest Code Status on File) Date Activated Date Inactivated Comments 02/24/2014 5:56 PM 03/01/2014 2:46 PM * Full Code Date Activated Date Inactivated Comments 02/19/2014 6:40 PM 02/24/2014 3:35 PM * Full Code Date Activated Date Inactivated Comments 02/19/2014 2:51 PM 02/19/2014 6:40 PM * Full Code Date Activated Date Inactivated Comments 02/18/2014 3:49 PM 02/19/2014 2:51 PM Care Teams Assistant Grocery Store Manager Relationship Specialty Start Date End Date Rojelio Khan MD [address] [facility] [address] [facility] [address] [place] [address] PCP - General 02/11/18
--- OUTSIDE RECORDS SUMMARY | 2024-07-31 11:21 | XMS_ITS | Encounter Summary ---
Author Organization [facility] Health Address [address] [place] [address] Care Team Providers Care Senior Sales Compensation Analyst Name Role Phone Rojelio Khan MD Primary Care Provider [phone] Encounter Details Date Type Department Care Team (Late st Contact Info) Description 03/21/2022 Lab Requisition [facility] [address] [facility] [place] [address] Augusto Villanueva MD [address] [place] [place] [address] Social History Tobacco Use Types [...] Priority Date/Time Associated Diagnosis Comments DERMATOPATHOLOGY Routine 03/20/2022 12:0 0 AM CRIME LABORATORY ANALYST documented in this encounter Results * DERMATOPATHOLOGY (03/20/2022 12:00 AM CRIME LABORATORY ANALYST) Case Report Dermatopathology Report Case: [id number] Authorizing Provider: Augusto Villanueva MD Collected: 03/20/2022 12:00 AM Ordering Location: [facility] DermPath Lab Received: 03/21/2022 07:07 AM Pathologist: Toya Wilde MD Specimen: Skin, left earlobe 2 3:30 PM [facility] DERMATOPATHOLOGY LABORATORY Final Diagnosis Specimen A. 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 LM. Path# [id number] 2 3:30 PM [facility] DERMATOPATHOLOGY LABORATORY Gross Description Specimen A: Received is one formalin filled container labeled with the patient's name and designated left earlobe. The specimen consists of a shave biopsy measuring 9v3t3ep. Jar 0. 2 3:30 PM [facility] DERMATOPATHOLOGY LABORATORY Microscopic Description Specimen A. SKIN, left earlobe: There is orthokeratosis. There is a slight increase in epidermal thickness with lentiginous buds of hyperpigmented keratinocytes. The number of melanocytes is only mildly increased. In the dermis, there is basophilic degeneration of elastic fibers. 2 3:30 PM [facility] DERMATOPATHOLOGY LABORATORY Disclaimer An external and internal positive and negative controls are appropriate for the histochemical, immunohistochemical and immunofluorescence stain(s) in this case (if any), except where stated explicitly. The performance characteristics of the stain(s) cited in this report were developed and its performance characteristic determined by the Dermatopathology Laboratory at [facility], directed by Dr. Emil Wilde. These tests need not be, and therefore are not, approved by the [place] Food and Drug Administration. The tests are used for clinical purposes. Billing Codes Specimen Charges Stain Charges 96288 1 2 3:30 PM [facility] DERMATOPATHOLOGY LABORATORY Embedded Images 2 3:30 PM [facility] DERMATOPATHOLOGY LABORATORY Pathology/Cytolog y TISSUE SPECIMEN FROM SKIN / Unknown 03/20/2022 03/21/2022 7:07 AM CRIME LABORATORY ANALYST Augusto Villanueva MD LAB - PATHOLOGY/CYTO LOGY ORDERABLES DERMATOPATHOLOGY LABORATORY [facility] - Department of Dermatology [facility] Medicine [address] [place] [address], [address] [phone] documented in this encounter Visit Diagnoses Not on filedocumented in this encounter Care Teams Senior Sales Compensation Analyst Relationship Specialty Start Date End Date Rojelio Khan MD [address] [facility] [address] [place] [address] PCP - General 02/11/18 documented as of this encounter
--- OUTSIDE RECORDS SUMMARY | 2024-07-31 11:21 | XMS_ITS | Encounter Summary ---
Author Organization [facility] Health Address [address] [facility] [place] [address] Care Team Providers Care Power Ballast Machine Operator Name Role Phone Rojelio Khan MD Primary Care Provider [phone] Encounter Details Date Type Department Care Team (Late st Contact Info) Description 02/09/2020 Lab Requisition [facility] [address] [facility] [place] [address] Augusto Villanueva MD [address] [facility] [place] [place] [address] Social History Tobacco Use Types [...] Priority Date/Time Associated Diagnosis Comments DERMATOPATHOLOGY Routine 02/08/2020 12:0 0 AM CDT documented in this encounter Results * DERMATOPATHOLOGY (02/08/2020 12:00 AM CDT) Case Report Dermatopathology Report Case: [id number] Authorizing Provider: Augusto Villanueva MD Collected: 02/08/2020 12:00 AM Ordering Location: [facility] DermPath Lab Received: 02/09/2020 06:18 AM Pathologist: Romina Flanagan MD Specimen: Skin, left flank 0 4:37 PM CDT DERMATOPATHOLOGY LABORATORY Final Diagnosis Specimen A. 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 Path # [id number]. 0 4:37 PM CDT DERMATOPATHOLOGY LABORATORY Gross Description Specimen A: Received is one formalin filled container labeled with the patient's name and designated left flank. The specimen consists of a shave biopsy measuring 6a3h7sa. Jar 0. 0 4:37 PM CDT DERMATOPATHOLOGY LABORATORY Microscopic Description Specimen A. SKIN, left flank: This is a compound nevus. There is melanin pigment in the stratum corneum. There is architectural disorder characterized by a lentiginous proliferation of melanocytes between irregular nests of cells along the dermal-epidermal junction, highlighted by MART-1/Melan-A immunohistochemical staining. There is underlying fibroplasia of the papillary dermis. The intradermal component is bland appearance and matures with depth. Original and deeper sections were reviewed. (Compound Jorge's Nevus or Compound Dysplastic Nevus) 0 4:37 PM CDT DERMATOPATHOLOGY LABORATORY Disclaimer An external [...] purposes. Billing Codes Specimen Charges Stain Charges 30284 1 14416 1 0 4:37 PM CDT DERMATOPATHOLOGY LABORATORY Embedded Images 0 4:37 PM CDT DERMATOPATHOLOGY LABORATORY Pathology/Cytolog y TISSUE SPECIMEN FROM SKIN / Unknown 02/08/2020 02/09/2020 6:18 AM CDT Augusto Villanueva MD LAB - PATHOLOGY/CYTO LOGY ORDERABLES Performing Organization Address [facility]/State/ZIP Co de Phone Number DERMATOPATHOLOGY LABORATORY [facility] - Department of Dermatology [facility] Medicine [address] [place] [address], [address] [phone] documented in this encounter Visit Diagnoses Not on filedocumented in this encounter Care Teams Power Ballast Machine Operator Relationship Specialty Start Date End Date Rojelio Khan MD [address] [facility] [address] [place] [address] PCP - General 02/11/18 documented as of this encounter
== END 2024-07-31 10:28 | disposition home or self-care (01) ==
PROVIDERS: PCP Family Medicine; Visit Provider Family Medicine
DX: I10 Essential (primary) hypertension (principal); D75.1 Secondary polycythemia; I48.0 Paroxysmal atrial fibrillation; G47.33 Obstructive sleep apnea (adult) (pediatric); Z99.89 Dependence on other enabling machines and devices
CPT/HCPCS: 36415; 80053; 85027

== ENCOUNTER 2025-02-09 08:42 | Outpatient (CLI) | payer MEDICARE, SELFPAY ==
--- OUTSIDE RECORDS SUMMARY | 2025-02-09 08:57 | XMS_ITS | Encounter Summary ---
Author Organization [facility] Health Address [address] [facility] [address] Care Team Providers Care Manufacturing Production Manager Name Role Phone Rojelio Khan MD Primary Care Provider [phone] Encounter Details Date Type Department Care Team (Late st Contact Info) Description 09/18/2022 Lab Requisition [facility] - DermPath Lab [address] [place] [address] Augusto Villanueva MD [address] [place] [address] Social History Tobacco Use Types Packs/Day Years Used Date Smoking Tobacco: Former Cigarettes Smokeless Tobacco: Never Comments:quit 40 years ago Alcohol Use Standard Drinks/Week Comments No 0 (1 standard drink = 0.6 oz pur e alcohol) Sex and Gender Information Value Date Recorded Sex Assigned at Not on file Legal Sex Male 12:13 PM CDT Gender Identity Not on file Sexual Orientation Not on file documented as of this encounter Functional Status * Is person deaf or have serious hearing difficulty? Answer Date of Assessment Author No 02/18/2014 11:40 AM Padmini Escamilla ch, RN * Is person blind or have serious difficulty seeing? Answer Date of Assessment Author No 02/18/2014 11:40 AM Padmini Escamilla ch, RN * Does person have serious difficulty walking/climbing stairs? Answer Date of Assessment Author Yes 02/18/2014 11:40 AM Padmini Escamilla ch, RN * Does person have difficulty dressing/bathing? Answer Date of Assessment Author No 02/18/2014 11:40 AM Padmini Escamilla ch, RN * Does person have difficulty doing errands alone? Answer Date of Assessment Author Yes 02/18/2014 11:40 AM CDT Padmini Garcia ch, RN documented as of this encounter Mental Status * Does person have difficulty concentrating/remembering/making decisions? Answer Entry Date Author No 02/18/2014 11:40 AM CDT Padmini Garcia ch, RN documented in this encounter Plan of Treatment Not on file documented as of this encounter Procedures Procedure Name Priority Date/Time Associated Diagnosis Comments DERMATOPATHOLOGY Routine 09/17/2022 12:0 0 AM CDT documented in this encounter Results * DERMATOPATHOLOGY (09/17/2022 12:00 AM CDT) Case Report Dermatopathology Report Case: [id number] Authorizing Provider: Augusto Villanueva MD Collected: 09/17/2022 12:00 AM Ordering Location: [facility] DermPath Lab Received: 09/18/2022 07:59 AM Pathologist: Romina Flanagan MD Specimen: Skin, left ant flank 3 5:15 PM CDT DERMATOPATHOLOGY LABORATORY Addendum 1 This addendum is issued to report results of HMB45 stain with is mostly lost in the dermal melanocytes with dermal descent. The diagnosis remains unchanged. 3 5:15 PM CDT DERMATOPATHOLOGY LABORATORY Addendum electronically signed by Romina Flanagan MD on 10/18/2022 at 1715 CDT Final Diagnosis Specimen A. SKIN, left ant flank: LENTIGINOUS MELANOCYTIC NEVUS, COMPOUND TYPE, IRRITATED AND INFLAMED (D22.5) (see microscopic description and comment) 3 5:15 PM CDT DERMATOPATHOLOGY LABORATORY at 1615 CDT Clinical History Nevus vs. MM Path: [id number] 3 5:15 PM CDT DERMATOPATHOLOGY LABORATORY Gross Description Specimen A: Received is one formalin filled container labeled with the patient's name and designated left ant flank. The specimen consists of a shave biopsy measuring 14x8x1 mm. Jar 0. 3 5:15 PM CDT DERMATOPATHOLOGY LABORATORY Microscopic Description [...] agrees with the diagnosis. 3 5:15 PM T DERMATOPATHOLOGY LABORATORY Disclaimer An external and internal positive and negative controls are appropriate for the histochemical, immunohistochemical and immunofluorescence stain(s) in this case (if any), except where stated explicitly. The performance characteristics of the stain(s) cited in this report were developed and its performance characteristic determined by the Dermatopathology Laboratory at [facility], directed by Dr. Emil Wilde. These tests need not be, and therefore are not, approved by the [place] Food and Drug Administration. The tests are used for clinical purposes. Billing Codes Specimen Charges Stain Charges 53782 1 96024 37995 1 1 3 5:15 PM CDT DERMATOPATHOLOGY LABORATORY Embedded Images 3 5:15 PM CDT DERMATOPATHOLOGY LABORATORY Pathology/Cytolog y TISSUE SPECIMEN FROM SKIN / Unknown 09/17/2022 09/18/2022 7:59 AM CDT us Augusto Villanueva MD LAB - PATHOLOGY/CYTOLOGY ORDER DANILO Edited Result - Final DERMATOPATHOLOGY LABORATORY [facility] - Department of Dermatology [address], [address] [place] [address], [facility] [phone] documented in this encounter Visit Diagnoses Not on filedocumented in this encounter Care Teams Manufacturing Production Manager Relationship Specialty Start Date End Date Rojelio Khan MD [address] [facility] [address] [place] [address] PCP - General 02/11/18 documented as of this encounter
--- OUTSIDE RECORDS SUMMARY | 2025-02-09 08:57 | XMS_ITS | Clinical Summary ---
Author Organization [facility] Address [address] [facility] [place] [address] Care Team Providers Care Social Media Senior Associate Name Role Phone Rojelio Khan MD Primary Care Provider [phone] Source Comments [facility],non-owned Affiliates and Associated Physician Practices is amultiple site organization consisting of ambulatory clinics and hospital sitesin [place], [place], [place] and [place]. This disclosure is being madepursuant to the Care Everywhere program and may not contain all information available regarding this patient. Last updated 18.[employer] Allergies No known active allergies Medications * Be aware that medications may not be up to date on this document. Alwaysverify current medications with the patient. lisinopril (PRINIVIL; ZESTRIL) 20 MG tablet Take [...] 0.5 mg by mouth at bedtime. Active oxyCODONE-aceta minophen (PERCOCET) 5-325 MG tablet Take 1-2 Tabs by mouth every 4 hours as needed. 02/20/20 14 Active bisACODYL (DULCOLAX) 10 MG suppository Insert 10 mg into the rectum once daily as needed for Constipation. Active albuterol-iprat ropium (DUO-NEB) 0.5-2.5 (3) MG/3ML nebulizer solution Inhale [...] 1:54 PM CDT Height 182.9 cm (6' 0.01) 02/24/2014 1:54 PM CD T Body Mass [...] yrs (1 - 1-dose 75+ series) 01/20/2012 DEPRESSION SCREENING 05/06/2024 COVID-19 VACCINE (1 - 2023-2 5 season) 2025 INFLUENZA VACCINE (#1) 2025 HEPATITIS B VACCINE Aged Out No longe [...] this topic Medical Devices Implanted Type Area Hoister Device Identifier Shelf Expiration Date Model / Serial / Lot Vitoss Ba2x 5.0cc Implanted:Qty: 1 on 02/18/2014 by Dao Cheney DPM at [facility] Left: Ankle Patricia [employer] 05/05/2015 [id number] / / [id number] Screw Implanted:Qty: 1 on 02/18/2014 by Dao Cheney DPM at [facility] Left: Ankle [place] [employer] [id number] / / Description:Sterile implant set Scrw Rosanna Thrd Ti 5.0mm X 50mm Implanted:Qty: 2 on 02/18/2014 by Dao Cheney DPM at [facility] Left: Ankle [employer] [id number] / / Description:Sterile implant set Explanted Type Area Hoister Device Identifier Shelf Expiration Date Model / Serial / Lot Pin Tomas 2.5mm X 100mm Implanted:Qty: 2 Explanted:Qty: 2 on 02/18/2014 at [facility] Left: Ankle [employer] [id number] / / Description:Sterile implant set Drill Explanted:Qty: 2 on 02/18/2014 at [facility] Left: Ankle [employer] [id number] / / Description:Sterile implant set Gwire Asnis 2.0 X 150mm Implanted:Qty: 1 Explanted:Qty: 2 on 02/18/2014 at [facility] Left: Ankle [employer] [id number] / / Description:Sterile implant set Gwire Asnis 3.2 X 300mm Implanted:Qty: 1 Explanted:Qty: 1 on 02/18/2014 at [facility] Left: Ankle [employer] [id number] / / Description:Sterile implant set Insurance MEDICARE [facility]LY [facility] Advance Directives Documents on File Type Date Recorded Patient Manager Functional Expl anation Adv Directive/Living Will/POA 02/20/2014 6:24 [...] 3:49 PM 02/19/2014 2:51 PM Care Teams Social Media Senior Associate Relationship Specialty Start Date End Date Rojelio Khan MD [address] [facility] [address] [place] [address] PCP - General 02/11/18
--- OUTSIDE RECORDS SUMMARY | 2025-02-09 08:58 | XMS_ITS | Encounter Summary ---
Author Organization [facility] Health Address [address] [facility] [place] [address] Care Team Providers Care Pot Runner Name Role Phone Rojelio Khan MD Primary Care Provider [phone] Encounter Details Date Type Department Care Team (Late st Contact Info) Description 03/21/2022 Lab Requisition [facility] [address] [facility], [place] [address] Augusto Villanueva MD [address] [place] [address] Social History Tobacco Use Types [...] Comments DERMATOPATHOLOGY Routine 03/20/2022 12:0 0 AM STATE GAME PROTECTOR documented in this encounter Results * DERMATOPATHOLOGY (03/20/2022 12:00 AM STATE GAME PROTECTOR) Case Report Dermatopathology Report Case: [id number] Authorizing Provider: Augusto Villanueva MD Collected: 03/20/2022 12:00 AM Ordering Location: [facility] Lab Received: 03/21/2022 07:07 AM Pathologist: Toya Wilde MD Specimen: Skin, left earlobe 2 3:30 PM STATE GAME PROTECTOR DERMATOPATHOLOGY LABORATORY Final Diagnosis Specimen A. 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 LM. Path# [id number] 2 3:30 PM [facility] DERMATOPATHOLOGY LABORATORY Gross Description Specimen A: Received is one formalin filled container labeled with the patient's name and designated left earlobe. The specimen consists of a shave biopsy measuring 2f4s3tz. Jar 0. 2 3:30 PM STATE GAME PROTECTOR DERMATOPATHOLOGY LABORATORY Microscopic Description Specimen A. SKIN, left earlobe: There is orthokeratosis. There is a slight increase in epidermal thickness with lentiginous buds of hyperpigmented keratinocytes. The number of melanocytes is only mildly increased. In the dermis, there is basophilic degeneration of elastic fibers. 2 3:30 PM STATE GAME PROTECTOR DERMATOPATHOLOGY LABORATORY Disclaimer An external and internal positive and negative controls are appropriate for the histochemical, immunohistochemical and immunofluorescence stain(s) in this case (if any), except where stated explicitly. The performance characteristics of the stain(s) cited in this report were developed and its performance characteristic determined by the Dermatopathology Laboratory at [facility], directed by Dr. Emil Wilde. These tests need not be, and therefore are not, approved by the [place] Food and Drug Administration. The tests are used for clinical purposes. Billing Codes Specimen Charges Stain Charges 73133 1 2 3:30 PM STATE GAME PROTECTOR DERMATOPATHOLOGY LABORATORY Embedded Images 2 3:30 PM STATE GAME PROTECTOR DERMATOPATHOLOGY LABORATORY Pathology/Cytolog y TISSUE SPECIMEN FROM SKIN / Unknown 03/20/2022 03/21/2022 7:07 AM STATE GAME PROTECTOR Augusto Villanueva MD LAB - PATHOLOGY/CYTOLOGY ORDER DANILO Final Result DERMATOPATHOLOGY LABORATORY [facility] - Department of Dermatology [facility] [address] [place] [address], [address] [phone] documented in this encounter Visit Diagnoses Not on filedocumented in this encounter Care Teams Pot Runner Relationship Specialty Start Date End Date Rojelio Khan MD [address] [facility] [address] [place] [address] PCP - General 02/11/18 documented as of this encounter
--- OUTSIDE RECORDS SUMMARY | 2025-02-09 08:58 | XMS_ITS | Encounter Summary ---
Author Organization [facility] Health Address [address] [facility] [place] [address] Care Team Providers Care Speech Communication Instructor Name Role Phone Rojelio Khan MD Primary Care Provider [phone] Encounter Details Date Type Department Care Team (Late st Contact Info) Description 02/22/2021 Lab Requisition [facility] [address] [facility], [place] [address] Augusto Villanueva MD [address] [place] [address] Social History Tobacco Use Types [...] AM CDT) Case Report Dermatopathology Report Case: [id number] Authorizing Provider: Augusto Villanueva MD Collected: 02/21/2021 03:33 AM Ordering Location: [facility] DermPath Lab Received: 02/22/2021 06:31 AM Pathologist: Toya Wilde MD Specimens: A) - Skin, left nape B) - Skin, left chest 4:40 PM CDT DERMATOPATHOLOGY LABORATORY Final Diagnosis Specimen A. SKIN, left nape: BASAL CELL CARCINOMA (C44.41) (see microscopic description) Specimen B. 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 Path # [id number]. B: Nevus vs melanoma. Path # [id number]. 4:40 PM CDT DERMATOPATHOLOGY LABORATORY Gross Description Specimen A: Received is one formalin filled container labeled with the patient's name and designated left nape. The specimen consists of a shave biopsy measuring 0t0f3yx. Jar 0. Specimen B: Received is one formalin filled container labeled with the patient's name and designated left chest. The specimen consists of a shave biopsy measuring [id number]. Jar 0. 4:40 PM CDT DERMATOPATHOLOGY LABORATORY [...] within melanophages around the superficial vascular plexus. 1 4:40 PM T DERMATOPATHOLOGY LABORATORY Disclaimer An external and internal positive and negative controls are appropriate for the histochemical, immunohistochemical and immunofluorescence stain(s) in this case (if any), except where stated explicitly. The performance characteristics of the stain(s) cited in this report were developed and its performance characteristic determined by the Dermatopathology Laboratory at [facility], directed by Dr. Emil Wilde. These tests need not be, and therefore are not, approved by the [place] Food and Drug Administration. The tests are used for clinical purposes. Billing Codes Specimen Charges Stain Charges 65252 01293 1 1 04310 50402 43185 1 1 1 1 4:40 PM CDT DERMATOPATHOLOGY LABORATORY Embedded Images 4:40 PM CDT DERMATOPATHOLOGY LABORATORY Pathology/Cytology TISSUE SPECIMEN FROM SKIN / Unknown 02/21/2021 3:33 AM CDT 02/22/2021 6:31 AM CDT Miscellaneous samples (specimen) TISSUE SPECIMEN FROM SKIN / Unknown 02/21/2021 3:33 AM CDT 02/22/2021 6:31 AM CDT us Augusto Villanueva MD LAB - PATHOLOGY/CYTOLOGY ORDER DANILO Final Result DERMATOPATHOLOGY LABORATORY [facility] - Department of Dermatology [address], [address] [phone] documented in this encounter Visit Diagnoses Not on filedocumented in this encounter Care Teams Speech Communication Instructor Relationship Specialty Start Date End Date Rojelio Khan MD [address] [facility] [address] [place] [address] PCP - General 02/11/18 documented as of this encounter
--- OUTSIDE RECORDS SUMMARY | 2025-02-09 08:58 | XMS_ITS | Clinical Summary ---
Author Organization [facility] Address [address] [place] [address] Care Team Providers Care Electrophysiologist Name Role Phone Unavailable Primary Care Provider [...] Td Vaccines ( 1 - Tdap) [birth year]20/1954 Pneumococcal Vaccine: 50+ Ye ars (1 of 1 - PCV) 1987 Zoster Vaccines (1 of 2) 1987 RSV Immunization or 60+ Years (1 - 1-dose 75+ series) 01/20/2012 COVID-19 Vaccine ( - 2023-2 5 season) 2025 Meningococcal B Vaccine Aged Out No l onger eligible based on patient's age to complete this topic Meningococcal Vaccine Aged Out No carol ann adam eligible based on patient's age to complete this topic RSV Immunizations Under 20 Months Aged Out No longer eligible based on patient's age to complete this topic
--- OUTSIDE RECORDS SUMMARY | 2025-02-09 08:58 | XMS_ITS | Encounter Summary ---
Author Organization [facility] Health Address [address] [place] [address] Care Team Providers Care Lace Paper Machine Operator Name Role Phone Rojelio Khan MD Primary Care Provider [phone] Encounter Details Date Type Department Care Team (Late st Contact Info) Description 10/06/2019 Lab Requisition [facility] [address] [facility], [place] [address] Augusto Villanueva MD [address] [place] [address] Social History Tobacco Use Types [...] AM CDT) Case Report Dermatopathology Report Case: [id number] Authorizing Provider: Augusto Villanueva MD Collected: 10/06/2019 12:00 AM Ordering Location: [facility] DermPath Lab Received: 10/06/2019 02:40 PM Pathologist: Mary Garcia MD Specimen: Skin, right parietal scalp 0 3:59 PM CDT DERMATOPATHOLOGY LABORATORY Final Diagnosis Specimen A. 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 Path # [id number]. 0 3:59 PM CDT DERMATOPATHOLOGY LABORATORY Gross Description Specimen A: Received is one formalin filled container labeled with the patient's name and designated right parietal scalp. The specimen consists of a shave biopsy measuring 3m2b8td. Jar 0. 0 3:59 PM CDT DERMATOPATHOLOGY [...] characteristic determined by the Dermatopathology Laboratory at [facility], directed by Dr. Emil Wilde. These tests need not be, and therefore are not, approved by the [place] Food and Drug Administration. The tests are used for clinical purposes. Billing Codes Specimen Charges Stain Charges 19893 1 0 3:59 PM CDT DERMATOPATHOLOGY LABORATORY Embedded Images 0 3:59 PM CDT DERMATOPATHOLOGY LABORATORY Pathology/Cytolog y TISSUE SPECIMEN FROM SKIN / Unknown 10/06/2019 10/06/2019 2:40 PM CDT us Augusto Villanueva MD LAB - PATHOLOGY/CYTOLOGY ORDER DANILO Final Result DERMATOPATHOLOGY LABORATORY [facility] - Department of Dermatology [employer]/[address] [phone] documented in this encounter Visit Diagnoses Not on filedocumented in this encounter Care Teams Lace Paper Machine Operator Relationship Specialty Start Date End Date Rojelio Khan MD [address] [facility] [address] [place] [address] PCP - General 02/11/18 documented as of this encounter
--- OUTSIDE RECORDS SUMMARY | 2025-02-09 08:58 | XMS_ITS | Encounter Summary ---
Author Organization [facility] Health Address [address] [facility] [place] [address] Care Team Providers Care Process Area Supervisor Name Role Phone Rojelio Khan MD Primary Care Provider [phone] Encounter Details Date Type Department Care Team (Late st Contact Info) Description 02/09/2020 Lab Requisition [facility] [address] [facility] [place] [address] Augusto Villanueva MD [address] [place] [address] Social History Tobacco Use Types [...] AM CDT) Case Report Dermatopathology Report Case: [id number] Authorizing Provider: Augusto Villanueva MD Collected: 02/08/2020 12:00 AM Ordering Location: [facility] DermPath Lab Received: 02/09/2020 06:18 AM Pathologist: Romina Flangaan MD Specimen: Skin, left flank 0 4:37 PM CDT DERMATOPATHOLOGY LABORATORY Final Diagnosis Specimen A. 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 Path # [id number]. 0 4:37 PM CDT DERMATOPATHOLOGY LABORATORY Gross Description Specimen A: Received is one formalin filled container labeled with the patient's name and designated left flank. The specimen consists of a shave biopsy measuring 2y9j3wl. Jar 0. 0 4:37 PM CDT DERMATOPATHOLOGY [...] characteristic determined by the Dermatopathology Laboratory at [facility], directed by Dr. Emil Wilde. These tests need not be, and therefore are not, approved by the [place] Food and Drug Administration. The tests are used for clinical purposes. Billing Codes Specimen Charges Stain Charges 12673 1 14300 1 0 4:37 PM CDT DERMATOPATHOLOGY LABORATORY Embedded Images 0 4:37 PM CDT DERMATOPATHOLOGY LABORATORY Pathology/Cytolog y TISSUE SPECIMEN FROM SKIN / Unknown 02/08/2020 02/09/2020 6:18 AM CDT Augusto Villanueva MD LAB - PATHOLOGY/CYTOLOGY ORDER DANILO Final Result DERMATOPATHOLOGY LABORATORY [facility] - Department of Dermatology [facility] [address] [place] [address], [address] [phone] documented in this encounter Visit Diagnoses Not on filedocumented in this encounter Care Teams Process Area Supervisor Relationship Specialty Start Date End Date Rojelio Khan MD [address] [facility] [address] [place] [address] PCP - General 02/11/18 documented as of this encounter
--- OUTSIDE RECORDS SUMMARY | 2025-02-09 08:58 | XMS_ITS | Encounter Summary ---
Author Organization [facility] Health Address [address] [facility] [place] [address] Care Team Providers Care Sensitized Paper Tester Name Role Phone Rojelio Khan MD Primary Care Provider [phone] Encounter Details Date Type Department Care Team (Late st Contact Info) Description 09/20/2021 Lab Requisition [facility] [address] [place] [address] Augusto Villanueva MD [address] [place] [address] Social History Tobacco Use Types [...] AM CDT) Case Report Dermatopathology Report Case: [id number] Authorizing Provider: Augusto Villanueva MD Collected: 09/18/2021 03:33 AM Ordering Location: [facility] Derm[facility] Lab Received: 09/20/2021 07:21 AM Pathologist: Mary Garcia MD Specimen: Skin, sternal notch 2 1:40 PM CDT DERMATOPATHOLOGY LABORATORY Final Diagnosis Specimen A. 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 Path # [id number]. 2 1:40 PM CDT DERMATOPATHOLOGY LABORATORY Gross Description Specimen A: Received is one formalin filled container labeled with the patient's name and designated sternal notch. The specimen consists of a shave biopsy measuring 2z8i6dc. Jar 0. 2 1:40 PM CDT DERMATOPATHOLOGY LABORATORY Microscopic Description Specimen A. SKIN, sternal notch: Within the dermis there are aggregates of basaloid cells with a high nuclear to cytoplasmic ratio and peripheral palisading. 2 1:40 PM CDT DERMATOPATHOLOGY LABORATORY Disclaimer An external and internal positive and negative controls are appropriate for the histochemical, immunohistochemical and immunofluorescence stain(s) in this case (if any), except where stated explicitly. The performance characteristics of the stain(s) cited in this report were developed and its performance characteristic determined by the Dermatopathology Laboratory at [facility], directed by Dr. Emil Wilde. These tests need not be, and therefore are not, approved by the [place] Food and Drug Administration. The tests are used for clinical purposes. Billing Codes Specimen Charges Stain Charges 21547 1 2 1:40 PM CDT DERMATOPATHOLOGY LABORATORY Embedded Images 2 1:40 PM CDT DERMATOPATHOLOGY LABORATORY Pathology/Cytolo gy TISSUE SPECIMEN FROM SKIN / Unknown 09/18/2021 3:33 AM CDT 09/20/2021 7:21 AM CDT us Augusto Villanueva MD LAB - PATHOLOGY/CYTOLOGY ORDER DANILO Final Result DERMATOPATHOLOGY LABORATORY [facility] - Department of Dermatology [facility] Medicine [address] [place] [address], [address] [phone] documented in this encounter Visit Diagnoses Not on filedocumented in this encounter Care Teams Sensitized Paper Tester Relationship Specialty Start Date End Date Rojelio Khan MD [address] [facility] [address] [place] [address] PCP - General 02/11/18 documented as of this encounter
--- OUTSIDE RECORDS SUMMARY | 2025-02-09 08:58 | XMS_ITS | Encounter Summary ---
Author Organization [facility] Healthcare Address [address] [place] [address] Care Team Providers Care Cro Name Role Phone Pino Banks MD Unavailable Gurpreet Villanueva MD Unavailable [phone] Beni Garcia MD Primary Care Provider [phone] Darren Barillas MD Unavailable [phone] Elizabeth Duvall Unavailable Unavailable Aureliano Terry MD Unavailable [phone] Encounter Details Date Type Department Care Team (Late st Contact Info) Description 03/02/2024 Telephone [facility] - Interventional Radiology [address] [place] [address] Grant Burr, RN Social History [...] materials from doctor or pharmacy Rarely 12/26/2023 [facility] Utilities Answer Date Recorded In the past 12 months has th e electric, gas, oil, or water company threatened to shut off services in your home? No 11/20/2023 Social Connection and Isolation Panel Answer Date Recorded In a typical week, [...] any clubs o r organizations such as orthodoxy groups, unions, fraternal or athletic groups, or [...] any time in the past 12 m [facility], were you homeless or living in a group home (including now)? No 11/20/2023 Personal Safety Answer Date Recorded Have you ever been in or are you currently in a harmful physical or emotional relationship or is someone making you feel afraid or unsafe? Denies 03/03/2024 Sex and Gender Information Value Date Recorded Sex Assigned at Not on file Legal Sex Male 9:03 AM INFORMATION TECHNOLOGY ANALYST Gender Identity Male 10/18/2017 9:18 AM CDT Sexual Orientation Not on file documented as of this encounter Plan of Treatment Not on file documented as of this encounter Visit Diagnoses Not on filedocumented in this encounter Care Teams Cro Relationship Specialty Start Date End Date Beni Garcia MD [address] [place] [address] PCP - General Family Practice 01/02/23 Pino Banks MD [address] [place] [address] 07/12/17 Gurpreet Villanueva MD [address] [place] [address] Dermatology 02/19/20 Darren Barillas MD [address] [place] [address] Medical Oncologist/[employer] Neck Whipper Hematology and Oncology 07/17/23 Elizabeth Duvall RMA Surgical Prehabilitation and Readiness (SPAR) Coordinator 01/28/24 03/02/24 Aureliano Terry MD [address] [place] [address] Building Custodial Supervisor Pulmonary Disease 02/18/24 documented as of this encounter
--- OUTSIDE RECORDS SUMMARY | 2025-02-09 08:58 | XMS_ITS | Encounter Summary ---
Author Organization [facility] Health Address [address] [place] [address] Care Team Providers Care Time Study Engineer Name Role Phone Rojelio Khan MD Primary Care Provider [phone] Encounter Details Date Type Department Care Team (Late st Contact Info) Description 08/10/2020 Lab Requisition [facility] [address] [place] [address] Augusto Villanueva MD [address] [place] [address] Social History Tobacco Use Types [...] AM CDT) Case Report Dermatopathology Report Case: [id number] Authorizing Provider: Augusto Villanueva MD Collected: 08/09/2020 03:33 AM Ordering Location: [facility] Lab Received: 08/10/2020 07:19 AM Pathologist: Toya Wilde MD Specimen: Skin, left flank 6:26 PM CDT DERMATOPATHOLOGY LABORATORY Final Diagnosis Specimen A. SKIN, left flank: COMPOUND NEVUS WITH CONGENITAL FEATURES, IRRITATED (D22.5) 6:26 PM CDT DERMATOPATHOLOGY LABORATORY at 1826 CDT Clinical History Nevus vs MM. Path # [id number]. 6:26 PM CDT DERMATOPATHOLOGY LABORATORY Gross Description Specimen A: Received is one formalin filled container labeled with the patient's name and designated left flank. The specimen consists of a shave biopsy measuring [id number]. Jar 0. 6:26 PM CDT DERMATOPATHOLOGY LABORATORY [...] characteristic determined by the Dermatopathology Laboratory at [facility], directed by Dr. Emil Wilde. These tests need not be, and therefore are not, approved by the [place] Food and Drug Administration. The tests are used for clinical purposes. Billing Codes Specimen Charges Stain Charges 67921 1 1 6:26 PM CDT DERMATOPATHOLOGY LABORATORY Embedded Images 1 6:26 PM CDT DERMATOPATHOLOGY LABORATORY Pathology/Cytolo gy TISSUE SPECIMEN FROM SKIN / Unknown 08/09/2020 3:33 AM CDT 08/10/2020 7:19 AM CDT Augusto Villanueva MD LAB - PATHOLOGY/CYTOLOGY ORDER DANILO Final Result DERMATOPATHOLOGY LABORATORY [facility] - Department of Dermatology [facility] Medicine [address] [place] [address], [address] [phone] documented in this encounter Visit Diagnoses Not on filedocumented in this encounter Care Teams Time Study Engineer Relationship Specialty Start Date End Date Rojelio Khan MD [address] [facility] [address] [place] [address] PCP - General 02/11/18 documented as of this encounter
--- OUTSIDE RECORDS SUMMARY | 2025-02-09 08:58 | XMS_ITS | Clinical Summary ---
Author Organization 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 Gender Identity Not on file Sexual Orientation Not on file Plan of Treatment Health Maintenance Due Date Last Done Comments Hepatitis C Virus (HCV) Screening 1935 TdaP Immunization 1935 Respiratory Syncytial Virus (RSV) Immunization (Adult) (1 - 1-dose 75+ series) 01/20/2012 Pneumococcal Immunization (50+ years) (2 of 2 - PCV20 or PCV21) 01/05/2021 01/06/2020 Influenza Immunization (#1) 2025 09/0 06/2019, 02/18/2019, 02/01/2018, Additional history exists SARS-COV-2 Immunization ( season) 2025 08/02/2021, 02/24/2021, 07/04/2020, Additional history exists Pneumococcal Immunization Combined Discontinued 01/06/2020 Zoster Immunization Completed 03/16/2020, 0 Hepatitis B Immunization Aged Out No longer eligible based on patient's age to complete this topic Human Papillomavirus (HPV) Immunization Aged Out No longer eligible based on patient's age to complete this topic Meningococcal Immunization (ACWY) Aged Out No longer eligible based on patient's age to complete this topic Rotavirus Immunization Aged Out No lo nger eligible based on patient's age to complete this topic
--- OUTSIDE RECORDS SUMMARY | 2025-02-09 08:58 | XMS_ITS | Clinical Summary ---
Author Organization [facility] Address [address] [place] [address] Care Team Providers Care Flaker Tender Name Role Phone Pino Banks MD Unavailable [phone] Gurpreet Villanueva MD Unavailable [phone] Beni Garcia MD Primary Care Provider [phone] Darren Barillas MD Unavailable [phone] Aureliano Terry MD Unavailable [phone] Allergies No known active allergies Medications ALPRAZolam [...] Encounters Date Type Department Care Team Description 11/25/2024 9:00 AM CDT Infusion [facility] at [address] [place] [id number] Erythrocytosis (Primary Dx) 11/25/2024 8:30 AM CDT Lab [address] [address] Erythrocytosis from Last 3 Months Immunizations Immunization [...] ETER EXTERNAL OR INTERNAL EXTERNAL 06/19/2024 N/A CHANGE BILIARY DRAINAGE CATH ETER EXTERNAL OR INTERNAL EXTERNAL 09/17/2024 N/A BILIARY INTERNAL STENT PLACEMENT EXISTING ACCESS 025 N/A IR CHOLANGIOGRAM THROUGH EXISTING CATHETER 10/20/2024 N/A Medical History Medical History Date Comments Erythrocytosis Skin cancer COPD (chronic obstructive pulmonary disease) 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 More than 4 times per year 11/20/2023 Do you belong to any clubs o r organizations such as yarsanism groups, unions, fraternal or athletic groups, or [...] any time in the past 12 m [facility], were you homeless or living in a snf (including now)? No 11/20/2023 Personal Safety Answer Date Recorded Have you ever been in or are you currently in a harmful physical or emotional relationship or is someone making you feel afraid or unsafe? 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 Gender Identity Male 10/18/2017 9:18 AM CDT Sexual Orientation Not on file Obstetrics History Last Filed Vital Signs Vital Sign Reading Time Taken Comments Blood Pressure 128/78 11/25/2024 9:05 AM CDT Pulse 51 11/25/2024 9:05 AM CDT Temperature 36.3 C (97.4 F) 11/25/2024 9:05 AM CDT Respiratory Rate 16 11/25/2024 9:05 AM CDT Oxygen Saturation 98% 11/25/2024 9:05 AM CDT Inhaled Oxygen Concentration - - Weight 114.1 kg (251 lb 9.6 oz) 11/25/2024 9:05 AM CDT w/ shoes Height 180.3 cm (5' 11) 10/20/2024 7:10 AM CDT Body Mass Index 35.09 10/20/2024 7:10 AM CDT Plan of Treatment Health Maintenance Due Date Last Done Comments Depression Screening 1935 DTaP/Tdap/Td Vaccine (1 - Tdap) 01/20/1946 Hepatitis B Screening 1953 Well Visit 65+ 2002 Pneumococcal vaccine 65+ (2 of 2 - PPSV23, PCV20, or PCV21) 03/02/2020 01/06/2020 Covid-19 Vaccine (4 - 2024-2 6 season) 2025 02/24/2021, 07/04/2020, 06/13/2020 Influenza Vaccine (#1) 2025 , 01/06/2020, 02/18/2019, Additional history exists Fall Risk Assessment 10/20/2025 10/20/2024 Zoster Vaccine Completed 03/16/2020, 06/2019, 05/31/2017, Additional history exists Medical Devices Implanted Type Area Swim Instructor Device Identifier Shelf Expiration Date Model / Serial / Lot Rad [employer] Aravind 8fr 24cm Durometer Drainage Hole Catheter Flexible Stiffen 24-551 - [id number] Implanted:Qty: 1 on 10/07/2024 at [facility] [employer] Aravind 06/21/2026 24-551 / / [id number] Procedures Procedure Name Priority Date/Time Associated Diagnosis Comments DIFFERENTIAL AUTO Routine 11/25/2024 8:2 6 AM CDT Erythrocytosis CBC WITH AUTO DIFFERENTIAL Routine 11/25/2024 8:26 AM CDT Erythrocytosis from Last 3 Months Results * (ABNORMAL) Differential, auto (11/25/2024 8:26 AM CDT) Neutrophil abs 5.71 1.50 - 6.50 K/cumm Comment:Testing performed by : [facility], [address] [place] [address], [place]., [address] Imm gran abs 0.17(H) 0.00 - 0.10 K/cumm NAZIA Comment:Testing performed by : [address], [place]., [address] Lymphocyte abs 0.92 0.80 - 3.30 K/cumm [facility] Comment:Testing performed by : [address], [place]., [address] Monocyte abs 0.40 0.20 - 0.80 K/cumm [facility] Comment:Testing performed by : [address], [place]., [address] Eosinophil abs 0.31 0.00 - 0.50 K/cumm [facility] Comment:Testing performed by : [address], [place]., [address] Basophil abs 0.03 0.00 - 0.10 K/cumm [facility] Comment:Testing performed by : [address], [place]., [address] Neutrophil pct 75.7 % [facility] Comment: Interpretive Data Percent cell count reference ranges are not reported, since discordance with absolute values may lead to misinterpretation of CBC data. Current Interpretive Data was last revised on 2017. Testing performed by: [address], [place]., [address] Imm gran pct 2.3 % [facility] Comment: Interpretive Data Percent cell count reference ranges are not reported, since discordance with absolute values may lead to misinterpretation of CBC data. Current Interpretive Data was last revised on 2017. Testing performed by: [address], [place]., [address] Lymphocyte pct 12.2 % [facility] Comment: Interpretive Data Percent cell count reference ranges are not reported, since discordance with absolute values may lead to misinterpretation of CBC data. Current Interpretive Data was last revised on 2017. Testing performed by: [address] [address] Monocyte pct 5.3 % NAZIA Comment: Interpretive Data Percent cell count reference ranges are not reported, since discordance with absolute values may lead to misinterpretation of CBC data. Current Interpretive Data was last revised on 2017. Testing performed by: [address] [address] Eosinophil pct 4.1 % NAZIA Comment: Interpretive Data Percent cell count reference ranges are not reported, since discordance with absolute values may lead to misinterpretation of CBC data. Current Interpretive Data was last revised on 2017. Testing performed by: [address] [address] Basophil pct 0.4 % NAZIA Comment: Interpretive Data Percent cell count reference ranges are not reported, since discordance with absolute values may lead to misinterpretation of CBC data. Current Interpretive Data was last revised on 2017. Testing performed by: [address] [address] Blood 11/25/2024 8:26 AM CDT 11/25/2024 8:33 AM CDT us Darren Barillas MD LAB BLOOD ORDERABLES Fi nal Result NAZIA [address] [facility] Department [place] [address] * (ABNORMAL) CBC with auto differential (11/25/2024 8:26 AM CDT) WBC 7.54 3.80 - 9.90 K/cumm Comment:Testing performed by : [address] [address] Hgb 16.8 13.0 - 17.5 g/dL NAZIA URBAN Comment:Testing performed by : [address] [address] Hct 51.7(H) 38.9 - 50.3 % NAZIA Comment:Testing performed by : [address] [address] Plt 165 150 - 400 K/cumm NAZIA Comment:Testing performed by : [address] [address] MPV 11.8 9.1 - 12.3 fL NAZIA Comment:Testing performed by : [address] [address] RBC 5.69 4.30 - 5.80 M/cumm NAZIA Comment:Testing performed by : [address] [address] MCV 90.9 81.3 - 96.4 fL NAZIA Comment:Testing performed by : [address] [address] MCH 29.5 27.1 - 33.3 pg NAZIA Comment:Testing performed by : [address] [address] MCHC 32.5 32.3 - 35.7 g/dL NAZIA Comment:Testing performed by : [address] [address] RDW CV 14.7 11.1 - 14.9 % NAZIA Comment:Testing performed by : [address] [address] RDW SD 48.9(H) 35.7 - 48.1 fL NAZIA Comment:Testing performed by : [address] [address] NRBC abs 0.00 0.00 - 0.01 K/cumm NAZIA Comment:Testing performed by : [address] [address] ANC Prelim 5.71 1.50 - 6.50 K/cumm NAZIA Comment: Interpretive Data The rapid ANC is a preliminary automated count and may vary from the final ANC (Neut Abs) reported in the WBC differential that follows. Current interpretive data was last revised 2024. Testing performed by: [address], [address] Blood 11/25/2024 8:26 AM CDT 11/25/2024 8:33 AM CDT Darren Barillas MD LAB BLOOD ORDERABLES Fi nal Result CERNER [facility] [address] [facility] Department [place] [address] from Last 3 Months Insurance MEDICARE [facility] Address: [facility] [address] [place] [address] [facility] MEDICARE SUPPLEMENT MEDICARE [employer] MEDICARE SUPPLEMENT MEDICARE [facility] Advance Directives For more information, please contact: [phone] Documents on File Type Date Recorded Patient Gate Services Supervisor Expl anation ADVANCE DIRECTIVE 11/18/2023 8:38 AM Power of Chimney Builder [employer] ADVANCE DIRECTIVE 03/26/2013 12:00 AM KIKA ING WILL * Full Code (Latest Code Status on File) Date Activated Date Inactivated Comments 11/17/2023 7:33 PM 11/23/2023 8:07 PM * Full Code Date Activated Date Inactivated Comments 11/17/2023 1:32 AM 11/17/2023 5:45 PM Care Teams Flaker Tender Relationship Specialty Start Date End Date Beni Garcia MD [address] [place] [address] PCP - General Family Practice 01/02/23 Pino Banks MD [address] [place] [address] 07/12/17 Gurpreet Villanueva MD [address] [facility] [facility] [place] [address] Dermatology 02/19/20 Darren Barillas MD [address] [facility] [place] [address] Medical Oncologist/Automatic Lehr Operator Hematology and Oncology 07/17/23 Aureliano Terry MD [address] [place], [place] [id number] Recycling Crew Supervisor Pulmonary Disease 02/18/24
[2025-02-09 09:30] LABS: Hematocrit 54.6 % (42.0-52.0); Hemoglobin 17.2 g/dL (14.0-18.0); Immature Granulocyte Percent A 0.5 % (0-0.5); Lymphocytes Absolute Auto 0.63 K/mm3 (0.9-3.2); Mean Corpuscular HGB Conc 31.5 g/dl (32-36); Mean Corpuscular Hemoglobin 29.8 pg (26-34); Mean Corpuscular Volume 94.6 fl (80-100); Nucleated Red Blood Cells Absolute Auto 0.000 K/mm3 (0.0-0.012); Nucleated Red Blood Cells Perc 0.0 % (0.0-0.2); Platelet Count Result 142 k/mm3 (150-375); Red Blood Count 5.77 M/mm3 (4.6-6.20); White Blood Count 6.3 K/mm3 (4.5-10.0)
[2025-02-09 09:52] LABS: Alanine Aminotransferase 13 U/L (6-50); Albumin Level 3.9 g/dL (3.5-5.1); Alkaline Phosphatase 81 U/L (38-126); Anion Gap 8 mmol/L (4-12); Aspartate Amino Transferase 31 U/L (17-59); Bilirubin,Total 1.2 mg/dL (0.2-1.3); Blood Urea Nitrogen 41 mg/dL (9-20); Calcium 8.9 mg/dL (8.4-10.2); Carbon Dioxide 25 mmol/L (22-30); Chloride 107 mmol/L (98-107); Cholesterol 140 mg/dL (0-200); Estimated Glomerular Filt Rate > 60; Glucose 79 mg/dL (65-110); HDL Direct 30 mg/dL; Potassium 3.9 mmol/L (3.4-5.0); Sodium 140 mmol/L (137-145); Total Protein 6.8 g/dL (6.3-8.2); Triglycerides 102 mg/dL (<150)
[2025-02-09 10:27] LABS: Thyroid Stimulating Hormone 4.750 uIU/mL (0.465-4.680)
[2025-02-09 10:47] LABS: Vitamin B12 321.0 pg/mL (239-931)
== END 2025-02-09 08:43 | disposition home or self-care (01) ==
PROVIDERS: PCP Family Medicine; Visit Provider Family Medicine
DX: Z79.899 Other long term (current) drug therapy (principal); I10 Essential (primary) hypertension; I48.0 Paroxysmal atrial fibrillation; E78.5 Hyperlipidemia, unspecified; Z79.01 Long term (current) use of anticoagulants; D75.1 Secondary polycythemia; G47.33 Obstructive sleep apnea (adult) (pediatric); Z99.89 Dependence on other enabling machines and devices
CPT/HCPCS: 36415; 80053; 80061; 82306; 82607; 84443; 85025

== ENCOUNTER 2025-02-12 11:36 | Outpatient (CLI) | payer MEDICARE, SELFPAY ==
[2025-02-12 12:45] LABS: Free T4 Free Thyroxine 1.12 ng/dL (0.78-2.19)
[2025-02-12 12:51] LABS: Thyroid Stimulating Hormone 4.200 uIU/mL (0.465-4.680)
== END 2025-02-12 11:37 | disposition home or self-care (01) ==
PROVIDERS: PCP Family Medicine; Visit Provider Family Medicine
DX: R79.89 Other specified abnormal findings of blood chemistry (principal); I10 Essential (primary) hypertension
CPT/HCPCS: 36415; 84439; 84443; 86376